=== PATIENT | female | born 1945 | race Caucasian/White ===

== ENCOUNTER → 2023-11-07 16:38 | Outpatient (REF) | payer MEDICARE, OTHER, SELFPAY ==
[2023-11-07 17:40] LABS: Hemoglobin 11.8 g/dL (12.0-16.0); Mean Corp Hgb Conc. 32.8 g/dL (33.0-37.0); Mean Corpuscular Hgb 30.9 pg (27.0-31.0); Mean Corpuscular Volume 94.2 fL (81.0-99.0); Mean Platelet Volume 9.7 fL (7.4-10.4); Platelet Count 227 10^3/uL (130-400); Red Blood Cell Count 3.82 10^6/uL (4.20-5.40); Red Cell Dist. Width 14.2 % (11.5-14.5); White Blood Cell Count 6.5 10^3/uL (4.8-10.8)
[2023-11-07 17:47] LABS: Osmolality Urine 725 mOsm/kg (300-900)
[2023-11-07 18:04] LABS: ALT (SGPT) 33 U/L (0-35); AST (SGOT) 45 U/L (14-36); Albumin 4.4 g/dl (3.5-5.0); Alkaline Phosphatase 59 U/L (38-126); Blood Urea Nitrogen 37 mg/dl (7-17); Calcium 10.1 mg/dl (8.4-10.2); Carbon Dioxide 27 mmol/L (22-30); Chloride 98 mmol/L (98-107); Direct Bilirubin 0.2 mg/dl (0.0-0.4); Glucose 99 mg/dl (70-99); Iron 87 ug/dl (37-170); Potassium 4.3 mmol/L (3.5-5.1); Sodium 132 mmol/L (135-145); Total Bilirubin 0.7 mg/dl (0.2-1.3); Total Protein 6.7 g/dl (6.3-8.2); eGFR > 60.00
[2023-11-07 18:14] LABS: Percent Saturation 24 % (20-50); Total Iron Binding Capacity 359 ug/dl (265-497)
[2023-11-07 18:40] LABS: Ferritin 53.2 ng/ml (11.1-264.0)
== END ==
LOC: REG 16:38
PROVIDERS: ATTENDING PHYSICIAN Specialist; FAMILY PHYSICIAN Internal Medicine; OTHER PHYSICIAN Internal Medicine Rheumatology; OTHER PHYSICIAN Nurse Practitioner Family
DX: E87.1 Hypo-osmolality and hyponatremia (principal); R79.89 Other specified abnormal findings of blood chemistry; E83.52 Hypercalcemia; Z87.19 Personal history of other diseases of the digestive system
CPT/HCPCS: 36415; 80053; 82248; 82728; 83540; 83550; 83935; 85027

== ENCOUNTER → 2024-01-31 10:39 | Outpatient (REF) | payer MEDICARE, OTHER, SELFPAY | LOC: REG 10:39 | PROVIDERS: ATTENDING PHYSICIAN Family Medicine; OTHER PHYSICIAN Orthopaedic Surgery; REFERRING PHYSICIAN Internal Medicine Rheumatology | DX: M25.551 Pain in right hip (principal) | CPT/HCPCS: 73502 ==

== ENCOUNTER → 2024-04-06 12:42 | Outpatient (REF) | payer MEDICARE, OTHER, SELFPAY | LOC: HWWDC 12:42 | PROVIDERS: ATTENDING PHYSICIAN Internal Medicine | DX: Z12.31 Encounter for screening mammogram for malignant neoplasm of breast (principal) | CPT/HCPCS: 77063; 77067 ==

== ENCOUNTER → 2024-04-08 09:23 | Outpatient (REF) | payer MEDICARE, OTHER, SELFPAY ==
[2024-04-08 11:51] LABS: % Basophils 0.6 % (0-2); % Eosinophils 0.8 % (0-6); % Immature Granulocytes 0.2 % (0-0.5); % Lymphocytes 18.1 % (20.5-51.1); % Monocytes 10.6 % (1.7-9.3); % Neutrophils 69.7 % (42.2-75.2); Absolute Lymphocytes 0.9 10^3/uL (1.2-3.4); Absolute Monocytes 0.6 10^3/uL (0.1-0.6); Absolute Neutrophils 3.6 10^3/uL (1.4-6.5); Hematocrit 37.5 % (37.0-47.0); Hemoglobin 12.7 g/dL (12.0-16.0); Mean Corp Hgb Conc. 33.9 g/dL (33.0-37.0); Mean Corpuscular Hgb 31.6 pg (27.0-31.0); Mean Corpuscular Volume 93.3 fL (81.0-99.0); Mean Platelet Volume 9.4 fL (7.4-10.4); Nucleated Red Blood Cells % 0 %; Platelet Count 239 10^3/uL (130-400); Red Blood Cell Count 4.02 10^6/uL (4.20-5.40); Red Cell Dist. Width 14.1 % (11.5-14.5); White Blood Cell Count 5.2 10^3/uL (4.8-10.8)
[2024-04-08 12:14] LABS: Blood Urea Nitrogen 30 mg/dl (7-17); Calcium 9.5 mg/dl (8.4-10.2); Carbon Dioxide 31 mmol/L (22-30); Chloride 95 mmol/L (98-107); Glucose 88 mg/dl (70-99); Potassium 4.3 mmol/L (3.5-5.1); Sodium 134 mmol/L (135-145); Uric Acid 3.2 mg/dl (2.5-6.2); eGFR > 60.00
[2024-04-08 12:44] LABS: Cortisol, Random 20.7 ug/dl; TSH 2.55 uIU/ml (0.47-4.68)
[2024-04-08 12:45] LABS: NT-proBNP 1130 pg/ml
== END ==
LOC: HWRAD 09:23
PROVIDERS: ATTENDING PHYSICIAN Internal Medicine Gastroenterology; FAMILY PHYSICIAN Internal Medicine; REFERRING PHYSICIAN Specialist
DX: R74.01 Elevation of levels of liver transaminase levels (principal); R60.9 Edema, unspecified; E87.1 Hypo-osmolality and hyponatremia; D64.9 Anemia, unspecified
CPT/HCPCS: 36415; 76700; 80048; 82533; 83880; 84443; 84550; 85025

== ENCOUNTER → 2024-06-11 12:05 | Outpatient (REF) | payer MEDICARE, OTHER, SELFPAY ==
[2024-06-11 13:04] LABS: % Eosinophils 2.1 % (0-6); % Immature Granulocytes 0.5 % (0-0.5); % Lymphocytes 15.9 % (20.5-51.1); % Monocytes 13.6 % (1.7-9.3); % Neutrophils 66.9 % (42.2-75.2); Absolute Basophils 0.1 10^3/uL (0-0.2); Absolute Eosinophils 0.1 10^3/uL (0-0.7); Absolute Monocytes 0.8 10^3/uL (0.1-0.6); Absolute Neutrophils 4.1 10^3/uL (1.4-6.5); Hematocrit 40.5 % (37.0-47.0); Hemoglobin 13.2 g/dL (12.0-16.0); Mean Corp Hgb Conc. 32.6 g/dL (33.0-37.0); Mean Platelet Volume 9.3 fL (7.4-10.4); Nucleated Red Blood Cells % 0 %; Platelet Count 262 10^3/uL (130-400); Red Cell Dist. Width 14.5 % (11.5-14.5); White Blood Cell Count 6.1 10^3/uL (4.8-10.8)
[2024-06-11 13:16] LABS: ALT (SGPT) 36 U/L (0-35); AST (SGOT) 45 U/L (14-36); Albumin 4.7 g/dl (3.5-5.0); Alkaline Phosphatase 69 U/L (38-126); Blood Urea Nitrogen 32 mg/dl (7-17); Carbon Dioxide 31 mmol/L (22-30); Chloride 94 mmol/L (98-107); Glucose 87 mg/dl (70-99); Potassium 4.7 mmol/L (3.5-5.1); Sodium 132 mmol/L (135-145); Total Bilirubin 0.6 mg/dl (0.2-1.3); Total Protein 7.1 g/dl (6.3-8.2); eGFR > 60.00
== END ==
LOC: REG 12:05
PROVIDERS: ATTENDING PHYSICIAN Internal Medicine Rheumatology; FAMILY PHYSICIAN Internal Medicine
DX: M17.0 Bilateral primary osteoarthritis of knee (principal); M15.0 Primary generalized (osteo)arthritis; M54.2 Cervicalgia; M81.0 Age-related osteoporosis without current pathological fracture; R26.81 Unsteadiness on feet; R53.81 Other malaise; Z51.81 Encounter for therapeutic drug level monitoring
CPT/HCPCS: 36415; 73560; 73565; 80053; 85025

== ENCOUNTER 2024-07-12 20:05 | Inpatient (IN) | payer MEDICARE, OTHER, SELFPAY ==
[2024-07-12] VITALS (11 sets, daily range): BP systolic 104–159; BP diastolic 61–110; BMI 25.8
[2024-07-12 14:31] LABS: % Basophils 0.5 % (0-2); % Eosinophils 0.3 % (0-6); % Immature Granulocytes 0.5 % (0-0.5); % Lymphocytes 11.4 % (20.5-51.1); % Monocytes 10.1 % (1.7-9.3); % Neutrophils 77.2 % (42.2-75.2); Absolute Basophils 0.1 10^3/uL (0-0.2); Absolute Immature Granulocytes 0.1 10^3/uL (0-0.05); Absolute Monocytes 0.9 10^3/uL (0.1-0.6); Hematocrit 39.7 % (37.0-47.0); Mean Corp Hgb Conc. 32.7 g/dL (33.0-37.0); Mean Corpuscular Hgb 30.4 pg (27.0-31.0); Mean Platelet Volume 9.1 fL (7.4-10.4); Nucleated Red Blood Cells % 0 %; Platelet Count 280 10^3/uL (130-400); Red Blood Cell Count 4.27 10^6/uL (4.20-5.40); Red Cell Dist. Width 15.5 % (11.5-14.5); White Blood Cell Count 9.1 10^3/uL (4.8-10.8)
[2024-07-12 14:45] LABS: ALT (SGPT) 73 U/L (0-35); AST (SGOT) 61 U/L (14-36); Albumin 4.4 g/dl (3.5-5.0); Alkaline Phosphatase 104 U/L (38-126); Blood Urea Nitrogen 35 mg/dl (7-17); Calcium 9.6 mg/dl (8.4-10.2); Carbon Dioxide 26 mmol/L (22-30); Chloride 95 mmol/L (98-107); Glucose 96 mg/dl (70-99); Potassium 4.7 mmol/L (3.5-5.1); Sodium 129 mmol/L (135-145); Total Protein 6.6 g/dl (6.3-8.2); eGFR > 60.00
[2024-07-12 14:53] LABS: NT-proBNP 6060 pg/ml
--- NOTE | 2024-07-12 16:25 | ED.GENMED ---
History of Present Illness
General
Chief Complaint: Heart Rate Problem
Source: patient
Exam Limitations: none
Time Seen by Provider: 07/12/24 15:49
History of Present Illness
History of Present Illness:
71-year-old female presents after PCP found her to be in A-fib. She had presented because her legs were swollen. She has had progressive leg swelling. Patient reports she does occasionally get palpitations but has had a heart murmur for some time
and that comes and goes over a long period time. She was found to be in A-fib by her PCP sent for further evaluation. Patient has no history of A-fib. She states in the past she has had an echocardiogram but otherwise her heart has been healthy.
She currently at rest in bed denies shortness of breath. No fever.
Past History
Past History
ED Past Medical History: Other (dry eyes)
ED Past Surgical History: Appendectomy, Cholecystectomy and Gynecological
Social History
Tobacco: Non-smoker
Living: with family
Employment: Employed
Phy Exam
Physical Exam
Physical Exam:
CONSTITUTIONAL Patient alert and oriented to person, place and time. Well-appearing. Vital signs reviewed.
HEAD atraumatic, normocephalic.
EYES eyelids normal to inspection, Extraocular muscles intact, Conjunctiva normal, Sclera normal.
NECK normal range of motion, Trachea midline, no jugular venous distention.
RESPIRATORY CHEST No respiratory distress noted, Chest expansion equal, Bilateral breath sounds clear.
CARDIOVASCULAR irregularly irregular and tachycardic, Heart sounds normal.
ABDOMEN abdomen nontender, Bowel sounds normal. No distention.
BACK normal inspection, no obvious deformities
UPPER EXTREMITY range of motion normal, Motor strength normal, no cyanosis, no edema.
LOWER EXTREMITY range of motion normal, Motor strength normal, no cyanosis, bilateral edema (L > R)
NEURO Speech normal, No focal motor deficits, [place] coma scale 15, Memory normal, Cranial Nerves intact to screening exam.
SKIN skin warm, dry, and normal in color.
Course
Orders/Labs/Results
Orders:
Orders
07/12/24 14:04
EKG [Electrocardiogram (*1)] Urgent
Reason for Study: Atrial Fibrillation
07/12/24 14:05
EKG- Treatment ONCE
07/12/24 14:23
Complete Blood Count/With Diff Urgent
Comprehensive Metabolic Panel Urgent
NT-proBNP Urgent
07/12/24 16:25
Diltiazem 125 mg/125 ml Nss [Cardizem] 125 mg in 125 ml IV NOW
Initial dose in mg/hr, then titrate:: 5
Titrate to keep:: Heart rate 80-100 bpm
Titrate by mg/hr:: 5 mg/hr
Frequency of titrations (minutes):: 15
Maximum dose in mg/hr:: 15
Diltiazem HCl [Cardizem] 10 mg IV NOW STA
CR Chest - 2 Views Urgent
Comment:
Reason For Exam: LE edema, new AF
07/12/24 16:47
Vital Signs- Treatment ONCE
Frequency: Once
07/12/24 17:04
Furosemide [Lasix] 40 mg IV NOW STA
Abnormal Lab Results
07/12/24
14:23
MCHC 32.7 L g/dL
(33.0-37.0)
RDW 15.5 H %
(11.5-14.5)
Abs Immat Gran (auto) 0.1 H 10^3/uL
(0-0.05)
Absolute Neuts (auto) 7.0 H 10^3/uL
(1.4-6.5)
Absolute Lymphs (auto) 1.0 L 10^3/uL
(1.2-3.4)
Absolute Monos (auto) 0.9 H 10^3/uL
(0.1-0.6)
Neutrophils % 77.2 H %
(42.2-75.2)
Lymphocytes % 11.4 L %
(20.5-51.1)
Monocytes % 10.1 H %
(1.7-9.3)
Sodium 129 L mmol/L
(135-145)
Chloride 95 L mmol/L
(98-107)
BUN 35 H mg/dl
(7-17)
AST 61 H U/L
(14-36)
ALT 73 H U/L
(0-35)
07/12/24 14:23
07/12/24 14:23
Vital Signs
Initial and Last Documented VS:
Initial Vital Signs
Temp Pulse Resp BP Pulse Ox
97.7 F 128 18 144/84 95
07/12/24 14:11 07/12/24 14:11 07/12/24 14:11 07/12/24 14:11 07/12/24 14:11
Last Documented Vital Signs
Temp Pulse Resp BP Pulse Ox
97.7 F 96 19 122/81 95
07/12/24 14:11 07/12/24 17:08 07/12/24 17:08 07/12/24 17:38 07/12/24 14:11
MDM/Problems Addressed
MDM/Problems Addressed:
Atrial fibrillation with RVR
*Pulse Oximetry
Patient hypoxic: no
*EKG
Interpreted by ED Provider?: Yes
Interpretation: abnormal
Rate: tachycardiac
Rhythm: a-fib
[place]: normal axis
Ischemia: non-specific ST changes
*Undergraduate Advisor Interpretation
Rate: tachycardiac
Interpretation: abnormal
Rhythm: a-fib
*Critical Care Note
Total Time (30-74mins, 75-104mins- exclusive of procedures): 40 minutes
Data Reviewed
Review of Other/Old Records Reveals: Testing (Echocardiogram from August 2022 reveals normal EF with mild mitral regurgitation)
Source: patient
Patient Management
Discussion with other providers: Hospitalist
Escalation/DeEscalation of care consider admission/obs:
79-year-old female presents with rapid atrial fibrillation. Found to have presyncope lower extremity edema and question whether mild volume overload related to new onset A-fib. Unknown when this started. Hemodynamically she is otherwise stable.
ED Attending Note
-
Portions of this chart may have been created with voice recognition software.� Occasional wrong word or��sound alike� substitutions may have occurred due to the inherent limitations of voice recognition software.
Discharge Plan
Departure
Patient Disposition: Admit
Date of Disposition: 07/12/24
Time of Disposition: 17:52
Admit to: Telemetry
Presentation/result/management discussed w/ accepting MD/DO: Hospitalist
Discharge Problem:
Atrial fibrillation with rapid ventricular response, Volume overload
Prescriptions:
No Action
cyclosporine [Restasis] 1 EACH dropperette
1 ea OP BID
Patient Comments:
EACH EYE
multivitamin [Daily Multiple] 1 EACH tablet
1 ea PO DAILY
ascorbic acid (vitamin C) [Vitamin C] 500 MG tablet
500 mg PO DAILY
Referrals:
Hanny Cerda NP [Family Provider] -
Interventions
Interventions:
*Risk Screen - Suicide Last Done: 07/12/24 14:11
*General Assessment Last Done: 07/12/24 14:11
*Neglect/Abuse Screening Last Done: 07/12/24 14:11
ED- Cardiac Assessment Last Done: 07/12/24 15:59
ED- Pulmonary Assessment Last Done: 07/12/24 15:59
Discharge Date and Time
Print Language: IRAQI
[2024-07-12] MEDS: CARDIZEM 10 MG IV (16:38)
[2024-07-12] MEDS: CARDIZEM 125 IV (16:39)
--- NOTE | 2024-07-12 18:06 | HPS.HSE ---
Family Physician
-
Family Physician: Hanny Cerda
Chief Complaint
-
referred by primary care
History of Present Illness
Patient is a 79-year-old female with past medical history significant for Sjogren's syndrome who presented to [facility] ED for evaluation as recommended by primary care provider. Patient reports she was in office for visit for follow up of
bilateral lower extremity edema. Primary care did an EKG and referred patient to ED for evaluation from concerns on EKG. At ED arrival patient in A-fib RVR. Patient denies any dizziness, palpitations and chest pain. Patient denies any recent sick
contact, fevers, chills, cough, shortness of breath, nausea, vomiting, constipation, diarrhea or urinary symptoms.
Medical History
Past Medical History
Past Medical History: Reports Other
Additional Past Medical History:
Sjogren's syndrome
osteoarthritis
Breast lump
Raynaud's syndrome
Scoliosis-back surgery
Mitral regurgitation
DJD
Sicca syndrome
Mitral valve prolapse
Atrial tachycardia
Hyponatremia, idiopathic
Recurrent partial small bowel obstruction
Gait and balance disturbance
Elevated AST (chronic)
Left-sided pulmonary nodule/granuloma
Left lower extremity edema (chronic)
Bursitis tendinitis
Lactose intolerance
Gluten enteropathy
Past Surgical History: Reports Other
Additional Past Surgical History:
Hysterectomy, total abdominal, BSO 1995
Bowel resection due to adhesions 2010
Cholecystectomy 1977
Spinal surgery revision 1997
Breast biopsy 1995
Lumbar spinal fusion with helen placement 1988
Right wrist fracture--plants/screws 2016
Cataract surgery OU 2018
Left hip bursa drainage
LEFT hip replacement 08/27/2022
Social History
Tobacco: Non-smoker
Alcohol: None
Drug: None
Personal:
Living: With Family
Employment: Retired
Family History
Family History: Other (Mom: CVA)
Allergies / Home Medications
Allergies reflects when Allergies were last updated in [employer].
Home Medications with original date entered in [employer]
Allergy/Medication List:
Allergies
Allergy/AdvReac Type Severity Reaction Status Date / Time
jose hips Allergy Hives Uncoded 03/19/18 08:34
Home Medications
ascorbic acid (vitamin C) 500 mg tablet (Vitamin C) 500 mg PO DAILY 03/19/18
cholecalciferol (vitamin D3) 25 mcg (1,000 unit) tablet (Vitamin D3) 25 mcg PO DAILY 07/12/24
cyclosporine 0.05 % eye drops in a dropperette (Restasis) 1 drp BOTH EYES Q12H 07/12/24
polyethylene glycol 3350 17 gram oral powder packet (Miralax) 17 g PO DAILY 07/12/24
therapeutic multivitamin 1 tab PO DAILY 07/12/24
Review of Systems
-
History Source: Patient
Constitutional: Reports No Symptoms
EENT: Reports No Symptoms
Respiratory: Reports No Symptoms
Cardiac: Reports No Symptoms
Abdomen/GI: Reports No Symptoms
: Reports No Symptoms
Musculoskeletal: Reports No Symptoms
Skin: Reports No Symptoms
Neurological: Reports No Symptoms
Endocrine: Reports No Symptoms
Hematologic/Lymphatic: Reports No Symptoms
Psych: Reports No Symptoms
Physical Exam
Vital Signs
Vital Signs
Temp Pulse Resp BP Pulse Ox
97.7 F 96 19 122/81 95
07/12/24 14:11 07/12/24 17:08 07/12/24 17:08 07/12/24 17:38 07/12/24 14:11
Physical Exam
General: Well Developed, Well Nourished, No Apparent Distress, Comfortable and Conversant
HEENT: NormoCephalic, Moist mucous membranes, Atraumatic, PERRLA, [place] Conjunctivae, Nose Appears Normal and Ears Appear Normal
Respiratory: Clear and Non Labored Respirations
Cardiac: S1/S2, Irregular Rhythm and Tachycardia; No Murmur, Rub or Gallop
GI: Soft, Non Tender, Non Distended and Normal Bowel Sounds; No Organomegaly
Rectal: Deferred by Provider
Genito-urinary: Deferred by me
Musculoskeletal: No Clubbing, No Cyanosis, Edema, Left Lower Extremity (+3 nonpitting edema ), Edema, Right Lower Extremity (+2 nonpitting edema ) and No Edema
Skin: Warm and IV/Catheter Site; No Rash
Neuro: Awake, Alert, AO x 3 and Nonfocal/grossly intact
Psych: Calm and Intact Judgment/Insight
Laboratory Results
-
07/12/24 14:23
07/12/24 14:23
Laboratory Results
Total Bilirubin 1.0 mg/dl (0.2-1.3) 07/12/24 14:23
AST 61 U/L (14-36) H 07/12/24 14:23
ALT 73 U/L (0-35) H 07/12/24 14:23
Alkaline Phosphatase 104 U/L (38-126) 07/12/24 14:23
Data Reviewed
-
Diagnostic Radiology: Report Reviewed by me (CXR: There are moderate bilateral pleural effusions with underlying parenchymal airspace disease at both lung bases which may be pneumonia or atelectasis.)
Medical Tests (Nuc Med, Echo, EKG etc): Report Reviewed by me (EKG: ATRIAL FIBRILLATION WITH RAPID VENTRICULAR RESPONSE RIGHTWARD AXIS NONSPECIFIC ST AND T WAVE ABNORMALITY)
Lab Data: Labs Reviewed by me (Na 129, BNP 6060)
Impression/Plan
-
IMPRESSION/PLAN:
#Atrial fibrillation RVR
EKG: ATRIAL FIBRILLATION WITH RAPID VENTRICULAR RESPONSE
RIGHTWARD AXIS
NONSPECIFIC ST AND T WAVE ABNORMALITY
CXR: There are moderate bilateral pleural effusions with underlying parenchymal airspace disease at both lung bases which may be pneumonia or atelectasis.
- Admit to IVU
- consult Cardiology
- Diltazem gtt
- ECHO in morning
#fluid overload vs. CHF
BNP 6060
ECHO (08/24/2022): Normal left ventricular size, wall thickness and systolic function. No regional wall motion abnormalities are seen. Estimated ejection fraction is 55- 60%.
Bi-leaflet mitral valve prolapse. Mild mitral regurgitation.
Mild tricuspid regurgitation
Trivial pericardial effusion
No prior echo for comparison.
- ECHO in morning
- Lasix 40mg daily
#hyponatremia
Na+ 129
- monitor BMP
#Sjogren's syndrome
- continue Restasis
Code status: Full code
DVT Prophylaxis: Lovenox sq
--- NOTE | 2024-07-12 18:37 | W.PN.UPDATE ---
Update Note
Progress Note Update
This note serves as an addendum to the H&P by heating repair technician LORETTA Chen Montalvo
HPI
79M HX SBO , no significant PMHX seen at ER;
- she pw progressive b/l Bairon edematous swelling to PCP office
- PCP found her to be in AF with RVR. No prior HX A Fib
- reports occasionally palpitations that comes and goes over a long period time.
- HX heart mumur
ROS
denies shortness of breath. No fever.
Reviewed VS: HR 140s --> 95
Vital Signs
Temp Pulse Resp BP Pulse Ox
97.7 F 96 19 122/81 95
07/12/24 14:11 07/12/24 17:08 07/12/24 17:08 07/12/24 17:38 07/12/24 14:11
PE
Gen: NAD, conversant , not orthopnic
HEENT:anicteric
Neck: wearing soft collar
Lungs: clear b/l
Cor: irregularly irregular and tachycardic
Abdomen: sogt benign
TRAILERS AND MOTOR HOMES SALESPERSON: AAO3
MS:b.l BAIRON edema under the compression stocking
Psych: nl mood and affect
Data
Laboratory Tests
07/12/24
14:23
WBC 9.1
Hgb 13.0
Plt Count 280
Sodium 129 L
Chloride 95 L
BUN 35 H
Creatinine 0.6
eGFR > 60.00
AST 61 H
ALT 73 H
Dqf-Q-Arjcwfxtyly Pept 6060
EKG
ATRIAL FIBRILLATION WITH RAPID VENTRICULAR RESPONSE
RIGHTWARD AXIS
NONSPECIFIC ST AND T WAVE ABNORMALITY
ABNORMAL ECG
WHEN COMPARED WITH ECG OF 02-OCT-2016 14:23,
ATRIAL FIBRILLATION HAS REPLACED SINUS RHYTHM
VENT. RATE HAS INCREASED BY 59 BPM
NONSPECIFIC T WAVE ABNORMALITY NOW EVIDENT IN ANTEROLATERAL LEADS
Confirmed by GRANT DE LA FUENTE, ALEX Truong ([id number]) on 07/12/2024 3:36:17 PM
08/24/22 ECHO
Normal left ventricular size, wall thickness and systolic function.
No regional wall motion abnormalities are seen.
Estimated ejection fraction is 55- 60%.
Bi-leaflet mitral valve prolapse.
Mild mitral regurgitation.
Mild tricuspid regurgitation
Trivial pericardial effusion
No prior echo for comparison.
Last hospitalist admission: 2016 for SBO
ASSESSMENT & PLAN
Volume overload
New onset acute CHF - suspect HFpEF
Underlying MVP and mitr regurgitation ( Known to Dr Cotton in the past)
- IV Lasix 40 daily
- Daily Wt, IOs
- Daily BMP
- ECHO in AM
- [facility] card consult
New onset Prx AF with RVR
HX Bi-leaflet mitral valve prolapse.
- CHADS2 score 2 ( Age, acute CHF) 4 percent
- control VR in response to Diltiazem gtt
- Rate control with Diltiazem gtt risk of thromboembolic event
- Await [facility] card evaluation for AC
Abn LFTS - suspect hepatic congestion to CHF
- trend LFTS
DVT Px: LMWH
Code: Full
IVU
[2024-07-12] MEDS: LASIX 40 MG IV (18:55)
[2024-07-12] MEDS: FLUSH (NSS) 1 FLUSH IV (22:02)
[2024-07-12] MEDS: RESTASIS 0.05% OPHTHALMIC EMULSION 1 DROPS BOTH EYES (22:02)
[2024-07-13] VITALS (18 sets, daily range): BP systolic 94–133; BP diastolic 50–85; PULSE 87; BMI 21.7
[2024-07-13 06:32] LABS: Hematocrit 37.9 % (37.0-47.0); Hemoglobin 12.8 g/dL (12.0-16.0); Mean Corp Hgb Conc. 33.8 g/dL (33.0-37.0); Mean Corpuscular Hgb 30.7 pg (27.0-31.0); Mean Corpuscular Volume 90.9 fL (81.0-99.0); Mean Platelet Volume 10.4 fL (7.4-10.4); Platelet Count 256 10^3/uL (130-400); Red Blood Cell Count 4.17 10^6/uL (4.20-5.40); Red Cell Dist. Width 15.1 % (11.5-14.5); White Blood Cell Count 5.7 10^3/uL (4.8-10.8)
[2024-07-13 07:06] LABS: ALT (SGPT) 69 U/L (0-35); AST (SGOT) 53 U/L (14-36); Albumin 3.8 g/dl (3.5-5.0); Alkaline Phosphatase 88 U/L (38-126); Blood Urea Nitrogen 27 mg/dl (7-17); Calcium 8.8 mg/dl (8.4-10.2); Carbon Dioxide 28 mmol/L (22-30); Chloride 95 mmol/L (98-107); Estimated Creatinine Clearance 63 ml/min; Glucose 72 mg/dl (70-99); HDL Cholesterol 77 mg/dl; LDL Cholesterol, Calculated 91 mg/dl; Potassium 4.1 mmol/L (3.5-5.1); Sodium 132 mmol/L (135-145); Total Bilirubin 1.3 mg/dl (0.2-1.3); Total Cholesterol 180 mg/dl (50-199); Total Protein 5.9 g/dl (6.3-8.2); Triglyceride 63 mg/dl (10-149); Very Low Density Lipoprotein 12 mg/dl (0-30); eGFR > 60.00
--- NOTE | 2024-07-13 08:51 | CON.CAR ---
Addendum entered and electronically signed by Luis Manuel Mcgregor MD 07/13/24 15:55:
I saw and examined the patient.
The Varnish Finisher's note was reviewed and I agree with the note.
Comment:
GEN: No distress, awake, Ox3
HEENT: supple, anicteric, mmm
LUNGS: dec Bs at bases
CV: Irreg, S1/S2, / syst LSB, S3+
ABD: soft, BS+, NT/ND
EXT: +1 edema
NEURO: Gross non-focal
SKIN: No rash
Plan: 79-year-old female with past medical history of mitral valve disease, SVT presents with acute heart failure with preserved ejection fraction. She has noticed increased leg edema, fatigue, and shortness of breath with weight gain. proBNP is
elevated at 6000 and chest x-ray with bilateral lateral moderate effusions. She was also found to have new onset atrial fibrillation.
Continue IV Cardizem for now. Start Toprol 25 mg p.o. twice daily. Echo today with severe mitral regurgitation. Will hold Eliquis and placed on IV heparin for now. She will need a STEPHANE to better evaluate her mitral valve. I suspect she also may
need a cardiac cath to be consideration for mitral valve repair.
Will continue a rate control strategy for her A-fib for now. Will attempt to diurese and follow her clinically. Would consider cardioversion but this would delay further management of her mitral valve disease for 1 month with uninterrupted
anticoagulation.
Increase Lasix to 40 mg IV twice daily.
Original Note:
Consultation
Consultation Request
Date/Time Consultation Performed: 07/13/24
Requesting Provider: Dr. Dobbs
Performing Provider: Jen Lawton PA-C for Dr. Grossman
Reason for Consultation: afib, CHF
Medical History
-
Chief Complaint: SOB
History of Present Illness:
Patient is a 79 yo F with PMH of MVP and MR, SVT who presented to with complaints of LE edema and abnormal EKG noted during PCP office visit yesterday. She reports since her L hip replacement 08/2022 she has noted L sided edema, however starting
in May she began to notice swelling in both legs. She is scheduled to see lymphedema clinic 08/02/24 for evaluation. As edema continued to worsen with associated weight gain, she was seen by PCP yesterday and referred to ER. ProBNP 6060 and CXR
with evidence of mod B/L pleural effusions. By EKG on arrival noted to be in afib with RVR, new diagnosis. Denies dizziness or chest discomfort. She states she has chronic palpitations and murmur related to her MVP so she has learned to ignore them.
Cardiology consulted for evaluation.
PMH:
MVP
Mild MR by echo 2022
History of SVT/Atach
Sjogren's syndrome
Chronic hyponatremia
History of SBO with bowel resection 2010
Lumbar spinal fusion with helen placement 1988 with revision 1997
OA
Past Medical History
Past Medical History: Other (in HPI)
Social History
Tobacco: Non-Smoker
Alcohol: None
Personal:
Living: With Family
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
Family History
Family History: Other (CVA in mother)
Allergies / Home Medications
Allergy/AdvReac Type Severity Reaction Status Date / Time
jose hips Allergy Hives Uncoded 03/19/18 08:34
�Medication �Instructions �Recorded �Confirmed �Type
ascorbic acid (vitamin C) 500 mg 500 mg PO DAILY 03/19/18 07/12/24 History
tablet (Vitamin C)
cholecalciferol (vitamin D3) 25 25 mcg PO DAILY 07/12/24 07/12/24 History
mcg (1,000 unit) tablet (Vitamin
D3)
cyclosporine 0.05 % eye drops in a 1 drp BOTH EYES Q12H 07/12/24 07/12/24 History
dropperette (Restasis)
polyethylene glycol 3350 17 gram 17 g PO DAILY 07/12/24 07/12/24 History
oral powder packet (Miralax)
therapeutic multivitamin 1 tab PO DAILY 07/12/24 07/12/24 History
Review of Systems
-
History Source: Patient
All other systems: Negative unless noted
Physical Exam
Vital Signs
Temp Pulse Resp BP Pulse Ox
97.8 F 81 15 96/61 95
07/13/24 05:21 07/13/24 07:00 07/13/24 07:00 07/13/24 07:00 07/13/24 04:00
Lab Results
07/13/24 05:12
07/13/24 05:12
Nzl-D-Iitpkmtrgrg Pept 6060 pg/ml 07/12/24 14:23
Physical Exam
General: No Apparent Distress and Comfortable
HEENT: Normocephalic, Anicteric and Moist Mucous Membranes
Respiratory: Clear (anterolaterally) and Non Labored Respirations
Cardiac: S1/S2, Irregular Rhythm and Murmur
GI: Soft, Non Tender, Non Distended and Normal Bowel Sounds
Musculoskeletal: No Clubbing, No Cyanosis and Edema (1+ of B/L LE with compression stockings in place)
Skin: Warm, Dry and Other (abrasion to R knee)
Neuro: AO x 3
Impression / Plan
-
Primary Leather Leveler: none prior to admission
Assessment:
Presentation with LE edema, weight gain, tachycardia
Acute CHF, unknown type
Mod B/L pleural effusions by CXR
Atrial fibrillation with RVR, new diagnosis of unclear duration
Elevated LFTs, suspected passive congestion secondary to above
MVP
Mild MR by echo 2022
History of SVT/Atach
Sjogren's syndrome
Chronic hyponatremia
History of SBO with bowel resection 2010
Lumbar spinal fusion with helen placement 1988 with revision 1997
OA
ECHO 08/2022: EF 55-60%, bileaflet MVP, mild MR, mild TR, trivial pericardial effusion
Plan:
-Patient presented to ER from PCP office due to LE edema and tachycardia/abnormal EKG.
-noted to be in afib with RVR by EKG, new diagnosis
-currently remains in afib on IV cardizem gtt @5.
-[id number] score of 5 for age, female, HTN, CHF. will initiate OAC with eliquis 5mg BID. she denies history of falls/bleeding issues
-also in acute CHF with proBNP 6060 and CXR with mod B/L pleural effusions. continue IV lasix 40mg daily. was not on lasix prior to admission
-CHF education
-she reports issues with chronic cramps. will place on potassium 10mEq daily. check magnesium
-consider chest US to eval for thoracenteses
-last echo from 08/2022 as above, repeat pending 07/13
-may consider for STEPHANE/CV prior to DC if does not spontaneously convert to SR.
-of note, she reports she has issues with ambulation at baseline. for OP appts will need someone to bring her in wheelchair from pavilion lobby up to cardiology [address] ( is unable to do this).
-d/w echo
Data Reviewed
-
EKG: Tracing Personally Visualized and interpreted
Radiology: Report Reviewed by me
Medical Tests (Nuc Med, Echo etc): Report Reviewed by me
Labs: Labs Reviewed by me
Old Records: Reviewed
[2024-07-13 09:22] LABS: Glycohemoglobin (HgbA1c) 5.4 % (4.0-5.6)
[2024-07-13] MEDS: LASIX 40 MG IV (10:15)
[2024-07-13] MEDS: MIRALAX 17 GRAMS PO (10:19)
[2024-07-13] MEDS: RESTASIS 0.05% OPHTHALMIC EMULSION 1 DROPS BOTH EYES ×2 (10:20→21:35)
[2024-07-13] MEDS: THERAGRAN 1 TABLET PO (10:20)
[2024-07-13] MEDS: VITAMIN C 500 MG PO (10:21)
[2024-07-13] MEDS: VITAMIN D3 (cholecalciferol) 25 MCG PO (10:21)
[2024-07-13] MEDS: KCL 10 MEQ PO (10:31)
[2024-07-13 11:09] LABS: Magnesium 2.2 mg/dl (1.6-2.3)
[2024-07-13] MEDS: ELIQUIS 5 MG PO (11:36)
--- NOTE | 2024-07-13 13:05 | W.PN.HOSP.TC ---
Today's Communication/Plan
-
Continue diuretics
Ankle x-rays
PT/OT
Assessment / Plan
Assessment / Plan
Gen-AAOx3, NAD
HEENT-NC, AT, anicteric, clear oral mm
Neck-supple
CV-reg, no M, +S1/S2
Lungs-clear B/L
Abd-soft, NT, ND
Ext-no edema
Musculoskeletal-no cyanosis, clubbing
Skin-warm and dry
Neuro-grossly non-focal
Psych-calm, cooperative
Acute heart failure, unknown type -await echocardiogram. Continue IV Lasix. Not on diuretics prior to admission.
Moderate bilateral pleural effusions -suspect due to congestive heart failure. Consider thoracentesis if no improvement with diuresis. She is not particularly bothered by the pleural effusions denies significant shortness of breath, does have mild
dyspnea on exertion.
Atrial fibrillation with rapid ventricular response -new diagnosis, unclear duration. Eliquis started by cardiology. Heart rate improved with IV Cardizem.
Elevated transaminases -possibly due to passive congestion from heart failure. Can check GGT.
History of SVT/atrial tachycardia
Sjogren syndrome -she is complaining of bilateral ankle pain, worse on the right. Will get x-rays. Denies recent fall or injury.
Chronic hyponatremia -sodium at baseline.
History of SBO -bowel resection 2010.
Mitral valve prolapse
Scoliosis - hx of spinal fusion with helen placement 1988, revision 1997.
Full code
Anticipated Discharge: > 48 hours
Subjective/Interval History
-
Date of Service: July 13, 2024
Patient seen and examined. Mild dyspnea on exertion.
Objective Data
-
Labs:
Laboratory Results
07/13/24
05:12
WBC 5.7
Hgb 12.8
Hct 37.9
Plt Count 256
Sodium 132 L
Potassium 4.1
Chloride 95 L
Carbon Dioxide 28
BUN 27 H
Creatinine 0.5 L
Glucose 72
Calcium 8.8
Total Bilirubin 1.3
AST 53 H
ALT 69 H
Alkaline Phosphatase 88
Vital Signs:
Vital Signs
Temp Pulse Resp BP Pulse Ox
97.8 F 91 23 123/77 96
07/13/24 05:21 07/13/24 12:00 07/13/24 12:00 07/13/24 10:16 07/13/24 07:30
Review of Systems
-
History Source: Patient
All other systems: Reviewed and negative
[2024-07-13 14:14] LABS: GGTP 37 U/L (12-43)
[2024-07-13] MEDS: CARDIZEM 125 IV (16:39)
[2024-07-13] MEDS: TOPROL XL 25 MG PO (16:49)
[2024-07-13] MEDS: HEPARIN 25000 UNITS/250 ML IV (20:20)
[2024-07-14] VITALS (9 sets, daily range): BP systolic 90–122; BP diastolic 55–80; PULSE 88; O2SAT 98; BMI 21.2
[2024-07-14 02:59] LABS: APTT 54.2 Sec (23.4-35.0)
--- NOTE | 2024-07-14 05:11 | DOWNTIME ---
There was a [employer] Client Batch Trucker Downtime on 07/14/2024 from 0100 to 07/14/2023 at 0235 . Downtime documentation of patient's care, including medication administrations, has been reconciled in the electronic record per guidelines. Refer to the
patient's paper chart under the miscellaneous tab to see printed paper medication records and downtime forms.
[2024-07-14] MEDS: VITAMIN D3 (cholecalciferol) 25 MCG PO (08:02)
[2024-07-14] MEDS: VITAMIN C 500 MG PO (08:02)
[2024-07-14] MEDS: KCL 10 MEQ PO (08:02)
[2024-07-14] MEDS: RESTASIS 0.05% OPHTHALMIC EMULSION 1 DROPS BOTH EYES ×2 (08:02→19:38)
[2024-07-14] MEDS: MIRALAX 17 GRAMS PO (08:02)
[2024-07-14] MEDS: THERAGRAN 1 TABLET PO (08:02)
[2024-07-14] MEDS: LASIX 40 MG IV (08:03)
[2024-07-14] MEDS: TOPROL XL PO (08:14)
--- NOTE | 2024-07-14 09:58 | W.PN.CARDCBS ---
Addendum entered and electronically signed by Sandra Butt MD 07/14/24 10:18:
I saw and examined the patient.
The Manual Arts Teacher's note was reviewed and I agree with the note.
Comment: Exam continues with volume overload. Crackles at the base bilateral. Irregularly irregular with 3/6 apical holosystolic murmur and trace edema bilateral.
-Echocardiogram 07/13/2024 reviewed during this admission with normal left ventricular ejection fraction. Mildly enlarged right ventricle. Bileaflet mitral valve prolapse with severe eccentric mitral regurgitation moderate to severe tricuspid
regurgitation. PA pressure 35 mmHg.
She has atrial fibrillation with rapid ventricular response of unknown duration, bilateral pleural effusions, heart failure with preserved ejection fraction with severe mitral regurgitation and moderate to severe tricuspid regurgitation.
Plan at this time which I discussed with patient:
-Continue diuresis and heart failure treatment
-Consider SGLT2 inhibitor if affordable
-Heart failure teaching. Follow weights and input/output
-Transesophageal echocardiogram to further define mitral valve anatomy given severe mitral regurgitation.
-Plan for cardiac catheterization also this week if mitral regurgitation is severe
Discussed plan at length and all questions answered. Risks and benefits of procedures discussed and she is agreeable to proceed as needed.
Original Note:
Today's Communication / Plan
-
continue IV lasix
wean off IV cardizem drip. continue toprol
NPO for STEPHANE in AM
IV heparin
Impression / Plan
-
Primary Health Claims Examiner: none prior to admission
Assessment:
Presentation with LE edema, weight gain, tachycardia
Acute CHF, unknown type
Mod B/L pleural effusions by CXR
Atrial fibrillation with RVR, new diagnosis of unclear duration
Elevated LFTs, suspected passive congestion secondary to above
MVP
Mild MR by echo 2022
History of SVT/Atach
Sjogren's syndrome
Chronic hyponatremia
History of SBO with bowel resection 2010
Lumbar spinal fusion with helen placement 1988 with revision 1997
OA
ECHO 08/2022: EF 55-60%, bileaflet MVP, mild MR, mild TR, trivial pericardial effusion
Plan:
-Patient presented to ER from PCP office due to LE edema and tachycardia/abnormal EKG.
-remains in afib with adequate rate control. increase toprol to 25mg BID and wean off IV cardizem gtt
-continue IV heparin for now. eventual transition to eliquis
-echo showed severe MR. will plan for STEPHANE in AM. pending results of STEPHANE, would consider for cath Friday and CT surgical evaluation.
-continue diuresis with IV lasix. patient reports swelling improving and weight downtrending. BMP pending today. was not on diuretic prior to admission
-CHF education
-she reports issues with chronic cramps. placed on potassium 10mEq daily. mag stable
-of note, she reports she has issues with ambulation at baseline. for OP appts will need someone to bring her in wheelchair from [facility] up to cardiology [address] ( is unable to do this).
Progress Note - Health Claims Examiner
Subjective
Date of Service: July 14, 2024
reports improvement in LE edema and good urine output overnight
Objective
Labs:
07/13/24 05:12
07/13/24 05:12
Labs
Hgb 12.8 g/dL (12.0-16.0) 07/13/24 05:12
Hct 37.9 % (37.0-47.0) 07/13/24 05:12
Plt Count 256 10^3/uL (130-400) 07/13/24 05:12
APTT 54.2 Sec (23.4-35.0) H 07/14/24 02:00
Sodium 132 mmol/L (135-145) L 07/13/24 05:12
Potassium 4.1 mmol/L (3.5-5.1) 07/13/24 05:12
BUN 27 mg/dl (7-17) H 07/13/24 05:12
Creatinine 0.5 mg/dL (0.6-1.0) L 07/13/24 05:12
Glucose 72 mg/dl (70-99) 07/13/24 05:12
Vital Signs and I&O:
Vital Signs
Temp Pulse Resp BP Pulse Ox
97.8 F 91 18 99/60 100
07/14/24 07:21 07/14/24 08:14 07/14/24 07:21 07/14/24 08:14 07/14/24 07:21
Vital Signs
Temp Pulse Resp BP Pulse Ox
97.8 F 91 18 99/60 100
07/14/24 07:21 07/14/24 08:14 07/14/24 07:21 07/14/24 08:14 07/14/24 07:21
Intake & Output
07/12/24 07/13/24 07/14/24 07/15/24
07:59 07:59 07:59 07:59
Intake Total 240 / 240
Balance 240 / 240
Physical Exam
Physical Exam
GEN: No distress, awake, alert, oriented x3
HEENT: supple, anicteric, mmm, eomi
LUNGS: Crackles B/L bases, no wheezes
CV: irreg, S1/S2, 2/6 murmur
ABD:soft, BS+, NT/ND
EXT: No cyanosis, clubbing, edema
NEURO: Gross non-focal
SKIN: Warm, pink, dry. No rash
--- NOTE | 2024-07-14 10:09 | W.PN.HOSP.TC ---
Today's Communication/Plan
-
N.p.o. after midnight
Assessment / Plan
Assessment / Plan
Gen-AAOx3, NAD
HEENT-NC, AT, anicteric, clear oral mm
Neck-supple
CV-reg, no M, +S1/S2
Lungs-clear B/L
Abd-soft, NT, ND
Ext-no edema
Musculoskeletal-no cyanosis, clubbing
Skin-warm and dry
Neuro-grossly non-focal
Psych-calm, cooperative
Acute heart failure preserved EF -echocardiogram noted. Continue IV Lasix. Not on diuretics prior to admission. Weight coming down.
Severe mitral regurgitation - for STEPHANE tomorrow. N.p.o. after midnight.
Moderate bilateral pleural effusions -suspect due to congestive heart failure. Consider thoracentesis if no improvement with diuresis. She is not particularly bothered by the pleural effusions denies significant shortness of breath, does have mild
dyspnea on exertion.
Atrial fibrillation with rapid ventricular response -new diagnosis, unclear duration. Eliquis started by cardiology. Heart rate improved with IV Cardizem.
Elevated transaminases -possibly due to passive congestion from heart failure. Can check GGT.
History of SVT/atrial tachycardia
Sjogren syndrome -she is complaining of bilateral ankle pain, worse on the right. Ankle x-rays show osteopenia, no fracture.
Chronic hyponatremia -sodium at baseline.
History of SBO -bowel resection 2010.
Mitral valve prolapse
Scoliosis - hx of spinal fusion with helen placement 1988, revision 1997.
Full code
Anticipated Discharge: > 48 hours
Subjective/Interval History
-
Date of Service: July 14, 2024
Patient seen and examined. No new complaints.
Objective Data
-
Labs:
Laboratory Results
07/14/24 07/14/24 07/14/24
02:00 09:53 10:01
APTT 54.2 H Pending
Sodium Pending
Potassium Pending
Chloride Pending
Carbon Dioxide Pending
BUN Pending
Creatinine Pending
Glucose Pending
Calcium Pending
Vital Signs:
Vital Signs
Temp Pulse Resp BP Pulse Ox
97.8 F 91 18 99/60 100
07/14/24 07:21 07/14/24 08:14 07/14/24 07:21 07/14/24 08:14 07/14/24 07:21
I&O
07/13/24 07/14/24 07/15/24
06:59 06:59 06:59
Intake Total 240 / 240
Balance 240 / 240
Review of Systems
-
History Source: Patient
All other systems: Reviewed and negative
[2024-07-14 10:13] LABS: APTT 49.3 Sec (23.4-35.0)
[2024-07-14] MEDS: TOPROL XL 25 MG PO ×2 (10:27→18:16)
[2024-07-14 12:47] LABS: Blood Urea Nitrogen 29 mg/dl (7-17); Carbon Dioxide 31 mmol/L (22-30); Chloride 94 mmol/L (98-107); Estimated Creatinine Clearance 56 ml/min; Glucose 90 mg/dl (70-99); Potassium 3.9 mmol/L (3.5-5.1); Sodium 133 mmol/L (135-145); eGFR > 60.00
--- NOTE | 2024-07-14 16:08 | CM ---
Alert awake oriented patient who lives with her Jeremy who lives in 3 story home with 3 steps to enter and 7 steps to bed/bathroom .
She is independent in all activities of daily living.Offered VN she declined. requested cook of Farixga 10 mg =$60.00/ fri MD notified.She wears a neck brace,walker,cane .
Bernardo VN/ No SNF hx
Pharmacy [facility]
PCP Dr Hanny Cerda 3D TECHNOLOGIST
PLAN Home no needs
[2024-07-14 16:50] LABS: APTT 67.1 Sec (23.4-35.0)
--- NOTE | 2024-07-14 19:06 | PTCARENOTE ---
Patient maintains HR 120-140 at rest. Asymptomatic. Cardiology made aware. Orders to restart Cardizem gtt received.
[2024-07-14] MEDS: CARDIZEM 125 IV (19:09)
[2024-07-14] MEDS: HEPARIN 25000 UNITS/250 ML IV (22:24)
--- NOTE | 2024-07-14 22:28 | PTCARENOTE ---
decreased cardizem gtt to 2.5 mg/hr per CARDIOVASCULAR OR NURSE order. Pts HR now 70s-90s , BP 104/56. pt resting comfortably at this time
[2024-07-14 23:27] LABS: APTT 86.6 Sec (23.4-35.0)
[2024-07-15 03:24] VITALS: BP 103/62
[2024-07-15 06:00] VITALS: BMI 21.4
[2024-07-15 06:44] LABS: Hematocrit 36.8 % (37.0-47.0); Hemoglobin 12.1 g/dL (12.0-16.0); Mean Corp Hgb Conc. 32.9 g/dL (33.0-37.0); Mean Corpuscular Hgb 30.7 pg (27.0-31.0); Mean Corpuscular Volume 93.4 fL (81.0-99.0); Mean Platelet Volume 9.4 fL (7.4-10.4); Platelet Count 223 10^3/uL (130-400); Red Blood Cell Count 3.94 10^6/uL (4.20-5.40); Red Cell Dist. Width 15.3 % (11.5-14.5); White Blood Cell Count 6.4 10^3/uL (4.8-10.8)
[2024-07-15] MEDS: CARDIZEM 125 IV (07:15)
[2024-07-15 07:36] VITALS: BP 111/72
[2024-07-15] MEDS: VITAMIN C 500 MG PO (08:02)
[2024-07-15] MEDS: KCL 10 MEQ PO (08:03)
[2024-07-15] MEDS: TOPROL XL 25 MG PO ×2 (08:03→22:40)
[2024-07-15] MEDS: THERAGRAN 1 TABLET PO (08:03)
[2024-07-15] MEDS: LASIX 40 MG IV ×2 (08:03→20:05)
[2024-07-15] MEDS: VITAMIN D3 (cholecalciferol) 25 MCG PO (08:03)
[2024-07-15 08:05] LABS: Blood Urea Nitrogen 25 mg/dl (7-17); Calcium 8.4 mg/dl (8.4-10.2); Carbon Dioxide 31 mmol/L (22-30); Chloride 96 mmol/L (98-107); Estimated Creatinine Clearance 56 ml/min; Glucose 87 mg/dl (70-99); Potassium 4.1 mmol/L (3.5-5.1); Sodium 129 mmol/L (135-145); eGFR > 60.00
[2024-07-15] MEDS: MIRALAX PO (08:05)
[2024-07-15] MEDS: RESTASIS 0.05% OPHTHALMIC EMULSION 1 DROPS BOTH EYES ×2 (08:05→19:51)
--- NOTE | 2024-07-15 10:43 | W.PN.CARDCBS ---
Today's Communication / Plan
-
STEPHANE with severe mitral regurgitation. Note plan cardiac cath in AM.
Increase Toprol to 50 mg p.o. twice daily.
Okay to continue IV Cardizem and rate control strategy for A-fib for now. Continue heparin with cath in AM
Impression / Plan
-
Primary Exhibition Designer: none prior to admission
Assessment:
Presentation with LE edema, weight gain, tachycardia
Acute CHF, unknown type
Mod B/L pleural effusions by CXR
Atrial fibrillation with RVR, new diagnosis of unclear duration
Elevated LFTs, suspected passive congestion secondary to above
MVP
Mild MR by echo 2022
History of SVT/Atach
Sjogren's syndrome
Chronic hyponatremia
History of SBO with bowel resection 2010
Lumbar spinal fusion with helen placement 1988 with revision 1997
OA
ECHO 08/2022: EF 55-60%, bileaflet MVP, mild MR, mild TR, trivial pericardial effusion
STEPHANE 07/15/24: EF 65%, Bileaflet mitral valve prolapse with severe mitral regurgitation, moderate TR
Plan:
STEPHANE today with severe mitral regurgitation. Will consult CT surgery for further evaluation. Plan cardiac cath in AM.
Increase Lasix to 40 mg IV twice daily.
Continue IV heparin for now.
Increase Toprol to 50 mg p.o. twice daily. Creatinine remains normal.
Will check cost of Farxiga.
Progress Note - Exhibition Designer
Subjective
Date of Service: July 15, 2024
still with sob. improving
Objective
Labs:
07/15/24 06:26
07/15/24 06:26
Labs
Hgb 12.1 g/dL (12.0-16.0) 07/15/24 06:26
Hct 36.8 % (37.0-47.0) L 07/15/24 06:26
Plt Count 223 10^3/uL (130-400) 07/15/24 06:26
APTT 137.0 Sec (23.4-35.0) H 07/15/24 06:26
Sodium 129 mmol/L (135-145) L 07/15/24 06:26
Potassium 4.1 mmol/L (3.5-5.1) 07/15/24 06:26
BUN 25 mg/dl (7-17) H 07/15/24 06:26
Creatinine 0.5 mg/dL (0.6-1.0) L 07/15/24 06:26
Glucose 87 mg/dl (70-99) 07/15/24 06:26
Vital Signs and I&O:
Vital Signs
Temp Pulse Resp BP Pulse Ox
97.8 F 95 20 111/73 97
07/15/24 07:36 07/15/24 08:03 07/15/24 07:36 07/15/24 08:03 07/15/24 07:36
Vital Signs
Temp Pulse Resp BP Pulse Ox
97.8 F 95 20 111/73 97
07/15/24 07:36 07/15/24 08:03 07/15/24 07:36 07/15/24 08:03 07/15/24 07:36
Intake & Output
07/13/24 07/14/24 07/15/24 07/16/24
06:59 06:59 06:59 06:59
Intake Total 240 / 240 780 / 780
Balance 240 / 240 780 / 780
Physical Exam
Physical Exam
GEN: No distress, awake, Ox3
HEENT: supple, anicteric, mmm
LUNGS: dec bs at bases
CV: irreg, S1/S2, 2/6 syst LSB, S3+
ABD: soft, BS+, NT/ND
EXT: No edema
NEURO: Gross non-focal
SKIN: No rash
[2024-07-15 11:49] VITALS: BP 102/68
--- NOTE | 2024-07-15 13:41 | W.PN.HOSP.TC ---
Today's Communication/Plan
-
Cardiac catheterization
Assessment / Plan
Assessment / Plan
Gen-AAOx3, NAD
HEENT-NC, AT, anicteric, clear oral mm
Neck-supple
CV-reg, no M, +S1/S2
Lungs-clear B/L
Abd-soft, NT, ND
Ext-no edema
Musculoskeletal-no cyanosis, clubbing
Skin-warm and dry
Neuro-grossly non-focal
Psych-calm, cooperative
Acute heart failure preserved EF -echocardiogram noted. Continue IV Lasix. Not on diuretics prior to admission. Weight coming down.
Severe mitral regurgitation -STEPHANE shows severe mitral regurgitation. Plan for cardiac catheterization per cardiology. CT surgery input.
Moderate bilateral pleural effusions -suspect due to congestive heart failure. Consider thoracentesis if no improvement with diuresis. She is not particularly bothered by the pleural effusions denies significant shortness of breath, does have mild
dyspnea on exertion.
Recheck chest x-ray in the morning.
Atrial fibrillation with rapid ventricular response -new diagnosis, unclear duration. Eliquis started by cardiology. Heart rate improved with IV Cardizem.
Elevated transaminases -possibly due to passive congestion from heart failure. GGT normal.
History of SVT/atrial tachycardia
Sjogren syndrome -she is complaining of bilateral ankle pain, worse on the right. Ankle x-rays show osteopenia, no fracture.
Chronic hyponatremia -sodium down to 129 today. Fluid restriction. She is known to nephrology, Dr. Sweeney.
History of SBO -bowel resection 2010.
Mitral valve prolapse
Scoliosis - hx of spinal fusion with helen placement 1988, revision 1997.
Full code
Anticipated Discharge: > 48 hours
Subjective/Interval History
-
Date of Service: July 15, 2024
Patient seen and examined. No complaints.
Objective Data
-
Labs:
Laboratory Results
07/15/24 07/15/24
06:26 14:45
WBC 6.4
Hgb 12.1
Hct 36.8 L
Plt Count 223
APTT 137.0 H Pending
Sodium 129 L
Potassium 4.1
Chloride 96 L
Carbon Dioxide 31 H
BUN 25 H
Creatinine 0.5 L
Glucose 87
Calcium 8.4
Vital Signs:
Vital Signs
Temp Pulse Resp BP Pulse Ox
97.6 F 72 20 102/68 94
07/15/24 11:49 07/15/24 11:49 07/15/24 11:49 07/15/24 11:49 07/15/24 11:49
I&O
07/14/24 07/15/24 07/16/24
06:59 06:59 06:59
Intake Total 240 / 240 780 / 780
Balance 240 / 240 780 / 780
Review of Systems
-
History Source: Patient
All other systems: Reviewed and negative
[2024-07-15 15:08] LABS: APTT 96.3 Sec (23.4-35.0)
[2024-07-15 15:46] VITALS: BP 108/70
[2024-07-15 18:06] LABS: Osmolality Urine 449 mOsm/kg (300-900)
[2024-07-15 18:21] LABS: Urine Sodium 72 mmol/L (30-90)
[2024-07-15 19:29] VITALS: BP 99/58
[2024-07-15 22:02] LABS: APTT 91.7 Sec (23.4-35.0)
[2024-07-15] MEDS: TOPROL XL PO (22:23)
--- NOTE | 2024-07-15 22:50 | W.PN.UPDATE ---
Update Note
Progress Note Update
bp 90s/50s ordered 50mg toprol tonight. Will give 25mg tonight instead due to lower bps
[2024-07-15 23:20] VITALS: BP 101/58
[2024-07-15] MEDS: HEPARIN 25000 UNITS/250 ML IV (23:53)
[2024-07-16] VITALS (13 sets, daily range): BP systolic 100–113; BP diastolic 61–71; BMI 21.2
[2024-07-16 05:47] LABS: APTT 101.2 Sec (23.4-35.0)
[2024-07-16 07:06] LABS: Blood Urea Nitrogen 26 mg/dl (7-17); Calcium 8.2 mg/dl (8.4-10.2); Carbon Dioxide 29 mmol/L (22-30); Chloride 94 mmol/L (98-107); Estimated Creatinine Clearance 56 ml/min; Glucose 82 mg/dl (70-99); Potassium 3.8 mmol/L (3.5-5.1); Sodium 130 mmol/L (135-145); eGFR > 60.00
[2024-07-16] MEDS: KCL 10 MEQ PO (09:06)
[2024-07-16] MEDS: LASIX 40 MG IV (09:06)
[2024-07-16] MEDS: RESTASIS 0.05% OPHTHALMIC EMULSION 1 DROPS BOTH EYES ×2 (09:07→21:11)
[2024-07-16] MEDS: FLUSH (NSS) 2 FLUSH IV (09:07)
[2024-07-16] MEDS: TOPROL XL 50 MG PO ×2 (09:08→21:11)
--- NOTE | 2024-07-16 11:04 | W.PN.HOSP.TC ---
Today's Communication/Plan
-
Lidocaine patch
Await catheterization
Assessment / Plan
Assessment / Plan
Gen-AAOx3, NAD
HEENT-NC, AT, anicteric, clear oral mm
Neck-supple
CV-reg, no M, +S1/S2
Lungs-clear B/L
Abd-soft, NT, ND
Ext-no edema
Musculoskeletal-no cyanosis, clubbing
Skin-warm and dry
Neuro-grossly non-focal
Psych-calm, cooperative
Acute heart failure preserved EF -echocardiogram noted. Continue IV Lasix. Not on diuretics prior to admission. Weight coming down.
Severe mitral regurgitation -STEPHANE shows severe mitral regurgitation. Plan for cardiac catheterization per cardiology. CT surgery input.
Moderate bilateral pleural effusions -suspect due to congestive heart failure. Effusions improving on chest x-ray done today.
Atrial fibrillation with rapid ventricular response -new diagnosis, unclear duration. IV heparin. Heart rate improved with IV Cardizem. Occasional hypotension noted.
Elevated transaminases -possibly due to passive congestion from heart failure. GGT normal.
History of SVT/atrial tachycardia
Sjogren syndrome -she is complaining of bilateral ankle pain, worse on the right. Ankle x-rays show osteopenia, no fracture.
Chronic hyponatremia -sodium 130 today. Fluid restriction. She is known to nephrology, Dr. Sweeney.
History of SBO -bowel resection 2010.
Mitral valve prolapse
Scoliosis - hx of spinal fusion with helen placement 1988, revision 1997.
Full code
Anticipated Discharge: > 48 hours
Subjective/Interval History
-
Date of Service: July 16, 2024
Patient seen and examined. Complaining of neck pain due to muscle spasm.
Objective Data
-
Labs:
Laboratory Results
07/16/24
05:21
APTT 101.2 H
Sodium 130 L
Potassium 3.8
Chloride 94 L
Carbon Dioxide 29
BUN 26 H
Creatinine 0.6
Glucose 82
Calcium 8.2 L
Vital Signs:
Vital Signs
Temp Pulse Resp BP Pulse Ox
97.5 F 78 16 102/68 98
07/16/24 07:05 07/16/24 07:05 07/16/24 07:05 07/16/24 07:05 07/16/24 07:05
I&O
07/15/24 07/16/24 07/17/24
06:59 06:59 06:59
Intake Total 780 / 780 720 / 720
Output Total 2124 / 2124
Balance 780 / 780 -1405 / -1405
Review of Systems
-
History Source: Patient
All other systems: Reviewed and negative
--- NOTE | 2024-07-16 16:43 | CM ---
Pt for a cardiac cardiac cath.
PT recommended VN .
Offered VN she declined need.
Husabnd will shawna [facility] home.
PLAN Home no needs
--- NOTE | 2024-07-16 16:45 | PTCARENOTE ---
received post cardiac cath- in bed, right brachial dressing dry and intact- right radial artery with R band intact- no bleeding noted, right hand cold to touch and purple in color, pox on right in 60's, but not consistently able to get POX. biology laboratory assistant
staff at bedside attempted to remove 2ml of air from R band with immediate bleeding noted at site, air reinstilled. biology laboratory assistant staff repositioned R band with improvement of POX- 88-95, fingers cool to touch , purple color remains in fingers but
earth science professor in color, patient has good sensation to fingers. post cath restrictions reviewed with patient, voiced understanding. call yanes in reach. plan of care on going.
[2024-07-16] MEDS: VITAMIN C PO (18:43)
[2024-07-16] MEDS: MIRALAX PO (18:43)
[2024-07-16] MEDS: VITAMIN D3 (cholecalciferol) PO (18:43)
[2024-07-16] MEDS: THERAGRAN PO (18:43)
[2024-07-16] MEDS: LIDOCAINE 4% PATCH TOPICAL (18:44)
--- NOTE | 2024-07-16 19:46 | ITS.CL.CATH ---
[facility] - Catheterization
Cardiac Catheterization
Procedure Report:
LEFT AND RIGHT HEART CATHETERIZATION
Date of Procedure: July 16, 2024
Referring: Ricardo Mcgregor
PROCEDURES:
1. Left heart catheterization, coronary angiogram.
2. Right heart catheterization.
3. Ultrasound-guided access
INDICATION: Severe mitral regurgitation, undergoing evaluation for possible mitral valve intervention
ACCESS:
1. Right radial artery, 5 Filipino sheath, under ultrasound guidance.
2. Right brachial vein, 6 Filipino sheath, and ultrasound-guided
Ultrasound was utilized for vascular access. The radial artery was visualized under ultrasound, and the vessels was patent and artery was pulsatile. An image was stored permanently in the patient's medical record. Under direct ultrasound
guidance, a 6 Filipino sheath was inserted into the vein and 5Fr sheath into the artery using a micropuncture kit through a modified Seldinger technique.
HEMODYNAMICS : (mmHg)
RA (m) : 11
RV (s/d,m) : 34/2, 10
PA (s/d, m) : 30/18, 22
PCWP (m) : 14 with V waves up to 21
PA saturation: 56.2% on room air
AO saturation: 94.6% on room air
Heart rate: 82 bpm
Cardiac Output : 2.52 L/min
Cardiac Index : 1.57 L/min/m-2
Systemic vascular resistance: 2161 dsc^(-5)
Pulmonary vascular resistance: 3.2 rodgers unit
AO (s/d) : 97/66
LV (s/d) : 101/6
LVEDP : 14
CORONARY FINDINGS: Patient's heart is extremely vertical and rightward rotated. A 5 Filipino Mark was utilized to engage selectively with the left coronary artery. A 5 Filipino JR4 was utilized to engage selectively with RCA.
DOMINANCE: Right
LEFT MAIN: The left main artery is a large-caliber vessel which gives rise to the left anterior descending artery and the left circumflex artery. There is mild ostial eccentric plaque.
LEFT ANTERIOR DESCENDING: The left anterior descending artery is a large-caliber vessel, moderately tortuous which gives rise to 2 major diagonal branches as it courses anterior interventricular groove and wraps around the apex. There is mild
diffuse atherosclerotic plaque.
CIRCUMFLEX: The left circumflex artery is a medium caliber vessel with minimal luminal irregularities.
RIGHT CORONARY ARTERY: The right coronary artery appears to have a high anterior takeoff but it is the focal to rule out that this is not due to underlying rotation of her heart. It is a large-caliber, dominant vessel which gives rise to the right
posterior descending artery and the right posterolateral system. There is minimal luminal irregularities.
SEDATION: 37 minutes of procedural sedation was utilized. An independent medical laboratory scientist was present to assist with and help manage the patient's level of consciousness and physiologic status.
RADIATION SUMMARY: Fluoro Time (min): 8.6, Dose (mGy): 111.05, DAP (Gy.cm2) : 10.07
Closure Device: 1. Vascular band over right radial artery, 8 cc of air.
2. Manual pressure was held over the right brachial venous access site with successful hemostasis.
CONCLUSIONS
1. No obstructive coronary artery disease.
2. Mildly elevated right and left-sided filling pressures with reduced cardiac output in the setting of a significantly elevated systemic vascular resistance.
RECOMMENDATIONS
1. Wean radial band per protocol.
2. Optimization of cardiovascular risk factors.
3. Medication adjustments to optimize filling pressures and SVR.
4. Await discussions with CT surgery in regards to possible mitral valve intervention.
Dottie Mack MD, [facility], [facility]
Copy to: Ricardo Mcgregor
--- NOTE | 2024-07-16 20:45 | PTCARENOTE ---
Dr Doran made aware that when R band is deflated 2ml bleeding continues to occur. As per protocol, R band remains inflated. Will remove 0.5-ml of air intermittently to prevent further bleeding. Will also hold the heparin gtt until R band is
removed and bleeding has stopped as per Dr Doran. Will continue to monitor.
[2024-07-16] MEDS: CARDIZEM 125 IV (23:08)
[2024-07-16] MEDS: LASIX IV (23:58)
--- NOTE | 2024-07-17 02:00 | PTCARENOTE ---
R band removed and no active bleeding at site. 4*4 with tegaderm placed with stat PTT collected to restart Heparin GTT. R fingers warm to touch with normal radial pulse and cap refill. . Pt denies any sensation changes to R hand . No hematoma noted
at site. Will continue to monitor.
[2024-07-17 02:03] LABS: APTT 39.3 Sec (23.4-35.0)
[2024-07-17] MEDS: HEPARIN 25000 UNITS/250 ML IV (02:22)
--- NOTE | 2024-07-17 02:45 | PTCARENOTE ---
Ptt 39.3. Will restart Heparin gtt at 1000 units hr as per order. Order clarified with Pharmacy to restart Heparin GTT at 1000units hour with a repeat PTT 6 hours post as per protocol.
[2024-07-17 03:33] VITALS: BP 103/61
[2024-07-17 06:00] VITALS: BMI 20.1
[2024-07-17 07:29] VITALS: BP 101/66
--- NOTE | 2024-07-17 08:45 | W.PN.HOSP.TC ---
Today's Communication/Plan
-
Await labs
Await CT surgery decision
Assessment / Plan
Assessment / Plan
Gen-AAOx3, NAD
HEENT-NC, AT, anicteric, clear oral mm
Neck-supple
CV-reg, no M, +S1/S2
Lungs-occasional crackles anteriorly
Abd-soft, NT, ND
Ext-no edema
Musculoskeletal-no cyanosis, clubbing
Skin-warm and dry
Neuro-grossly non-focal
Psych-calm, cooperative
Acute heart failure preserved EF -echocardiogram noted. Now on oral Lasix. Not on diuretics prior to admission. Weight coming down.
Severe mitral regurgitation -STEPHANE shows severe mitral regurgitation. No obstructive CAD on catheterization. CT surgery input.
Moderate bilateral pleural effusions -suspect due to congestive heart failure. Effusions improving on chest x-ray done 07/16.
Atrial fibrillation with rapid ventricular response -new diagnosis, unclear duration. IV heparin. Heart rate improved. Off IV Cardizem, continue metoprolol.
Elevated transaminases -possibly due to passive congestion from heart failure. GGT normal.
History of SVT/atrial tachycardia
Sjogren syndrome -she is complaining of bilateral ankle pain, worse on the right. Ankle x-rays show osteopenia, no fracture.
Chronic hyponatremia -sodium pending for today. Fluid restriction. She is known to nephrology, Dr. Sweeney.
History of SBO -bowel resection 2010.
Mitral valve prolapse
Scoliosis - hx of spinal fusion with helen placement 1988, revision 1997.
Full code
Anticipated Discharge: > 48 hours
Subjective/Interval History
-
Date of Service: July 17, 2024
Patient seen and examined. No complaints.
Objective Data
-
Labs:
Laboratory Results
07/17/24 07/17/24 07/17/24
01:43 06:00 08:38
WBC Pending
Hgb Pending
Hct Pending
Plt Count Pending
APTT 39.3 H Cancelled Pending
Sodium Pending
Potassium Pending
Chloride Pending
Carbon Dioxide Pending
BUN Pending
Creatinine Pending
Glucose Pending
Calcium Pending
Vital Signs:
Vital Signs
Temp Pulse Resp BP Pulse Ox
97.8 F 76 18 101/66 99
07/17/24 07:29 07/17/24 07:29 07/17/24 07:29 07/17/24 07:29 07/17/24 07:29
I&O
07/16/24 07/17/24 07/18/24
06:59 06:59 06:59
Intake Total 720 / 720
Output Total 2125 / 2125 2300 / 2300
Balance -1405 / -1405 -2300 / -2300
Review of Systems
-
History Source: Patient
All other systems: Reviewed and negative
[2024-07-17 08:51] LABS: Hematocrit 38.2 % (37.0-47.0); Hemoglobin 12.7 g/dL (12.0-16.0); Mean Corp Hgb Conc. 33.2 g/dL (33.0-37.0); Mean Corpuscular Hgb 30.7 pg (27.0-31.0); Mean Corpuscular Volume 92.3 fL (81.0-99.0); Mean Platelet Volume 9.2 fL (7.4-10.4); Platelet Count 216 10^3/uL (130-400); Red Blood Cell Count 4.14 10^6/uL (4.20-5.40); Red Cell Dist. Width 15.7 % (11.5-14.5); White Blood Cell Count 6.7 10^3/uL (4.8-10.8)
[2024-07-17 09:01] LABS: APTT 77.1 Sec (23.4-35.0)
[2024-07-17 09:21] LABS: Blood Urea Nitrogen 19 mg/dl (7-17); Carbon Dioxide 28 mmol/L (22-30); Chloride 96 mmol/L (98-107); Estimated Creatinine Clearance 56 ml/min; Glucose 130 mg/dl (70-99); Potassium 3.4 mmol/L (3.5-5.1); Sodium 131 mmol/L (135-145); eGFR > 60.00
[2024-07-17] MEDS: TOPROL XL 50 MG PO ×2 (09:47→20:15)
[2024-07-17] MEDS: VITAMIN C 500 MG PO (09:47)
[2024-07-17] MEDS: RESTASIS 0.05% OPHTHALMIC EMULSION 1 DROPS BOTH EYES ×2 (09:47→20:15)
[2024-07-17] MEDS: VITAMIN D3 (cholecalciferol) 25 MCG PO (09:47)
[2024-07-17] MEDS: KCL 10 MEQ PO (09:47)
[2024-07-17] MEDS: THERAGRAN 1 TABLET PO (09:47)
[2024-07-17] MEDS: LIDOCAINE 4% PATCH 1 PATCH TOPICAL (09:48)
[2024-07-17] MEDS: MIRALAX 17 GRAMS PO (09:48)
[2024-07-17] MEDS: LASIX 40 MG PO ×2 (09:51→16:22)
[2024-07-17 11:37] VITALS: BP 99/53
[2024-07-17] MEDS: KCL 40 MEQ PO (14:37)
[2024-07-17 14:51] LABS: Magnesium 2.3 mg/dl (1.6-2.3)
[2024-07-17 15:05] VITALS: BP 99/62
[2024-07-17 15:11] LABS: APTT 66.6 Sec (23.4-35.0)
--- NOTE | 2024-07-17 15:38 | W.PN.CARDCBS ---
Today's Communication / Plan
-
Diuresis
Continue beta-wisam, heparin
Monitor renal function, sodium
Waiting CT surgery input regarding intervention on mitral valve
Impression / Plan
-
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
Assessment:
Presentation with LE edema, weight gain, tachycardia
Acute CHF, unknown type
Mod B/L pleural effusions by CXR
Atrial fibrillation with RVR, new diagnosis of unclear duration
Elevated LFTs, suspected passive congestion secondary to above
MVP
Mild MR by echo 2022
History of SVT/Atach
Sjogren's syndrome
Chronic hyponatremia
History of SBO with bowel resection 2010
Lumbar spinal fusion with helen placement 1988 with revision 1997
OA
ECHO 08/2022: EF 55-60%, bileaflet MVP, mild MR, mild TR, trivial pericardial effusion
STEPHANE 07/15/24: EF 65%, Bileaflet mitral valve prolapse with severe mitral regurgitation, moderate TR
LHC 07/16/2024: No obstructive CAD; mildly elevated right and left-sided filling pressures with reduced cardiac output in the setting of slightly elevated SVR
Plan:
Awaiting input by CT surgery regarding mitral valve intervention
P.o. diuretic therapy for now, monitor renal function, intake and output, weights
Continue IV heparin for now.
Increase Toprol to 50 mg p.o. twice daily.
Unable to add additional medical therapy at this time due to low blood pressure, will continue to monitor
Progress Note - Business Systems Administrator
Subjective
Date of Service: July 17, 2024
Patient seen and examined. No acute events overnight. Patient resting comfortably in chair. She notes mild improvement in shortness of breath and lower extremity swelling. Denies chest pain, lightheadedness, dizziness, or weakness telemetry
demonstrates AF. -2.3 L over last 24 hours
Objective
Labs:
07/17/24 08:38
07/17/24 08:38
Labs
Hgb 12.7 g/dL (12.0-16.0) 07/17/24 08:38
Hct 38.2 % (37.0-47.0) 07/17/24 08:38
Plt Count 216 10^3/uL (130-400) 07/17/24 08:38
APTT 66.6 Sec (23.4-35.0) H 07/17/24 14:41
Sodium 131 mmol/L (135-145) L 07/17/24 08:38
Potassium 3.4 mmol/L (3.5-5.1) L 07/17/24 08:38
BUN 19 mg/dl (7-17) H 07/17/24 08:38
Creatinine 0.6 mg/dL (0.6-1.0) 07/17/24 08:38
Glucose 130 mg/dl (70-99) H 07/17/24 08:38
Vital Signs and I&O:
Vital Signs
Temp Pulse Resp BP Pulse Ox
99 F 79 18 99/53 98
07/17/24 11:37 07/17/24 11:37 07/17/24 11:37 07/17/24 11:37 07/17/24 11:37
Vital Signs
Temp Pulse Resp BP Pulse Ox
99 F 79 18 99/53 98
07/17/24 11:37 07/17/24 11:37 07/17/24 11:37 07/17/24 11:37 07/17/24 11:37
Intake & Output
07/15/24 07/16/24 07/17/24 07/18/24
06:59 06:59 06:59 06:59
Intake Total 780 / 780 720 / 720
Output Total 2124 / 2124 2300 / 2300
Balance 780 / 780 -1405 / -1405 -2300 / -2300
Physical Exam
Physical Exam
GEN: No distress, awake, Ox3
HEENT: supple, anicteric, mmm
LUNGS: dec bs at bases
CV: irreg, S1/S2, 2/6 syst LSB, S3+
ABD: soft, BS+, NT/ND
EXT: No edema
NEURO: Gross non-focal
SKIN: No rash
--- NOTE | 2024-07-17 15:49 | CM ---
CM consult completed for pricing of Eliquis 5mg BID, Xeralto 20mg
Called [facility] pharmacy & spoke with Mani for cost
Eliquis 5mg BID for month -- $594.01
Xeralto 20mg daily for month -- $592.44
tt ALEC Lira
[2024-07-17 19:26] VITALS: BP 88/57
[2024-07-17 23:00] LABS: APTT 100.9 Sec (23.4-35.0)
[2024-07-17 23:36] VITALS: BP 109/70
[2024-07-18] MEDS: HEPARIN 25000 UNITS/250 ML IV (01:53)
[2024-07-18 03:37] VITALS: BP 100/64
[2024-07-18 05:26] LABS: APTT 103.6 Sec (23.4-35.0)
[2024-07-18 06:00] VITALS: BMI 19.4
[2024-07-18 07:55] VITALS: BP 116/64
[2024-07-18] MEDS: RESTASIS 0.05% OPHTHALMIC EMULSION 1 DROPS BOTH EYES ×2 (08:13→20:26)
[2024-07-18] MEDS: VITAMIN D3 (cholecalciferol) 25 MCG PO (08:13)
[2024-07-18] MEDS: KCL 10 MEQ PO (08:13)
[2024-07-18] MEDS: TOPROL XL 50 MG PO ×2 (08:13→20:27)
[2024-07-18] MEDS: LASIX 40 MG PO ×2 (08:13→14:52)
[2024-07-18] MEDS: LIDOCAINE 4% PATCH 1 PATCH TOPICAL (08:14)
[2024-07-18] MEDS: VITAMIN C 500 MG PO (08:14)
[2024-07-18] MEDS: THERAGRAN 1 TABLET PO (08:14)
[2024-07-18] MEDS: MIRALAX 17 GRAMS PO (08:15)
--- NOTE | 2024-07-18 08:35 | W.PN.HOSP.TC ---
Today's Communication/Plan
-
Continue current care
Assessment / Plan
Assessment / Plan
Gen-AAOx3, NAD
HEENT-NC, AT, anicteric, clear oral mm
Neck-supple
CV-reg, no M, +S1/S2
Lungs-occasional crackles anteriorly
Abd-soft, NT, ND
Ext-no edema
Musculoskeletal-no cyanosis, clubbing
Skin-warm and dry, eschar on left cheek without bleeding
Neuro-grossly non-focal
Psych-calm, cooperative
Acute heart failure preserved EF -echocardiogram noted. Now on oral Lasix. Not on diuretics prior to admission. Weight coming down.
Severe mitral regurgitation -STEPHANE shows severe mitral regurgitation. No obstructive CAD on catheterization. CT surgery input.
Hypokalemia -given extra potassium yesterday, await repeat labs today.
Moderate bilateral pleural effusions -suspect due to congestive heart failure. Effusions improving on chest x-ray done 07/16.
Atrial fibrillation with rapid ventricular response -new diagnosis, unclear duration. IV heparin. Heart rate improved. Off IV Cardizem, continue metoprolol.
Elevated transaminases -possibly due to passive congestion from heart failure. GGT normal.
History of SVT/atrial tachycardia
Sjogren syndrome -she is complaining of bilateral ankle pain, worse on the right. Ankle x-rays show osteopenia, no fracture.
Chronic hyponatremia -sodium pending for today. Fluid restriction. She is known to nephrology, Dr. Sweeney.
History of SBO -bowel resection 2010.
Mitral valve prolapse
Scoliosis - hx of spinal fusion with helen placement 1988, revision 1997.
Full code
Anticipated Discharge: > 48 hours
Subjective/Interval History
-
Date of Service: July 18, 2024
Patient seen and examined. No complaints.
Objective Data
-
Labs:
Laboratory Results
07/17/24 07/17/2425
22:13 22:41 04:54
APTT Cancelled 100.9 H 103.6 H
Sodium
Potassium
Chloride
Carbon Dioxide
BUN
Creatinine
Glucose
Calcium
07/18/24
05:45
APTT
Sodium Pending
Potassium Pending
Chloride Pending
Carbon Dioxide Pending
BUN Pending
Creatinine Pending
Glucose Pending
Calcium Pending
Vital Signs:
Vital Signs
Temp Pulse Resp BP Pulse Ox
97.7 F 98 18 116/64 100
07/18/24 07:55 07/18/24 07:55 07/18/24 07:55 07/18/24 07:55 07/18/24 07:55
I&O
07/17/24 07/18/24 07/19/24
06:59 06:59 06:59
Intake Total 640 / 640
Output Total 2300 / 2300 1170 / 1170
Balance -2300 / -2300 -530 / -530
Review of Systems
-
History Source: Patient
All other systems: Reviewed and negative
[2024-07-18 08:42] LABS: Blood Urea Nitrogen 31 mg/dl (7-17); Calcium 8.4 mg/dl (8.4-10.2); Carbon Dioxide 29 mmol/L (22-30); Chloride 95 mmol/L (98-107); Estimated Creatinine Clearance 47 ml/min; Glucose 85 mg/dl (70-99); Potassium 4.4 mmol/L (3.5-5.1); Sodium 131 mmol/L (135-145); eGFR > 60.00
--- NOTE | 2024-07-18 11:03 | W.PN.CARDCBS ---
Today's Communication / Plan
-
Diuresis
Rate control with beta-wisam
Awaiting input by CT surgery regarding possible intervention for mitral valve
Impression / Plan
-
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
Assessment:
Presentation with LE edema, weight gain, tachycardia
Acute CHF, unknown type
Mod B/L pleural effusions by CXR
Atrial fibrillation with RVR, new diagnosis of unclear duration
Elevated LFTs, suspected passive congestion secondary to above
MVP
Mild MR by echo 2022
History of SVT/Atach
Sjogren's syndrome
Chronic hyponatremia
History of SBO with bowel resection 2010
Lumbar spinal fusion with helen placement 1988 with revision 1997
OA
ECHO 08/2022: EF 55-60%, bileaflet MVP, mild MR, mild TR, trivial pericardial effusion
STEPHANE 07/15/24: EF 65%, Bileaflet mitral valve prolapse with severe mitral regurgitation, moderate TR
LHC 07/16/2024: No obstructive CAD; mildly elevated right and left-sided filling pressures with reduced cardiac output in the setting of slightly elevated SVR
Plan:
Awaiting input by CT surgery regarding mitral valve intervention
P.o. diuretic therapy for now, monitor renal function, intake and output, weights
Continue IV heparin for now.
Increase Toprol to 50 mg p.o. twice daily tolerating well.
Unable to add additional medical therapy at this time due to low blood pressure, will continue to monitor
Progress Note - Mold Cleaning And Storage Supervisor
Subjective
Date of Service: July 18, 2024
Patient seen and examined's morning. No acute events overnight. Patient resting comfortably in bed. Patient notes improvement in shortness of breath and edema. She denies any chest pain, palpitations, weakness. Roughly 600 cc urine output
overnight/24 hours. Telemetry AF rate controlled.
Objective
Labs:
07/17/24 08:38
07/18/24 05:45
Labs
Hgb 12.7 g/dL (12.0-16.0) 07/17/24 08:38
Hct 38.2 % (37.0-47.0) 07/17/24 08:38
Plt Count 216 10^3/uL (130-400) 07/17/24 08:38
APTT 103.6 Sec (23.4-35.0) H 07/18/24 04:54
Sodium 131 mmol/L (135-145) L 07/18/24 05:45
Potassium 4.4 mmol/L (3.5-5.1) D 07/18/24 05:45
BUN 31 mg/dl (7-17) H 07/18/24 05:45
Creatinine 0.7 mg/dL (0.6-1.0) 07/18/24 05:45
Glucose 85 mg/dl (70-99) 07/18/24 05:45
Vital Signs and I&O:
Vital Signs
Temp Pulse Resp BP Pulse Ox
97.7 F 98 18 116/64 100
07/18/24 07:55 07/18/24 07:55 07/18/24 07:55 07/18/24 07:55 07/18/24 07:55
Vital Signs
Temp Pulse Resp BP Pulse Ox
97.7 F 98 18 116/64 100
07/18/24 07:55 07/18/24 07:55 07/18/24 07:55 07/18/24 07:55 07/18/24 07:55
Intake & Output
07/16/24 07/17/24 07/18/24 07/19/24
06:59 06:59 06:59 06:59
Intake Total 720 / 720 640 / 640
Output Total 2125 / 2125 2300 / 2300 1170 / 1170
Balance -1405 / -1405 -2300 / -2300 -530 / -530
Physical Exam
Physical Exam
GEN: No distress, awake, Ox3
HEENT: supple, anicteric, mmm
LUNGS: dec bs at bases
CV: irreg, S1/S2, 2/6 syst LSB, S3+
ABD: soft, BS+, NT/ND
EXT: No edema
NEURO: Gross non-focal
SKIN: No rash
[2024-07-18 12:04] VITALS: BP 105/61
[2024-07-18 16:11] VITALS: BP 107/75
[2024-07-18 19:17] VITALS: BP 112/84
[2024-07-18 23:10] VITALS: BP 116/80
[2024-07-19] VITALS (7 sets, daily range): BP systolic 94–123; BP diastolic 61–76; PULSE 91
[2024-07-19] MEDS: HEPARIN 25000 UNITS/250 ML IV (00:05)
[2024-07-19 06:32] LABS: Hematocrit 38.1 % (37.0-47.0); Hemoglobin 12.4 g/dL (12.0-16.0); Mean Corp Hgb Conc. 32.5 g/dL (33.0-37.0); Mean Corpuscular Hgb 30.5 pg (27.0-31.0); Mean Corpuscular Volume 93.6 fL (81.0-99.0); Mean Platelet Volume 10.6 fL (7.4-10.4); Platelet Count 211 10^3/uL (130-400); Red Blood Cell Count 4.07 10^6/uL (4.20-5.40); Red Cell Dist. Width 15.4 % (11.5-14.5); White Blood Cell Count 6.9 10^3/uL (4.8-10.8)
[2024-07-19 06:53] LABS: Blood Urea Nitrogen 31 mg/dl (7-17); Calcium 8.9 mg/dl (8.4-10.2); Carbon Dioxide 30 mmol/L (22-30); Chloride 94 mmol/L (98-107); Estimated Creatinine Clearance 48 ml/min; Glucose 84 mg/dl (70-99); Potassium 4.2 mmol/L (3.5-5.1); Sodium 128 mmol/L (135-145); eGFR > 60.00
[2024-07-19 07:30] LABS: Glucose - Point of Care 85 mg/dl (70-99)
[2024-07-19 07:54] LABS: APTT 91.1 Sec (23.4-35.0)
[2024-07-19] MEDS: TOPROL XL 50 MG PO ×2 (08:10→19:54)
[2024-07-19] MEDS: LIDOCAINE 4% PATCH 1 PATCH TOPICAL (08:11)
[2024-07-19] MEDS: VITAMIN C PO ×2 (08:11→08:17)
[2024-07-19] MEDS: LASIX 40 MG PO (08:11)
[2024-07-19] MEDS: KCL 10 MEQ PO (08:11)
[2024-07-19] MEDS: THERAGRAN 1 TABLET PO (08:11)
[2024-07-19] MEDS: VITAMIN D3 (cholecalciferol) 25 MCG PO (08:11)
[2024-07-19] MEDS: RESTASIS 0.05% OPHTHALMIC EMULSION 1 DROPS BOTH EYES ×2 (08:11→19:54)
[2024-07-19] MEDS: MIRALAX PO (08:12)
--- NOTE | 2024-07-19 09:12 | W.PN.CARDCBS ---
Addendum entered and electronically signed by Corine Griggs DO 07/19/24 17:26:
I saw and examined the patient.
The Boat Wrapper's note was reviewed and I agree with the note.
Comment: Patient seen and examined. Overall she states shortness of breath and edema are better. Chart/telemetry and echo reviewed. Appreciate CT surgery consult and recommendation
GEN: No distress, awake, Ox3. + scoliosis
HEENT: mmm
LUNGS: CTA, no wheezes/rales
CV: Reg, S1/S2, 2/6 systolic murmur LLSB, apex
ABD: soft, BS+, NT/ND
EXT: No edema
NEURO: Gross non-focal
Plan:
Heart failure with preserved ejection fraction secondary to severe mitral regurgitation associated with bileaflet mitral valve prolapse
-Left heart catheterization without obstructive coronary artery disease
-Appreciate CT surgery consult: Tentative surgery August 10, 2024 for mitral valve repair, tricuspid valve repair, maze and left atrial appendage clip.
-Preoperative CT surgery testing being arranged
-Patient will need dental clearance
-Volume status is improved with IV Lasix;wt down 30 lbs since admission, wt today 102 lbs.
-Continue oral Lasix but reduce to 40 mg once daily
-Hypokalemia - resolved.
-CHF monitoring and education ongoing
Atrial fibrillation with RVR, new diagnosis of unclear duration
-Remains in atrial fibrillation with better heart rate control
-Continue metoprolol succinate 50 mg twice daily
-STEPHANE 07/15/2024 without left atrial appendage thrombus.
-Spoke to CT surgery�will start preoperative amiodarone 200 mg daily. Plan is for maze and left atrial appendage clip at time of surgery
-Transition IV heparin to Eliquis
Chronic hyponatremia�follows with nephrology as an outpatient
Sjogren syndrome-noted
Scoliosis - hx of spinal fusion with helen placement 1988, revision 1997.
History of SBO with bowel resection 2010
Anticipate discharge home tomorrow
Original Note:
Today's Communication / Plan
-
CT surgery consult re: sev MR
Impression / Plan
-
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
Assessment:
Presentation with LE edema, weight gain, tachycardia
Acute CHF, unknown type
Mod B/L pleural effusions by CXR
Atrial fibrillation with RVR, new diagnosis of unclear duration
Elevated LFTs, suspected passive congestion secondary to above
MVP
Mild MR by echo 2022
History of SVT/Atach
Sjogren's syndrome
Chronic hyponatremia
History of SBO with bowel resection 2010
Lumbar spinal fusion with helen placement 1988 with revision 1997
OA
ECHO 08/2022: EF 55-60%, bileaflet MVP, mild MR, mild TR, trivial pericardial effusion
STEPHANE 07/15/24: EF 65%, Bileaflet mitral valve prolapse with severe mitral regurgitation, moderate TR
LHC 07/16/2024: No obstructive CAD; mildly elevated right and left-sided filling pressures with reduced cardiac output in the setting of slightly elevated SVR
Plan:
Awaiting input by CT surgery regarding mitral valve intervention-consult entered
diuresing well, wt down 30 lbs since admission, wt today 102 lbs. Pt reports baseline home wt ~105 lbs. LE edema resolved. Continue P.o. diuretic therapy for now, on Lasix 40 mg bid, consider reduce to once a day given hyponatremia. BUN/creat
stable, Na 128 (ranging 128-131). cont daily intake and output, weights
Continue IV heparin for now.
Increased Toprol to 50 mg p.o. twice daily tolerating well. telemetry personally reviewed: afib HRs 70s-110s
No longer on Cardizem.
Unable to add additional medical therapy at this time due to low blood pressure,BPs 103-128/60-70s
continue I/S
OOB
Progress Note - Senior Sql Database Developer
Subjective
Date of Service: July 19, 2024
continues to diuresis, wt now down 30 lbs since admission
remains in afib, HRs mostly contolled on Toprol 50 mg bid
Objective
Labs:
07/19/24 05:14
07/19/24 05:14
Labs
Hgb 12.4 g/dL (12.0-16.0) 07/19/24 05:14
Hct 38.1 % (37.0-47.0) 07/19/24 05:14
Plt Count 211 10^3/uL (130-400) 07/19/24 05:14
APTT 91.1 Sec (23.4-35.0) H 07/19/24 07:25
Sodium 128 mmol/L (135-145) L 07/19/24 05:14
Potassium 4.2 mmol/L (3.5-5.1) 07/19/24 05:14
BUN 31 mg/dl (7-17) H 07/19/24 05:14
Creatinine 0.7 mg/dL (0.6-1.0) 07/19/24 05:14
Glucose 84 mg/dl (70-99) 07/19/24 05:14
Vital Signs and I&O:
Vital Signs
Temp Pulse Resp BP Pulse Ox
98.8 F 102 18 123/76 94
07/19/24 07:30 07/19/24 08:10 07/19/24 07:30 07/19/24 08:10 07/19/24 03:51
Vital Signs
Temp Pulse Resp BP Pulse Ox
98.8 F 102 18 123/76 94
07/19/24 07:30 07/19/24 08:10 07/19/24 07:30 07/19/24 08:10 07/19/24 03:51
Intake & Output
07/17/24 07/18/24 07/19/24 07/20/24
06:59 06:59 06:59 06:59
Intake Total 640 / 640 840 / 840
Output Total 2300 / 2300 1170 / 1170 100 / 100
Balance -2300 / -2300 -530 / -530 740 / 740
Physical Exam
Physical Exam
GEN: No distress, awake, Ox3
HEENT: supple, anicteric, mmm
LUNGS: CTA, no wheezes/rales
CV: Reg, S1/S2, 2/6 systolic murmur LLSB, apex
ABD: soft, BS+, NT/ND
EXT: No edema
NEURO: Gross non-focal
SKIN: No rash
--- NOTE | 2024-07-19 09:23 | CONSULT.CT ---
Addendum entered and electronically signed by Leonard Hammond MD 07/19/24 12:57:
I saw and examined the patient.
The PLASTERER ROUGH's note was reviewed and I agree with the note.
Comment:
I met with Mrs. Michelle Meek at the bedside. She tells me both her MR and Afib are new to her, although she appears frail, she is very active and cares for her at home. She came in for heart failure symptoms in the form of significant weight
gain and edema of her legs. Couldn't get her shoes on is what she says. She has a distinct systolic murmur. I reviewed her STEPHANE and discussed her pathology. She has P3 prolapse and flail with severe eccentric MR directed anteriorly toward the lateral
trigone. She has moderate TR secondary to annular dilation, large LA and normal EF. I do believe her valve is repairable. Her new Afib should be addressed at time of surgery as well. Plan for MV repair/TV repair/LA MAZE + RHONA Clip, she already has a
dental visit on 07/27, so I asked her to keep that. Would get PT/OT to work with her while she is here, and then plan to bring her back for surgery on 08/10. Consent was obtained and all questions were answered to the best of my ability. She is
functional and understands and would like to move forward. My team will coordinate PATs etc. She understands to call us (my office) with any changes in the meantime. I did ask that she increase her caloric/protein intake even if only for a few
weeks.
Thank you for involving me in the care of this patient. Please feel free to contact me with any questions or concerns.
Leonard Hammond MD, MS
Cardiothoracic Surgeon
[facility]
This dictation was created using the [id number] dictation system. Please excuse any grammatical, typographical, or 'sound alike' errors.
Original Note:
Consultation
-
Date/Time Consultation Requested: 07/19
Date/Time Consultation Performed: 919
Requesting Provider: Kodi DE LA FUENTE
Performing Provider: Rosy Hammond MD
Reason for Consultation: Severe MR
Patient History
Physicians
Family Physician: Hanny Cerda
Outpatient Field Cashier: Estefany DE LA FUENTE
Inpatient Field Cashier: Meche De La Fuente
History of Present Illness
79-year-old female with past medical history significant for mitral valve prolapse and mitral regurgitation, SVT, and estrogens syndrome presented to [place]' emergency room on 07/12 after being seen by her PCP. She was found to be in A-fib and
she had complaints of lower extremity edema. While in the emergency room she was noted to have an elevated proBNP of 6060 and moderate bilateral pleural effusions. A TTE was performed which showed a normal LVEF, mildly enlarged RV, bileaflet mitral
valve prolapse with eccentric severe mitral regurgitation and moderate to severe tricuspid regurgitation. Subsequently a transesophageal echocardiogram was performed the following day which showed a eccentric jet of severe MR at the P2/P3 junction
and a possible torn cord at P2/P3. On 07/16, she was taken to the cardiac Log Manager which did not show obstructive coronary disease. Since then she has been continued on beta-wisam, heparin, and diuresis. CT surgery was consulted regarding
intervention on mitral valve.
ECHO 08/2022: EF 55-60%, bileaflet MVP, mild MR, mild TR, trivial pericardial effusion
Echocardiogram 07/13/2024 reviewed during this admission with normal left ventricular ejection fraction. Mildly enlarged right ventricle. Bileaflet mitral valve prolapse with severe eccentric mitral regurgitation moderate to severe tricuspid
regurgitation. PA pressure 35 mmHg.
STEPHANE 07/15/24: EF 65%, Bileaflet mitral valve prolapse with severe mitral regurgitation, moderate TR
LHC 07/16: Non-obstructive CAD
Past Medical History
Past Medical History: Other
Sjogren's syndrome
osteoarthritis
Breast lump
Raynaud's syndrome
Scoliosis-back surgery
Mitral regurgitation
DJD
Sicca syndrome
Mitral valve prolapse
Atrial tachycardia
Hyponatremia, idiopathic
Recurrent partial small bowel obstruction
Gait and balance disturbance
Elevated AST (chronic)
Left-sided pulmonary nodule/granuloma
Left lower extremity edema (chronic)
Bursitis tendinitis
Lactose intolerance
Gluten enteropathy
Past Surgical History
Past Surgical History: Other
Hysterectomy, total abdominal, BSO 1995
Bowel resection due to adhesions 2010
Cholecystectomy 1977
Spinal surgery revision 1997
Breast biopsy 1995
Lumbar spinal fusion with helen placement 1988
Right wrist fracture--plants/screws 2016
Cataract surgery OU 2018
Left hip bursa drainage
LEFT hip replacement 08/27/2022
Dental History
Last visit February 2024
Family History
Mother: N/A
Father: N/A
Family Medical History: Other (CVA)
Social History
Alcohol: None
Drug: None
Tobacco: Non-Smoker
Personal:
Living: With Family
Employment: Retired (Former [employer] )
Allergies
Allergy/AdvReac Type Severity Reaction Status Date / Time
jose hips Allergy Hives Uncoded 03/19/18 08:34
Home Medications
�Medication �Instructions �Recorded �Confirmed �Type
ascorbic acid (vitamin C) 500 mg 500 mg PO DAILY Supplement 03/19/18 07/12/24 History
tablet (Vitamin C)
cholecalciferol (vitamin D3) 25 25 mcg PO DAILY Supplement 07/12/24 07/12/24 History
mcg (1,000 unit) tablet (Vitamin
D3)
cyclosporine 0.05 % eye drops in a 1 drp BOTH EYES Q12 Eye Condition 07/12/24 07/13/24 History
dropperette (Restasis)
polyethylene glycol 3350 17 gram 17 g PO DAILY Constipation 07/12/24 07/12/24 History
oral powder packet (Miralax)
therapeutic multivitamin 1 tab PO DAILY Supplement 07/12/24 07/12/24 History
Review of Systems
-
History Source: Patient
General: Reports Weight Gain and Fatigue
HEENT: Reports No Symptoms
Respiratory: Reports SOB
Cardiac: Reports Palpitations
Abdomen/GI: Reports No Symptoms
: Reports No Symptoms
Musculoskeletal: Reports Arthralgias and Other (scoliosis)
Skin: Reports No Symptoms
Neurological: Reports No Symptoms
Vascular: Reports No Symptoms
Physical Exam
Vital Signs
Temp 98.8 F 07/19/24 07:30
Temp route: Oral 07/19/24 07:30
Pulse 102 07/19/24 08:10
Rhythm: Atrial fibrillation 07/19/24 08:00
With- PVC's Monomorphic 07/14/24 08:09
Resp Rate 18 07/19/24 07:30
Blood pressure 123/76 07/19/24 08:10
Blood pressure extremity used: Left upper arm 07/19/24 07:30
Position: Sitting 07/19/24 07:30
MAP (cuff-Beni Monitor) 77 07/13/24 16:42
SaO2 94 07/19/24 03:51
Oxygen Mode of Delivery Room air 07/19/24 08:00
Pulse Ox at Rest 98 07/14/24 10:29
Can the patient verbally communicate their pain? Yes 07/16/24 20:00
Actual Weight 46.465 kg 07/19/24 05:17
Body Mass Index (BMI) 20.0 07/19/24 05:17
Supine- Blood Pressure 121/76 07/14/24 10:29
Supine- Pulse 88 07/14/24 10:29
Heart rate after activity 97 07/14/24 10:29
Oxygen Saturation with Activity 96 07/19/24 07:30
Labs
07/19/24 05:14
07/19/24 05:14
APTT 91.1 Sec (23.4-35.0) H 07/19/24 07:25
Hemoglobin A1c Cancelled 07/12/24 20:37
Rvj-R-Wrgcsaletdb Pept 6060 pg/ml 07/12/24 14:23
Exam
General: Comfortable and Poor Appetite
HEENT: Normocephalic and Moist Mucous Membranes
Respiratory: Crackles (fine crackles at the base)
Cardiac: S1/S2
GI: Soft and Other (concave)
Rectal: Deferred by Provider
Skin: Warm, Dry and Other (scattered ecchymosis)
Neuro: AO x 3 and No Motor Deficits
Extremities: Pulses (+2)
Lymph: No Lymphadenopathy
Psych: Calm
Assessment / Plan
-
79-year-old female with past medical history listed above presented to the emergency room on 07/12 with complaints of lower extremity edema and atrial fibrillation. She was found to have severe MR and CT surgery was consulted for surgical evaluation
#Severe MR/ Mod TR
-Patient's case will be discussed with attending physician. Further details regarding surgical timing intervention will be determined after attending physicians full evaluation
-Routine preoperative cardiothoracic surgery orders will be initiated.
-STS risk stratification score will be calculated after preoperative testing is complete
-Continue heparin gtt and diureses as tolerated
#Chronic Hyponatermia
- Continue diureses as able
- strict I&Os
- continue daily weights
- Daily BMP
- follows Dr. Sweeney for her chronic hyponatermia (per pt trends lower 130s)
--- NOTE | 2024-07-19 11:44 | W.PN.HOSP.TC ---
Today's Communication/Plan
-
follow CT surgery and Cardiology recs
Assessment / Plan
Assessment / Plan
Assessment:
Acute heart failure preserved EF - echocardiogram noted. Now on oral Lasix. Not on diuretics prior to admission. Weight coming down.
Severe mitral regurgitation - STEPHANE shows severe mitral regurgitation. No obstructive CAD on catheterization. CT surgery input pending.
Hypokalemia - resolved.
Moderate bilateral pleural effusions - suspect due to congestive heart failure. Effusions improving on chest x-ray done 07/16.
Atrial fibrillation with rapid ventricular response - new diagnosis, unclear duration. IV heparin - requires intensive monitoring of PTTs. Heart rate improved. Off IV Cardizem, continue metoprolol.
Elevated transaminases - possibly due to passive congestion from heart failure. GGT normal.
History of SVT/atrial tachycardia
Sjogren syndrome - she is complaining of bilateral ankle pain, worse on the right. Ankle x-rays show osteopenia, no fracture.
Chronic hyponatremia - Na 128-130. continue fluid restriction. She is known to nephrology, Dr. Sweeney.
History of SBO - bowel resection 2010.
Mitral valve prolapse
Scoliosis - hx of spinal fusion with helen placement 1988, revision 1997.
DVT ppx: IV Heparin
Code: Full
Anticipated Discharge: 24 - 48 hours
Subjective/Interval History
-
Date of Service: July 19, 2024
denies sob or cp
down 30 lbs this admission
Objective Data
-
Labs:
Laboratory Results
07/19/24 07/19/24
05:14 07:25
WBC 6.9
Hgb 12.4
Hct 38.1
Plt Count 211
APTT 91.1 H
Sodium 128 L
Potassium 4.2
Chloride 94 L
Carbon Dioxide 30
BUN 31 H
Creatinine 0.7
Glucose 84
Calcium 8.9
Vital Signs:
Vital Signs
Temp Pulse Resp BP Pulse Ox
97.8 F 105 18 122/69 96
07/19/24 11:08 07/19/24 11:08 07/19/24 11:08 07/19/24 11:08 07/19/24 11:08
I&O
07/18/24 07/19/24 07/20/24
06:59 06:59 06:59
Intake Total 640 / 640 840 / 840
Output Total 1170 / 1170 100 / 100
Balance -530 / -530 740 / 740
Physical Exam
-
General: No Apparent Distress
HEENT: Normocephalic and Atraumatic
Respiratory: Clear to Auscultation
Cardiac: Regular Rhythm, S1/S2 and Murmur
GI: Soft
Neuro: AO x 3
Hematologic / Lymphatic: No Lymphadenopathy
Psych: Calm
Data Reviewed
-
Total Time Spent with Patient (in minutes): 44
Labs: Labs Reviewed by me
[2024-07-19 13:11] LABS: Prealbumin (Transthyretin) 13.9 mg/dl (17.6-36.0)
--- NOTE | 2024-07-19 14:24 | W.PN.UPDATE ---
Update Note
Progress Note Update
Patient was seen by Dr. Hammond this afternoon.
Tentative surgery date will be August 10, 2024, she will return for a mitral valve repair, tricuspid valve repair, maze and left atrial appendage clip. Consent was obtained.
Preadmission testing will be scheduled on August 02 0830. Patient stated that she has a follow-up with her dentist on July 27 and we will send dental clearance form to that office.
Patient requested information about mitral valve regurgitation, tricuspid valve regurgitation and left atrial appendage clip/maze. Information was attached to discharge instructions.
Patient will be discharged on Eliquis and scheduled to stop on August 07 after nighttime dose.
Patient was highly encouraged to eat a high-protein diet along with supplemental ensures as tolerated.
Physical therapy/Occupational Therapy was notified to see the patient.
Non-con CT chest was ordered.
Patient's tentative discharge date will be July 20, 2024.
[2024-07-19] MEDS: ELIQUIS 5 MG PO (19:53)
[2024-07-20] VITALS (10 sets, daily range): BP systolic 82–136; BP diastolic 55–81; O2SAT 98; BMI 20.2
[2024-07-20 06:01] LABS: Blood Urea Nitrogen 31 mg/dl (7-17); Calcium 9.4 mg/dl (8.4-10.2); Carbon Dioxide 31 mmol/L (22-30); Chloride 93 mmol/L (98-107); Estimated Creatinine Clearance 48 ml/min; Glucose 90 mg/dl (70-99); Potassium 4.4 mmol/L (3.5-5.1); Sodium 127 mmol/L (135-145); eGFR > 60.00
[2024-07-20 06:04] LABS: APTT 31.4 Sec (23.4-35.0)
[2024-07-20 06:13] LABS: Hematocrit 37.2 % (37.0-47.0); Hemoglobin 12.1 g/dL (12.0-16.0); Mean Corp Hgb Conc. 32.5 g/dL (33.0-37.0); Mean Corpuscular Hgb 30.5 pg (27.0-31.0); Mean Corpuscular Volume 93.7 fL (81.0-99.0); Mean Platelet Volume 10.2 fL (7.4-10.4); Platelet Count 204 10^3/uL (130-400); Red Blood Cell Count 3.97 10^6/uL (4.20-5.40); Red Cell Dist. Width 15.4 % (11.5-14.5); White Blood Cell Count 6.7 10^3/uL (4.8-10.8)
[2024-07-20] MEDS: ELIQUIS 5 MG PO ×2 (08:40→21:30)
[2024-07-20] MEDS: LIDOCAINE 4% PATCH 1 PATCH TOPICAL (08:40)
[2024-07-20] MEDS: TOPROL XL 50 MG PO ×2 (08:41→21:30)
[2024-07-20] MEDS: KCL 10 MEQ PO (08:41)
[2024-07-20] MEDS: THERAGRAN 1 TABLET PO (08:41)
[2024-07-20] MEDS: VITAMIN C PO ×2 (08:41→08:54)
[2024-07-20] MEDS: PACERONE 200 MG PO (08:41)
[2024-07-20] MEDS: VITAMIN D3 (cholecalciferol) 25 MCG PO (08:41)
[2024-07-20] MEDS: RESTASIS 0.05% OPHTHALMIC EMULSION 1 DROPS BOTH EYES ×2 (08:41→21:30)
[2024-07-20] MEDS: FLUSH (NSS) 1 FLUSH IV (08:42)
[2024-07-20] MEDS: MIRALAX PO (08:42)
[2024-07-20] MEDS: LASIX 40 MG PO (08:42)
--- NOTE | 2024-07-20 09:28 | W.PN.HOSP.TC ---
Today's Communication/Plan
-
pending timing of thoracentesis, possible dc by evening vs tomorrow
will arrange dc in advance
Assessment / Plan
Assessment / Plan
Assessment:
Acute heart failure preserved EF - echocardiogram noted. Now on oral Lasix. Not on diuretics prior to admission. Weight coming down.
Severe mitral regurgitation - STEPHANE shows severe mitral regurgitation. No obstructive CAD on catheterization. CT surgery planning mitral valve regurgitation, tricuspid valve regurgitation and left atrial appendage clip/maze 08/10
Right pleural effusion related to acute CHF
- for thoracentesis (labs ordered) today. d/w IR/CT surgery/Cardiology, patient/family
Hypokalemia - resolved.
Atrial fibrillation with rapid ventricular response - continue metoprolol/eliquis
Elevated transaminases - possibly due to passive congestion from heart failure. GGT normal.
History of SVT/atrial tachycardia
Sjogren syndrome - she is complaining of bilateral ankle pain, worse on the right. Ankle x-rays show osteopenia, no fracture.
Chronic hyponatremia - Na 128-130. continue fluid restriction. She is known to nephrology, Dr. Sweeney.
History of SBO - bowel resection 2010.
Mitral valve prolapse
Scoliosis - hx of spinal fusion with helen placement 1988, revision 1997.
DVT ppx: Eliquis
Code: Full
More than 30 minutes spent in discharge including
Final examination of the patient
Summarizing hospital stay
Instructions for continuing care to all relevant caregivers
Preparation of discharge records, prescriptions, and referral forms
Total time spent (in minutes): 41
Anticipated Discharge: Today
Subjective/Interval History
-
Date of Service: July 20, 2024
resting comfortably
no complaints
Objective Data
-
Labs:
Laboratory Results
07/20/24
05:30
WBC 6.7
Hgb 12.1
Hct 37.2
Plt Count 204
APTT 31.4
Sodium 127 L
Potassium 4.4
Chloride 93 L
Carbon Dioxide 31 H
BUN 31 H
Creatinine 0.7
Glucose 90
Calcium 9.4
Vital Signs:
Vital Signs
Temp Pulse Resp BP Pulse Ox
98.0 F 63 16 136/79 100
07/20/24 07:55 07/20/24 07:55 07/20/24 07:55 07/20/24 07:55 07/20/24 07:55
I&O
07/19/24 07/20/24 07/21/24
06:59 06:59 06:59
Intake Total 840 / 840 1332 / 1332
Output Total 100 / 100 0 / 0
Balance 740 / 740 1332 / 1332
Physical Exam
-
General: No Apparent Distress
HEENT: Normocephalic and Atraumatic
Respiratory: Negative Wheezes
Cardiac: Regular Rhythm and S1/S2
GI: Soft and Nontender
Musculoskeletal: No Edema
Neuro: AO x 3
Psych: Calm
Data Reviewed
-
Total Time Spent with Patient (in minutes): 41
Labs: Labs Reviewed by me
--- NOTE | 2024-07-20 09:59 | W.PN.CARDCBS ---
Addendum entered and electronically signed by Mack Bradofrd DO 07/20/24 21:03:
I saw and examined the patient.
The Corporate Communications Intern's note was reviewed and I agree with the note.
Comment:
Plan:
Transitioned to oral lasix
Thoracentesis today
Cont fluid restriction
CT surgery evaluating timing of outpt surgery
Pt appears to be at increased risk of readmission
Original Note:
Today's Communication / Plan
-
IR consult for R thora
may need increase in po lasix
fluid restriction
CT surgery to discuss timing of surgery with patient. seems to be high risk for readmission
continue toprol, amio, eliquis
Impression / Plan
-
Primary Insurance Writer: none prior to admission
Assessment:
Presentation with LE edema, weight gain, tachycardia
Acute CHF, unknown type
Mod B/L pleural effusions by CXR
Atrial fibrillation with RVR, new diagnosis of unclear duration
Elevated LFTs, suspected passive congestion secondary to above
MVP
Mild MR by echo 2022
History of SVT/Atach
Sjogren's syndrome
Chronic hyponatremia
History of SBO with bowel resection 2010
Lumbar spinal fusion with helen placement 1988 with revision 1997
OA
ECHO 08/2022: EF 55-60%, bileaflet MVP, mild MR, mild TR, trivial pericardial effusion
STEPHANE 07/15/24: EF 65%, Bileaflet mitral valve prolapse with severe mitral regurgitation, moderate TR
LHC 07/16/2024: No obstructive CAD; mildly elevated right and left-sided filling pressures with reduced cardiac output in the setting of slightly elevated SVR
Plan:
-presented with LE edema, weight gain, tachycardia and found to be in acute CHF and with atrial fibrillation with RVR, both new diagnoses. By echo she had evidence of severe MR, new compared to prior with preserved EF. she underwent STEPHANE confirming
severe MR as well as cath without obstructive CAD. She was evaluated by CT surgery and is planned for MV repair, TV repair, MAZE, RHONA clip 08/10/24.
-she has been diuresed this admission and was transitioned to po lasix 40mg daily on 07/19/24. CT scan completed 07/19 as part of surgical evaluation showed mod R pleural effusion. upon discussion with CT surgery CONCRETE CARPENTER and hospitalist, plan for R thora
today if IR able. more aggressive diuresis limited by hyponatremia, however may attempt to send on higher dose po lasix if able.
-she remains in afib with controlled rates and occasional PVCs on toprol 50 mg BID and amiodarone 200mg daily. she was transitioned to eliquis 07/19
-would attempt to expedite surgery as surgery able as she is high risk for recurrent CHF and readmission.
-she is scheduled for dental clearance as OP 07/27.
-confirmed patient should be on high protein diet with fluid restriction
-d/w nursing, CT surgery CONCRETE CARPENTER, hospitalist.
Progress Note - Insurance Writer
Subjective
Date of Service: July 20, 2024
denies CP, SOB, palpitations.
Objective
Labs:
07/20/24 05:30
07/20/24 05:30
Labs
Hgb 12.1 g/dL (12.0-16.0) 07/20/24 05:30
Hct 37.2 % (37.0-47.0) 07/20/24 05:30
Plt Count 204 10^3/uL (130-400) 07/20/24 05:30
APTT 31.4 Sec (23.4-35.0) 07/20/24 05:30
Sodium 127 mmol/L (135-145) L 07/20/24 05:30
Potassium 4.4 mmol/L (3.5-5.1) 07/20/24 05:30
BUN 31 mg/dl (7-17) H 07/20/24 05:30
Creatinine 0.7 mg/dL (0.6-1.0) 07/20/24 05:30
Glucose 90 mg/dl (70-99) 07/20/24 05:30
Vital Signs and I&O:
Vital Signs
Temp Pulse Resp BP Pulse Ox
98.0 F 63 16 136/79 100
07/20/24 07:55 07/20/24 07:55 07/20/24 07:55 07/20/24 07:55 07/20/24 07:55
Vital Signs
Temp Pulse Resp BP Pulse Ox
98.0 F 63 16 136/79 100
07/20/24 07:55 07/20/24 07:55 07/20/24 07:55 07/20/24 07:55 07/20/24 07:55
Intake & Output
07/18/24 07/19/24 07/20/24 07/21/24
07:59 07:59 07:59 07:59
Intake Total 640 / 640 840 / 840 1332 / 1332
Output Total 1170 / 1170 100 / 100 0 / 0
Balance -530 / -530 740 / 740 1332 / 1332
Physical Exam
Physical Exam
GEN: No distress, awake, alert, oriented x3
HEENT: supple, anicteric, mmm, eomi
LUNGS: Decreased RLB, no wheezes
CV: Irreg, S1/S2, 2/6 murmur
ABD: soft, BS+, NT/ND
EXT: No cyanosis, clubbing, edema
NEURO: Gross non-focal
SKIN: Warm, pink, dry. No rash
[2024-07-20 10:54] LABS: LDH 232 U/L (120-246); Total Protein 5.2 g/dl (6.3-8.2)
--- NOTE | 2024-07-20 12:50 | W.DS.TRANS ---
DC Summary - Miller Supervisor
-
Discharge Instructions:
Discharge Diagnosis/Procedures severe mitral regurgitation, pleural effusion s/
p thoracentesis, acute CHF
Diet 2 Gram Sodium,Restrict fluids to 48 oz
Activity As tolerated
Driving Restrictions No driving for 24 hours
Specialty Instructions Weigh Daily
Instructions: Tricuspid regurgitation
Mitral regurgitation
Maze Procedure, Open Surgery
Left Atrial Appendage Closure
*PCP/Other Tax Consultant Heart Failure Instructions
Stand-Alone Forms: DC Instructions- Cath/EP Lab
Changes to Home Medications: No
Discharge Medications:
DC Medications w/original date entered in [employer]
ascorbic acid (vitamin C) 500 mg tablet (Vitamin C) 500 mg PO DAILY Supplement 03/19/18
cholecalciferol (vitamin D3) 25 mcg (1,000 unit) tablet (Vitamin D3) 25 mcg PO DAILY Supplement 07/12/24
cyclosporine 0.05 % eye drops in a dropperette (Restasis) 1 drp BOTH EYES Q12 Eye Condition 07/12/24
polyethylene glycol 3350 17 gram oral powder packet (Miralax) 17 g PO DAILY Constipation 07/12/24
therapeutic multivitamin 1 tab PO DAILY Supplement 07/12/24
amiodarone 200 mg tablet 200 mg PO DAILY #30 tabs 07/20/24
apixaban 5 mg tablet (Eliquis) 5 mg PO BID #60 tabs 07/20/24
furosemide 40 mg tablet 40 mg PO DAILY #30 tabs 07/20/24
metoprolol succinate 50 mg tablet,extended release 24 hr 50 mg PO BID #60 tabs 07/20/24
potassium chloride 10 mEq tablet,extended release(part/cryst) 10 meq PO DAILY #30 tabs 07/20/24
Home Medication Changes
Pending Results: No
Total time spent discharging patient (in min): 41
--- NOTE | 2024-07-20 12:59 | CM ---
Addendum entered by Leticia Vallecillo RN 07/20/24 16:30:
Pt requested VN . [facility] notified of referral .
PLAN Home with [facility]
Original Note:
indicated pt for discharge today .
Called [facility] Eliquis 5mg BID for month -- $594.01. s notified.
Pt given Eliquis soupon for first mon .
Pt declined VN at [facility].
Family to drive her home.
Pt for follow up surgery in July MV repair.
PLAN Home no needs
[2024-07-20 15:25] LABS: Body Fluid pH 7.58
[2024-07-20 15:35] LABS: Body Fluid Amylase 40 U/L; Body Fluid Glucose 104 mg/dl; Body Fluid LDH 105 U/L; Body Fluid Protein 2.2 g/dl; Body Fluid Triglycerides < 30 mg/dl
[2024-07-20 15:39] LABS: Body Fluid WBC 702 /CUMM
[2024-07-20 15:50] LABS: Body Fluid Second Tech EYM
[2024-07-21 03:07] VITALS: BP 106/59
[2024-07-21 06:00] VITALS: BMI 19.8
[2024-07-21 06:59] LABS: Hematocrit 41.3 % (37.0-47.0); Hemoglobin 13.7 g/dL (12.0-16.0); Mean Corp Hgb Conc. 33.2 g/dL (33.0-37.0); Mean Corpuscular Hgb 30.4 pg (27.0-31.0); Mean Corpuscular Volume 91.8 fL (81.0-99.0); Platelet Count 238 10^3/uL (130-400); Red Cell Dist. Width 15.3 % (11.5-14.5); White Blood Cell Count 6.7 10^3/uL (4.8-10.8)
[2024-07-21 07:05] VITALS: BP 120/60
[2024-07-21 07:18] LABS: Blood Urea Nitrogen 31 mg/dl (7-17); Calcium 9.5 mg/dl (8.4-10.2); Carbon Dioxide 28 mmol/L (22-30); Chloride 91 mmol/L (98-107); Estimated Creatinine Clearance 48 ml/min; Glucose 86 mg/dl (70-99); Potassium 4.5 mmol/L (3.5-5.1); Sodium 128 mmol/L (135-145); eGFR > 60.00
[2024-07-21] MEDS: TOPROL XL 50 MG PO (08:11)
[2024-07-21] MEDS: VITAMIN D3 (cholecalciferol) 25 MCG PO (08:11)
[2024-07-21] MEDS: RESTASIS 0.05% OPHTHALMIC EMULSION 1 DROPS BOTH EYES (08:11)
[2024-07-21] MEDS: KCL 10 MEQ PO (08:11)
[2024-07-21] MEDS: ELIQUIS 5 MG PO (08:11)
[2024-07-21] MEDS: PACERONE 200 MG PO (08:11)
[2024-07-21] MEDS: THERAGRAN 1 TABLET PO (08:12)
[2024-07-21] MEDS: LIDOCAINE 4% PATCH 1 PATCH TOPICAL (08:12)
[2024-07-21] MEDS: VITAMIN C PO (08:12)
[2024-07-21] MEDS: LASIX PO (08:15)
[2024-07-21] MEDS: LASIX 40 MG PO (08:26)
--- NOTE | 2024-07-21 09:45 | VNURNOTE ---
Home Health Liaison met with patient at bedside to discuss [facility] nurse/therapy, visits, schedule and homebound status. Patient is agreeable and understands that visits at home will be 2-3 x per week to assess and teach medical management. Patient
is aware that [facility] will contact them for start of care in 1-2 days after discharge from . [facility] referral updated in [facility] Port: added CERTIFIED ART THERAPIST and DIET KITCHEN COOK consults. List of caregiver agencies provided, pt stated her spouse is limited in ability to care for
her.
[2024-07-21 10:21] VITALS: BP 97/56; PULSE 76; O2SAT 96
--- NOTE | 2024-07-21 10:34 | CM ---
Patient with Dx HF. Room air. PT/OT recommend HH.
Spoke with patient who was preparing for discharge. The patient says she feels ready to go home today. IMM completed yesterday by prior CM- reviewed again with patient today on her request. Patient is aware she is setup with [facility] for PT/OT and
agrees she walked well today with PT.
Patient had questions about her diet - connected her to speak with Pamela Fabrication Engineer.
Patient says her nephew will provide transport home.
Plan home today with VN.
[2024-07-21 11:00] VITALS: BP 104/64
--- NOTE | 2024-07-21 13:14 | W.PN.HOSP.TC ---
Today's Communication/Plan
-
dc home/VN
Assessment / Plan
Assessment / Plan
Assessment:
Acute heart failure preserved EF - echocardiogram noted. Now on oral Lasix. Not on diuretics prior to admission. Weight coming down.
Severe mitral regurgitation - STEPHANE shows severe mitral regurgitation. No obstructive CAD on catheterization. CT surgery planning mitral valve regurgitation, tricuspid valve regurgitation and left atrial appendage clip/maze 08/10
Right pleural effusion related to acute CHF
- s/p thoracentesis 07/20: 400 cc removed.
Hypokalemia - resolved.
Atrial fibrillation with rapid ventricular response - continue metoprolol/eliquis
Elevated transaminases - possibly due to passive congestion from heart failure. GGT normal.
History of SVT/atrial tachycardia
Sjogren syndrome - she is complaining of bilateral ankle pain, worse on the right. Ankle x-rays show osteopenia, no fracture.
Chronic hyponatremia - Na 128-130. continue fluid restriction. She is known to nephrology, Dr. Sweeney.
History of SBO - bowel resection 2010.
Mitral valve prolapse
Scoliosis - hx of spinal fusion with helen placement 1988, revision 1997.
DVT ppx: Eliquis
Code: Full
More than 30 minutes spent in discharge including
Final examination of the patient
Summarizing hospital stay
Instructions for continuing care to all relevant caregivers
Preparation of discharge records, prescriptions, and referral forms
Total time spent (in minutes): 41
Anticipated Discharge: Today
Subjective/Interval History
-
Date of Service: July 21, 2024
did well with PT
no complaints
for DC today
Objective Data
-
Labs:
Laboratory Results
07/21/24 07/21/24
06:07 06:08
WBC 6.7
Hgb 13.7
Hct 41.3
Plt Count 238
Sodium 128 L
Potassium 4.5
Chloride 91 L
Carbon Dioxide 28
BUN 31 H
Creatinine 0.7
Glucose 86
Calcium 9.5
Vital Signs:
Vital Signs
Temp Pulse Resp BP Pulse Ox
98.2 F 78 16 104/64 98
07/21/24 11:00 07/21/24 11:00 07/21/24 11:00 07/21/24 11:00 07/21/24 11:24
I&O
07/20/24 07/21/24 07/22/24
06:59 06:59 06:59
Intake Total 1332 / 1332 900 / 900
Output Total 0 / 0
Balance 1332 / 1332 900 / 900
Physical Exam
-
General: No Apparent Distress
HEENT: Normocephalic and Atraumatic
Respiratory: Negative Wheezes
Cardiac: Regular Rhythm and S1/S2
GI: Soft
Neuro: AO x 3
Psych: Calm
Data Reviewed
-
Total Time Spent with Patient (in minutes): 41
Labs: Labs Reviewed by me
[2024-07-21 15:00] VITALS: BP 118/83
--- NOTE | 2024-07-21 16:17 | W.PN.CARDCBS ---
Addendum entered and electronically signed by Mack Bradford DO 07/21/24 17:24:
I saw and examined the patient.
The Route Jumper's note was reviewed and I agree with the note.
Comment:
Plan:
Patient being discharged today.
Outpatient follow-up arranged.
Continue Lasix at 40 mg twice daily.
Check BMP in 1 week.
Continue amiodarone Eliquis and Toprol for atrial fibrillation.
Patient is for mitral valve repair August 10.
Original Note:
Today's Communication / Plan
-
for DC today
OP cardiac follow up arranged
PATs arranged. plan for return for MV repair 08/10
po lasix 40mg BID
BMP in 1 week
toprol 50mg BID
amio 200mg daily
eliquis 5mg BID
Impression / Plan
-
Primary Eyewear Manufacturing Tech: none prior to admission
Assessment:
Presentation with LE edema, weight gain, tachycardia
Acute CHF, unknown type
Mod B/L pleural effusions by CXR
Atrial fibrillation with RVR, new diagnosis of unclear duration
Elevated LFTs, suspected passive congestion secondary to above
MVP
Mild MR by echo 2022
History of SVT/Atach
Sjogren's syndrome
Chronic hyponatremia
History of SBO with bowel resection 2010
Lumbar spinal fusion with helen placement 1988 with revision 1997
OA
ECHO 08/2022: EF 55-60%, bileaflet MVP, mild MR, mild TR, trivial pericardial effusion
STEPHANE 07/15/24: EF 65%, Bileaflet mitral valve prolapse with severe mitral regurgitation, moderate TR
LHC 07/16/2024: No obstructive CAD; mildly elevated right and left-sided filling pressures with reduced cardiac output in the setting of slightly elevated SVR
Plan:
-late entry note
-presented with LE edema, weight gain, tachycardia and found to be in acute CHF and with atrial fibrillation with RVR, both new diagnoses. By echo she had evidence of severe MR, new compared to prior with preserved EF. she underwent STEPHANE confirming
severe MR as well as cath without obstructive CAD. She was evaluated by CT surgery and is planned for MV repair, TV repair, MAZE, RHONA clip 08/10/24.
-underwent R thora 07/20 for 400cc. plan for po lasix 40mg BID upon DC
-BMP in 1 week. follow hyponatremia with continued diuresis
-continue toprol 50mg BID, amiodarone 200mg daily, eliquis 5mg BID. rates felt to be adequately controlled in afib.
-she is high risk for recurrent CHF and readmission
-she is scheduled for dental clearance as OP 07/27
-planned for high protein diet with fluid restriction upon DC
-OP cardiac follow up arranged
-d/w nursing, CT surgery ONION TIER, hospitalist.
Progress Note - Eyewear Manufacturing Tech
Subjective
Date of Service: July 21, 2024
no issues overnight noted
Objective
Labs:
07/21/24 06:07
07/21/24 06:08
Labs
Hgb 13.7 g/dL (12.0-16.0) 07/21/24 06:07
Hct 41.3 % (37.0-47.0) 07/21/24 06:07
Plt Count 238 10^3/uL (130-400) 07/21/24 06:07
APTT 31.4 Sec (23.4-35.0) 07/20/24 05:30
Sodium 128 mmol/L (135-145) L 07/21/24 06:08
Potassium 4.5 mmol/L (3.5-5.1) 07/21/24 06:08
BUN 31 mg/dl (7-17) H 07/21/24 06:08
Creatinine 0.7 mg/dL (0.6-1.0) 07/21/24 06:08
Glucose 86 mg/dl (70-99) 07/21/24 06:08
Vital Signs and I&O:
Vital Signs
Temp Pulse Resp BP Pulse Ox
98.3 F 81 16 118/83 98
07/21/24 15:00 07/21/24 15:00 07/21/24 15:00 07/21/24 15:00 07/21/24 15:00
Vital Signs
Temp Pulse Resp BP Pulse Ox
98.3 F 81 16 118/83 98
07/21/24 15:00 07/21/24 15:00 07/21/24 15:00 07/21/24 15:00 07/21/24 15:00
Intake & Output
07/19/24 07/20/24 07/21/24 07/22/24
07:59 07:59 07:59 07:59
Intake Total 840 / 840 1332 / 1332 900 / 900
Output Total 100 / 100 0 / 0
Balance 740 / 740 1332 / 1332 900 / 900
== END 2024-07-21 16:09 | disposition home health service (06) | DRG 286 ==
LOC: 4 EAST ACU 20:05
PROVIDERS: Hospitalist; Internal Medicine Interventional Cardiology; Nurse Practitioner Family; Physician Assistant; Radiology Diagnostic Radiology; ADMITTING PHYSICIAN Internal Medicine; ATTENDING PHYSICIAN Internal Medicine; CONSULT PHYSICIAN Thoracic Surgery (Cardiothoracic Vascular Surgery); EMERGENCY PHYSICIAN Emergency Medicine; FAMILY PHYSICIAN Internal Medicine; OTHER PHYSICIAN Internal Medicine Cardiovascular Disease
PROC: B24BZZ4 Ultrasonography of Heart with Aorta, Transesophageal (ICD-10-PCS; 2024-07-15)
PROC: 4A023N8 Measurement of Cardiac Sampling and Pressure, Bilateral, Percutaneous Approach (ICD-10-PCS; 2024-07-16)
PROC: B2111ZZ Fluoroscopy of Multiple Coronary Arteries using Low Osmolar Contrast (ICD-10-PCS; 2024-07-16)
PROC: 0W993ZZ Drainage of Right Pleural Cavity, Percutaneous Approach (ICD-10-PCS; 2024-07-20)
DX: I08.1 Rheumatic disorders of both mitral and tricuspid valves (principal); I50.31 Acute diastolic (congestive) heart failure; I47.19 Other supraventricular tachycardia; I47.10 Supraventricular tachycardia, unspecified; E87.1 Hypo-osmolality and hyponatremia; I31.39 Other pericardial effusion (noninflammatory); I11.0 Hypertensive heart disease with heart failure; E87.6 Hypokalemia; I48.91 Unspecified atrial fibrillation; M35.00 Sjogren syndrome, unspecified; Z90.49 Acquired absence of other specified parts of digestive tract; M41.9 Scoliosis, unspecified; M19.90 Unspecified osteoarthritis, unspecified site; I73.00 Raynaud's syndrome without gangrene; M77.9 Enthesopathy, unspecified; E73.9 Lactose intolerance, unspecified; Z90.710 Acquired absence of both cervix and uterus; Z98.1 Arthrodesis status; Z96.642 Presence of left artificial hip joint; Z82.3 Family history of stroke; I25.10 Atherosclerotic heart disease of native coronary artery without angina pectoris; M85.872 Other specified disorders of bone density and structure, left ankle and foot; M85.871 Other specified disorders of bone density and structure, right ankle and foot
CPT/HCPCS: 88305; 32555; 71045; 71046; 71250; 73600; 76937; 80048; 80053; 80061; 82150; 82945; 82962; 82977; 83036; 83615; 83735; 83880; 83935; 83986; 84134; 84155; 84157; 84300; 84478; 85025; 85027; 85730; 87015; 87070; 87205; 88112; 89051; 93005; 93306; 93312; 93320; 93325; 93460; 96374; 97166; 97530; 97535; 99152; 99153; 99291; C1769; C1894; Q9967

== ENCOUNTER → 2024-08-02 08:51 | Outpatient (REF) | payer MEDICARE, OTHER, SELFPAY ==
[2024-08-02 10:23] LABS: NT-proBNP 3700 pg/ml
[2024-08-02 10:37] LABS: Magnesium 3.1 mg/dl (1.6-2.3)
== END ==
LOC: REG 08:51
PROVIDERS: ATTENDING PHYSICIAN Nurse Practitioner; FAMILY PHYSICIAN Internal Medicine
DX: I48.0 Paroxysmal atrial fibrillation (principal)
CPT/HCPCS: 83735; 83880

== ENCOUNTER 2024-08-10 05:37 | Inpatient (IN) | payer MEDICARE, OTHER, SELFPAY ==
[2024-08-02 08:51] VITALS: BMI 18.8
[2024-08-02 10:07] LABS: INR 1.54; PT 18.7 Sec (11.4-14.6)
[2024-08-02 10:08] LABS: APTT 43.1 Sec (23.4-35.0)
[2024-08-02 10:12] LABS: % Basophils 1.4 % (0-2); % Eosinophils 1.4 % (0-6); % Immature Granulocytes 0.7 % (0-0.5); % Lymphocytes 10.8 % (20.5-51.1); % Monocytes 8.7 % (1.7-9.3); Absolute Basophils 0.1 10^3/uL (0-0.2); Absolute Eosinophils 0.1 10^3/uL (0-0.7); Absolute Immature Granulocytes 0.1 10^3/uL (0-0.05); Absolute Lymphocytes 0.8 10^3/uL (1.2-3.4); Absolute Monocytes 0.7 10^3/uL (0.1-0.6); Absolute Neutrophils 5.9 10^3/uL (1.4-6.5); Hematocrit 44.2 % (37.0-47.0); Hemoglobin 14.8 g/dL (12.0-16.0); Mean Corp Hgb Conc. 33.5 g/dL (33.0-37.0); Mean Corpuscular Hgb 31.3 pg (27.0-31.0); Mean Corpuscular Volume 93.4 fL (81.0-99.0); Mean Platelet Volume 9.2 fL (7.4-10.4); Nucleated Red Blood Cells % 0 %; Platelet Count 328 10^3/uL (130-400); Red Blood Cell Count 4.73 10^6/uL (4.20-5.40); Red Cell Dist. Width 16.1 % (11.5-14.5); White Blood Cell Count 7.7 10^3/uL (4.8-10.8)
[2024-08-02 10:30] LABS: Urine Albumin 2+ (Neg - Trace); Urine Bilirubin Negative (Negative); Urine Character Clear (Clear); Urine Color Yellow; Urine Glucose Negative (Negative); Urine Ketone Negative (Negative); Urine Leukocyte 3+ (Negative); Urine Nitrite Negative (Negative); Urine Occult Blood 2+ (Negative); Urine Specific Gravity 1.015 (<1.030); Urine Urobilinogen Negative (Neg - 1+)
[2024-08-02 10:43] LABS: ALT (SGPT) 69 U/L (0-35); AST (SGOT) 50 U/L (14-36); Albumin 4.8 g/dl (3.5-5.0); Alkaline Phosphatase 76 U/L (38-126); Calcium 10.2 mg/dl (8.4-10.2); Carbon Dioxide 29 mmol/L (22-30); Chloride 103 mmol/L (98-107); Direct Bilirubin 0.1 mg/dl (0.0-0.4); Estimated Creatinine Clearance 26 ml/min; Glucose 113 mg/dl (70-99); Potassium 3.9 mmol/L (3.5-5.1); Sodium 146 mmol/L (135-145); Total Bilirubin 0.9 mg/dl (0.2-1.3); Total Protein 7.6 g/dl (6.3-8.2); eGFR 46.33
[2024-08-02 11:00] LABS: Blood Urea Nitrogen 129 mg/dl (7-17)
--- NOTE | 2024-08-02 11:13 | CM ---
Chart reviewed. Met with the patient in PAT. Patient is independent of ADLS, lives with her in a 3 [address], 4 [address]ON[address], ambulates with a SPC, RW and also a rollator. Patient's unable to help patient when discharged. Reviewed preoperative
and postoperative instructions and restrictions, along with showering guidelines. Gave patient 2 soaps. Patient is agreeable to a home visit by CT Transitional RN. Patient may need PT evaluation to determine functional assessment. Plan is for
the patient to return home with CT Transitional RN vs SNF/Acute Rehab. CM to follow
[2024-08-02 12:10] LABS: Urine Squamous Cell 0-2 /LPF (Few)
[2024-08-02 12:11] LABS: Urine Amorphous Seen; Urine Urothelial Cell 0-2 /LPF (FEW)
[2024-08-02 12:14] LABS: Urine Bacteria Few (Negative)
--- NOTE | 2024-08-09 22:19 | W.PN.CT ---
Documented by User: Compa Miner PA-C 08/10/24 08:04
Today's Communication / Plan
-
Plan:
-Will admit to IVU for hydration, monitoring, and plan for surgery later this week or early next week once medically optimized, pr Dr. Hammond
-Will consult Renal and GI
Assessment / Plan
-
79 y/o pleasant woman was scheduled for MV repair, TV repair, MAZE, ELAA by Dr. Hammond today 08/10/24, but preop labs showed acute CARLIE (cr 1.6), and pt appeared severely dehydrated, developed a generalized macular rash which she attributes to
chlorhexidine soap she used prior to arrival to CVICU, hence case is postponed until maybe Friday08/13/24 vs next week. Off note pts states she was on Lasix 40 mg PO BID until yesterday, and also had diarrhea yesterday 08/09.
Assessment:
-Acute CARLIE, markedly elevated BUN
-Azotemia
-Cachexia
-Severe MR
-Moderate MR
-Acute diastolic CHF
-LVEF 55-60%, per STEPHANE 07/15/24
-B/L pleural effusion S/P right thoracentesis with evacuation of 400 mL straw colored pleural fluid, 07/20/24
-B/L LE edema
-Atrial fibrillation with RVR, new diagnosis (on Eliquis @ home)
-Hx SVT/Atach
-HTN
-Sjogren's syndrome
-Sicca syndrome
-Raynaud's syndrome
-Transaminitis
-Chronic hyponatremia with recent hypernatremia, likely d/t over diuresis
-Recent Azotemia likely d/t over diuresis
-Left-sided pulmonary nodule/granuloma
-Lactose intolerance
-Gluten enteropathy
-DJD/Osteoarthritis
-Bursitis tendinitis
-Gait and balance disturbance
-Scoliosis s/p Lumbar spinal fusion with helen placement 1988, with revision in 1997
-S/p Left hip bursa drainage
-S/p LEFT hip replacement, 08/27/2022
-Breast lump S/p Breast biopsy, 1995
-S/P Hysterectomy, total abdominal, BSO, 1995
-S/P Cholecystectomy, 1977
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
-S/P Right wrist fracture--plants/screws 2016
-S/p Cataract surgery OU 2018
Discussed patient care with: Cardiology, Nursing, Pharmacy and Care Team
Subjective
-
Date of Service: August 09, 2024
Pt offers no complaints
Objective Data
-
Lab Results
08/02/24 09:27
08/02/24 09:27
PT 18.7 Sec (11.4-14.6) H 08/02/24 09:27
INR 1.54 08/02/24 09:27
APTT 43.1 Sec (23.4-35.0) H 08/02/24 09:27
Physical Exam
-
General: Awake, Oriented and AOx3
Cardiovascular: Regular rate & rhythm and Murmur (3/6 systolic)
Extremities: No Edema
Data Reviewed
-
Lab Results: Results Reviewed
Medications: Active Meds Reviewed
Chest X-Ray: Report Reviewed and Image Reviewed
ECG: Report Reviewed and Image Reviewed

Documented by User: ALEC Tristan 08/10/24 07:35
Assessment / Plan
-
Assessment:
-elevated BUN
- acute CARLIE
-Severe MR
-Moderate MR
-Acute diastolic CHF
-LVEF 55-60%, per STEPHANE 07/15/24
-B/L pleural effusion S/P right thoracentesis with evacuation of 400 mL straw colored pleural fluid, 07/20/24
-B/L LE edema
-Atrial fibrillation with RVR, new diagnosis (on Eliquis @ home)
-Hx SVT/Atach
-HTN
-Sjogren's syndrome
-Sicca syndrome
-Raynaud's syndrome
-Transaminitis
-Chronic hyponatremia with recent hypernatremia, likely d/t over diuresis
-Recent Azotemia likely d/t over diuresis
-Left-sided pulmonary nodule/granuloma
-Lactose intolerance
-Gluten enteropathy
-DJD/Osteoarthritis
-Bursitis tendinitis
-Gait and balance disturbance
-Scoliosis s/p Lumbar spinal fusion with helen placement 1988, with revision in 1997
-S/p Left hip bursa drainage
-S/p LEFT hip replacement, 08/27/2022
-Breast lump S/p Breast biopsy, 1995
-S/P Hysterectomy, total abdominal, BSO, 1995
-S/P Cholecystectomy, 1977
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
-S/P Right wrist fracture--plants/screws 2016
-S/p Cataract surgery OU 2018
[2024-08-10] VITALS (7 sets, daily range): BP systolic 88–98; BP diastolic 56–67; BMI 17.8
[2024-08-10] MEDS: PROTONIX 40 MG PO (06:25)
[2024-08-10] MEDS: LOPRESSOR 25 MG PO (06:25)
[2024-08-10] MEDS: BACTROBAN 2% OINTMENT 1 APPLIC NASAL (06:25)
[2024-08-10 06:26] LABS: ALT (SGPT) 60 U/L (0-35); AST (SGOT) 37 U/L (14-36); Albumin 4.5 g/dl (3.5-5.0); Alkaline Phosphatase 85 U/L (38-126); Calcium 9.3 mg/dl (8.4-10.2); Carbon Dioxide 22 mmol/L (22-30); Chloride 99 mmol/L (98-107); Direct Bilirubin 0.2 mg/dl (0.0-0.4); Estimated Creatinine Clearance 19 ml/min; Glucose 130 mg/dl (70-99); Magnesium 2.8 mg/dl (1.6-2.3); Potassium 3.8 mmol/L (3.5-5.1); Sodium 134 mmol/L (135-145); Total Bilirubin 1.3 mg/dl (0.2-1.3); Total Protein 6.8 g/dl (6.3-8.2); eGFR 32.81
--- NOTE | 2024-08-10 06:27 | W.CVOR.SURPR ---
CVOR Surgeon Immed Pre Op
-
I have examined this patient prior to performance of the scheduled procedure.
The patient's condition is unchanged from the time of the dictated/written History and
Physical and the patient is able to undergo the scheduled procedure.
MVr / TVr/ LA MAZE/ RHONA Clip
[2024-08-10 06:33] LABS: Blood Urea Nitrogen 135 mg/dl (7-17)
--- NOTE | 2024-08-10 06:34 | W.PN.UPDATE ---
Update Note
Progress Note Update
Found to have an acute kidney injury from normal baseline creatinine. She describes episodes of diarrhea on Friday which resolved after stopping her miralax, however, she is very likely dehydrated with combination of Lasix and GI losses. Will admit
to IVU for hydration, monitoring, and plan for surgery later this week or early next week once medically optimized.
--- NOTE | 2024-08-10 07:57 | PTCARENOTE ---
Pt admitted to room 2262. Pt needed wheelchair assistance. Unsteady on feet. Uses cane. Pt changed into gown. Generalized rash noted on patients body - all over back, chest, stomach, and parts of their arms. Pt states the rash appeared after her
first CHG shower at home. Pt had a visiting nurse come help her with the shower. Pt states she was told not to do the second CHG bath at home. Pt confirmed NPO status since 0 on 08/09. VS and weight obtained. Labs sent. Admission questions
completed and home medications confirmed. Pt stated she had multiple episodes of diarrhea on Tuesday 08/08 - Dr. Hammond aware. Upon results of labs, diarrhea, and rash - Dr. Hammond decided to move surgery to later in the week or next week. Pt and family
made aware. Pre-op Protonix and metoprolol administered before finding out surgery was cancelled. Pre-op mag not administered. Family at bedside. Call yanes within reach.
[2024-08-10] MEDS: LR 1000 IV ×2 (09:43→19:36)
--- NOTE | 2024-08-10 09:51 | PTCARENOTE ---
Patient transferred to [facility], taken by ; Report given to Ariane RN; Patient belongings taken with patient; Spouse notified and aware
--- NOTE | 2024-08-10 11:12 | CON.GI ---
Addendum entered and electronically signed by Carlin Douglas MD 08/10/24 13:14:
Patient seen and examined, agree with nurse practitioner note. The patient is a 79-year-old female with extensive past medical history as noted here for preparation for MVR, TVR maze procedure and left atrial appendage clip. She is noted to have
mildly elevated LFTs. She has a longstanding history of elevated LFTs, mostly AST, with extensive workup in the past including imaging and serologies in 2022 which were negative. She was recently increased on diuretics and has had significant
weight loss now presents with azotemia, BUN greater than 100 and creatinine of 1.6. She currently denies any abdominal pain, nausea, vomiting. She did have an episode of loose stools after relative constipation which is chronic for her. She takes
MiraLAX routinely. She has not had any further symptoms. On exam she has no abdominal tenderness.
1. Elevated LFTs likely multifactorial, with chronic history of mild elevation with extensive negative workup in the past, now slightly higher likely from relatively low flow with excessive diuresis. Drug-induced injury from amiodarone seems less
likely given only minimal elevation. At this point would continue observation to hold on any further workup. No GI contraindication to planned upcoming surgery.
2. Diarrhea: 1 episode of loose stool after relative constipation, also likely secondary to diuresis, with chronic constipation on MiraLAX at home. At this point would continue MiraLAX as needed, getting IV fluids and gentle rehydration now.
Will hold on any further GI evaluation for now, though please call back with any further questions.
Original Note:
Consultation
-
Date/Time Consultation Requested: 08/10/24 [id number]
Date/Time Consultation Performed: 08/10/24 1115
Requesting Provider: ALEC Tristan
Performing Provider: ALEC Keene, Carlton Douglas MD
Reason for Consultation: increased LFT's and diarrhea
Medical History
Chief Complaint / HPI
Chief Complaint: dry mouth, diarrhea
History of Present Illness:
Pt is a 79yo with hx SVT/atach, severe MR, mod TR, colon polyps, chronic AST elevation Sjogren, osteoarthritis, breast lump, raynaud's, scoliosis with gait and balance issues, ,sicca, hyponatremia, recurrent PSBO and prior bowel resection, prior
jose elias, , pulm nodules, LLE edema, bursitis, lactose intolerance, gluten enteropathy( elevated TTG and IGA in past with neg celiac biopsy) with admission for MVR, TVR, LA MAZE, RHONA clip but noted with CARLIE creat up to 1.6, diarrhea improved after
stopping Miralax and elevated LFT's with bili 1.3, AST 37, alt 60 , and alk phos 85 and surgery was held for optimization. Asked to see for recent diarrhea and LFT elevation. Pt also with complaints of dry mouth.
In review with patient she had minimal medical problems. She was admitted in June with noted new severe MR with pleural effusion requiring thoracentesis and concern for acute heart failure with severe MR and rapid afib. During that
admission she was noted with some LFT elevation related to passive congestion. She was seen by CT surgery and recommended surgical intervention and was newly started on multiple medications including Amiodarone, Furosemide, metoprolol, and
potassium As far as GI history she has follow with Dr. Bassett for several years. In 2020 she had some elevated celiac serologies but bx was negative. She followed gluten free diet at some point with less bloating but not recently. She also
had some chronic AST elevation of unclear etiology. In 2022 she completed SMA, A1AT, celiac, ceruloplasmin with neg results.
At this time she admits to use of miralax daily since bowel surgery in past. She typically will have 1 stool daily. On Friday she had 1 formed stool then 2 loose stools. She denies recent travel, abx or sick contacts. She admits to
occasional bloating and belching, and crampy abdominal pain but denies GERD, nausea, vomiting, constipation or rectal bleeding. Last EGD/colon 2020 with polyps, hemorrhagic gastropahy and neg celiac testing.
Past Medical History
Past Medical History: Arrhythmias (SVT/ Atach), Valvular Disease (severe MR, mod TR) and Other (colon polyps, sjogrens, osteoarthritis, breast lump, raynaud's, scoliososis with gait and balance issues ,sicca, hyponatremia, recurrent PSBO and prior
bowel resection, prior jose elias, , pulm nodules, LLE edema, bursitis, lactose intolerance, glutent enteropathy )
Past Surgical History: Bowel Resection (due to adhesions 2010), Cholecystectomy, Gynecological (MONROE/BSO, breast biopsy ) and Orthopedic (spinal fusion with helen placement 1988 and revision 1997, hip replacement 08/2022, left bursa drainage, wrist fx )
Social History
Tobacco: Non-Smoker
Alcohol: None
Drug: None
Personal:
Living: With Family
Employment: Retired
Family History
Family History: Other (no family hx Gi issues or liver problems)
Allergies / Home Medications
Allergy/AdvReac Type Severity Reaction Status Date / Time
chlorhexidine Allergy Intermediate rash Verified 08/10/24 07:48
jose hips Allergy Hives Uncoded 08/10/24 07:48
�Medication �Instructions �Recorded
ascorbic acid (vitamin C) 500 mg 500 mg PO DAILY Supplement 03/19/18
tablet (Vitamin C)
cholecalciferol (vitamin D3) 25 50 mcg PO DAILY Supplement 07/12/24
mcg (1,000 unit) tablet (Vitamin
D3)
cyclosporine 0.05 % eye drops in a 1 drp BOTH EYES Q12 Eye Condition 07/12/24
dropperette (Restasis)
polyethylene glycol 3350 17 gram 17 g PO DAILY Constipation 07/12/24
oral powder packet (Miralax)
therapeutic multivitamin 1 tab PO DAILY Supplement 07/12/24
amiodarone 200 mg tablet 200 mg PO DAILY #30 tabs 07/20/24
apixaban 5 mg tablet (Eliquis) 5 mg PO BID #60 tabs 07/20/24
potassium chloride 10 mEq 10 meq PO DAILY #30 tabs 07/20/24
tablet,extended release(part/cryst)
furosemide 40 mg tablet (Lasix) 40 mg PO BID #60 tabs 07/21/24
denosumab 60 mg/mL subcutaneous 60 mg SC [id number] 07/29/24
syringe (Prolia)
metoprolol succinate 50 mg 25 mg PO BID 07/29/24
tablet,extended release 24 hr
Review of Systems
-
History Source: Patient
Constitutional: Reports Weight Loss ( 20 kg loss since jun admit wt )
EENT: Reports No Symptoms
Respiratory: Reports Trouble Breathing (on prior admission)
Cardiac: Reports No Symptoms
Abdomen/GI: Reports Abdominal Pain (occasional crampy pain) and Diarrhea
: Reports No Symptoms
Musculoskeletal: Reports No Symptoms
Skin: Reports No Symptoms
Neurological: Reports No Symptoms
Endocrine: Reports No Symptoms
Hematologic/Lymphatic: Reports No Symptoms
Vital Signs
Temp Pulse Resp BP Pulse Ox
97.6 F 80 16 89/67 100
08/10/24 09:40 08/10/24 11:00 08/10/24 09:40 08/10/24 09:39 08/10/24 09:40
Physical Exam
Exam
General: Well Developed and Well Nourished
Respiratory: Clear
Cardiac: Regular Rhythm and Murmur
GI: Soft, Non Tender and Non Distended
Musculoskeletal: No Clubbing and No Cyanosis
Skin: Warm and Dry
Neuro: Awake, Alert and AO x 3
Psych: Calm
Results
WBC 7.7 10^3/uL (4.8-10.8) 08/02/24 09:27
Hgb 14.8 g/dL (12.0-16.0) 08/02/24 09:27
Hct 44.2 % (37.0-47.0) 08/02/24 09:27
MCV 93.4 fL (81.0-99.0) 08/02/24 09:27
Plt Count 328 10^3/uL (130-400) 08/02/24 09:27
Absolute Neuts (auto) 5.9 10^3/uL (1.4-6.5) 08/02/24 09:27
PT 18.7 Sec (11.4-14.6) H 08/02/24 09:27
INR 1.54 08/02/24 09:27
APTT 43.1 Sec (23.4-35.0) H 08/02/24 09:27
Sodium 134 mmol/L (135-145) L 08/10/24 05:59
Potassium 3.8 mmol/L (3.5-5.1) 08/10/24 05:59
Chloride 99 mmol/L (98-107) 08/10/24 05:59
Carbon Dioxide 22 mmol/L (22-30) 08/10/24 05:59
BUN 135 mg/dl (7-17) H* 08/10/24 05:59
Creatinine 1.6 mg/dL (0.6-1.0) H 08/10/24 05:59
Calcium 9.3 mg/dl (8.4-10.2) 08/10/24 05:59
Total Bilirubin 1.3 mg/dl (0.2-1.3) 08/10/24 05:59
AST 37 U/L (14-36) H 08/10/24 05:59
ALT 60 U/L (0-35) H 08/10/24 05:59
Alkaline Phosphatase 85 U/L (38-126) 08/10/24 05:59
Diagnostic Image Results:
04/08/24 US Abdomen Complete/Upper
No acute hepatobiliary abnormalities.
Surgically absent gallbladder.
Additional incidental findings detailed above.
Prior GI Procedures:
EGD: 10/2020 [facility] - Normal examined duodenum. Biopsied.
- Hemorrhagic gastropathy. Biopsied.
- A few gastric polyps. Biopsied.
- Small hiatal hernia.
- Z-line regular, 37 cm from the incisors.
- No gross lesions in esophagus. Biopsied.
bx early fundic gland polyp, neg celiac, neg H pylori
Colonoscopy: 10/2020 [facility] - One 5 mm polyp in the ascending colon, removed with
a cold snare. Resected and retrieved.
- Diverticulosis in the sigmoid colon and in the
descending colon.
- Redundant colon
bx TA
Assessment / Plan
-
Pt is a 79yo with hx SVT/atach, severe MR, mod TR, colon polyps, chronic AST elevation Sjogren, osteoarthritis, breast lump, raynaud's, scoliosis with gait and balance issues, ,sicca, hyponatremia, recurrent PSBO and prior bowel resection, prior
jose elias, , pulm nodules, LLE edema, bursitis, lactose intolerance, gluten enteropathy( elevated TTG and IGA in past with neg celiac biopsy) with admission in June with noted new severe MR with pleural effusion requiring thoracentesis and concern
for acute heart failure with severe MR and rapid afib. During that admission she was noted with some LFT elevation related to passive congestion. She was seen by CT surgery and recommended surgical intervention and was newly started on multiple
medications including Amiodarone, Furosemide, metoprolol, and potassium. She now returned for MVR, TVR, LA MAZE, RHONA clip but noted with CARLIE creat up to 1.6, diarrhea improved after stopping Miralax and elevated LFT's with bili 1.3, AST 37, alt
60 , and alk phos 85 and surgery was held for optimization.
-mild transaminase elevation with hx chronic AST elevation
-diarrhea x 2 on 08/08 without recurrence
-new MR with pleural effusion requiring thoracentesis and concern for acute heart failure with severe MR and rapid afib with admission 06/2024
-newly added Amiodarone, Furosemide, metoprolol, and potassium
-plan for MVR, TVR, LA MAZE, RHONA clip
other med problems:
-colon polyps
-PSBO with prior bowel resection
-hx lactulose tolerance
-prior + celiac serology with neg SB bx
-Sjogren's
-breast lump
-raynaud's
-scoliosis
-sicca
-hyponatremia
PLAN:etiology of diarrhea unclear-- possible constipation with overflow with intial formed stool then loose stool- diarrhea now resolved
restart Miralax PRN -- if no stools by tomorrow resume standing dose
if further diarrhea consider checking stool studies
inreview of LFT elevation very mild -has hx chronic AST elevation, ALT recent elevation may be valve issues with congestion
hepatitis C pending will add hep B cont to trend
she is noted with CARLIE, 20 kg wt loss, and dry mouth on admission may be dry with newly added diuresis and also hx Sjogrens agree with hydration and diuretics held for now
remain on heparin gtt
ok to continue Amiodarone
ok for cholesterol lowering diet with low lactulose-- celiac neg in past and pt not following gluten free diet
-
-
Thank you for consultation and allowing me to participate in the patient's care. Please call the telecommunications project manager GI physician during the after hours with any questions or concerns.
--- NOTE | 2024-08-10 11:12 | PTCARENOTE ---
Obtained care of pt from [facility]. Pt OOB in recliner chair. Oriented pt to room. Lactated ringers gtt infusing at 80ml/hr. Assessment completed as documented. Plan of care reviewed w/ pt and verbalizes understanding. Pt has no complaints at this time.
Bloodwork obtained and sent. Currently in bed; call joaquín w/in reach.
[2024-08-10 11:13] LABS: Hematocrit 39.1 % (37.0-47.0); Hemoglobin 13.1 g/dL (12.0-16.0); Mean Corp Hgb Conc. 33.5 g/dL (33.0-37.0); Mean Corpuscular Hgb 30.7 pg (27.0-31.0); Mean Corpuscular Volume 91.6 fL (81.0-99.0); Mean Platelet Volume 9.4 fL (7.4-10.4); Platelet Count 254 10^3/uL (130-400); Red Blood Cell Count 4.27 10^6/uL (4.20-5.40)
--- NOTE | 2024-08-10 11:13 | CM ---
pt awaiting clearance for CT surgery. cm will follow.
[2024-08-10 11:20] LABS: APTT 38.7 Sec (23.4-35.0)
--- NOTE | 2024-08-10 13:00 | W.CON.NEPH ---
Consultation
-
Date/Time Consultation Requested: August 10, 2024 at 8 AM
Date/Time Consultation Performed: August 10, 2024 at 1 PM
Requesting Provider: Dr. Hammond
Performing Provider: Dr. Carpenter
Reason for Consultation: Acute kidney injury
Medical History
-
Chief Complaint: Acute kidney injury
History of Present Illness:
79yo with hx SVT/atach, severe MR, mod TR, colon polyps, chronic AST elevation Sjogren, osteoarthritis, breast lump, raynaud's, scoliosis with gait and balance issues, ,sicca, hyponatremia, recurrent PSBO and prior bowel resection, prior jose elias, ,
pulm nodules, LLE edema, bursitis, lactose intolerance, gluten enteropathy( elevated TTG and IGA in past with neg celiac biopsy) with admission for MVR, TVR, LA MAZE, RHONA clip but noted with CARLIE creat up to 1.6.
Renal consult for acute kidney injury with a BUN of 135 creatinine of 1.6.
She was admitted in June with atrial fibrillation found to have significant valvular disease. She was placed on diuretics. At that time her creatinine was 0.7.
She complains of diarrhea which she takes MiraLAX regularly. Dry mouth and no appetite for food bad taste in her mouth
Otherwise she is comfortable no chest pain or shortness of breath no nausea or vomiting. She did have significant weight loss since addition of diuretic
Past Medical History
SVT/atach, severe MR, mod TR, colon polyps, chronic AST elevation Sjogren, osteoarthritis, breast lump, raynaud's, scoliosis with gait and balance issues, ,sicca, hyponatremia, recurrent PSBO and prior bowel resection, prior jose elias, , pulm nodules,
LLE edema, bursitis, lactose intolerance, gluten enteropathy( elevated TTG and IGA in past with neg celiac biopsy)
Social History
Tobacco: Non-Smoker
Alcohol: None
Family History
Family History: Not Pertinent
Allergies / Home Medications
Allergy/AdvReac Type Severity Reaction Status Date / Time
chlorhexidine Allergy Intermediate rash Verified 08/10/24 07:48
jose hips Allergy Hives Uncoded 08/10/24 07:48
�Medication �Instructions �Recorded �Confirmed �Type
ascorbic acid (vitamin C) 500 mg 500 mg PO DAILY Supplement 03/19/18 08/10/24 History
tablet (Vitamin C)
cholecalciferol (vitamin D3) 25 50 mcg PO DAILY Supplement 07/12/24 08/10/24 History
mcg (1,000 unit) tablet (Vitamin
D3)
cyclosporine 0.05 % eye drops in a 1 drp BOTH EYES Q12 Eye Condition 07/12/24 08/10/24 History
dropperette (Restasis)
polyethylene glycol 3350 17 gram 17 g PO DAILY Constipation 07/12/24 08/10/24 History
oral powder packet (Miralax)
therapeutic multivitamin 1 tab PO DAILY Supplement 07/12/24 08/10/24 History
amiodarone 200 mg tablet 200 mg PO DAILY #30 tabs 07/20/24 08/10/24 Rx
apixaban 5 mg tablet (Eliquis) 5 mg PO BID #60 tabs 07/20/24 08/10/24 Rx
potassium chloride 10 mEq 10 meq PO DAILY #30 tabs 07/20/24 08/10/24 Rx
tablet,extended release(part/cryst)
furosemide 40 mg tablet (Lasix) 40 mg PO BID #60 tabs 07/21/24 08/10/24 Rx
denosumab 60 mg/mL subcutaneous 60 mg SC [id number] 07/29/24 08/10/24 History
syringe (Prolia)
metoprolol succinate 50 mg 25 mg PO BID 07/29/24 08/10/24 History
tablet,extended release 24 hr
Review of Systems
-
Dry mouth
All other systems: Negative unless noted
Physical Exam
Vital Signs
Vital Signs
Temp Pulse Resp BP Pulse Ox
97.7 F 80 16 89/67 100
08/10/24 12:07 08/10/24 11:00 08/10/24 12:07 08/10/24 09:39 08/10/24 12:07
Lab Results
WBC 10.0 10^3/uL (4.8-10.8) 08/10/24 10:56
RBC 4.27 10^6/uL (4.20-5.40) 08/10/24 10:56
Hgb 13.1 g/dL (12.0-16.0) 08/10/24 10:56
Hct 39.1 % (37.0-47.0) 08/10/24 10:56
Plt Count 254 10^3/uL (130-400) 08/10/24 10:56
Sodium 134 mmol/L (135-145) L 08/10/24 05:59
Potassium 3.8 mmol/L (3.5-5.1) 08/10/24 05:59
Chloride 99 mmol/L (98-107) 08/10/24 05:59
Carbon Dioxide 22 mmol/L (22-30) 08/10/24 05:59
BUN 135 mg/dl (7-17) H* 08/10/24 05:59
Creatinine 1.6 mg/dL (0.6-1.0) H 08/10/24 05:59
eGFR 32.81 08/10/24 05:59
Glucose 130 mg/dl (70-99) H 08/10/24 05:59
Calcium 9.3 mg/dl (8.4-10.2) 08/10/24 05:59
Albumin 4.5 g/dl (3.5-5.0) 08/10/24 05:59
Physical Exam
General no acute distress
HEENT no cephalic atraumatic extraocular muscle intact no scleral icterus no JVD neck supple
lungs clear to auscultation bilateral
heart regular S1-S2 positive
abdomen soft nontender positive bowel sounds
extremities no edema pulses present bilateral
Neurologically nonfocal alert and oriented x 3
Skin no lesions no abrasions no petechiae
Psych normal affect no bizarre behavior
Data Reviewed
-
Labs: Labs Reviewed by me and Discussed with Patient
Assessment/Plan
-
79yo with hx SVT/atach, severe MR, mod TR, colon polyps, chronic AST elevation Sjogren, osteoarthritis, breast lump, raynaud's, scoliosis with gait and balance issues, ,sicca, hyponatremia, recurrent PSBO and prior bowel resection, prior jose elias, ,
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
Baseline creatinine less than 1
Started on diuretics last admission June
Impression.
Acute kidney injury with a creatinine of 1.6 and a BUN of 135 likely prerenal with a significant BUN to creatinine ratio elevation.
Severe MR pending valve.
Atrial fibrillation stable rate controlled
Plan.
Agree with IV fluids holding diuretics.
No indication for imaging at this time as patient is urinating without difficulty but if no improvement will proceed with imaging.
Check urine indices.
She is not on a RAAS inhibitor outpatient> avoid at this time..
[2024-08-10] MEDS: HEPARIN 25000 UNITS/250 ML IV (13:03)
--- NOTE | 2024-08-10 14:20 | W.PN.CARDCBS ---
Today's Communication / Plan
-
IV fluid
Stop Eliquis, start heparin
Continue amiodarone, continue metoprolol
Follow renal function
Tentatively for mitral valve repair, tricuspid annuloplasty, surgical maze left atrial appendage clip August 13
Impression / Plan
-
Impression:
Volume contraction with marked azotemia and CARLIE
Mild elevation of transaminases
Mitral valve prolapse with severe mitral regurgitation with moderate tricuspid agitation
Persistent atrial fibrillation
History of acute HFpEF, now compensated
Sjogren's syndrome
Chronic hyponatremia
History of SBO with bowel resection 2010
Lumbar spinal fusion with helen placement 1988 with revision 1997
OA
No obstructive CAD
ECHO 08/2022: EF 55-60%, bileaflet MVP, mild MR, mild TR, trivial pericardial effusion
STEPHANE 07/15/24: EF 65%, Bileaflet mitral valve prolapse with severe mitral regurgitation, moderate TR
LHC 07/16/2024: No obstructive CAD; mildly elevated right and left-sided filling pressures with reduced cardiac output in the setting of slightly elevated SVR
Plan:
Considering her marked azotemia with CARLIE, she looks surprisingly well.
Still with evidence of severe MR on exam, but no evidence of acute heart failure
Agree with IV fluid. Furosemide is on hold
Continue amiodarone as per GI, transaminases are only modestly elevated
Agree with stopping apixaban and transition to heparin
Tentatively for mitral valve repair and tricuspid annuloplasty with maze and left atrial clip August 13
Progress Note - Manufacturing Engineer Assembly
Subjective
Date of Service: August 10, 2024:
79-year-old woman who presented today for mitral valve repair with tricuspid annuloplasty, surgical Maze procedure and left atrial appendage clip.Upon arrival, was found to have a BUN of 135 with a creatinine of 1.6, hemoglobin of 13.1 and so
procedure was canceled. Creatinine was 1.2 on August 02 and 0.7 on July 21. Patient with mild diarrhea, mild elevation in transaminases, seen by GI.
Outpatient meds: Amiodarone 200 mg a day, apixaban 5 twice daily, Prolia, cyclosporine, furosemide 40 p.o. twice daily, metoprolol ER 25 twice daily, potassium 10 mill equivalents daily
Current meds: Lactated Ringer's, 80 mL an hour, amiodarone 200 mg a day, metoprolol ER 25 twice daily, IV heparin
PMH: Acute HFpEF June 2024, newly diagnosed atrial fibrillation bileaflet mitral valve prolapse with severe MR and moderate TR, history of atrial tach/SVT, Sjogren's, remote SBO with laparotomy, spinal fusion 1988 and 1997, osteoarthritis,
89/67, pulse 80, respiratory rate 16, afebrile, sats 100%, pleasant, no distress, head neck exam unremarkable, lungs are clear, irregular rate controlled, severe MR murmur, abdomen benign, extremities without edema, JVD is flat nonfocal
musculoskeletal intact
ECG atrial fibrillation, rightward axis, poor R wave, nonspecific ST and T changes,
white count 10, hemoglobin 13.1, platelets 254, BUN and creatinine 135 and 1.6, magnesium 2.8, AST 37, ALT 60
Cardiac catheterization June 2024, nonobstructive CAD
Objective
Labs:
08/10/24 10:56
08/10/24 05:59
Labs
Hgb 13.1 g/dL (12.0-16.0) 08/10/24 10:56
Hct 39.1 % (37.0-47.0) 08/10/24 10:56
Plt Count 254 10^3/uL (130-400) 08/10/24 10:56
PT 18.7 Sec (11.4-14.6) H 08/02/24 09:27
INR 1.54 08/02/24 09:27
APTT 38.7 Sec (23.4-35.0) H 08/10/24 10:56
Sodium 134 mmol/L (135-145) L 08/10/24 05:59
Potassium 3.8 mmol/L (3.5-5.1) 08/10/24 05:59
BUN 135 mg/dl (7-17) H* 08/10/24 05:59
Creatinine 1.6 mg/dL (0.6-1.0) H 08/10/24 05:59
Glucose 130 mg/dl (70-99) H 08/10/24 05:59
Vital Signs and I&O:
Vital Signs
Temp Pulse Resp BP Pulse Ox
36.5 C 80 16 89/67 100
08/10/24 12:07 08/10/24 11:00 08/10/24 12:07 08/10/24 09:39 08/10/24 12:07
Vital Signs
Temp Pulse Resp BP Pulse Ox
36.5 C 80 16 89/67 100
08/10/24 12:07 08/10/24 11:00 08/10/24 12:07 08/10/24 09:39 08/10/24 12:07
Physical Exam
Physical Exam
See above
[2024-08-10 16:57] LABS: Blood Urea Nitrogen 115 mg/dl (7-17); Calcium 9.1 mg/dl (8.4-10.2); Carbon Dioxide 26 mmol/L (22-30); Chloride 98 mmol/L (98-107); Estimated Creatinine Clearance 22 ml/min; Glucose 171 mg/dl (70-99); Potassium 3.7 mmol/L (3.5-5.1); Sodium 135 mmol/L (135-145); eGFR 38.51
[2024-08-10] MEDS: RESTASIS 0.05% OPHTHALMIC EMULSION 1 DROPS BOTH EYES (19:34)
[2024-08-10] MEDS: TOPROL XL 25 MG PO (19:35)
[2024-08-10 23:39] LABS: Urine Albumin 1+ (Neg - Trace); Urine Bilirubin Negative (Negative); Urine Character Clear (Clear); Urine Color Yellow; Urine Glucose Negative (Negative); Urine Ketone Negative (Negative); Urine Leukocyte 3+ (Negative); Urine Nitrite Negative (Negative); Urine Occult Blood 1+ (Negative); Urine Urobilinogen Negative (Neg - 1+)
[2024-08-10 23:53] LABS: Urine Sodium 6 mmol/L (30-90)
[2024-08-11] VITALS (10 sets, daily range): BP systolic 80–108; BP diastolic 44–72; BMI 18.2
[2024-08-11 00:11] LABS: Urine Red Blood Cell 0-2 /HPF (0-2); Urine White Cell 70-80 /HPF (0-5)
[2024-08-11 00:12] LABS: Urine Bacteria Moderate (Negative)
[2024-08-11 03:04] LABS: APTT 51.6 Sec (23.4-35.0)
--- NOTE | 2024-08-11 04:42 | DOWNTIME ---
There was a [employer] Microbiology Director Downtime on 08/11/2024 from 0100 to 08/12/2023 at 0420 . Downtime documentation of patient's care, including medication administrations, has been reconciled in the electronic record per guidelines. Refer to the
patient's paper chart under the miscellaneous tab to see printed paper medication records and downtime forms.
[2024-08-11 04:44] LABS: ALT (SGPT) 39 U/L (0-35); AST (SGOT) 27 U/L (14-36); Albumin 3.5 g/dl (3.5-5.0); Alkaline Phosphatase 66 U/L (38-126); Blood Urea Nitrogen 102 mg/dl (7-17); Calcium 9.1 mg/dl (8.4-10.2); Carbon Dioxide 29 mmol/L (22-30); Chloride 102 mmol/L (98-107); Estimated Creatinine Clearance 25 ml/min; Glucose 95 mg/dl (70-99); Potassium 3.8 mmol/L (3.5-5.1); Sodium 138 mmol/L (135-145); Total Bilirubin 1.2 mg/dl (0.2-1.3); Total Protein 5.6 g/dl (6.3-8.2); eGFR 46.33
[2024-08-11 04:50] LABS: Hematocrit 36.2 % (37.0-47.0); Hemoglobin 12.4 g/dL (12.0-16.0); Mean Corp Hgb Conc. 34.3 g/dL (33.0-37.0); Mean Corpuscular Hgb 31.6 pg (27.0-31.0); Mean Corpuscular Volume 92.3 fL (81.0-99.0); Mean Platelet Volume 9.7 fL (7.4-10.4); Platelet Count 215 10^3/uL (130-400); Red Blood Cell Count 3.92 10^6/uL (4.20-5.40); Red Cell Dist. Width 16.2 % (11.5-14.5); White Blood Cell Count 7.6 10^3/uL (4.8-10.8)
--- NOTE | 2024-08-11 05:25 | W.PN.CT ---
Documented by User: Compa Miner PA-C 08/11/24 06:45
Today's Communication / Plan
-
Plan:
-Cont. hydration with LR @ 80 mL/hr
-Cont. heparin gtt
-Appreciate inputs from Cardiology, GI and Renal
-Will cont. to medical optimization
-CARLIE improving, 1.6->1.4->1.2
-BUN improving, 135->115->102
-LFTs are improving
-Eventual MV repair, TV repair, MAZE, ELAA by Dr. Hammond next week, 08/17/24
Assessment / Plan
-
79 y/o pleasant woman was scheduled for MV repair, TV repair, MAZE, ELAA by Dr. Hammond today 08/10/24, but preop labs showed acute CARLIE (cr 1.6), BUN 135, and pt appeared severely dehydrated, developed a generalized macular rash which she attributes to
chlorhexidine soap she used prior to arrival to [facility], hence case is postponed until maybe Friday08/13/24 vs next week. Of note, pts states she was on Lasix 40 mg PO BID until yesterday, and also had diarrhea on 08/09
Assessment:
-Acute CARLIE, markedly elevated BUN
-Azotemia
-Cachexia
-Severe MR
-Moderate MR
-Acute diastolic CHF
-LVEF 55-60%, per STEPHANE 07/15/24
-B/L pleural effusion S/P right thoracentesis with evacuation of 400 mL straw colored pleural fluid, 07/20/24
-B/L LE edema
-Atrial fibrillation with RVR, new diagnosis (on Eliquis @ home)
-Hx SVT/Atach
-HTN
-Sjogren's syndrome
-Sicca syndrome
-Raynaud's syndrome
-Transaminitis
-Chronic hyponatremia with recent hypernatremia, likely d/t over diuresis
-Recent Azotemia likely d/t over diuresis
-Left-sided pulmonary nodule/granuloma
-Lactose intolerance
-Gluten enteropathy
-DJD/Osteoarthritis
-Bursitis tendinitis
-Gait and balance disturbance
-Scoliosis s/p Lumbar spinal fusion with helen placement 1988, with revision in 1997
-S/p Left hip bursa drainage
-S/p LEFT hip replacement, 08/27/2022
-Breast lump S/p Breast biopsy, 1995
-S/P Hysterectomy, total abdominal, BSO, 1995
-S/P Cholecystectomy, 1977
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
-S/P Right wrist fracture--plants/screws 2016
-S/p Cataract surgery OU 2018
Discussed patient care with: Cardiology, Nursing, Respiratory Therapy, Pharmacy and Care Team
Subjective
-
Date of Service: August 11, 2024
No issues overnight. Denies CP/SOB
Objective Data
-
Lab Results
08/11/24 02:15
08/11/24 02:15
PT 18.7 Sec (11.4-14.6) H 08/02/24 09:27
INR 1.54 08/02/24 09:27
APTT 51.6 Sec (23.4-35.0) H 08/11/24 02:15
Vital Signs
Vital Signs
Temp Pulse Resp BP Pulse Ox
97.6 F 83 16 98/58 97
08/11/24 04:35 08/11/24 04:00 08/11/24 04:35 08/11/24 03:54 08/11/24 04:35
CT Intake/Output/Weight
08/10/24 08/10/24 08/11/24
06:59 18:59 06:59
Intake Total 1495 / 1495
Output Total 250 / 250
Balance 1495 / 1245 -250 / 1245
SaO2: 97 (RA)
Physical Exam
-
General: Awake, Oriented and AOx3
Cardiovascular: Irregular rate & rhythm and Murmur (/6 systolic)
Respiratory: Clear
Extremities: No Edema
Data Reviewed
-
Lab Results: Results Reviewed
Medications: Active Meds Reviewed
Chest X-Ray: Report Reviewed and Image Reviewed
ECG: Report Reviewed and Image Reviewed

Documented by User: ALEC Tristan 08/11/24 11:33
Assessment / Plan
-
79 y/o pleasant woman was scheduled for MV repair, TV repair, MAZE, ELAA by Dr. Hammond today 08/10/24, but preop labs showed acute CARLIE (cr 1.6), BUN 135, and pt appeared severely dehydrated, developed a generalized macular rash which she attributes to
chlorhexidine soap she used prior to arrival to [facility], hence case is postponed until maybe Friday08/13/24 vs next week. Of note, pts states she was on Lasix 40 mg PO BID until yesterday, and also had diarrhea on 08/09
Assessment:
-Acute CARLIE, markedly elevated BUN
-Azotemia
-Cachexia
-Severe MR
-Moderate MR
-Acute diastolic CHF
-chronic HFpEF (LVEF 55-60% per STEPHANE 07/15/24)
-B/L pleural effusion S/P right thoracentesis with evacuation of 400 mL straw colored pleural fluid, 07/20/24
-B/L LE edema
-Atrial fibrillation with RVR, new diagnosis (on Eliquis @ home)
-Hx SVT/Atach
-HTN
-Sjogren's syndrome
-Sicca syndrome
-Raynaud's syndrome
-Transaminitis
-Chronic hyponatremia with recent hypernatremia, likely d/t over diuresis
-Recent Azotemia likely d/t over diuresis
-Left-sided pulmonary nodule/granuloma
-Lactose intolerance
-Gluten enteropathy
-DJD/Osteoarthritis
-Bursitis tendinitis
-Gait and balance disturbance
-Scoliosis s/p Lumbar spinal fusion with helen placement 1988, with revision in 1997
-S/p Left hip bursa drainage
-S/p LEFT hip replacement, 08/27/2022
-Breast lump S/p Breast biopsy, 1995
-S/P Hysterectomy, total abdominal, BSO, 1995
-S/P Cholecystectomy, 1977
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
-S/P Right wrist fracture--plants/screws 2016
-S/p Cataract surgery OU 2018
--- NOTE | 2024-08-11 08:26 | VNURNOTE ---
Chart reviewed. Patient is current with [facility] nursing, PT, OT, CARDIOLOGY COORDINATOR. Will continue to follow hospital course and DC plans.
[2024-08-11 08:43] LABS: Magnesium 2.7 mg/dl (1.6-2.3)
[2024-08-11] MEDS: PACERONE 200 MG PO (08:45)
[2024-08-11] MEDS: TOPROL XL 25 MG PO ×2 (08:45→23:05)
[2024-08-11] MEDS: RESTASIS 0.05% OPHTHALMIC EMULSION 1 DROPS BOTH EYES ×2 (08:45→20:53)
[2024-08-11] MEDS: KCL 20 MEQ PO (08:48)
--- NOTE | 2024-08-11 09:20 | W.PN.NEPH.PH ---
Today's Communication / Plan
-
Reduce IV fluids
Assessment/Plan
-
79yo with hx SVT/atach, severe MR, mod TR, colon polyps, chronic AST elevation Sjogren, osteoarthritis, breast lump, raynaud's, scoliosis with gait and balance issues, ,sicca, hyponatremia, recurrent PSBO and prior bowel resection, prior jose elias, ,
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
Baseline creatinine less than 1
Started on diuretics last admission June
Impression.
Acute kidney injury
Severe MR pending valve surgery
Atrial fibrillation stable rate controlled
Plan.
Decrease IV fluid rate to 40 cc/h
Patient has adequate oral intake
May be able to discontinue IV fluids tomorrow
Follow BMP
Anticipated surgery 08/17
-
-
Date of Service: August 11, 2024
CC / HPI / ROS
-
Chief Complaint:
CARLIE
History of Present Illness:
CARLIE/creatinine down to 1.2
BUN down to 102
Blood pressure low but stable
Hemoglobin stable at 12.4
Review of Systems:
P.o. intake fair
No chest pain or shortness of breath
Labs
-
Labs:
WBC 7.6 10^3/uL (4.8-10.8) 08/11/24 02:15
RBC 3.92 10^6/uL (4.20-5.40) L 08/11/24 02:15
Hgb 12.4 g/dL (12.0-16.0) 08/11/24 02:15
Hct 36.2 % (37.0-47.0) L 08/11/24 02:15
Plt Count 215 10^3/uL (130-400) 08/11/24 02:15
Sodium 138 mmol/L (135-145) 08/11/24 02:15
Potassium 3.8 mmol/L (3.5-5.1) 08/11/24 02:15
Chloride 102 mmol/L (98-107) 08/11/24 02:15
Carbon Dioxide 29 mmol/L (22-30) 08/11/24 02:15
BUN 102 mg/dl (7-17) H* 08/11/24 02:15
Creatinine 1.2 mg/dL (0.6-1.0) H 08/11/24 02:15
eGFR 46.33 08/11/24 02:15
Glucose 95 mg/dl (70-99) 08/11/24 02:15
Calcium 9.1 mg/dl (8.4-10.2) 08/11/24 02:15
Albumin 3.5 g/dl (3.5-5.0) 08/11/24 02:15
Physical Exam
-
Vital Signs:
Vital Signs
Temp Pulse Resp BP Pulse Ox
97.7 F 101 20 97/54 95
08/11/24 07:45 08/11/24 08:45 08/11/24 07:45 08/11/24 08:45 08/11/24 07:45
Cardiovascular:: Regular rate and rhythm
Respiratory:: Bilateral: CTA
Lung Excursion:: Normal
Abdomen:: Nontender and Soft
Bowel Sounds:: Normal
Extremity Edema:: None: Bilateral:
[2024-08-11] MEDS: LR 1000 IV (09:32)
[2024-08-11] MEDS: HYDROCORTISONE 1% CREAM 1 APPLIC TOPICAL ×2 (10:05→20:54)
[2024-08-11 10:55] LABS: APTT 62.3 Sec (23.4-35.0)
--- NOTE | 2024-08-11 11:21 | PN.CDI ---
CDI
- -
CDI:
Physician Documentation Request
Admit Date: 08/10/24 05:[address] Surgery,
Clinical Indicators:
Patient admitted with severe MR and moderate TR.
CARLIE on preop labs, IVF ordered; Lasix on hold.
08/10 Cardiology consult, 'History of acute HFpEF, now compensated'
08/11 PN ,'Acute diastolic CHF'
Due to potentially conflicting documentation, please clarify the acuity of CHF you are evaluating, treating or monitoring.
Chronic HFpEF
Other, please specify
Use of terms such as suspected, likely, concern for, or probable (associated with a specific diagnosis that is being evaluated, monitored, or treated as if it exists) are acceptable and can be coded in the inpatient setting, when documented at the
time of discharge.
Thank you,
Mary Garcia RN BSN
CDI Specialist
available via tiger text
Please use your independent medical judgment in providing your response.
--- NOTE | 2024-08-11 13:11 | W.PN.CARDCBS ---
Addendum entered and electronically signed by Oumar Grossman MD 08/11/24 17:40:
I saw and examined the patient.
The Door Attendant's note was reviewed and I agree with the note.
Comment: Briefly, 79-year-old woman past medical history of heart failure preserved ejection fraction, severe mitral regurgitation and persistent atrial fibrillation who presented for surgical repair of her mitral valve as well as left atrial
appendage clip and maze but was found to have acute kidney injury with severely elevated BUN. Diuretics have been held and she is receiving IV fluid resuscitation with improvement of her BUN/creatinine.
Remains in rate controlled atrial fibrillation based on telemetry
Agree with current medical management with beta-wisam, amio and heparin drip
Volume status appears reasonable on exam but will refer management of IV fluids/diuretics to nephrology
Original Note:
Today's Communication / Plan
-
nephro managing uremia
continue IV heparin, toprol, amio
plan for mitral valve repair and tricuspid annuloplasty with maze and left atrial clip 08/17/24
Impression / Plan
-
Impression:
Volume contraction with marked azotemia and CARLIE
Mild elevation of transaminases
Mitral valve prolapse with severe mitral regurgitation with moderate tricuspid agitation
Persistent atrial fibrillation
History of acute HFpEF, now compensated
Sjogren's syndrome
Chronic hyponatremia
History of SBO with bowel resection 2010
Lumbar spinal fusion with helen placement 1988 with revision 1997
OA
No obstructive CAD
ECHO 08/2022: EF 55-60%, bileaflet MVP, mild MR, mild TR, trivial pericardial effusion
STEPHANE 07/15/24: EF 65%, Bileaflet mitral valve prolapse with severe mitral regurgitation, moderate TR
LHC 07/16/2024: No obstructive CAD; mildly elevated right and left-sided filling pressures with reduced cardiac output in the setting of slightly elevated SVR
Plan:
-BUN/Cr downtrending, although BUN still >100. continue treatment per nephrology. lasix on hold
-plan for mitral valve repair and tricuspid annuloplasty with maze and left atrial clip 08/17/24, d/w CT surgery 08/11
-remains in SR on tele. continue toprol, amiodarone
-transitioned to IV heparin in prep for surgery
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
Subjective
Date of Service: August 11, 2024
no complaints
Objective
Labs:
08/11/24 02:15
08/11/24 02:15
Labs
Hgb 12.4 g/dL (12.0-16.0) 08/11/24 02:15
Hct 36.2 % (37.0-47.0) L 08/11/24 02:15
Plt Count 215 10^3/uL (130-400) 08/11/24 02:15
PT 18.7 Sec (11.4-14.6) H 08/02/24 09:27
INR 1.54 08/02/24 09:27
APTT 62.3 Sec (23.4-35.0) H 08/11/24 10:25
Sodium 138 mmol/L (135-145) 08/11/24 02:15
Potassium 3.8 mmol/L (3.5-5.1) 08/11/24 02:15
BUN 102 mg/dl (7-17) H* 08/11/24 02:15
Creatinine 1.2 mg/dL (0.6-1.0) H 08/11/24 02:15
Glucose 95 mg/dl (70-99) 08/11/24 02:15
Vital Signs and I&O:
Vital Signs
Temp Pulse Resp BP Pulse Ox
97.6 F 86 20 95/68 98
08/11/24 11:23 08/11/24 12:12 08/11/24 11:23 08/11/24 12:12 08/11/24 11:23
Vital Signs
Temp Pulse Resp BP Pulse Ox
97.6 F 86 20 95/68 98
08/11/24 11:23 08/11/24 12:12 08/11/24 11:23 08/11/24 12:12 08/11/24 11:23
Intake & Output
08/09/24 08/10/24 08/11/24 08/12/24
07:59 07:59 07:59 07:59
Intake Total 1495 / 1495
Output Total 700 / 700 160 / 160
Balance 795 / 795 -160 / -160
Physical Exam
Physical Exam
GEN: No distress, awake, alert, oriented x3
HEENT: supple, anicteric, mmm, eomi
LUNGS: no audible wheezes or conversational dyspnea
CV: Reg on tele
NEURO: Gross non-focal
SKIN: Warm, pink, dry.
--- NOTE | 2024-08-11 14:40 | CM ---
Reviewed chart. Met with and Mrs. Meek to review discharge plans. She states prior to admission she resides with her spouse in a three story home, (spilt level) with four steps to enter. She states she has seven steps to get to bedroom/full
bathroom. She states she has a bathroom on the lower level. She states prior to admission she uses a walker or rollator to ambulate in the home and a single point cane in the community. She states she has a walker, rollator, and single point cane
at home. She states she has a prescription plan and uses [facility]. She states her spouse will be home to assist in her care if needed. She is scheduled for surgery on 08/17/24. Will need to see her current level of functioning to see if
she will have any skilled care needs. Medical work-up in progress. The discharge plan is to return home with her spouse and a home visit by the [facility] Nurse when medically stable.
[2024-08-11] MEDS: MIRALAX 8.5 GRAMS PO (16:36)
[2024-08-11 17:57] LABS: APTT 64.8 Sec (23.4-35.0)
[2024-08-11] MEDS: HEPARIN 25000 UNITS/250 ML IV (18:13)
--- NOTE | 2024-08-11 18:45 | PTCARENOTE ---
[id number]: Patient AOx4, Afib on tele 90s-100s at rest, but 130s-140s with movement. SBPs 90s. Patient denies pain at this time. Rash on back and torso is bright red, waiting for cortisone cream to come from pharmacy. Patient up in chair for
breakfast. Oral hygiene completed independently. LR and heparin infusing per order. All needs met at this time, call yanes within reach.
8950-1218 IVF rate adjusted per order and hydrocortisone cream applied. PTT drawn and sent to lab, awaiting results.
8938-7250: PTT resulted and heparing gtt increased per protocol. New PTT ordered.
8022-7190: Patient remains in stable condition at this time. OOB with minimal assist to bathroom with walker. All needs met at this time, call yanes within reach.
1700: PTT drawn and sent to lab, awaiting results. Patient remains Afib 80s-90s with occassional PVCs. Gave patient PRN miralax for constipation, however patient requested only have a packet to be given 'per hay stacker.'
4924-3418: PTT resulted, heparin gtt titrated per protocol. New PTT ordered. All needs met at this time, call yanes within reach.
--- NOTE | 2024-08-11 23:58 | PTCARENOTE ---
hep gtt running as documented. Afib on the monitor. POC discussed pt verbalized understanding.
[2024-08-12] VITALS (10 sets, daily range): BP systolic 77–111; BP diastolic 47–77; BMI 18.8
[2024-08-12 06:31] LABS: Hematocrit 39.1 % (37.0-47.0); Hemoglobin 13.1 g/dL (12.0-16.0); Mean Corp Hgb Conc. 33.5 g/dL (33.0-37.0); Mean Corpuscular Hgb 31.3 pg (27.0-31.0); Mean Corpuscular Volume 93.5 fL (81.0-99.0); Mean Platelet Volume 9.5 fL (7.4-10.4); Platelet Count 194 10^3/uL (130-400); Red Blood Cell Count 4.18 10^6/uL (4.20-5.40); Red Cell Dist. Width 16.2 % (11.5-14.5); White Blood Cell Count 7.4 10^3/uL (4.8-10.8)
[2024-08-12 06:39] LABS: APTT 119.9 Sec (23.4-35.0)
[2024-08-12 08:03] LABS: AST (SGOT) 27 U/L (14-36); Albumin 3.2 g/dl (3.5-5.0); Alkaline Phosphatase 65 U/L (38-126); Blood Urea Nitrogen 70 mg/dl (7-17); Calcium 9.1 mg/dl (8.4-10.2); Carbon Dioxide 27 mmol/L (22-30); Chloride 107 mmol/L (98-107); Estimated Creatinine Clearance 32 ml/min; Glucose 141 mg/dl (70-99); Sodium 139 mmol/L (135-145); Total Bilirubin 0.7 mg/dl (0.2-1.3); Total Protein 5.3 g/dl (6.3-8.2); eGFR 57.66
[2024-08-12 08:30] LABS: ALT (SGPT) 30 U/L (0-35)
[2024-08-12] MEDS: HYDROCORTISONE 1% CREAM 1 APPLIC TOPICAL ×2 (08:35→20:01)
[2024-08-12] MEDS: TOPROL XL 25 MG PO ×2 (08:36→20:00)
[2024-08-12] MEDS: RESTASIS 0.05% OPHTHALMIC EMULSION 1 DROPS BOTH EYES ×2 (08:36→20:00)
[2024-08-12] MEDS: PACERONE 200 MG PO (08:36)
[2024-08-12] MEDS: MIRALAX 17 GRAMS PO (08:44)
--- NOTE | 2024-08-12 09:19 | PTCARENOTE ---
Patient AO x 3. Assisted to the bathroom using rolling walker, gait steady, leans left. A-Fib 90-100's with activity, murmur. Pruritic rash to trunk and back, hydrocortisone cream applied. Patient in chair eating breakfast, call yanes in reach
--- NOTE | 2024-08-12 10:00 | W.PN.NEPH.PH ---
Today's Communication / Plan
-
cap IVF
Assessment/Plan
-
79yo with hx SVT/atach, severe MR, mod TR, colon polyps, chronic AST elevation Sjogren, osteoarthritis, breast lump, raynaud's, scoliosis with gait and balance issues, ,sicca, hyponatremia, recurrent PSBO and prior bowel resection, prior jose elias, ,
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
Baseline creatinine less than 1
Started on diuretics last admission June
Impression.
Acute kidney injury
Severe MR pending valve surgery
Atrial fibrillation stable rate controlled
Plan.
cap IVF
Patient has adequate oral intake
Follow BMP
possible diuretics over weekend
Anticipated surgery 08/17
-
-
Date of Service: August 12, 2024
CC / HPI / ROS
-
Chief Complaint:
CARLIE
History of Present Illness:
CARLIE/creatinine down to 1.0
BUN down to 70
Blood pressure low but stable
Hemoglobin stable
Review of Systems:
P.o. intake fair
No chest pain or shortness of breath
Labs
-
Labs:
WBC 7.4 10^3/uL (4.8-10.8) 08/12/24 06:11
RBC 4.18 10^6/uL (4.20-5.40) L 08/12/24 06:11
Hgb 13.1 g/dL (12.0-16.0) 08/12/24 06:11
Hct 39.1 % (37.0-47.0) 08/12/24 06:11
Plt Count 194 10^3/uL (130-400) 08/12/24 06:11
Sodium 139 mmol/L (135-145) 08/12/24 06:11
Potassium 4.0 mmol/L (3.5-5.1) 08/12/24 06:11
Chloride 107 mmol/L (98-107) 08/12/24 06:11
Carbon Dioxide 27 mmol/L (22-30) 08/12/24 06:11
BUN 70 mg/dl (7-17) H 08/12/24 06:11
Creatinine 1.0 mg/dL (0.6-1.0) 08/12/24 06:11
eGFR 57.66 08/12/24 06:11
Glucose 141 mg/dl (70-99) H 08/12/24 06:11
Calcium 9.1 mg/dl (8.4-10.2) 08/12/24 06:11
Albumin 3.2 g/dl (3.5-5.0) L 08/12/24 06:11
Physical Exam
-
Vital Signs:
Vital Signs
Temp Pulse Resp BP Pulse Ox
98.9 F 118 20 99/65 96
08/12/24 07:52 08/12/24 08:00 08/12/24 07:52 08/12/24 07:54 08/12/24 07:52
Cardiovascular:: Regular rate and rhythm
Respiratory:: Bilateral: CTA
Lung Excursion:: Normal
Abdomen:: Nontender and Soft
Bowel Sounds:: Normal
Extremity Edema:: None: Bilateral:
--- NOTE | 2024-08-12 10:01 | CM ---
Reviewed chart. Met with Mrs. Meek to review discharge plans. She states she is feeling well. She states she has been ambulating to the bathroom with a walker. Prior to admission she resides with her spouse in a spilt-level home with four steps
to enter. she has seven steps to get to bedroom/full bathroom. She has a bathroom on the lower level. Prior to admission she ambulates with a rollator and walker in the house and uses a single point cane in the community. She has a prescription
plan and uses [facility]. Her spouse will be home to assist in her care if indicated. Will need to see her functional level after surgery to see if she will have any skilled care needs. Medical work-up in progress. The discharge plan is to
return home with her spouse and a home visit by the Transitional Care Nurse when medically stable.
[2024-08-12] MEDS: LR IV (10:09)
[2024-08-12 14:10] LABS: APTT 87.2 Sec (23.4-35.0)
[2024-08-12 18:39] LABS: Hepatitis B Surface Antigen Negative (Negative)
[2024-08-12 18:56] LABS: Hepatitis B Core Ab, Total Negative (Negative); Hepatitis B Surface Antibody Negative; Hepatitis C Antibody Negative (Negative)
[2024-08-12] MEDS: HEPARIN 25000 UNITS/250 ML IV (19:16)
[2024-08-12 21:21] LABS: APTT 97.6 Sec (23.4-35.0)
--- NOTE | 2024-08-13 00:42 | PTCARENOTE ---
Pt rec'd at change of shift in bed. afib on telemetry, + murmur. Heparin gtt maintained at 1100 units/hr. Ptt obtained a little late after two attempts to get sample. ptt therapeutic. Will recheck in am.
[2024-08-13 03:15] VITALS: BP 114/76
[2024-08-13 06:00] VITALS: BMI 18.9
[2024-08-13 06:24] LABS: APTT 101.3 Sec (23.4-35.0)
[2024-08-13 07:07] LABS: ALT (SGPT) 29 U/L (0-35); AST (SGOT) 24 U/L (14-36); Albumin 3.2 g/dl (3.5-5.0); Alkaline Phosphatase 63 U/L (38-126); Blood Urea Nitrogen 53 mg/dl (7-17); Carbon Dioxide 29 mmol/L (22-30); Chloride 106 mmol/L (98-107); Estimated Creatinine Clearance 36 ml/min; Glucose 89 mg/dl (70-99); Potassium 4.2 mmol/L (3.5-5.1); Sodium 142 mmol/L (135-145); Total Bilirubin 0.7 mg/dl (0.2-1.3); Total Protein 5.3 g/dl (6.3-8.2); eGFR > 60.00
[2024-08-13 08:50] VITALS: BP 97/65
[2024-08-13] MEDS: PACERONE 200 MG PO (08:58)
[2024-08-13] MEDS: RESTASIS 0.05% OPHTHALMIC EMULSION 1 DROPS BOTH EYES ×2 (08:58→20:30)
[2024-08-13] MEDS: HYDROCORTISONE 1% CREAM 1 APPLIC TOPICAL ×2 (08:58→20:29)
[2024-08-13] MEDS: TOPROL XL 25 MG PO ×2 (08:58→20:30)
--- NOTE | 2024-08-13 11:43 | CM ---
Reviewed chart. Met with Mrs. Meek to review discharge plans. She states she is feeling better today and waiting for her surgery. Prior to admission she resides with her spouse in a spilt level home with four steps to enter. She has seven
steps to get to bedroom/full bathroom. Her other bathroom is on the lower level. Prior to admission she ambulates with a walker or rollator in the home and uses a single point cane in the community. She has a walker, rollator and single point cane
at home. She has a prescription plan and uses [facility]. Her spouse will be home to assist in her care if needed. Will need to see her current functional level to see if she will have any skilled care needs after surgery. Her surgery is
scheduled for Friday08/17/24. Medical work-up in progress. The discharge plan is to return home with her spouse and a home visit by the Transitional Care Nurse when medically stable.
[2024-08-13 11:47] VITALS: BP 96/59
--- NOTE | 2024-08-13 12:06 | PTCARENOTE ---
On assessment, pt with new rash on b/l lower legs; red and petechiae. Pt reports no itchiness/soreness. Rosy PENG made aware and no new orders placed.
--- NOTE | 2024-08-13 12:50 | W.PN.NEPH.PH ---
Today's Communication / Plan
-
Continue supportive care no indication for diuretics at this time
Assessment/Plan
-
79yo with hx SVT/atach, severe MR, mod TR, colon polyps, chronic AST elevation Sjogren, osteoarthritis, breast lump, raynaud's, scoliosis with gait and balance issues, ,sicca, hyponatremia, recurrent PSBO and prior bowel resection, prior jose elias, ,
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
Baseline creatinine less than 1
Started on diuretics last admission June
Impression.
Acute kidney injury
Severe MR pending valve surgery
Atrial fibrillation stable rate controlled
Plan.
cap IVF
Patient has adequate oral intake
Follow BMP
Will consider restarting diuretics in the next 24 to 48 hours
Anticipated surgery 08/17
-
-
Date of Service: August 13, 2024
CC / HPI / ROS
-
Chief Complaint:
CARLIE
History of Present Illness:
CARLIE/creatinine down to 1.0
BUN down to 70
Blood pressure low but stable
Hemoglobin stable
Review of Systems:
P.o. intake fair
No chest pain or shortness of breath
Labs
-
Labs:
WBC 7.4 10^3/uL (4.8-10.8) 08/12/24 06:11
RBC 4.18 10^6/uL (4.20-5.40) L 08/12/24 06:11
Hgb 13.1 g/dL (12.0-16.0) 08/12/24 06:11
Hct 39.1 % (37.0-47.0) 08/12/24 06:11
Plt Count 194 10^3/uL (130-400) 08/12/24 06:11
Sodium 142 mmol/L (135-145) 08/13/24 06:00
Potassium 4.2 mmol/L (3.5-5.1) 08/13/24 06:00
Chloride 106 mmol/L (98-107) 08/13/24 06:00
Carbon Dioxide 29 mmol/L (22-30) 08/13/24 06:00
BUN 53 mg/dl (7-17) H 08/13/24 06:00
Creatinine 0.9 mg/dL (0.6-1.0) 08/13/24 06:00
eGFR > 60.00 08/13/24 06:00
Glucose 89 mg/dl (70-99) 08/13/24 06:00
Calcium 9.0 mg/dl (8.4-10.2) 08/13/24 06:00
Albumin 3.2 g/dl (3.5-5.0) L 08/13/24 06:00
Physical Exam
-
Vital Signs:
Vital Signs
Temp Pulse Resp BP Pulse Ox
98.0 F 102 16 97/65 95
08/13/24 11:48 08/13/24 10:00 08/13/24 11:48 08/13/24 08:50 08/13/24 11:48
Cardiovascular:: Regular rate and rhythm
Respiratory:: Bilateral: CTA
Lung Excursion:: Normal
Abdomen:: Nontender and Soft
Bowel Sounds:: Normal
Extremity Edema:: None: Bilateral:
--- NOTE | 2024-08-13 14:38 | W.PN.CARDCBS ---
Addendum entered and electronically signed by Luis Manuel Mcgregor MD 08/13/24 17:48:
I saw and examined the patient.
The Acid Concentrator's note was reviewed and I agree with the note.
Comment:
GEN: No distress, awake, Ox3
HEENT: supple, anicteric, mmm
LUNGS: scatt rhonchi
CV: Irreg, S1/S2, 1/6 syst LSB, no gallop
ABD: soft, BS+, NT/ND
EXT: No edema
NEURO: Gross non-focal
SKIN: No rash
Plan:
BUN and creatinine significantly improved with gentle hydration.
Creatinine now 0.9. Continue IV heparin, Toprol, and amiodarone.
Tentative plan is for mitral valve surgery early next week.
LFTs are improved.
Original Note:
Today's Communication / Plan
-
-BUN/creat improving
-cont IV hep/toprol, amio for afib
-Surgery tentatively on 08/17/2024, mitral valve repair, tricuspid annuloplasty, maze, and left atrial clip
Impression / Plan
-
Impression:
Volume contraction with marked azotemia and CARLIE
Mild elevation of transaminases
Mitral valve prolapse with severe mitral regurgitation with moderate tricuspid regurgitation
Persistent atrial fibrillation
History of acute HFpEF, now compensated
Sjogren's syndrome
Chronic hyponatremia
History of SBO with bowel resection 2010
Lumbar spinal fusion with helen placement 1988 with revision 1997
OA
No obstructive CAD
ECHO 08/2022: EF 55-60%, bileaflet MVP, mild MR, mild TR, trivial pericardial effusion
STEPHANE 07/15/24: EF 65%, Bileaflet mitral valve prolapse with severe mitral regurgitation, moderate TR
LHC 07/16/2024: No obstructive CAD; mildly elevated right and left-sided filling pressures with reduced cardiac output in the setting of slightly elevated SVR
Plan:
-BUN/Cr downtrending, BUN BUN 53/creat a continue treatment per nephrology. lasix on hold
-wt 97 lbs, up from 91 lbs on admission. D/C wt 07/21/2024=101 lbs
-plan for mitral valve repair and tricuspid annuloplasty with maze and left atrial clip 08/17/24
-telemetry: afib HRs 80s-low 100s, occ PVCs. continue toprol. Amiodarone started on admission per CT surgery
-was transitioned from Eliquis to IV heparin in prep for surgery
Progress Note - Service Advisor
Subjective
Date of Service: August 13, 2024
-rash on legs improving (from cholorhexidine soap)
-no other complaints
Objective
Labs:
08/12/24 06:11
08/13/24 06:00
Labs
Hgb 13.1 g/dL (12.0-16.0) 08/12/24 06:11
Hct 39.1 % (37.0-47.0) 08/12/24 06:11
Plt Count 194 10^3/uL (130-400) 08/12/24 06:11
PT 18.7 Sec (11.4-14.6) H 08/02/24 09:27
INR 1.54 08/02/24 09:27
APTT 101.3 Sec (23.4-35.0) H 08/13/24 06:00
Sodium 142 mmol/L (135-145) 08/13/24 06:00
Potassium 4.2 mmol/L (3.5-5.1) 08/13/24 06:00
BUN 53 mg/dl (7-17) H 08/13/24 06:00
Creatinine 0.9 mg/dL (0.6-1.0) 08/13/24 06:00
Glucose 89 mg/dl (70-99) 08/13/24 06:00
Vital Signs and I&O:
Vital Signs
Temp Pulse Resp BP Pulse Ox
98.0 F 102 16 97/65 95
08/13/24 11:48 08/13/24 10:00 08/13/24 11:48 08/13/24 08:50 08/13/24 11:48
Vital Signs
Temp Pulse Resp BP Pulse Ox
98.0 F 102 16 97/65 95
08/13/24 11:48 08/13/24 10:00 08/13/24 11:48 08/13/24 08:50 08/13/24 11:48
Intake & Output
08/11/24 08/12/24 08/13/24 08/14/24
06:59 06:59 06:59 06:59
Intake Total 1495 / 1495 1415 / 1415 362 / 362 400 / 400
Output Total 700 / 700 1285 / 1285 1550 / 1550 400 / 400
Balance 795 / 795 130 / 130 -1188 / -1188 0 / 0
Physical Exam
Physical Exam
GEN: No distress, awake, Ox3
HEENT: supple, anicteric, mmm
LUNGS: CTA, no wheezes/rales
CV: irreg, irreg, S1/S2, 2/6 syst LSB, apex
ABD: soft, BS+, NT/ND
EXT: No edema
NEURO: Gross non-focal
SKIN: R ankle/lower maddox with fading macular rash
[2024-08-13 15:43] VITALS: BP 90/55
[2024-08-13] MEDS: HEPARIN 25000 UNITS/250 ML IV (17:37)
[2024-08-13 18:26] VITALS: BP 113/77
[2024-08-13 22:43] VITALS: BP 95/56
--- NOTE | 2024-08-13 23:43 | PTCARENOTE ---
Pt oob with assist to bathroom to void. heparin gtt infusing at 1100 units/hr. site patent. call yanes within reach.
[2024-08-14 03:22] VITALS: BMI 18.9
[2024-08-14 03:25] VITALS: BP 99/70
[2024-08-14 04:04] LABS: Hemoglobin 11.7 g/dL (12.0-16.0); Mean Corp Hgb Conc. 32.5 g/dL (33.0-37.0); Mean Corpuscular Hgb 30.9 pg (27.0-31.0); Mean Platelet Volume 9.7 fL (7.4-10.4); Platelet Count 181 10^3/uL (130-400); Red Blood Cell Count 3.79 10^6/uL (4.20-5.40); Red Cell Dist. Width 16.3 % (11.5-14.5); White Blood Cell Count 7.9 10^3/uL (4.8-10.8)
[2024-08-14 05:03] LABS: ALT (SGPT) 26 U/L (0-35); AST (SGOT) 22 U/L (14-36); Albumin 2.9 g/dl (3.5-5.0); Alkaline Phosphatase 58 U/L (38-126); Blood Urea Nitrogen 42 mg/dl (7-17); Calcium 8.2 mg/dl (8.4-10.2); Carbon Dioxide 23 mmol/L (22-30); Chloride 112 mmol/L (98-107); Estimated Creatinine Clearance 36 ml/min; Glucose 92 mg/dl (70-99); Potassium 3.7 mmol/L (3.5-5.1); Sodium 141 mmol/L (135-145); Total Bilirubin 0.5 mg/dl (0.2-1.3); Total Protein 4.7 g/dl (6.3-8.2); eGFR > 60.00
[2024-08-14 07:28] VITALS: BP 98/69
--- NOTE | 2024-08-14 08:04 | W.PN.CARDCBS ---
Addendum entered and electronically signed by Mack Bradford DO 08/14/24 10:13:
I saw and examined the patient.
The Car Sealer's note was reviewed and I agree with the note.
Comment:
Plan:
Cr continues to improve
Cont to monitor electrolytes and replete as needed
-wt 96 lbs, up from 91 lbs on admission. D/C wt 07/21/2024=101 lbs
IV Heparin while off Eliquis in anticipation for surgery
Cont Toprol and amio for AFib. Amio started by surgery on admit
Remains compensated from cardiac standpoint for surgery tentatively scheduled August 17 2024, mitral valve repair, tricuspid annuloplasty, maze, and left atrial clip
Original Note:
Today's Communication / Plan
-
-BUN/creat cont to improve
-replete K
-cont IV hep/toprol, amio for afib
-Surgery tentatively on 08/17/2024, mitral valve repair, tricuspid annuloplasty, maze, and left atrial clip
Impression / Plan
-
Impression:
Volume contraction with marked azotemia and CARLIE
Mild elevation of transaminases
Mitral valve prolapse with severe mitral regurgitation with moderate tricuspid regurgitation
Persistent atrial fibrillation
History of acute HFpEF, now compensated
Sjogren's syndrome
Chronic hyponatremia
History of SBO with bowel resection 2010
Lumbar spinal fusion with helen placement 1988 with revision 1997
OA
No obstructive CAD
ECHO 08/2022: EF 55-60%, bileaflet MVP, mild MR, mild TR, trivial pericardial effusion
STEPHANE 07/15/24: EF 65%, Bileaflet mitral valve prolapse with severe mitral regurgitation, moderate TR
LHC 07/16/2024: No obstructive CAD; mildly elevated right and left-sided filling pressures with reduced cardiac output in the setting of slightly elevated SVR
Plan:
-BUN/Cr downtrending, BUN 42/creat 0.9 - continue treatment per nephrology. lasix on hold
-wt 96 lbs, up from 91 lbs on admission. D/C wt 07/21/2024=101 lbs
-plan for mitral valve repair and tricuspid annuloplasty with maze and left atrial clip 08/17/24
-telemetry: afib HRs 80s-low 100s, occ PVCs. continue toprol. Amiodarone started on admission per CT surgery
-was transitioned from Eliquis to IV heparin in prep for surgery
-K 3.7- will replete with KCl 20 meq- I ordered
Progress Note - Construction Trench Digger
Subjective
Date of Service: August 14, 2024
-didn't sleep well, a lot on her mind
-no SOB, CP, palps
-trying to increase protein in diet
Objective
Labs:
08/14/24 03:34
08/14/24 03:34
Labs
Hgb 11.7 g/dL (12.0-16.0) L 08/14/24 03:34
Hct 36.0 % (37.0-47.0) L 08/14/24 03:34
Plt Count 181 10^3/uL (130-400) 08/14/24 03:34
PT 18.7 Sec (11.4-14.6) H 08/02/24 09:27
INR 1.54 08/02/24 09:27
APTT 84.0 Sec (23.4-35.0) H 08/14/24 03:34
Sodium 141 mmol/L (135-145) 08/14/24 03:34
Potassium 3.7 mmol/L (3.5-5.1) 08/14/24 03:34
BUN 42 mg/dl (7-17) H 08/14/24 03:34
Creatinine 0.9 mg/dL (0.6-1.0) 08/14/24 03:34
Glucose 92 mg/dl (70-99) 08/14/24 03:34
Vital Signs and I&O:
Vital Signs
Temp Pulse Resp BP Pulse Ox
97.4 F 88 16 99/70 100
08/14/24 07:29 08/14/24 03:25 08/14/24 07:29 08/14/24 03:25 08/14/24 07:29
Vital Signs
Temp Pulse Resp BP Pulse Ox
97.4 F 88 16 99/70 100
08/14/24 07:29 08/14/24 03:25 08/14/24 07:29 08/14/24 03:25 08/14/24 07:29
Intake & Output
08/12/24 08/13/24 08/14/24 08/15/24
06:59 06:59 06:59 06:59
Intake Total 1415 / 1415 362 / 362 640 / 640
Output Total 1285 / 1285 1550 / 1550 600 / 600
Balance 130 / 130 -1188 / -1188 40 / 40
Physical Exam
Physical Exam
GEN: No distress, awake, Ox3
HEENT: supple, anicteric, mmm
LUNGS: CTA, no wheezes/rales
CV: tachy, irreg, irreg, S1/S2, 2/6 syst LSB,apex
ABD: soft, BS+, NT/ND
EXT: No edema
NEURO: Gross non-focal
SKIN: R ankle/maddox with macular rash-no change from 08/13/2024
[2024-08-14] MEDS: RESTASIS 0.05% OPHTHALMIC EMULSION 1 DROPS BOTH EYES ×2 (08:27→20:22)
[2024-08-14] MEDS: HYDROCORTISONE 1% CREAM 1 APPLIC TOPICAL ×2 (08:28→20:21)
[2024-08-14] MEDS: TOPROL XL 25 MG PO ×2 (08:28→20:22)
[2024-08-14] MEDS: PACERONE 200 MG PO (08:28)
[2024-08-14] MEDS: KCL 20 MEQ PO (10:02)
--- NOTE | 2024-08-14 12:30 | W.PN.NEPH.PH ---
Today's Communication / Plan
-
Daily weights
Assessment/Plan
-
79yo with hx SVT/atach, severe MR, mod TR, colon polyps, chronic AST elevation Sjogren, osteoarthritis, breast lump, raynaud's, scoliosis with gait and balance issues, ,sicca, hyponatremia, recurrent PSBO and prior bowel resection, prior jose elias, ,
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
Baseline creatinine less than 1
Started on diuretics last admission June
Impression.
Acute kidney injury
Severe MR pending valve surgery
Atrial fibrillation stable rate controlled
Plan.
Remains off IV fluids
Patient has adequate oral intake
Follow BMP
No indication for restarting diuretics at this time.
Follow weights closely
Anticipated surgery 08/17
-
-
Date of Service: August 14, 2024
CC / HPI / ROS
-
Chief Complaint:
CARLIE
History of Present Illness:
CARLIE/creatinine down to 1.0
BUN down to 70
Blood pressure low but stable
Hemoglobin stable
Review of Systems:
P.o. intake fair
No chest pain or shortness of breath
Labs
-
Labs:
WBC 7.9 10^3/uL (4.8-10.8) 08/14/24 03:34
RBC 3.79 10^6/uL (4.20-5.40) L 08/14/24 03:34
Hgb 11.7 g/dL (12.0-16.0) L 08/14/24 03:34
Hct 36.0 % (37.0-47.0) L 08/14/24 03:34
Plt Count 181 10^3/uL (130-400) 08/14/24 03:34
Sodium 141 mmol/L (135-145) 08/14/24 03:34
Potassium 3.7 mmol/L (3.5-5.1) 08/14/24 03:34
Chloride 112 mmol/L (98-107) H 08/14/24 03:34
Carbon Dioxide 23 mmol/L (22-30) 08/14/24 03:34
BUN 42 mg/dl (7-17) H 08/14/24 03:34
Creatinine 0.9 mg/dL (0.6-1.0) 08/14/24 03:34
eGFR > 60.00 08/14/24 03:34
Glucose 92 mg/dl (70-99) 08/14/24 03:34
Calcium 8.2 mg/dl (8.4-10.2) L 08/14/24 03:34
Albumin 2.9 g/dl (3.5-5.0) L 08/14/24 03:34
Physical Exam
-
Vital Signs:
Vital Signs
Temp Pulse Resp BP Pulse Ox
97.4 F 88 16 99/70 100
08/14/24 07:29 08/14/24 03:25 08/14/24 07:29 08/14/24 03:25 08/14/24 07:29
Cardiovascular:: Regular rate and rhythm
Respiratory:: Bilateral: CTA
Lung Excursion:: Normal
Abdomen:: Nontender and Soft
Bowel Sounds:: Normal
Extremity Edema:: None: Bilateral:
[2024-08-14 12:31] VITALS: BP 111/75
[2024-08-14 16:24] VITALS: BP 116/71
[2024-08-14 19:37] VITALS: BP 112/71
[2024-08-14] MEDS: HEPARIN 25000 UNITS/250 ML IV (20:24)
[2024-08-14] MEDS: TYLENOL 1000 MG PO (21:42)
--- NOTE | 2024-08-14 22:01 | PTCARENOTE ---
Pt rec'd in bed at change of shift. assisted to bathroom using walker for pm care. Heparin renewed by cardiac PA and Tylenol order obtained for pt with c/o neck pain. Pt wearing own neck brace from home. Afib on telemetry with resting rates in 90's
up to 140 with activity. Pt reports mild palpitations in chest with elevated ht rate. IS at 1000.
[2024-08-14 22:43] VITALS: BP 116/74
[2024-08-15] VITALS (7 sets, daily range): BP systolic 84–104; BP diastolic 53–73; BMI 19.0
--- NOTE | 2024-08-15 02:42 | PTCARENOTE ---
Pt assisted to bathroom to void. Urine dark tea color. No c/o burning or obvious blood noted. am labs drawn and sent-results pending.
[2024-08-15 02:57] LABS: APTT 73.6 Sec (23.4-35.0)
[2024-08-15 03:25] LABS: ALT (SGPT) 29 U/L (0-35); AST (SGOT) 26 U/L (14-36); Albumin 2.8 g/dl (3.5-5.0); Alkaline Phosphatase 58 U/L (38-126); Blood Urea Nitrogen 53 mg/dl (7-17); Calcium 8.7 mg/dl (8.4-10.2); Carbon Dioxide 29 mmol/L (22-30); Chloride 104 mmol/L (98-107); Estimated Creatinine Clearance 36 ml/min; Glucose 108 mg/dl (70-99); Potassium 4.2 mmol/L (3.5-5.1); Sodium 137 mmol/L (135-145); Total Bilirubin 0.5 mg/dl (0.2-1.3); Total Protein 4.8 g/dl (6.3-8.2); eGFR > 60.00
[2024-08-15] MEDS: TYLENOL 1000 MG PO ×3 (05:11→22:19)
--- NOTE | 2024-08-15 05:14 | W.PN.CT ---
Today's Communication / Plan
-
Plan:
-Encourage PO intake
-Cont. heparin gtt/off Eliquis
-Appreciate inputs from Cardiology, GI and Renal
-CARLIE/BUN improving, no diuretics at recommendation from nephro
-BUN improving
-LFTs are improving
-Eventual MV repair, TV repair, CHRISTINE VILLAVICENCIOAA by Dr. Hammond next week, 08/17/24
Assessment / Plan
-
79 y/o pleasant woman was scheduled for MV repair, TV repair, MAYE, CHRISTINEAA by Dr. Hammond today 08/10/24, but preop labs showed acute CARLIE (cr 1.6), BUN 135, and pt appeared severely dehydrated, developed a generalized macular rash which she attributes to
chlorhexidine soap she used prior to arrival to [facility], hence case is postponed until maybe Friday08/13/24 vs next week. Of note, pts states she was on Lasix 40 mg PO BID until yesterday, and also had diarrhea on 08/09
Assessment:
-Acute CARLIE, markedly elevated BUN
-Azotemia
-Cachexia
-Severe MR
-Moderate MR
-Acute diastolic CHF
-chronic HFpEF (LVEF 55-60% per STEPHANE 07/15/24)
-B/L pleural effusion S/P right thoracentesis with evacuation of 400 mL straw colored pleural fluid, 07/20/24
-B/L LE edema
-Atrial fibrillation with RVR, new diagnosis (on Eliquis @ home)
-Hx SVT/Atach
-HTN
-Sjogren's syndrome
-Sicca syndrome
-Raynaud's syndrome
-Transaminitis
-Chronic hyponatremia with recent hypernatremia, likely d/t over diuresis
-Recent Azotemia likely d/t over diuresis
-Left-sided pulmonary nodule/granuloma
-Lactose intolerance
-Gluten enteropathy
-DJD/Osteoarthritis
-Bursitis tendinitis
-Gait and balance disturbance
-Scoliosis s/p Lumbar spinal fusion with helen placement 1988, with revision in 1997
-S/p Left hip bursa drainage
-S/p LEFT hip replacement, 08/27/2022
-Breast lump S/p Breast biopsy, 1995
-S/P Hysterectomy, total abdominal, BSO, 1995
-S/P Cholecystectomy, 1977
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
-S/P Right wrist fracture--plants/screws 2016
-S/p Cataract surgery OU 2018
Subjective
-
Date of Service: August 15, 2024
Objective Data
-
Lab Results
08/14/24 03:34
08/15/24 02:35
PT 18.7 Sec (11.4-14.6) H 08/02/24 09:27
INR 1.54 08/02/24 09:27
APTT 73.6 Sec (23.4-35.0) H 08/15/24 02:35
Vital Signs
Vital Signs
Temp Pulse Resp BP Pulse Ox
97.5 F 81 20 98/53 99
08/15/24 02:27 08/15/24 02:26 08/15/24 02:27 08/15/24 02:26 08/15/24 02:27
CT Intake/Output/Weight
08/14/24 08/14/24 08/15/24
06:59 18:59 06:59
Intake Total 240 / 640 132 / 132
Output Total 500 / 500
Balance 240 / 40 -368 / -368
SaO2: 99
Data Reviewed
-
Lab Results: Results Reviewed
Medications: Active Meds Reviewed
CT Scan: Report Reviewed
ECG: Report Reviewed
--- NOTE | 2024-08-15 06:19 | PTCARENOTE ---
CT PA aware of pts dark tea color urine
[2024-08-15] MEDS: RESTASIS 0.05% OPHTHALMIC EMULSION 1 DROPS BOTH EYES ×2 (08:17→19:43)
[2024-08-15] MEDS: HYDROCORTISONE 1% CREAM 1 APPLIC TOPICAL ×2 (08:18→19:42)
[2024-08-15] MEDS: PACERONE 200 MG PO (08:26)
[2024-08-15] MEDS: TOPROL XL PO (14:08)
[2024-08-15] MEDS: HEPARIN 25000 UNITS/250 ML IV (14:59)
--- NOTE | 2024-08-15 15:30 | PTCARENOTE ---
Assumed care of pt at 1500. Pt in AFib HR in the 70-80's. Pt denies any pain or discomfort. VSS and pt AAO*3. Heparin infusing at 1100 units per hour as ordered. No changes from AM assessment. See flowchart and MAR for full pt care and
assessment. Pt resting with call yanes in reach and plan of care ongoing.
--- NOTE | 2024-08-15 15:37 | W.PN.NEPH.PH ---
Today's Communication / Plan
-
Urinalysis
Assessment/Plan
-
79yo with hx SVT/atach, severe MR, mod TR, colon polyps, chronic AST elevation Sjogren, osteoarthritis, breast lump, raynaud's, scoliosis with gait and balance issues, ,sicca, hyponatremia, recurrent PSBO and prior bowel resection, prior jose elias, ,
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
Baseline creatinine less than 1
Started on diuretics last admission June
Impression.
Acute kidney injury
Severe MR pending valve surgery
Atrial fibrillation stable rate controlled
Plan.
Remains off IV fluids
Patient has adequate oral intake
Follow BMP
No indication for restarting diuretics at this time.
Follow weights closely
Anticipated surgery 08/17
Urine is dark in color appears to be hematuria she is on heparin so we will check a urinalysis
Total Time Spent with Patient (in minutes): 31
-
-
Date of Service: August 15, 2024
CC / HPI / ROS
-
Chief Complaint:
CARLIE
History of Present Illness:
CARLIE/creatinine down to 1.0
BUN down
Blood pressure low but stable
Hemoglobin stable
Review of Systems:
P.o. intake fair
No chest pain or shortness of breath
Labs
-
Labs:
WBC 7.9 10^3/uL (4.8-10.8) 08/14/24 03:34
RBC 3.79 10^6/uL (4.20-5.40) L 08/14/24 03:34
Hgb 11.7 g/dL (12.0-16.0) L 08/14/24 03:34
Hct 36.0 % (37.0-47.0) L 08/14/24 03:34
Plt Count 181 10^3/uL (130-400) 08/14/24 03:34
Sodium 137 mmol/L (135-145) 08/15/24 02:35
Potassium 4.2 mmol/L (3.5-5.1) 08/15/24 02:35
Chloride 104 mmol/L (98-107) 08/15/24 02:35
Carbon Dioxide 29 mmol/L (22-30) 08/15/24 02:35
BUN 53 mg/dl (7-17) H 08/15/24 02:35
Creatinine 0.9 mg/dL (0.6-1.0) 08/15/24 02:35
eGFR > 60.00 08/15/24 02:35
Glucose 108 mg/dl (70-99) H 08/15/24 02:35
Calcium 8.7 mg/dl (8.4-10.2) 08/15/24 02:35
Albumin 2.8 g/dl (3.5-5.0) L 08/15/24 02:35
Physical Exam
-
Vital Signs:
Vital Signs
Temp Pulse Resp BP Pulse Ox
97.7 F 100 16 84/53 95
08/15/24 12:19 08/15/24 12:00 08/15/24 12:19 08/15/24 11:58 08/15/24 12:19
Cardiovascular:: Regular rate and rhythm
Respiratory:: Bilateral: CTA
Lung Excursion:: Normal
Abdomen:: Nontender and Soft
Bowel Sounds:: Normal
Extremity Edema:: None: Bilateral:
[2024-08-15] MEDS: BACTRIM DS 800 MG/160 MG 1 TABLET PO (16:28)
[2024-08-15 16:30] LABS: Urine Albumin 3+ (Neg - Trace); Urine Bilirubin Negative (Negative); Urine Character Cloudy (Clear); Urine Color Brown; Urine Glucose Negative (Negative); Urine Ketone Negative (Negative); Urine Leukocyte 3+ (Negative); Urine Nitrite Negative (Negative); Urine Occult Blood 4+ (Negative); Urine Urobilinogen Negative (Neg - 1+); Urine pH 6.5 (5.0-9.0)
[2024-08-15 16:38] LABS: Urine Red Blood Cell >100 /HPF (0-2); Urine Squamous Cell 0-2 /LPF (Few)
[2024-08-15] MEDS: TOPROL XL 25 MG PO (19:45)
--- NOTE | 2024-08-15 21:09 | PTCARENOTE ---
Received patient at change of shift. AAOx3, VSS. Heparin gtt running @ 1100 units/hr through right forearm. Denies pain @ this time. Discussed plan of care for evening. Pt verbalized understanding. Call yanes within reach.
[2024-08-16] VITALS (23 sets, daily range): BP systolic 0–123; BP diastolic 39–83; BMI 19.5
--- NOTE | 2024-08-16 00:50 | PTCARENOTE ---
Pt c/o right arm pain. Forearm and proximal under arm bruised-- deep purple. Arm warm and swollen. Notified CV PA, Ge Pace. Came to assess patient. Ordered heparin on hold, venous doppler and humerus xray. IV team RN placed new IV, removed old
IV site and recommended ice packs for under the arm in case heparin issue. Discussed with patient-- agreed to call RN with any new pain, numbness, cold fingers, etc. Call yanes within reach.
--- NOTE | 2024-08-16 00:53 | VATNOTE ---
Paged by PCN about possible Heparin infiltrate. Upon arrival to patients room patient had been seen by NUISANCE WILDLIFE CONTROL OPERATOR who evaluated the patient and would like patients IV removed from right arm and placed in left. New IV established in left arm and right IV
removed by this RN. Patient with swelling and bruising to right arm (PCN outlined) which does not appear to be from an IV infiltrate, no bruising at or right around insertion site - per PCN, NUISANCE WILDLIFE CONTROL OPERATOR ordered US for am. Some bruising noted to left upper
arm as well when placing IV, PCN aware. Right arm elevated and cold compress applied. Will continue to monitor.
[2024-08-16] MEDS: ROXICODONE 5 MG PO (02:14)
[2024-08-16 03:19] LABS: % Basophils 0.5 % (0-2); % Immature Granulocytes 2.3 % (0-0.5); % Lymphocytes 9.1 % (20.5-51.1); % Monocytes 7.9 % (1.7-9.3); % Neutrophils 79.2 % (42.2-75.2); Absolute Eosinophils 0.1 10^3/uL (0-0.7); Absolute Immature Granulocytes 0.2 10^3/uL (0-0.05); Absolute Lymphocytes 0.8 10^3/uL (1.2-3.4); Absolute Monocytes 0.7 10^3/uL (0.1-0.6); Absolute Neutrophils 6.6 10^3/uL (1.4-6.5); Hematocrit 25.3 % (37.0-47.0); Hemoglobin 8.3 g/dL (12.0-16.0); Mean Corp Hgb Conc. 32.8 g/dL (33.0-37.0); Mean Corpuscular Hgb 30.9 pg (27.0-31.0); Mean Corpuscular Volume 94.1 fL (81.0-99.0); Mean Platelet Volume 9.9 fL (7.4-10.4); Nucleated Red Blood Cells % 0 %; Platelet Count 176 10^3/uL (130-400); Red Blood Cell Count 2.69 10^6/uL (4.20-5.40); Red Cell Dist. Width 16.2 % (11.5-14.5); White Blood Cell Count 8.3 10^3/uL (4.8-10.8)
[2024-08-16 03:25] LABS: INR 0.95
[2024-08-16 03:26] LABS: APTT 34.4 Sec (23.4-35.0); Fibrinogen 454 MG/DL (199-459)
[2024-08-16 03:44] LABS: Blood Urea Nitrogen 56 mg/dl (7-17); Calcium 8.6 mg/dl (8.4-10.2); Carbon Dioxide 25 mmol/L (22-30); Chloride 100 mmol/L (98-107); Estimated Creatinine Clearance 27 ml/min; Glucose 146 mg/dl (70-99); Potassium 4.6 mmol/L (3.5-5.1); Sodium 133 mmol/L (135-145); eGFR 46.33
--- NOTE | 2024-08-16 05:07 | W.PN.CT ---
Today's Communication / Plan
-
-Alerted overnight of ecchymotic area to R arm/elbow, denies pain but feels 'tense', no paresthesia, +2 radial pulse. Denies trauma aside from NIBP cuff
-holding heparin gtt, obtain XR/doppler of R arm today, Hgb 13.1->11.7->8.3 today
-Hematuria noted on UA with GNB in culture, started on Bactrim per Dr. Hammond
-coags not suggestive of DIC, no elevation in serum or urine bili to suggest hemolysis, may check hapto/LDH if worsens later today
-Following platelet count, ~200s BALANCE WHEEL MOTION INSPECTOR now 176 today, 4T score low risk for HIT
-Continued on amio, Toprol 25 mg
-Encourage PO intake
-Appreciate inputs from Cardiology, GI and Renal
-CARLIE/BUN improving from admission, no diuretics at recommendation from nephro
-Eventual MV repair, TV repair, MAYE, ELAA by Dr. Hammond next week, 08/17/24
Assessment / Plan
-
79 y/o pleasant woman was scheduled for MV repair, TV repair, MAZE, ELAA by Dr. Hammond today 08/10/24, but preop labs showed acute CARLIE (cr 1.6), BUN 135, and pt appeared severely dehydrated, developed a generalized macular rash which she attributes to
chlorhexidine soap she used prior to arrival to [facility], hence case is postponed until maybe Friday08/13/24 vs next week. Of note, pts states she was on Lasix 40 mg PO BID until yesterday, and also had diarrhea on 08/09
Assessment:
-Acute CARLIE, markedly elevated BUN
-Azotemia
-Cachexia
-Severe MR
-Moderate MR
-Acute diastolic CHF
-chronic HFpEF (LVEF 55-60% per STEPHANE 07/15/24)
-B/L pleural effusion S/P right thoracentesis with evacuation of 400 mL straw colored pleural fluid, 07/20/24
-B/L LE edema
-Atrial fibrillation with RVR, new diagnosis (on Eliquis @ home)
-Hx SVT/Atach
-HTN
-Sjogren's syndrome
-Sicca syndrome
-Raynaud's syndrome
-Transaminitis
-Chronic hyponatremia with recent hypernatremia, likely d/t over diuresis
-Recent Azotemia likely d/t over diuresis
-Left-sided pulmonary nodule/granuloma
-Lactose intolerance
-Gluten enteropathy
-DJD/Osteoarthritis
-Bursitis tendinitis
-Gait and balance disturbance
-Scoliosis s/p Lumbar spinal fusion with helen placement 1988, with revision in 1997
-S/p Left hip bursa drainage
-S/p LEFT hip replacement, 08/27/2022
-Breast lump S/p Breast biopsy, 1995
-S/P Hysterectomy, total abdominal, BSO, 1995
-S/P Cholecystectomy, 1977
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
-S/P Right wrist fracture--plants/screws 2016
-S/p Cataract surgery OU 2018
Subjective
-
Date of Service: August 16, 2024
Objective Data
-
Lab Results
08/16/24 06:00
08/16/24 03:02
PT 13.0 Sec (11.4-14.6) 08/16/24 03:02
INR 0.95 08/16/24 03:02
APTT 34.4 Sec (23.4-35.0) 08/16/24 03:02
Vital Signs
Vital Signs
Temp Pulse Resp BP Pulse Ox
97.5 F 106 18 82/54 95
08/16/24 02:31 08/16/24 02:31 08/16/24 02:31 08/16/24 02:31 08/16/24 02:31
CT Intake/Output/Weight
08/15/24 08/15/24 08/16/24
06:59 18:59 06:59
Intake Total 132 / 132
Output Total 500 / 500 400 / 800 400 / 800
Balance -368 / -368 -400 / -800 -400 / -800
SaO2: 95
Physical Exam
-
General: Awake, Oriented and AOx3
Cardiovascular: Irregular rate & rhythm and Murmur
Respiratory: Clear
Extremities: Edema +1
Data Reviewed
-
Lab Results: Results Reviewed
Medications: Active Meds Reviewed
CT Scan: Report Reviewed
ECG: Report Reviewed
[2024-08-16 08:09] LABS: LDH 219 U/L (120-246)
[2024-08-16] MEDS: PACERONE 200 MG PO (08:25)
[2024-08-16] MEDS: RESTASIS 0.05% OPHTHALMIC EMULSION 1 DROPS BOTH EYES ×2 (08:25→20:49)
[2024-08-16] MEDS: BACTRIM DS 800 MG/160 MG 1 TABLET PO (08:25)
[2024-08-16] MEDS: TOPROL XL 25 MG PO ×2 (08:25→19:55)
[2024-08-16] MEDS: HYDROCORTISONE 1% CREAM 1 APPLIC TOPICAL ×2 (08:26→19:56)
[2024-08-16] MEDS: LR 1000 IV (08:40)
--- NOTE | 2024-08-16 08:50 | CON.VAS ---
Addendum entered and electronically signed by Thuan Lawton III, MD 08/16/24 12:17:
This patient was seen and examined in collaboration with ALEC Chavez and ALEC Lopez. I agree with the history and physical exam as well as the assessment and plan. I have the following additions:
79-year-old female preop for cardiac surgery procedure
On systemic anticoagulation
She reports progressive swelling and ecchymosis over her right arm for several days. Developed paresthesias in her right hand this morning.
Consulted for evaluation
Noncontrast CT scan was performed of the right upper extremity due to reported CARLIE
Large hematoma in the right tricep muscle
On physical exam she is well-appearing and in no acute distress
Right arm is diffusely ecchymotic posteriorly from the axilla through the elbow and into the forearm
The posterior arm is tight extending from the proximal upper arm down to the distal aspect near the elbow
Palpable radial pulse
Palpable brachial pulse
She has intact global professional strength but this is noticeably weaker compared to the left
The forearm is soft throughout the volar and dorsal aspects. Anterior over the bicep muscle is soft
There is no axillary hematoma
I am recommending evacuation of right arm hematoma in the operating room
Technical aspects of this procedure were discussed with her in detail. The benefits and rationale for this approach were discussed with her in detail. Operative risks were discussed with her in detail including but not limited to bleeding,
infection, heart attack, stroke, wound healing complications, nerve injury, continued paresthesias and the need for additional surgery.
She expressed a clear understanding of our conversation and agrees to proceed with surgery as detailed above.
Signed:
Thuan Lawton III, MD
[facility] Vascular Surgery
[phone] (bdcd)
Original Note:
Consultation
Consultation Request
Performing Provider: Leighann
Reason for Consultation: Possible right upper extremity compartment syndrome
Medical History
-
Chief Complaint: Right upper extremity swelling
History of Present Illness:
79-year-old female with past medical history SVT/A. tach, severe MR, Sjogren's, osteoarthritis, Raynaud's, scoliosis, recurrent small bowel obstructions/resection.
Here for planned MVR, TVR, LA maze, RHONA clip but was noted to have CARLIE so procedure was put on hold and patient admitted for management.
This morning on rounds she was noted to have increased ecchymosis and swelling to the right upper arm. Patient notes a slight decrease in sensation in the hand, was having trouble holding a cup.
Vascular consult for possible right upper extremity compartment syndrome. Patient seen at bedside this a.m. Patient denies pain in the right upper extremity/hand. She states the swelling began Friday night. It is worsened since then. She has
circled areas of ecchymosis from right axilla to her upper forearm. The upper arm is tense. Forearm remains soft. Hand is mildly edematous. +2 radial pulse. Hand warm. No pallor. She admits to a slight decrease in sensation to the hand which
is making it hard for her to hold a cup or type on her phone. She denies any trauma to this arm. No IVs to the AC that she remembers. They were doing blood pressures on that extremity but have stopped. Heparin is on hold.
Past Medical History
Past Medical History: Other (SVT/ Atach, Valvular Disease (severe MR, mod TR) and Other (colon polyps, sjogrens, osteoarthritis, breast lump, raynaud's, scoliososis with gait and balance issues ,sicca, hyponatremia, recurrent PSBO and prior bowel
resection, prior jose elias, , pulm nodules, LLE edema, bursitis, lactose )
Past Surgical History: Bowel Resection, Cholecystectomy, Gynecological and Orthopedic (Spinal fusion with helen placement, revision, hip replacement, wrist fracture)
Social History
Tobacco: Non-Smoker
Alcohol: None
Drug: None
Personal:
Living: With Family
Employment: Retired
Family History
Family History: Reviewed & Not Pertinent
Allergies / Home Medications
Allergy/AdvReac Type Severity Reaction Status Date / Time
chlorhexidine Allergy Intermediate rash Verified 08/10/24 07:48
jose hips Allergy Hives Uncoded 08/10/24 07:48
�Medication �Instructions �Recorded �Confirmed �Type
ascorbic acid (vitamin C) 500 mg 500 mg PO DAILY Supplement 03/19/18 08/10/24 History
tablet (Vitamin C)
cholecalciferol (vitamin D3) 25 50 mcg PO DAILY Supplement 07/12/24 08/10/24 History
mcg (1,000 unit) tablet (Vitamin
D3)
cyclosporine 0.05 % eye drops in a 1 drp BOTH EYES Q12 Eye Condition 07/12/24 08/10/24 History
dropperette (Restasis)
polyethylene glycol 3350 17 gram 17 g PO DAILY Constipation 07/12/24 08/10/24 History
oral powder packet (Miralax)
therapeutic multivitamin 1 tab PO DAILY Supplement 07/12/24 08/10/24 History
amiodarone 200 mg tablet 200 mg PO DAILY #30 tabs 07/20/24 08/10/24 Rx
denosumab 60 mg/mL subcutaneous 60 mg SC [id number] Cancer 07/29/24 08/10/24 History
syringe (Prolia)
metoprolol succinate 50 mg 25 mg PO BID Heart 07/29/24 08/10/24 History
tablet,extended release 24 hr Disease/Condition
apixaban 5 mg tablet (Eliquis) 5 mg PO BID Blood Clot 08/11/24 08/10/24 History
Prevention/Tx
furosemide 40 mg tablet (Lasix) 40 mg PO BID Fluid 08/11/24 08/10/24 History
Retention/Swelling
potassium chloride 10 mEq 10 meq PO DAILY Supplement 08/11/24 08/10/24 History
tablet,extended release(part/cryst)
Review of Systems
-
History Source: Patient
All other systems: Negative unless noted
Constitutional: Reports No Symptoms
EENT: Reports No Symptoms
Respiratory: Reports No Symptoms
Cardiac: Reports No Symptoms
Vascular: Reports Tingling (Right hand)
Musculoskeletal: Reports Muscle Stiffness (Right upper extremity) and Edema (Right upper extremity)
Skin: Reports Other (Ecchymosis to right upper arm)
Physical Exam
Vital Signs
Temp Pulse Resp BP Pulse Ox
97.8 F 97 20 82/54 94
08/16/24 08:23 08/16/24 04:00 08/16/24 08:23 08/16/24 02:31 08/16/24 08:23
Lab Results
08/16/24 03:02
Physical Exam
General: No Apparent Distress
HEENT: Normocephalic and Atraumatic
Respiratory: Non Labored Respirations
Cardiac: Other (+2 bounding radial pulses); Negative JVD
Musculoskeletal: No Clubbing, No Cyanosis and Edema (Tense right upper arm)
Skin: Warm
Neuro: Awake, Alert and Oriented
Psych: Calm
Assessment / Plan
-
79-year-old female with spontaneous ecchymosis, edema, decreased sensation to the right upper extremity
Plan:
-Stat CT right upper extremity
-Ortho/Hand consult, tense right upper extremity*
Data Reviewed
-
Labs: Labs Reviewed by me
--- NOTE | 2024-08-16 08:58 | W.PN.CARDCBS ---
Addendum entered and electronically signed by Corine Griggs DO 08/16/24 11:19:
I saw and examined the patient.
The Ginseng Farmer's note was reviewed and I agree with the note.
Comment: Patient was seen and examined. Discussed overnight events and plan with CT surgery. Developed hemorrhage/large hematoma of bilateral hematoma while on IV heparin which has now been stopped with symptoms suggestive of compartment syndrome.
Surgery canceled; vascular surgery as well as orthopedics and heme-onc have been consulted
GEN: Awake alert and oriented x3. No tachypnea; oxygen saturations 98% on room air.
HEENT: mmm
LUNGS: Bronchovesicular breath sounds, decreased but clear
CV:irreg, irreg, S1/S2, 2/6 syst LSB,apex
ABD: soft, BS+, NT/ND
EXT: No lower extremity edema. Significant hematoma/ecchymosis of right upper extremity with edema/tense skin but good radial and ulnar pulses; left upper extremity with small amount of ecchymosis without tense skin or edema
NEURO: Gross non-focal
SKIN: R ankle/maddox with macular rash
Plan:
-New hemorrhage with large hematoma of right upper extremity and ecchymosis of left upper extremity which developed on heparin drip with concern for compartment syndrome of the right upper extremity and blood loss anemia
-Orthopedics, vascular surgery and heme/onc have been consulted.
-Imaging of upper extremities have been ordered and pending
-IV heparin drip stopped.
-CT surgery has postponed valve surgery
-Follow CBC: Hemoglobin drop from 11.7 (08/14) to 8.3 (08/16 in am); PLTs 176,000
-Consider use of IV Lasix posttransfusion if needed
Remains in relatively rate controlled atrial fibrillation
-Monitor blood pressure trends; hold parameters placed for Toprol XL 25 mg daily
-Continue amiodarone [address] surgery.
-Holding anticoagulation given above
MVr/ TVr/MAZE/RHONA Clip postponed
Original Note:
Today's Communication / Plan
-
Heparin on hold
CT and ultrasound of upper extremities ordered
Vascular, Ortho and heme-onc have been consulted
Monitor/trend Hgb
CTS postponed
Impression / Plan
-
PCP: Hanny Cerda
Dinkey Operator Slate: Dr. Mcgregor
Impression:
Presented for elective MVr/ TVr/MAZE/RHONA Clip 08/10/2024, surgery postponed due to abnormal labs
Volume contraction with marked azotemia and CARLIE
Mild elevation of transaminases
Spontaneous hemorrhage with large hematoma of the RUE 08/16/24
Acute anemia suspect secondary to spontaneous hematoma/hemorrhage of upper extremity
UTI GNB, started on Bactrim 08/15/2024
Mitral valve prolapse with severe mitral regurgitation with moderate tricuspid regurgitation
Persistent atrial fibrillation
History of acute HFpEF, now compensated
Sjogren's syndrome
Chronic hyponatremia
History of SBO with bowel resection 2010
Lumbar spinal fusion with helen placement 1988 with revision 1997
OA
No obstructive CAD
ECHO 08/2022: EF 55-60%, bileaflet MVP, mild MR, mild TR, trivial pericardial effusion
STEPHANE 07/15/24: EF 65%, Bileaflet mitral valve prolapse with severe mitral regurgitation, moderate TR
LHC 07/16/2024: No obstructive CAD; mildly elevated right and left-sided filling pressures with reduced cardiac output in the setting of slightly elevated SVR
Plan:
-Patient developed spontaneous hemorrhage with large hematoma of right upper extremity and ecchymosis of left upper extremity now complaining of paresthesias and decreased sensation of right upper extremity associated with decline of hemoglobin
-Orthopedics, vascular surgery and heme/onc have been consulted. Imaging of upper extremities have been ordered and pending
-CT surgery has postponed valve surgery
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
-hemoglobin drop from 11.7 (08/14) to 8.3 (08/16 in am); repeat pending later this afternoon; PLTs 176,000
-Found to have E. coli and Pseudomonas aeruginosa UTI. Started on Bactrim 08/15/2024
-BUN/Cr now upward trending, BUN 56/creat 1.2 - continue treatment per nephrology. lasix on hold
-Lytes are stable
-wt 100 lbs, up from 91 lbs on admission. D/C wt 07/21/2024=101 lbs. Continue to monitor closely and if transfusion needed would consider giving a dose of IV Lasix post transfusion
-telemetry: afib HRs 80s-low 100s, occ PVCs. continue toprol. Amiodarone started on admission per CT surgery
Progress Note - Dinkey Operator Slate
Subjective
Date of Service: August 16, 2024
Patient seen and examined. Patient resting comfortably in bed. Reports she had a very bad night due to severe pain in her right arm. Pain seems to have improved.
Objective
Labs:
08/16/24 03:02
Labs
Hgb Cancelled 08/16/24 06:00
Hct Cancelled 08/16/24 06:00
Plt Count Cancelled 08/16/24 06:00
PT 13.0 Sec (11.4-14.6) 08/16/24 03:02
INR 0.95 08/16/24 03:02
APTT 34.4 Sec (23.4-35.0) 08/16/24 03:02
Sodium 133 mmol/L (135-145) L 08/16/24 03:02
Potassium 4.6 mmol/L (3.5-5.1) 08/16/24 03:02
BUN 56 mg/dl (7-17) H 08/16/24 03:02
Creatinine 1.2 mg/dL (0.6-1.0) H 08/16/24 03:02
Glucose 146 mg/dl (70-99) H 08/16/24 03:02
Vital Signs and I&O:
Vital Signs
Temp Pulse Resp BP Pulse Ox
97.8 F 97 20 82/54 94
08/16/24 08:23 08/16/24 04:00 08/16/24 08:23 08/16/24 02:31 08/16/24 08:23
Vital Signs
Temp Pulse Resp BP Pulse Ox
97.8 F 97 20 82/54 94
08/16/24 08:23 08/16/24 04:00 08/16/24 08:23 08/16/24 02:31 08/16/24 08:23
Intake & Output
08/14/24 08/15/24 08/16/24 08/17/24
06:59 06:59 06:59 06:59
Intake Total 640 / 640 132 / 132
Output Total 600 / 600 500 / 500 800 / 800 200 / 200
Balance 40 / 40 -368 / -368 -800 / -800 -200 / -200
Physical Exam
Physical Exam
GEN: No distress, awake, Ox3, lying in bed
HEENT: supple, anicteric, mmm
LUNGS: CTA, no wheezes/rales
CV:irreg, irreg, S1/S2, 2/6 syst LSB,apex
ABD: soft, BS+, NT/ND
EXT: No edema, clubbing or cyanosis of lower extremities; significant hematoma/ecchymosis of right upper extremity with edema/tense skin but good radial and ulnar pulses; left upper extremity with small amount of ecchymosis without tense skin or
edema
NEURO: Gross non-focal
SKIN: R ankle/maddox with macular rash-improving from 08/13/2024
--- NOTE | 2024-08-16 09:23 | PTCARENOTE ---
On assessment, pt w/ swelling and ecchymosis of b/l upper ext. R arm +3; L arm +2 edema. +2 b/l radial pulses. Rosy PENG and Stephany DE LA FUENTE aware and at bedside. Pt sent for stat CT. Pt transported to CVICU rm [id number]. Report given to Ana Paula POND.
--- NOTE | 2024-08-16 09:29 | CON.ONC ---
Impression
Impression
Acute hematoma formation RUE>LUE
Anemia of acute blood loss
Sjogren syndrome
Severe MR, eventual repair planned
ARF
Plan
Plan
Coags normal.
Send retic, von Willebrand panel.
No history of bleeding to suggest inherited bleeding disorder. Platelets and coags are normal.
Suggest transfusion as improvement in hemoglobin should improve hemostasis. Pt consented for blood by me personally.
Last Eliquis was 08/07, not likely to have contributed to development of hematomas.
Question whether her collagen vascular disease may have been a predisposing factor to developing b/l intramuscular hematomas. Question also whether tourniquet for blood draws contributed, if used.
Transfuse 1 unit PRBC's now please.
Patient History
History of Present Illness
79 yo with multiple medical issues including valvular heart disease, Sgogren syndrome, Afib on Eliquis. Admitted for elective cardiac surgery but was in ARF upon admission so surgery has yet to proceed. Pt on outpt Eliquis for afib. She was on
heparin gtt here. Overnight developed large RUE hematoma and hemoglobin drop. She has symptoms concerning for compartment syndrome. She was tachycardic and hypotensive overnight but had had intermittent hypotension and tachycardia earlier during
hospitalization as well. Has been on Bactrim since 08/15 pm. Last Eliquis appears to have been pre-hospitalization, 08/07 pm. Pt underwent UE CT this morning showing bilateral upper extremity intramuscular hematomas. Historically, she reports some
difficulties with hemostasis following cardiac cath but otherwise no personal or family history of bleeding or easy bruising.
Past-Medical/Surgical History
Past Medical History
Past Medical History: Other (SVT, Valvular Disease (severe MR, mod TR) and Other (colon polyps, sjogrens, osteoarthritis, raynaud's, scoliososis with gait and balance issues ,sicca, hyponatremia, recurrent PSBO and prior bowel resection, prior
jose elias, pulm nodules, LLE edema )
Past Surgical History: Bowel Resection, Cholecystectomy, Gynecological and Orthopedic (Spinal fusion with helen placement, revision, hip replacement, wrist fracture), remote benign breast biopsy
Social History
Tobacco: Non-Smoker
Alcohol: None
Drug: None
Personal:
Living: With Family
Employment: Retired
Family History
Family History: Reviewed & Not Pertinent
Patient Medication
�Medication �Instructions �Recorded �Confirmed �Last Taken �Type
ascorbic acid (vitamin C) 500 mg 500 mg PO DAILY Supplement 03/19/18 08/10/24 08/03/24 History
tablet (Vitamin C)
cholecalciferol (vitamin D3) 25 50 mcg PO DAILY Supplement 07/12/24 08/10/24 08/03/24 History
mcg (1,000 unit) tablet (Vitamin
D3)
cyclosporine 0.05 % eye drops in a 1 drp BOTH EYES Q12 Eye Condition 07/12/24 08/10/24 07/31/24 History
dropperette (Restasis)
polyethylene glycol 3350 17 gram 17 g PO DAILY Constipation 07/12/24 08/10/24 08/06/24 History
oral powder packet (Miralax)
therapeutic multivitamin 1 tab PO DAILY Supplement 07/12/24 08/10/24 08/03/24 History
amiodarone 200 mg tablet 200 mg PO DAILY #30 tabs 07/20/24 08/10/24 08/09/24 09:00 Rx
denosumab 60 mg/mL subcutaneous 60 mg SC [id number] Cancer 07/29/24 08/10/24 08/09/24 History
syringe (Prolia)
metoprolol succinate 50 mg 25 mg PO BID Heart 07/29/24 08/10/24 08/09/24 History
tablet,extended release 24 hr Disease/Condition
apixaban 5 mg tablet (Eliquis) 5 mg PO BID Blood Clot 08/11/24 08/10/24 08/07/24 20:00 History
Prevention/Tx
furosemide 40 mg tablet (Lasix) 40 mg PO BID Fluid 08/11/24 08/10/24 08/09/24 History
Retention/Swelling
potassium chloride 10 mEq 10 meq PO DAILY Supplement 08/11/24 08/10/24 08/09/24 History
tablet,extended release(part/cryst)
Active Medications
Generic Name Dose Route Start Last Admin
Trade Name Freq PRN Reason Stop Dose Admin
Acetaminophen 1,000 mg 08/14/24 21:36 08/15/24 22:19
Acetaminophen 500 Mg Tablet PO 09/11/24 21:35 1,000 mg
Q6HPRN PRN Administration
mild pain, headache
Amiodarone HCl 200 mg 08/11/24 08:00 08/16/24 08:25
Amiodarone 200 Mg Tablet PO 09/08/24 07:59 200 mg
DAILY QUANG Administration
Ascorbic Acid 500 mg 08/11/24 08:00 08/11/24 08:51
Ascorbic Acid 500 Mg Tablet PO 09/08/24 07:59 Not Given
DAILY QUANG
Cholecalciferol 50 mcg 08/11/24 08:00 08/11/24 08:51
Cholecalciferol (Vitamin D3) 25 Mcg Tablet (1,000 Units) PO 09/08/24 07:59 Not Given
DAILY QUANG
Cyclosporine 1 drops 08/10/24 20:00 08/16/24 08:25
Cyclosporine 0.05% (Ophthalmic Emulsion) 10 Drop Droperette BOTH EYES 09/07/24 19:59 1 drops
Q12 QUANG Administration
Diphenhydramine HCl 25 mg 08/10/24 07:49
Diphenhydramine 25 Mg Capsule PO 09/07/24 07:48
Q4HPRN PRN
rash/pruritis
Hydrocortisone 0 applic 08/11/24 08:00 08/16/24 08:26
Hydrocortisone 1% (Cream) Tube TOPICAL 09/08/24 07:59 1 applic
BID QUANG Administration
Heparin Sodium 25,000 units in 250 mls @ 0 mls/hr 08/14/24 20:00 08/15/24 14:59
Heparin 75315 Units/250 Ml IV 250 mls
PER PROTOCOL QUANG Administration
Protocol
Per Protocol
Lactated Ringer's 1,000 mls @ 50 mls/hr 08/16/24 09:00 08/16/24 08:40
Lr IV 08/17/24 08:00 1,000 mls
.Q20H QUANG Administration
Metoprolol Succinate 25 mg 08/10/24 20:00 08/16/24 08:25
Metoprolol 25 Mg Extended Release Tablet PO 09/07/24 19:59 25 mg
BID QUANG Administration
Multivitamins Therapeutic 1 tablet 08/11/24 08:00 08/11/24 08:50
Multivitamin Tablet PO 09/08/24 07:59 Not Given
DAILY QUANG
Oxycodone HCl 5 mg 08/16/24 01:13 08/16/24 02:14
Oxycodone 5 Mg Regular Release Tablet PO 08/30/24 01:12 5 mg
Q4HPRN PRN Administration
severe pain
Oxycodone HCl 2.5 mg 08/16/24 01:13
Oxycodone 10 Mg Regular Release Tablet PO 08/30/24 01:12
Q4HPRN PRN
moderate pain
Polyethylene Glycol 17 grams 08/10/24 12:09 08/12/24 08:44
Polyethylene Glycol Powder 17 Grams Packet PO 09/07/24 12:08 17 grams
DAILYPRN PRN Administration
constipation
Sodium Chloride 0 flush 08/10/24 08:00
Sodium Chloride 0.9% (Flush) Syringe IV 09/07/24 07:59
PER PROTOCOL QUANG
Trimethoprim/Sulfamethoxazole 1 tablet 08/15/24 16:00 08/16/24 08:25
Sulfamethoxazole (800 Mg)/Trimethoprim (160 Mg) Tablet PO 08/18/24 15:59 1 tablet
BID QUANG Administration
Review of Systems
-
History Source: Patient
Constitutional: Reports No Symptoms
EENT: Reports No Symptoms
Respiratory: Reports No Symptoms
Cardiac: Reports No Symptoms
GI: Reports No Symptoms
Breast: Reports No Symptoms
: Reports No Symptoms
Musculoskeletal: Reports Myalgias and Muscle Weakness
Skin: Reports Other (ecchymoses)
Neuro: Reports No Symptoms
Endocrine: Reports No Symptoms
Hematologic/Lymphatic: Reports Bruising
Allergy / Immunology: Reports No Symptoms
Psych: Reports No Symptoms
Physical Exam
-
General: Well Developed and Well Nourished
HEENT: Moist Mucous Membranes and Other (Pale conjunctiva); Negative Jaundice
Cardiology: Normal Sinus Rhythm, S1 and S2
Pulmonary: Clear
GI: Soft and No Organomegaly
Musculoskeletal: No Clubbing, No Cyanosis, Scoliosis (severe, upper spine, with healed surgical wounds) and Other (Ecchymoses and hematoma RUE>LUE)
Extremities: Negative Phlebitic Signs
Neurology: Non Focal
Skin: Warm and Dry
Hematologic / Lymphatic: No Lymphadenopathy
Psych: Calm and Intact Judgement/Insight
Labs
Lab Results
WBC Cancelled 08/16/24 06:00
RBC Cancelled 08/16/24 06:00
Hgb Cancelled 08/16/24 06:00
Hct Cancelled 08/16/24 06:00
MCV Cancelled 08/16/24 06:00
MCH Cancelled 08/16/24 06:00
MCHC Cancelled 08/16/24 06:00
RDW Cancelled 08/16/24 06:00
Plt Count Cancelled 08/16/24 06:00
MPV Cancelled 08/16/24 06:00
Abs Immat Gran (auto) 0.2 10^3/uL (0-0.05) H 08/16/24 03:02
Absolute Neuts (auto) 6.6 10^3/uL (1.4-6.5) H 08/16/24 03:02
Absolute Lymphs (auto) 0.8 10^3/uL (1.2-3.4) L 08/16/24 03:02
Absolute Monos (auto) 0.7 10^3/uL (0.1-0.6) H 08/16/24 03:02
Absolute Eos (auto) 0.1 10^3/uL (0-0.7) 08/16/24 03:02
Absolute Basos (auto) 0.0 10^3/uL (0-0.2) 08/16/24 03:02
Immature Gran % 2.3 % (0-0.5) H 08/16/24 03:02
Neutrophils % 79.2 % (42.2-75.2) H 08/16/24 03:02
Lymphocytes % 9.1 % (20.5-51.1) L 08/16/24 03:02
Monocytes % 7.9 % (1.7-9.3) 08/16/24 03:02
Eosinophils % 1.0 % (0-6) 08/16/24 03:02
Basophils % 0.5 % (0-2) 08/16/24 03:02
Creatinine 1.2 mg/dL (0.6-1.0) H 08/16/24 03:02
08/12/2024: Hgb 13.1. CR 1.0
08/16/2024: Hgb 8.3, WBC 8.3, PLT 176. PT 13.0, INR 0.95, PTT 34.4, fibrinogen 454. CR 1.2. LDH 219. Indirect Chiquis negative.
Vital Signs
Vital Signs
Temp Pulse Resp BP Pulse Ox
97.8 F 97 20 82/54 94
08/16/24 08:23 08/16/24 04:00 08/16/24 08:23 08/16/24 02:31 08/16/24 08:23
[2024-08-16 10:18] LABS: Direct Bilirubin 0.2 mg/dl (0.0-0.4); Total Bilirubin 0.5 mg/dl (0.2-1.3)
--- NOTE | 2024-08-16 10:42 | PTCARENOTE ---
Transfer cancelled. Pt back in room from testing in room 3976. BP 113/39. Tele- afib. HR 100-120s. B/l arms elevated on pillows. Pt is currently in bed; call joaquín w/in reach.
--- NOTE | 2024-08-16 11:23 | W.PN.UPDATE ---
Addendum entered and electronically signed by Fransisco Hernandez MD 08/16/24 12:55:
Full consult dictated [id number]
Original Note:
Update Note
Progress Note Update
Patient seen and examined
Full consult to follow
Asked to evaluate the patient due to concern for compartment syndrome
Patient seen around 11am in her room
She is comfortable, holding the elbows bent and elevated
No swelling in the forearms, wrists, hands
There is diffuse swelling, bruising along the posterior side of the arms.
Elbow AROM and PROM are 0-90 without pain. Discomfort with flexion past 90 degrees
Full A/ PROM of the hand and wrist with no pain
No sensory deficits
CT scan shows hematoma in the triceps bilaterally.
A/P
Spontaneous intra-muscular hematoma, likely due to heparin drip.
No evidence of compartment syndrome
Treatment of hematoma as per primary team/ vascular
Thank you for the consultation.
Will sign off. Please contact us with further questions
--- NOTE | 2024-08-16 12:18 | PTCARENOTE ---
Pt due for labwork. Pt in ultrasound and CT in AM and unable to draw labs. Pt returned to room and vascular at bedside to take pt to OR. Vascular team felt more urgent to take pt to OR and unable to draw labs. Report given to Lashell POND and pt taken
to OR.
--- NOTE | 2024-08-16 12:25 | W.SUR.PREOP ---
Pre-Operative Surgical Note
-
I have examined this patient prior to the performance of the scheduled procedure.
The patient's condition is unchanged from the time of the current History and
Physical and the patient is able to undergo the scheduled procedure.
--- NOTE | 2024-08-16 12:26 | CM ---
Reviewed chart. Mrs. Meek is in the operating room. Prior to admission she resides with he spouse in a spilt level home with four steps to enter. She has seven steps to get to bedroom/full bathroom. She has a bathroom on the lower level.
Prior to admission she rolling walker or rollator to ambulat in the house and uses a single point cane at home. She has a walker, rollator and single point cane at home. She has a prescription plan and uses [facility]. Will need to see her
current functional level to see if she will have any skilled care needs. Her spouse will be home to assist in her care if needed. Medical work-up in progress. The discharge plan is to return home with her spouse and [facility] verses some level
of inpatient rehab. when medically stable.
--- NOTE | 2024-08-16 12:58 | W.SUR.POST ---
Surgical Immediate Post Op
Note
Pre Op Diagnosis: R arm hematoma
Post Op Diagnosis: R arm hematoma
Procedure Performed: R tricep I&D, hematoma evacuation
Primary Surgeon: Thuan Lawton
Secondary Surgeons: Pelon Real
Anesthesia: see anesthesia flowsheet
Estimated Blood Loss: 50cc
Fluids: see anesthesia flowsheet
Drains/Shunts: naeem in surgical bed
Specimens/Cultures: none
Doppler/Duplex/Angio (Y/N): n
Complications: none
Operative Findings: I&D of R arm hematoma, old blood evacutaed from triceps, naeem left in surgical bed
--- NOTE | 2024-08-16 13:20 | OR.RPT ---
Operative Report
Operative Report
Date of Operation: 08/16/2024
Pre Op Diagnosis: Tense right upper extremity intramuscular hematoma involving the triceps muscle
Post Op Diagnosis: Tense right upper extremity intramuscular hematoma involving the triceps muscle
Procedure: Evacuation and washout of right upper extremity intramuscular hematoma
Surgeon: Thuan Lawton III, MD
Elevator Repairer Apprentice: Pelon Real MD, PGY4
Anesthesia: General
Complications: None
Estimated Blood Loss: 50 cc
History and Indications for Procedure: 79-year-old female who developed a spontaneous intramuscular hematoma of her right upper extremity involving the triceps muscle
Procedure in Detail: Michelle Meek was correctly identified and placed supine on the operating table. Her right arm was abducted 90 degrees on the side table. After adequate induction of anesthesia her right upper extremity and right axilla were
prepped and draped in the usual sterile fashion. A timeout procedure was performed with the nursing and anesthesia staff confirming the patient's identity as well as the nature and laterality of the procedure. She received preoperative antibiotics.
I made an incision over the posterior aspect of the medial right upper arm. Electrocautery was used on the subcutaneous tissue down to the fascia. We then opened the fascia sharply and immediately into the hematoma cavity which was clearly under
pressure. A combination of old blood and hematoma was evacuated from the wound. We then irrigated the hematoma cavity with copious amounts of warm saline solution. Self-retaining retractors were then placed. The wound was carefully inspected.
No active arterial or venous bleeding was identified. Raw surface oozing was identified as well as some areas of muscle bleeding. These were controlled with topical hemostatic agents, dry gauze packing and electrocautery. The wound was packed
with gauze and after several minutes this was removed. The wound was explored again and was hemostatic. The muscle throughout the cavity was all healthy appearing. The wound was irrigated once again with warm saline solution. Topical hemostatic
agents were then placed deep in the wound bed. A large Chevy drain was brought out through a separate stab incision at the skin and secured in place with a nylon suture. The drain was left deep in the hematoma cavity. The wound was then closed in
layers and sterile dressings were applied. Patient tolerated the procedure well and was taken to the recovery area in stable condition.
Attestation: I was present and responsible for the entire procedure
Signed:
Thuan Lawton III, MD
[facility]
[phone] (cell)
--- NOTE | 2024-08-16 15:09 | HPS.HSE ---
Family Physician
-
Family Physician: Hanny Cerda
Chief Complaint
-
Anemia, CARLIE
History of Present Illness
Patient is a 79 y/o female past medical history of CHF, Valvular Heart Disease, and Atrial Fibrillation who was initially scheduled to undergo a mitral valve repair, tricuspid repair, MAZE and left atrial appendage clip on August 10. Unfortunately
patient was found to have an acute kidney injury and surgery was delayred. Patient then developed a spontaneous intra-muscular hematoma requiring evacuation in the operating room today. At this point cardiac surgery has been cancelled and CT
surgery request transfer to hospitalist service.
Medical History
Past Medical History
Past Medical History: Reports Other
Additional Past Medical History:
Severe Mitral Regurgitation / Mitral Valve Prolapse
Chronic HFpEF
Atrial Fibrillation
SVT/Atrial Tachycardia
Chronic Hyponatremia
Sjogren Syndrome
Scoliosis
Gluten Enteropathy
Past Surgical History: Reports Other
Additional Past Surgical History:
Spinal Fusion
Left Hip Replacement
Hysterectomy
Cholecystectomy
Bowel Resection
Social History
Tobacco: Non-smoker
Alcohol: None
Drug: None
Personal:
Living: With Family
Employment: Retired
Family History
Family History: Other (Mom: CVA)
Allergies / Home Medications
Allergies reflects when Allergies were last updated in [employer].
Home Medications with original date entered in [employer]
Allergy/Medication List:
Allergies
Allergy/AdvReac Type Severity Reaction Status Date / Time
chlorhexidine Allergy rash Verified 08/16/24 15:57
jose hips Allergy Hives Uncoded 08/10/24 07:48
Home Medications
ascorbic acid (vitamin C) 500 mg tablet (Vitamin C) 500 mg PO DAILY Supplement 03/19/18
cholecalciferol (vitamin D3) 25 mcg (1,000 unit) tablet (Vitamin D3) 50 mcg PO DAILY Supplement 07/12/24
cyclosporine 0.05 % eye drops in a dropperette (Restasis) 1 drp BOTH EYES Q12 Eye Condition 07/12/24
polyethylene glycol 3350 17 gram oral powder packet (Miralax) 17 g PO DAILY Constipation 07/12/24
therapeutic multivitamin 1 tab PO DAILY Supplement 07/12/24
amiodarone 200 mg tablet 200 mg PO DAILY #30 tabs 07/20/24
denosumab 60 mg/mL subcutaneous syringe (Prolia) 60 mg SC [id number] Cancer 07/29/24
metoprolol succinate 50 mg tablet,extended release 24 hr 25 mg PO BID Heart Disease/Condition 07/29/24
apixaban 5 mg tablet (Eliquis) 5 mg PO BID Blood Clot Prevention/Tx 08/11/24
furosemide 40 mg tablet (Lasix) 40 mg PO BID Fluid Retention/Swelling 08/11/24
potassium chloride 10 mEq tablet,extended release(part/cryst) 10 meq PO DAILY Supplement 08/11/24
Review of Systems
-
A 12 point ROS was completed and negative except as noted: Yes
Constitutional: Denies Fever
Respiratory: Denies Cough
Cardiac: Denies Chest Pain
Physical Exam
Vital Signs
Vital Signs
Temp Pulse Resp BP Pulse Ox
98.2 F 104 16 115/76 96
08/16/24 14:59 08/16/24 14:02 08/16/24 14:59 08/16/24 14:02 08/16/24 14:59
Physical Exam
General: Comfortable and Conversant
HEENT: Anicteric, Moist mucous membranes and Oxygen (Nasal Cannula)
Respiratory: Clear (Anteriorly) and Non Labored Respirations
Cardiac: S1/S2, Irregular Rhythm and Murmur; No Tachycardia
GI: Soft and Non Tender
Rectal: Deferred by Provider
Musculoskeletal: No Clubbing, No Cyanosis and Other (Right Upper Extremity Wrapped in [place])
Skin: Warm, Dry and Other (Ecchymosis left upper extremity)
Neuro: Awake, Alert, Oriented and Nonfocal/grossly intact
Psych: Calm
Laboratory Results
-
08/16/24 03:02
Laboratory Results
PT 13.0 Sec (11.4-14.6) 08/16/24 03:02
INR 0.95 08/16/24 03:02
APTT 34.4 Sec (23.4-35.0) 08/16/24 03:02
Total Bilirubin 0.5 mg/dl (0.2-1.3) 08/16/24 03:02
AST 26 U/L (14-36) 08/15/24 02:35
ALT 29 U/L (0-35) 08/15/24 02:35
Alkaline Phosphatase 58 U/L (38-126) 08/15/24 02:35
Data Reviewed
-
Lab Data: Labs Reviewed by me
Old Records: Reviewed
Impression/Plan
-
Right Triceps Muscle Hematoma s/p Hematoma Evacuation in OR on August 16
-Care as per Vascular Surgery
Acute Blood Loss Anemia
-Transfuse 1 unit PRBCs now
-Monitor Hgb q8H
Acute Kidney Injury
-Discontinue Bactrim
-Patient receiving IVFs and blood transfuse
-Recheck Creatinine in AM
Urinary Tract Infection
-Urine culture with E. coli and Pseudomonas
-Discontinue Bactrim
-Start Cefepime
-Repeat urine culture pending
Severe Mitral Regurgitation / Mitral Valve Prolapse
-Previously scheduled surgery has been cancelled
-Timing of surgery to be determine by CT surgery
Chronic HFpEF
-Lasix initially held due to CARLIE at time of admission
-Patient has gained 9lbs since admission
-Check proBNP
-Monitor Is&Os and Daily Weights
Persistent Atrial Fibrillation
Hx SVT/Atrial Tachycardia
-Anticoagulation on hold due to anemia and hematoma
-Continue Metoprolol and Amiodarone
Chronic Hyponatremia
-Sodium level stable
-Continue fluid restriction
Hx Scoliosis s/p Spinal Fusion
Hx Sjogren Syndrome
Hx Gluten Enteropathy - Patient does not follow gluten free diet at home
DVT proph: SCDs
Code Status: Full Code
[2024-08-16 15:36] LABS: Hematocrit 21.7 % (37.0-47.0); Reticulocyte Count 2.4 % (0.4-2.8)
[2024-08-16 15:48] LABS: Lactic Acid 1.3 mmol/L (0.7-2.0)
--- NOTE | 2024-08-16 16:23 | W.PN.UPDATE ---
Update Note
Progress Note Update
I have independently examined the patient and pinky with H&P written on the same date. In addition:
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
hydration and holding diuretics, also found UTI, laxative induced diarrhea found with worsening RUE bruise with swelling, that was due to spontaneous hemorrhage inrtamuscularly. Also some degree of hemorrhage on L but without much swelling. Bleeding
occured while patient being on heparin. S/P R arm hematoma evacuation by vascular on 08/16/24.
No hematoma or tenderness on b/l LE and in abd.
A/P:
#Acute blood loss anemia 2/2 spontaneous intramuscular bleed exacerbated by heparin drip
s/p 1 unit PRBC on 08/16/24
Most likely traumatic after tourniquet use, BP cuff (exacerbated by CTD)
Hold anticoagulation, Antiplatelets, NSAIDs
Serial H&H and transfuse as needed, target to keep Hgb>8
VascSx to continue to follow
Hematology followed
CHeck Iron, TIBC, Ferritin, FOlate, B12, retics, FOBT
LDH WNL
HIT Ab and VW panel sent
#CARLIE
Cr baseline 1.0
Reoccured on 08/16/24 22/ acute anemia
Transfuse and follow Cr
#Mitral valve prolapse with severe mitral regurgitation with moderate tricuspid regurgitation
#Persistent atrial fibrillation
#Non-obstructive CAD
#Acute hypoxic insufficiency with Hx of HFpEF
With PMHX of Thoracentesis 2/2 SOB due to CHF
Cardio follows
Lasix was on hold
Check proBNP and Chest XR
Weight +3kg since admission
Replete RBC first before diuresis
Cont rate control as per cardio
COnt CTS follow ups
#UTI
Cefepime as per UCx
US renal
#Recent laxative induced diarrhea
hold laxative
send casimiro study if reoccurs
#Chronic transaminitis
Hepatitis panel neg
#Sjogren
#Hx of SBO
#Gluten intollerance
#Hx of lumbar spinal fusion
#OA
cont home meds
DVT ppx SCDs
Full code
We have spent at least 79min reviewing chart, test results, communication with consultants and providing direct patient care
[2024-08-16] MEDS: MAXIPIME 1000 MG IV (16:32)
[2024-08-16] MEDS: STERILE WATER FOR INJECTION 10 ML IV (16:32)
--- NOTE | 2024-08-16 16:59 | PTCARENOTE ---
Rec'd pt from PACU. R arm w/ [place] wrap c/d/i. NIKITA drain w/ sanguineous drg. +2 R radial pulse. Neurovascular wnl. No complaints of pain/discomfort at this time. Labs collected and sent. 1 units PRBCs currently infusing. Currently in bed; call yanes is
w/in reach.
[2024-08-16 17:28] LABS: Iron 54 ug/dl (37-170)
[2024-08-16 17:37] LABS: NT-proBNP 5230 pg/ml; Percent Saturation 16 % (20-50); Total Iron Binding Capacity 321 ug/dl (265-497)
--- NOTE | 2024-08-16 17:46 | W.PN.NEPH.PH ---
Today's Communication / Plan
-
follow labs, prn lasix
Assessment/Plan
-
79yo with hx SVT/atach, severe MR, mod TR, colon polyps, chronic AST elevation Sjogren, osteoarthritis, breast lump, raynaud's, scoliosis with gait and balance issues, ,sicca, hyponatremia, recurrent PSBO and prior bowel resection, prior jose elias, ,
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
Baseline creatinine less than 1
Started on diuretics last admission June
Impression.
Acute kidney injury
Severe MR pending valve surgery
Atrial fibrillation stable rate controlled
Non-obstructive CAD
Acute hypoxic insufficiency with Hx of HFpEF
UTI
Recent laxative induced diarrhea
Chronic transaminitis
Sjogren
Hx of SBO
Gluten intollerance
Hx of lumbar spinal fusion
OA
Plan.
cr slightly up today with acute blood loss anemia
monitor mild hematuria
cotn transfuse prn
s/p wash out of intramuscular hematoma of right UE
Bp improving post IVF
ok for prn lasix
Follow BMP
Follow weights closely
cardiac surg now postponed
-
-
Date of Service: August 16, 2024
CC / HPI / ROS
-
Chief Complaint:
CARLIE
History of Present Illness:
CARLIE/creatinine up at 1.2
BUN 56, hb low 7
hematoma of right UE s/p evacuation, heparin on hold
Blood pressure low this am now better
Review of Systems:
P.o. intake fair
No chest pain or shortness of breath at rest
Labs
-
Labs:
WBC Cancelled 08/16/24 06:00
RBC Cancelled 08/16/24 06:00
Plt Count Cancelled 08/16/24 06:00
Sodium 133 mmol/L (135-145) L 08/16/24 03:02
Potassium 4.6 mmol/L (3.5-5.1) 08/16/24 03:02
Chloride 100 mmol/L (98-107) 08/16/24 03:02
Carbon Dioxide 25 mmol/L (22-30) 08/16/24 03:02
BUN 56 mg/dl (7-17) H 08/16/24 03:02
Creatinine 1.2 mg/dL (0.6-1.0) H 08/16/24 03:02
eGFR 46.33 08/16/24 03:02
Glucose 146 mg/dl (70-99) H 08/16/24 03:02
Calcium 8.6 mg/dl (8.4-10.2) 08/16/24 03:02
Wcc-O-Nahdgnpwsxe Pept 5230 pg/ml 08/16/24 15:19
Albumin 2.8 g/dl (3.5-5.0) L 08/15/24 02:35
Physical Exam
-
Vital Signs:
Vital Signs
Temp Pulse Resp BP Pulse Ox
97.6 F 99 16 102/68 97
08/16/24 15:45 08/16/24 16:00 08/16/24 15:45 08/16/24 16:00 08/16/24 15:45
Cardiovascular:: Regular rate and rhythm
Respiratory:: Bilateral: CTA
Lung Excursion:: Normal
Abdomen:: Nontender and Soft
Bowel Sounds:: Normal
Extremity Edema:: None: Bilateral:
Lawton Catheter: No
[2024-08-16 18:35] LABS: Folate > 20.0 ng/ml (2.76-20); Vitamin B12 842 pg/ml (239-931)
[2024-08-16 21:19] LABS: Osmolality Urine 416 mOsm/kg (300-900)
[2024-08-16 21:28] LABS: Urine Sodium 8 mmol/L (30-90)
[2024-08-16] MEDS: TYLENOL 1000 MG PO (21:46)
[2024-08-16 21:57] LABS: Hematocrit 25.7 % (37.0-47.0); Hemoglobin 8.8 g/dL (12.0-16.0)
[2024-08-16 22:07] LABS: Lactic Acid 2.6 mmol/L (0.7-2.0)
[2024-08-16 22:09] LABS: Blood Urea Nitrogen 44 mg/dl (7-17); Calcium 8.2 mg/dl (8.4-10.2); Carbon Dioxide 27 mmol/L (22-30); Chloride 102 mmol/L (98-107); Estimated Creatinine Clearance 30 ml/min; Glucose 191 mg/dl (70-99); Potassium 5.2 mmol/L (3.5-5.1); Sodium 135 mmol/L (135-145); eGFR 51.43
--- NOTE | 2024-08-16 22:31 | PTCARENOTE ---
Received pt at shift change; AAOx3, able to make needs known. Afib on the monitor. RUE wrapped shoulder to wrist with [place], C/D/I, NIKITA drain present draining sanguinous fluid, +radial pulse, +2 edema visible at the wrist, see neurovascular check
flowsheet. Pt c/o /10 pain, politely declines Tylenol at this time, states she'll ring for some before bed. Outstanding labs drawn and sent. Assisted pt to bedside commode, urine specimen sent to the lab. Assisted with PM hygiene. Remainder of
assessment as documented. Pt resting comfortably in bed, call yanes within reach.
[2024-08-17] VITALS (8 sets, daily range): BP systolic 94–124; BP diastolic 58–83; PULSE 101–122; BMI 20.2
[2024-08-17] MEDS: MAXIPIME 1000 MG IV ×4 (00:22→23:11)
[2024-08-17] MEDS: STERILE WATER FOR INJECTION 10 ML IV ×4 (00:23→23:11)
[2024-08-17 04:46] LABS: Hematocrit 26.5 % (37.0-47.0); Hemoglobin 8.9 g/dL (12.0-16.0); Mean Corp Hgb Conc. 33.6 g/dL (33.0-37.0); Mean Corpuscular Hgb 30.4 pg (27.0-31.0); Mean Corpuscular Volume 90.4 fL (81.0-99.0); Mean Platelet Volume 10.1 fL (7.4-10.4); Platelet Count 176 10^3/uL (130-400); Red Blood Cell Count 2.93 10^6/uL (4.20-5.40); White Blood Cell Count 8.7 10^3/uL (4.8-10.8)
[2024-08-17 05:09] LABS: Blood Urea Nitrogen 41 mg/dl (7-17); Calcium 8.4 mg/dl (8.4-10.2); Carbon Dioxide 25 mmol/L (22-30); Chloride 103 mmol/L (98-107); Estimated Creatinine Clearance 30 ml/min; Glucose 122 mg/dl (70-99); Magnesium 2.2 mg/dl (1.6-2.3); Phosphorus 3.2 mg/dl (2.5-4.5); Potassium 5.2 mmol/L (3.5-5.1); Sodium 137 mmol/L (135-145); eGFR 51.43
--- NOTE | 2024-08-17 08:21 | W.PN.VS ---
Addendum entered and electronically signed by Thuan Lawton III, MD 08/17/24 18:42:
This patient was seen and examined in collaboration with ALEC Lopez. I agree with the history and physical exam as well as the assessment and plan.
Signed:
Thuan Lawton III, MD
[facility]
[phone] (obtk)
Original Note:
Today's Communication / Plan
-
Patient seen and examined at bedside with Dr. Thuan Lawton III, below plan reviewed with attending.
Assessment/Plan
-
Assessment: 71-year-old female POD #1 Evacuation and washout of right upper extremity intramuscular hematoma
Plan:
Continue to hold anticoagulation, will reevaluate tomorrow
Continue to monitor NIKITA drain and document I&O
Recommend elevation to decrease edema
Will consult OT to aid with grasp weakness of right hand
Subjective Data
-
Date of Service: August 17, 2024
Patient seen and examined at bedside, reports improvement in right upper extremity hand grasp and incoordination but is not at baseline. Tolerating p.o. diet. Reports adequate postoperative pain management.
Objective Data
-
Vital Signs
Temp Pulse Resp BP Pulse Ox
97.6 F 98 16 94/61 96
08/17/24 07:32 08/17/24 05:32 08/17/24 07:32 08/17/24 05:32 08/17/24 07:32
Intake and Output
08/16/24 08/17/24 08/18/24
06:59 06:59 06:59
Intake Total 1710 / 1710
Output Total 800 / 800 235 / 235
Balance -800 / -800 1475 / 1475
Intake:
Oral fluids 660 / 660
IV fluids (Total) 800 / 800
LR 500 / 500
Normosol 50 / 50
PRBC 250 / 250
Blood Product Amount Infused ( 250 / 250
mL)
Packed Rbc Leukoreduced Unit 250 / 250
[id number]
Output:
Drain Output (Total)
Right
Urine, Voided 800 / 800 200 / 200
Other:
Number of approximated MODERATE 1
amounts of urine
How many times incontinent 2
MODERATE amount urine
Lab Results
08/17/24 04:12
08/17/24 04:12
Calcium 8.4 mg/dl (8.4-10.2) 08/17/24 04:12
Phosphorus 3.2 mg/dl (2.5-4.5) 08/17/24 04:12
Magnesium 2.2 mg/dl (1.6-2.3) 08/17/24 04:12
Total Bilirubin 0.5 mg/dl (0.2-1.3) 08/16/24 03:02
Direct Bilirubin 0.2 mg/dl (0.0-0.4) 08/16/24 03:02
AST 26 U/L (14-36) 08/15/24 02:35
ALT 29 U/L (0-35) 08/15/24 02:35
Alkaline Phosphatase 58 U/L (38-126) 08/15/24 02:35
Total Protein 4.8 g/dl (6.3-8.2) L 08/15/24 02:35
Albumin 2.8 g/dl (3.5-5.0) L 08/15/24 02:35
Physical Exam
-
No apparent distress, resting bed comfortably
No tachycardia
No dyspnea on room air
Right upper extremity with +2 edema and ecchymosis, surgical dressing CDI, NIKITA drain with serosanguineous output
Right +2 radial pulse, right hand warm
[2024-08-17] MEDS: PACERONE 200 MG PO (08:53)
[2024-08-17] MEDS: TOPROL XL 25 MG PO ×2 (08:53→20:22)
[2024-08-17] MEDS: RESTASIS 0.05% OPHTHALMIC EMULSION 1 DROPS BOTH EYES ×2 (08:53→20:19)
[2024-08-17] MEDS: HYDROCORTISONE 1% CREAM 1 APPLIC TOPICAL ×2 (08:57→20:22)
--- NOTE | 2024-08-17 09:12 | W.PN.ONC2 ---
Today's Communication / Plan
-
.
Impression
Impression
Acute hematoma formation RUE>LUE. Evacuation and washout of right upper extremity intramuscular hematoma
Anemia of acute blood loss
Sjogren syndrome
Severe MR, eventual repair planned
CARLIE
Plan
Plan
f/u von Willebrand panel.
No history of bleeding to suggest inherited bleeding disorder. Platelets and coags are normal.
Last Eliquis was 08/07, resumption per vascular surgery/cardiology based on risk/benefit
Question whether her collagen vascular disease may have been a predisposing factor to developing b/l intramuscular hematomas.
Subjective/Objective
Subjective
no new events
Hgb stable 8.9g/dL
right arm feeling better
Vital Signs:
Vital Signs
Temp Pulse Resp BP Pulse Ox
97.6 F 98 16 94/61 96
08/17/24 07:32 08/17/24 05:32 08/17/24 07:32 08/17/24 05:32 08/17/24 07:32
Lab Results:
Laboratory Data
WBC 8.7 10^3/uL (4.8-10.8) 08/17/24 04:12
Hgb 8.9 g/dL (12.0-16.0) L 08/17/24 04:12
Hgb Cancelled 08/17/24 04:12
Plt Count 176 10^3/uL (130-400) 08/17/24 04:12
PT 13.0 Sec (11.4-14.6) 08/16/24 03:02
INR 0.95 08/16/24 03:02
APTT 34.4 Sec (23.4-35.0) 08/16/24 03:02
eGFR 51.43 08/17/24 04:12
Physical Exam
Right upper extremity with +2 edema and ecchymosis, surgical dressing CDI, NIKITA drain with serosanguineous output
--- NOTE | 2024-08-17 09:58 | W.PN.HOSP.TC ---
Addendum entered and electronically signed by Rigoberto Cardona MD 08/17/24 10:35:
FeNA 0.1% - prerenal
CARLIE most likely 2/2 volume depletion and anemia with acute bleeding
Original Note:
Today's Communication/Plan
-
cont to monitor kidney and H&H
US renal
Not hypoxic, no overt CHF clinically -hold off Lasix today
Assessment / Plan
Assessment / Plan
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
hydration and holding diuretics, also found UTI, laxative induced diarrhea found with worsening RUE bruise with swelling, that was due to spontaneous hemorrhage inrtamuscularly. Also some degree of hemorrhage on L but without much swelling. Bleeding
occured while patient being on heparin. S/P R arm hematoma evacuation by vascular on 08/16/24.
No hematoma or tenderness on b/l LE and in abd.
A/P:
#Acute blood loss anemia 2/2 spontaneous intramuscular bleed exacerbated by heparin drip
s/p 1 unit PRBC on 08/16/24
Most likely traumatic after tourniquet use, BP cuff (exacerbated by CTD)
Hold anticoagulation, Antiplatelets, NSAIDs
Serial H&H and transfuse as needed, target to keep Hgb>8
VascSx to continue to follow
Hematology followed
Iron, TIBC, Ferritin, FOlate, B12,LDH, retics WNL
FOBT pending
HIT Ab and VW panel sent
#CARLIE
Cr baseline 1.0
Reoccured on 08/16/24 22/ acute anemia
Transfuse and follow Cr
#Mitral valve prolapse with severe mitral regurgitation with moderate tricuspid regurgitation
#Persistent atrial fibrillation
#Non-obstructive CAD
#Acute hypoxic insufficiency with Hx of HFpEF
With PMHX of Thoracentesis 2/2 SOB due to CHF
Cardio follows
Lasix was on hold
proBNP elevated but no overt congestion on Chest XR, hold lasix while recovering Cr
Cont rate control as per cardio
COnt CTS follow ups
#UTI
Cefepime as per UCx
US renal
#Recent laxative induced diarrhea
hold laxative
send casimiro study if reoccurs
#Chronic transaminitis
Hepatitis panel neg
#Sjogren
#Hx of SBO
#Gluten intolerance
#Hx of lumbar spinal fusion
#OA
cont home meds
DVT ppx SCDs
Full code
I have spent at least 59min reviewing chart, test results, communication with consultants and providing direct patient care
Anticipated Discharge: > 48 hours
Subjective/Interval History
-
Date of Service: August 17, 2024
Objective Data
-
Labs:
Laboratory Results
08/16/24 08/17/24 08/17/24
21:44 04:12 04:12
WBC 8.7
Hgb 8.9 L Cancelled
Hct 26.5 L
Plt Count
Sodium 135
Potassium 5.2 H
Chloride 102
Carbon Dioxide 27
BUN 44 H
Creatinine 1.1 H
Glucose 191 H
Calcium 8.2 L
08/17/24
04:12
WBC
Hgb
Hct Cancelled
Plt Count 176
Sodium 137
Potassium 5.2 H
Chloride 103
Carbon Dioxide 25
BUN 41 H
Creatinine 1.1 H
Glucose 122 H
Calcium 8.4
Vital Signs:
Vital Signs
Temp Pulse Resp BP Pulse Ox
97.6 F 98 16 94/61 96
08/17/24 07:32 08/17/24 05:32 08/17/24 07:32 08/17/24 05:32 08/17/24 07:32
I&O
08/16/24 08/17/24 08/18/24
06:59 06:59 06:59
Intake Total 1710 / 1710
Output Total 800 / 800 235 / 235 150 / 150
Balance -800 / -800 1475 / 1475 -150 / -150
Review of Systems
-
History Source: Patient
All other systems: Reviewed and negative
Physical Exam
-
General: No Apparent Distress
HEENT: Normocephalic
Respiratory: Clear to Auscultation
Cardiac: Regular Rhythm
Musculoskeletal: Edema, Right Upper Extrem
Neuro: Awake, Alert, Oriented and AO x 3
Psych: Calm
--- NOTE | 2024-08-17 10:12 | CM ---
Reviewed chart. Met with Mrs. Meek to review discharge plans. She states her heart surgery has been postponed and she will go home and come back at a later date. We reviewed [facility] with her. She is agreeable to [facility]. She has
selected [facility]. Telephone call to [facility] to update them on status of referral. Sent updated referral. Prior to admission Mrs. Meek resides with her spouse in a spilt level home with four steps to enter. She has seven
steps to get to bedroom/full bathroom. She has a bathroom om the lower level. She uses a rollator or rolling walker to ambulate in the home and uses a single point cane in the community. She has a rollator, single point cane and rolling walker at
home. She was current with [facility]. She has a prescription plan and uses [facility]. Will need to see her current functional level to see if she will have any skilled care needs. Medical work-up in progress. The discharge
plan is to return home with her spouse with resumption of [facility] when medically stable.
--- NOTE | 2024-08-17 10:57 | PTCARENOTE ---
Rec'd pt at handoff. Tele- afib. R arm w/ [place] bandage and NIKITA drain w/ sanguineous drg. +radial pulse, +2 edema visible at the wrist, see neurovascular check flowsheet. Pt states she has no complaints at this time. Plan of care reviewed w/ pt and
verbalizes understanding. Currently in bed; call yanes is w/in reach.
--- NOTE | 2024-08-17 12:25 | W.PN.CARDCBS ---
Addendum entered and electronically signed by Mack Bradford DO 08/17/24 21:21:
I saw and examined the patient.
The Social Media Developer's note was reviewed and I agree with the note.
Comment:
Plan:
Cont post op vascular care
Anticoagulation remains on hold, resume once ok with vascular
Appreciate heme input
Lasix diuresis as per renal
CT surgery follow up scheduled for August. Surgery is currently postponed and will be reevaluated for candidacy for MVr/TVr vs Mitraclip vs medical therapy
Will arrange outpt cardiac follow up for reeval.
Discussed with family at bedside
Please recall if needed
Original Note:
Today's Communication / Plan
-
continue vascular post op care
holding OAC
plan for CT surgery to reevaluate in office once recovered and can discuss if remains candidate for surgical MVr/TVr vs mitraclip vs medical therapy
nephrology to determine diuretic dosing prior to DC
Impression / Plan
-
PCP: Hanny Cerda
Hoop Punch Operator Helper: Dr. Mcgregor
Impression:
Presented for elective MVr/ TVr/MAZE/RHONA Clip 08/10/2024, surgery postponed due to abnormal labs
Volume contraction with marked azotemia and CARLIE
Mild elevation of transaminases
Spontaneous hemorrhage with large hematoma of the RUE 08/16/24
Acute anemia suspect secondary to spontaneous hematoma/hemorrhage of upper extremity
UTI GNB, started on Bactrim 08/15/2024
Mitral valve prolapse with severe mitral regurgitation with moderate tricuspid regurgitation
Persistent atrial fibrillation
History of acute HFpEF, now compensated
Sjogren's syndrome
Chronic hyponatremia
History of SBO with bowel resection 2010
Lumbar spinal fusion with helen placement 1988 with revision 1997
OA
Non obstructive CAD
ECHO 08/2022: EF 55-60%, bileaflet MVP, mild MR, mild TR, trivial pericardial effusion
STEPHANE 07/15/24: EF 65%, Bileaflet mitral valve prolapse with severe mitral regurgitation, moderate TR
LHC 07/16/2024: No obstructive CAD; mildly elevated right and left-sided filling pressures with reduced cardiac output in the setting of slightly elevated SVR
Plan:
-Patient presented for elective MVr/TVr/MAZE/RHONA clip and was noted to have marked uremia with BUN over 100. She was hydrated with improvement. Then developed spontaneous hemorrhage of RUE>LUE requiring evacuation and washout 08/16. remains with
drain in place. vascular following
-hgb 8.9. was on eliquis prior to admission for afib.
-plan for CT surgery to reevaluate in office once recovered and can discuss if remains candidate for surgical MVr/TVr vs mitraclip vs medical therapy
-BUN/Cr 44/1.1 on 08/17. trend. OP lasix on hold, defer dosing upon DC to nephrology. being treated for UTI. back up to last DC weight. for renal US today
-if transfusion needed would consider giving a dose of IV Lasix post transfusion
-continue toprol, amiodarone. remains in rate controlled afib on review of tele.
-d/w nursing, CT surgery CNC MACHINIST 2ND SHIFT
Progress Note - Hoop Punch Operator Helper
Subjective
Date of Service: August 17, 2024
no CP, SOB, palpitations. reports adequate pain control of RUE
Objective
Labs:
08/17/24 04:12
08/17/24 04:12
Labs
Hgb 8.9 g/dL (12.0-16.0) L 08/17/24 04:12
Hgb Cancelled 08/17/24 04:12
Hct 26.5 % (37.0-47.0) L 08/17/24 04:12
Hct Cancelled 08/17/24 04:12
Plt Count 176 10^3/uL (130-400) 08/17/24 04:12
PT 13.0 Sec (11.4-14.6) 08/16/24 03:02
INR 0.95 08/16/24 03:02
APTT 34.4 Sec (23.4-35.0) 08/16/24 03:02
Sodium 137 mmol/L (135-145) 08/17/24 04:12
Potassium 5.2 mmol/L (3.5-5.1) H 08/17/24 04:12
BUN 41 mg/dl (7-17) H 08/17/24 04:12
Creatinine 1.1 mg/dL (0.6-1.0) H 08/17/24 04:12
Glucose 122 mg/dl (70-99) H 08/17/24 04:12
Vital Signs and I&O:
Vital Signs
Temp Pulse Resp BP Pulse Ox
97.8 F 99 16 109/73 94
08/17/24 10:41 08/17/24 10:00 08/17/24 10:41 08/17/24 08:52 08/17/24 10:41
Vital Signs
Temp Pulse Resp BP Pulse Ox
97.8 F 99 16 109/73 94
08/17/24 10:41 08/17/24 10:00 08/17/24 10:41 08/17/24 08:52 08/17/24 10:41
Intake & Output
08/15/24 08/16/24 08/17/24 08/18/24
07:59 07:59 07:59 07:59
Intake Total 132 / 132 1710 / 1710
Output Total 500 / 500 800 / 800 235 / 235 250 / 250
Balance -368 / -368 -800 / -800 1475 / 1475 -250 / -250
Physical Exam
Physical Exam
GEN: No distress, awake, alert, oriented x3. frail
HEENT: supple, anicteric, mmm, eomi
LUNGS: CTA B/L, no wheezes
CV: Irreg, S1/S2, 2/6 murmur
ABD: soft, BS+, NT/ND
EXT: No cyanosis, clubbing, edema
NEURO: Gross non-focal
SKIN: Warm, pink, dry. No rash. RUE with luba wrap and drain in place.
--- NOTE | 2024-08-17 13:53 | W.PN.NEPH.PH ---
Today's Communication / Plan
-
lasix 20mg iv
follow labs
Assessment/Plan
-
79yo with hx SVT/atach, severe MR, mod TR, colon polyps, chronic AST elevation Sjogren, osteoarthritis, breast lump, raynaud's, scoliosis with gait and balance issues, ,sicca, hyponatremia, recurrent PSBO and prior bowel resection, prior jose elias, ,
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
Baseline creatinine less than 1
Started on diuretics last admission June
Impression.
Acute kidney injury
Severe MR pending valve surgery
Atrial fibrillation stable rate controlled
Non-obstructive CAD
Acute hypoxic insufficiency with Hx of HFpEF
UTI
Recent laxative induced diarrhea
Chronic transaminitis
Sjogren
Hx of SBO
Gluten intollerance
Hx of lumbar spinal fusion
OA
Plan.
CARLIE-prerenal, low fena, cr slightlky better
monitor mild hematuria
renal US no hydro, relatively small kidneys bilat
Bp soft off IVF
ok for lasix today as wts are up and should also help mild hyperkalemia
Follow BMP
Follow weights closely
cardiac surg now postponed, reeval out pt
d/w pt and nursing
-
-
Date of Service: August 17, 2024
CC / HPI / ROS
-
Chief Complaint:
CARLIE
History of Present Illness:
CARLIE/creatinine down to 1.1, wt is up
hb up at 8.9 post PRBC
hematoma of right UE s/p evacuation 08/16, heparin on hold
Blood pressure soft
k high at 5.2
Review of Systems:
P.o. intake fair
No chest pain or shortness of breath at rest
right hand ROM improving
Labs
-
Labs:
WBC 8.7 10^3/uL (4.8-10.8) 08/17/24 04:12
RBC 2.93 10^6/uL (4.20-5.40) L 08/17/24 04:12
Hgb 8.9 g/dL (12.0-16.0) L 08/17/24 04:12
Hgb Cancelled 08/17/24 04:12
Hct 26.5 % (37.0-47.0) L 08/17/24 04:12
Hct Cancelled 08/17/24 04:12
Plt Count 176 10^3/uL (130-400) 08/17/24 04:12
Sodium 137 mmol/L (135-145) 08/17/24 04:12
Potassium 5.2 mmol/L (3.5-5.1) H 08/17/24 04:12
Chloride 103 mmol/L (98-107) 08/17/24 04:12
Carbon Dioxide 25 mmol/L (22-30) 08/17/24 04:12
BUN 41 mg/dl (7-17) H 08/17/24 04:12
Creatinine 1.1 mg/dL (0.6-1.0) H 08/17/24 04:12
eGFR 51.43 08/17/24 04:12
Glucose 122 mg/dl (70-99) H 08/17/24 04:12
Calcium 8.4 mg/dl (8.4-10.2) 08/17/24 04:12
Phosphorus 3.2 mg/dl (2.5-4.5) 08/17/24 04:12
Mjm-W-Qsmckqjqbfy Pept 5230 pg/ml 08/16/24 15:19
Albumin 2.8 g/dl (3.5-5.0) L 08/15/24 02:35
Physical Exam
-
Vital Signs:
Vital Signs
Temp Pulse Resp BP Pulse Ox
97.8 F 99 16 109/73 94
08/17/24 10:41 08/17/24 10:00 08/17/24 10:41 08/17/24 08:52 08/17/24 10:41
Cardiovascular:: Regular rate and rhythm
Respiratory:: Bilateral: CTA
Lung Excursion:: Normal
Abdomen:: Nontender and Soft
Bowel Sounds:: Normal
Extremity Edema:: None: Bilateral:
Lawton Catheter: No
Other Findings::
right UE in [place] wrap, edema 2+
[2024-08-17] MEDS: LASIX 20 MG IV (14:29)
--- NOTE | 2024-08-17 15:19 | W.PN.UPDATE ---
Update Note
Progress Note Update
Patient seen this morning with Dr. Hammond. Patient is not going to get a mitral repair this admission, however, she was set up for a follow-up outpatient visit on September 02. Follow-up appointment was added to her discharge instructions. Given the
patient's risk for surgery and the recent tricep rupture, cardiology was asked to review alternative options. Patient's ensure was decreased per request and oral intake was liberalized.
[2024-08-18] VITALS (11 sets, daily range): BP systolic 81–138; BP diastolic 32–118; BMI 19.8
[2024-08-18 04:28] LABS: % Basophils 0.5 % (0-2); % Eosinophils 2.7 % (0-6); % Immature Granulocytes 2.2 % (0-0.5); % Lymphocytes 13.4 % (20.5-51.1); % Neutrophils 69.2 % (42.2-75.2); Absolute Basophils 0.1 10^3/uL (0-0.2); Absolute Eosinophils 0.3 10^3/uL (0-0.7); Absolute Immature Granulocytes 0.2 10^3/uL (0-0.05); Absolute Lymphocytes 1.2 10^3/uL (1.2-3.4); Absolute Monocytes 1.1 10^3/uL (0.1-0.6); Absolute Neutrophils 6.3 10^3/uL (1.4-6.5); Hematocrit 25.6 % (37.0-47.0); Hemoglobin 8.6 g/dL (12.0-16.0); Mean Corp Hgb Conc. 33.6 g/dL (33.0-37.0); Mean Corpuscular Hgb 30.9 pg (27.0-31.0); Mean Corpuscular Volume 92.1 fL (81.0-99.0); Nucleated Red Blood Cells % 0 %; Platelet Count 181 10^3/uL (130-400); Red Blood Cell Count 2.78 10^6/uL (4.20-5.40); Red Cell Dist. Width 17.7 % (11.5-14.5); White Blood Cell Count 9.1 10^3/uL (4.8-10.8)
[2024-08-18 04:49] LABS: ALT (SGPT) 48 U/L (0-35); AST (SGOT) 64 U/L (14-36); Albumin 3.4 g/dl (3.5-5.0); Alkaline Phosphatase 58 U/L (38-126); Blood Urea Nitrogen 44 mg/dl (7-17); Calcium 8.4 mg/dl (8.4-10.2); Carbon Dioxide 26 mmol/L (22-30); Chloride 104 mmol/L (98-107); Estimated Creatinine Clearance 30 ml/min; Glucose 79 mg/dl (70-99); Magnesium 2.2 mg/dl (1.6-2.3); Potassium 4.7 mmol/L (3.5-5.1); Sodium 137 mmol/L (135-145); Total Bilirubin 0.8 mg/dl (0.2-1.3); Total Protein 5.6 g/dl (6.3-8.2); eGFR 51.43
--- NOTE | 2024-08-18 08:18 | W.PN.VS ---
Addendum entered and electronically signed by Anshu White MD 08/18/24 10:58:
Seen and examined with RIVET HEATER. Agree with findings and plan as discussed and noted below.
Original Note:
Today's Communication / Plan
-
Patient seen and examined at bedside with Dr. Anshu White, below plan reviewed with attending.
Assessment/Plan
-
Assessment: 71-year-old female POD #2 Evacuation and washout of right upper extremity intramuscular hematoma
Plan:
From a vascular surgical perspective okay to reinitiate anticoagulation
Continue to monitor NIKITA drain and document I&O
Recommend elevation to decrease edema, and mild Eron wrap compression
Recommend in the immediate postoperative period the patient worked mostly with hand therapy and avoid lifting more than 5LB with right arm or vigorous motion
Subjective Data
-
Date of Service: August 18, 2024
Patient seen and examined at bedside, reports adequate postoperative pain management. Tolerating p.o. diet. Denies nausea, vomiting, fever, and chills. Only complaint is her concern for overworking with occupational therapy and movement with
right upper extremity.
Objective Data
-
Vital Signs
Temp Pulse Resp BP Pulse Ox
97.7 F 83 16 102/60 100
08/18/24 07:56 08/18/24 06:00 08/18/24 07:56 08/18/24 03:13 08/18/24 07:56
Intake and Output
08/17/24 08/18/24 08/19/24
06:59 06:59 06:59
Intake Total 1710 / 1710 1360 / 1360
Output Total 235 / 235 1030 / 1030
Balance 1475 / 1475 330 / 330
Intake:
Oral fluids 660 / 660 1360 / 1360
IV fluids (Total) 800 / 800
LR 500 / 500
Normosol 50 / 50
PRBC 250 / 250
Blood Product Amount Infused ( 250 / 250
mL)
Packed Rbc Leukoreduced Unit 250 / 250
[id number]
Output:
Drain Output (Total)
Right
Urine, Voided 200 / 200 1000 / 1000
Other:
Number of approximated MODERATE 1
amounts of urine
How many times incontinent 2
MODERATE amount urine
Lab Results
08/18/24 03:20
08/18/24 03:20
Calcium 8.4 mg/dl (8.4-10.2) 08/18/24 03:20
Phosphorus 3.2 mg/dl (2.5-4.5) 08/17/24 04:12
Magnesium 2.2 mg/dl (1.6-2.3) 08/18/24 03:20
Total Bilirubin 0.8 mg/dl (0.2-1.3) 08/18/24 03:20
Direct Bilirubin 0.2 mg/dl (0.0-0.4) 08/16/24 03:02
AST 64 U/L (14-36) H 08/18/24 03:20
ALT 48 U/L (0-35) H 08/18/24 03:20
Alkaline Phosphatase 58 U/L (38-126) 08/18/24 03:20
Total Protein 5.6 g/dl (6.3-8.2) L 08/18/24 03:20
Albumin 3.4 g/dl (3.5-5.0) L 08/18/24 03:20
Physical Exam
-
No apparent distress, resting bed comfortably
No tachycardia
No dyspnea on room air
Right upper extremity with +1 edema and ecchymosis, surgical dressing removed and staple line well-approximated and CDI, NIKITA drain with serosanguineous output
Right +2 radial pulse, right hand warm
--- NOTE | 2024-08-18 08:28 | W.PN.ONC2 ---
Today's Communication / Plan
-
HgB stable.
Heme will sign off.
Impression
Impression
Acute hematoma formation RUE>LUE. Evacuation and washout of right upper extremity intramuscular hematoma
Anemia of acute blood loss
Sjogren syndrome
Severe MR, eventual repair planned
CARLIE
Plan
Plan
von Willebrand panel pending.
No history of bleeding to suggest inherited bleeding disorder. Platelets and coags are normal.
Last Eliquis was 08/07, resumption per vascular surgery/cardiology based on risk/benefit
Question whether her collagen vascular disease may have been a predisposing factor to developing b/l intramuscular hematomas.
Subjective/Objective
Chief Complaint
ACS Heme Onc
Subjective
Surgery placed on hold in light of comorbidities.
Vital Signs:
Vital Signs
Temp Pulse Resp BP Pulse Ox
97.7 F 83 16 102/60 100
08/18/24 07:56 08/18/24 06:00 08/18/24 07:56 08/18/24 03:13 08/18/24 07:56
Lab Results:
Laboratory Data
WBC 9.1 10^3/uL (4.8-10.8) 08/18/24 03:20
Hgb 8.6 g/dL (12.0-16.0) L 08/18/24 03:20
Plt Count 181 10^3/uL (130-400) 08/18/24 03:20
PT 13.0 Sec (11.4-14.6) 08/16/24 03:02
INR 0.95 08/16/24 03:02
APTT 34.4 Sec (23.4-35.0) 08/16/24 03:02
eGFR 51.43 08/18/24 03:20
Physical Exam
Cardiology: S1, S2, Irregular rate/rhythm and Murmur
[2024-08-18] MEDS: STERILE WATER FOR INJECTION 10 ML IV ×2 (08:46→15:22)
[2024-08-18] MEDS: TOPROL XL 25 MG PO ×2 (08:46→21:12)
[2024-08-18] MEDS: RESTASIS 0.05% OPHTHALMIC EMULSION 1 DROPS BOTH EYES ×2 (08:46→21:11)
[2024-08-18] MEDS: MAXIPIME 1000 MG IV ×2 (08:46→15:21)
[2024-08-18] MEDS: MIRALAX 17 GRAMS PO (08:46)
[2024-08-18] MEDS: PACERONE 200 MG PO (08:46)
[2024-08-18] MEDS: HYDROCORTISONE 1% CREAM 1 APPLIC TOPICAL ×2 (08:47→21:13)
--- NOTE | 2024-08-18 09:37 | PTCARENOTE ---
Rec'd pt at handoff. Tele- Afib. Assessment completed as documented. R arm dsg changed by vascular team; c/d/i. [place] wrap on and NIKITA drain w/ sanguineous drainage. Pt has no complaints pain/discomfort at this time. Plan of care reviewed w/ pt and
verbalizes understanding. Pt ambulatory in room w/ RW and assist x1. Currently in bed; call joaquín w/in reach.
--- NOTE | 2024-08-18 11:06 | W.PN.NEPH.PH ---
Today's Communication / Plan
-
BMP in the morning
Assessment/Plan
-
79yo with hx SVT/atach, severe MR, mod TR, colon polyps, chronic AST elevation Sjogren, osteoarthritis, breast lump, raynaud's, scoliosis with gait and balance issues, ,sicca, hyponatremia, recurrent PSBO and prior bowel resection, prior jose elias, ,
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
Baseline creatinine less than 1
Started on diuretics last admission June
Impression.
Acute kidney injury
Severe MR pending valve surgery
Atrial fibrillation stable rate controlled
Non-obstructive CAD
Acute hypoxic insufficiency with Hx of HFpEF
UTI
Recent laxative induced diarrhea
Chronic transaminitis
Sjogren
Hx of SBO
Gluten intollerance
Hx of lumbar spinal fusion
OA
Plan.
CARLIE-prerenal, low fena, cr slightlky better
monitor mild hematuria
renal US no hydro, relatively small kidneys bilat
Bp soft off IVF
cardiac surg now postponed, reeval out pt
Status post Lasix yesterday.
Will hold for today.
Daily weights.
Total Time Spent with Patient (in minutes): 31
-
-
Date of Service: August 18, 2024
CC / HPI / ROS
-
Chief Complaint:
CARLIE
History of Present Illness:
CARLIE/creatinine down to 1.1, wt is up
hb up at 8.9 post PRBC
hematoma of right UE s/p evacuation 08/16, heparin on hold
Blood pressure soft
k high at 5.2
Review of Systems:
P.o. intake fair
No chest pain or shortness of breath at rest
right hand ROM improving
Labs
-
Labs:
WBC 9.1 10^3/uL (4.8-10.8) 08/18/24 03:20
RBC 2.78 10^6/uL (4.20-5.40) L 08/18/24 03:20
Hgb 8.6 g/dL (12.0-16.0) L 08/18/24 03:20
Hct 25.6 % (37.0-47.0) L 08/18/24 03:20
Plt Count 181 10^3/uL (130-400) 08/18/24 03:20
Sodium 137 mmol/L (135-145) 08/18/24 03:20
Potassium 4.7 mmol/L (3.5-5.1) 08/18/24 03:20
Chloride 104 mmol/L (98-107) 08/18/24 03:20
Carbon Dioxide 26 mmol/L (22-30) 08/18/24 03:20
BUN 44 mg/dl (7-17) H 08/18/24 03:20
Creatinine 1.1 mg/dL (0.6-1.0) H 08/18/24 03:20
eGFR 51.43 08/18/24 03:20
Glucose 79 mg/dl (70-99) 08/18/24 03:20
Calcium 8.4 mg/dl (8.4-10.2) 08/18/24 03:20
Phosphorus 3.2 mg/dl (2.5-4.5) 08/17/24 04:12
Dan-E-Ipdigijmogq Pept 5230 pg/ml 08/16/24 15:19
Albumin 3.4 g/dl (3.5-5.0) L 08/18/24 03:20
Physical Exam
-
Vital Signs:
Vital Signs
Temp Pulse Resp BP Pulse Ox
97.7 F 92 16 110/32 100
08/18/24 07:56 08/18/24 08:00 08/18/24 07:56 08/18/24 07:51 08/18/24 07:56
Cardiovascular:: Regular rate and rhythm
Respiratory:: Bilateral: CTA
Lung Excursion:: Normal
Abdomen:: Nontender and Soft
Bowel Sounds:: Normal
Extremity Edema:: None: Bilateral:
Lawton Catheter: No
Other Findings::
right UE in [place] wrap, edema 2+
--- NOTE | 2024-08-18 11:11 | W.PN.HOSP.TC ---
Today's Communication/Plan
-
PT/OT
repeat H&H and startHeparin drip if stable
Assessment / Plan
Assessment / Plan
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
diuretics, also found UTI, laxative induced diarrhea found with worsening RUE bruise with swelling, that was due to spontaneous hemorrhage inrtamuscularly. Also some degree of hemorrhage on L but without much swelling. Bleeding occured while patient
being on heparin. S/P R arm hematoma evacuation by vascular on 08/16/24.
No hematoma or tenderness on b/l LE and in abd.
A/P:
#Acute blood loss anemia 2/2 spontaneous intramuscular bleed exacerbated by heparin drip
s/p 1 unit PRBC on 08/16/24
Most likely traumatic after tourniquet use, BP cuff (exacerbated by CTD)
Hold anticoagulation, Antiplatelets, NSAIDs
Serial H&H and transfuse as needed, target to keep Hgb>8
VascSx to continue to follow
Hematology followed
Iron, TIBC, Ferritin, FOlate, B12,LDH, retics WNL
FOBT pending
HIT Ab and VW panel sent
#CARLIE
Cr baseline 1.0
Reoccured on 08/16/24 22/ acute anemia
Transfuse and follow Cr
#Mitral valve prolapse with severe mitral regurgitation with moderate tricuspid regurgitation
#Persistent atrial fibrillation
#Non-obstructive CAD
#Acute hypoxic insufficiency with Hx of HFpEF
With PMHX of Thoracentesis 2/2 SOB due to CHF
Cardio follows
Lasix was on hold
proBNP elevated but no overt congestion on Chest XR, hold lasix while recovering Cr
Cont rate control as per cardio
COnt CTS follow ups
#UTI
Cefepime as per UCx (Pseudomonas
US renal without hydronephrosis and nephrolithiasis
#Recent laxative induced diarrhea
hold laxative
send casimiro study if reoccurs
#Chronic transaminitis
Hepatitis panel neg
#Sjogren
#Hx of SBO
#Gluten intolerance - ruled out - patient did not eat gluten before by choice, now has no problems with it
#Hx of lumbar spinal fusion
#OA
cont home meds
DVT ppx SCDs
Full code
I have spent at least 39min reviewing chart, test results, communication with consultants and providing direct patient care
Anticipated Discharge: 24 - 48 hours
Subjective/Interval History
-
Date of Service: August 18, 2024
Objective Data
-
Labs:
Laboratory Results
08/18/24 08/18/24
03:20 13:00
WBC 9.1
Hgb 8.6 L Pending
Hct 25.6 L Pending
Plt Count 181
Sodium 137
Potassium 4.7
Chloride 104
Carbon Dioxide 26
BUN 44 H
Creatinine 1.1 H
Glucose 79
Calcium 8.4
Total Bilirubin 0.8
AST 64 H
ALT 48 H
Alkaline Phosphatase 58
Vital Signs:
Vital Signs
Temp Pulse Resp BP Pulse Ox
97.7 F 92 16 110/32 100
08/18/24 07:56 08/18/24 08:00 08/18/24 07:56 08/18/24 07:51 08/18/24 07:56
I&O
08/17/24 08/18/24 08/19/24
06:59 06:59 06:59
Intake Total 1710 / 1710 1360 / 1360 200 / 200
Output Total 235 / 235 1030 / 1030 200 / 200
Balance 1475 / 1475 330 / 330 0 / 0
Review of Systems
-
History Source: Patient
All other systems: Reviewed and negative
Physical Exam
-
General: No Apparent Distress
HEENT: Normocephalic
Respiratory: Clear to Auscultation
Cardiac: Regular Rhythm
GI: Soft
Neuro: Awake, Alert, Oriented and AO x 3
Psych: Calm
--- NOTE | 2024-08-18 11:18 | CM ---
Reviewed chart. Met with Mrs. Meek to review discharge plans She states she is feeling better. We reviewed the [facility]. She is agreeable to [facility]. Will need to see her functional level to see if she will have
any skilled care needs. Prior to admission she resides with her spouse in a spilt level home with four steps to enter. She has seven steps to get to bedroom/ full bathroom. Prior to admission she ambulates with a rolling walker or rollator at
home and she uses a single point cane in the community. She has a prescription plan and uses [facility]. Medical work-up in progress. The discharge plan is to return home with her spouse and resumption of [facility]NA services when medically stable.
[2024-08-18 13:53] LABS: APTT 34.1 Sec (23.4-35.0)
[2024-08-18 14:02] LABS: Hematocrit 25.9 % (37.0-47.0); Hemoglobin 8.7 g/dL (12.0-16.0)
[2024-08-18] MEDS: HEPARIN 25000 UNITS/250 ML IV (17:31)
[2024-08-18] MEDS: TYLENOL 1000 MG PO (21:12)
--- NOTE | 2024-08-18 22:34 | PTCARENOTE ---
Assumed care of pt at 1900. Pt Afib on monitor. Vitals stable. Ambulated pt to bathroom. Heparin gtt running at 5 ml an hour. Next PTT aprox 2320. Pt right arm elevated on pillow. NIKITA with minimal drainage. Pt instructed to ring for assistance.
[2024-08-19] VITALS (7 sets, daily range): BP systolic 102–151; BP diastolic 49–92; PULSE 78; O2SAT 96; BMI 20.5
[2024-08-19] MEDS: STERILE WATER FOR INJECTION 10 ML IV (00:21)
[2024-08-19] MEDS: MAXIPIME 1000 MG IV (00:22)
[2024-08-19 00:45] LABS: APTT 33.4 Sec (23.4-35.0)
--- NOTE | 2024-08-19 01:18 | PTCARENOTE ---
Received patient at 2300. Afib on the monitor, HR in the 80s. Heparin running as per protocol, see JUL. NIKITA drain with sanguinous drainage, not emptied at this time. No complaints from pt at this time, call yanes within reach.
[2024-08-19] MEDS: RESTASIS 0.05% OPHTHALMIC EMULSION 1 DROPS BOTH EYES ×2 (07:59→20:24)
[2024-08-19] MEDS: TOPROL XL 25 MG PO ×2 (07:59→20:24)
[2024-08-19] MEDS: HYDROCORTISONE 1% CREAM 1 APPLIC TOPICAL (08:00)
[2024-08-19] MEDS: PACERONE 200 MG PO (08:00)
--- NOTE | 2024-08-19 08:04 | W.PN.VS ---
Today's Communication / Plan
-
Seen and assessed with Dr. White
Assessment/Plan
-
Assessment: 71-year-old female POD #3 Evacuation and washout of right upper extremity intramuscular hematoma
Plan:
I will return to remove NIKITA drain today
Recommend elevation to decrease edema, and mild Eron wrap compression
Recommend in the immediate postoperative period the patient worked mostly with hand therapy and avoid lifting more than 5LB with right arm or vigorous motion
Follow-up added to DC chart
Subjective Data
-
Date of Service: August 19, 2024
Patient seen at bedside exam with Dr. White. Patient ambulating around the room well. No events overnight
Objective Data
-
Vital Signs
Temp Pulse Resp BP Pulse Ox
98 F 94 18 102/82 100
08/19/24 02:55 08/19/24 02:55 08/19/24 02:55 08/19/24 02:55 08/19/24 02:55
Intake and Output
08/18/24 08/19/24 08/20/24
06:59 06:59 06:59
Intake Total 1360 / 1360 600 / 600
Output Total 1030 / 1030 820 / 820
Balance 330 / 330 -220 / -220
Intake:
Oral fluids 1360 / 1360 600 / 600
Output:
Drain Output (Total) 20
Right
Urine, Voided 1000 / 1000 800 / 800
Calcium 8.4 mg/dl (8.4-10.2) 08/18/24 03:20
Phosphorus 3.2 mg/dl (2.5-4.5) 08/17/24 04:12
Magnesium 2.2 mg/dl (1.6-2.3) 08/18/24 03:20
Total Bilirubin 0.8 mg/dl (0.2-1.3) 08/18/24 03:20
Direct Bilirubin 0.2 mg/dl (0.0-0.4) 08/16/24 03:02
AST 64 U/L (14-36) H 08/18/24 03:20
ALT 48 U/L (0-35) H 08/18/24 03:20
Alkaline Phosphatase 58 U/L (38-126) 08/18/24 03:20
Total Protein 5.6 g/dl (6.3-8.2) L 08/18/24 03:20
Albumin 3.4 g/dl (3.5-5.0) L 08/18/24 03:20
Physical Exam
-
No apparent distress, resting bed comfortably
No tachycardia
No dyspnea on room air
Right upper extremity with +1 edema and ecchymosis, Eron wrap clean and dry, NIKITA drain with serosanguineous output 20cc for 24 hours
Right +2 radial pulse, right hand warm
--- NOTE | 2024-08-19 08:43 | W.PN.HOSP.TC ---
Today's Communication/Plan
-
DC in AM/ Friday
will d/w Vascular to start Eliquis today
Assessment / Plan
Assessment / Plan
Physical Exam
General: No apparent distress, resting bed comfortably
HENNT:
Heart: S1, S2, no tachycardia
Lungs: No wheezes, no dyspnea on room air
MSK: Right upper extremity with +1 edema and ecchymosis, Eron wrap clean and dry, NIKITA drain with serosanguineous output 20cc for 24 hours
Right +2 radial pulse, right hand warm
Neurology: No focal deficit, awake alert oriented and followed commands
Psych: Calm and pleasant
Skin: Significant masses mostly right upper extremity
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
diuretics, also found UTI, laxative induced diarrhea found with worsening RUE bruise with swelling, that was due to spontaneous hemorrhage inrtamuscularly. Also some degree of hemorrhage on L but without much swelling. Bleeding occured while patient
being on heparin. S/P R arm hematoma evacuation by vascular on 08/16/24.
No hematoma or tenderness on b/l LE and in abd.
A/P:
#Acute blood loss anemia 2/2 spontaneous intramuscular bleed exacerbated by heparin drip
s/p 1 unit PRBC on 08/16/24
S/p Evacuation and washout of right upper extremity intramuscular hematoma by Dr Lawton on 08/16
Most likely traumatic after tourniquet use, BP cuff (exacerbated by CTD)
Held anticoagulation, Antiplatelets, NSAIDs transfuse as needed, target to keep Hgb>8
VascSx to continue to follow
Hematology followed
Iron, TIBC, Ferritin, Folate, B12,LDH, retics WNL
#CARLIE
Cr baseline 0.6
Now improving. Avoid hypotension
# Hyperkalemia, resolved
#Mitral valve prolapse with severe mitral regurgitation with moderate tricuspid regurgitation
#Persistent atrial fibrillation
#Non-obstructive CAD
#Acute hypoxic insufficiency with Hx of HFpEF
With PMHX of Thoracentesis 2/2 SOB due to CHF
Cardio follows
Lasix was on hold
proBNP elevated but no overt congestion on Chest XR, hold lasix while recovering Cr
Cont rate control as per cardio
COnt CTS follow ups
#UTI
Cefepime as per UCx (Pseudomonas
US renal without hydronephrosis and nephrolithiasis
#Recent laxative induced diarrhea
Held laxative
#Chronic transaminitis
Hepatitis panel neg
#Sjogren
#Hx of SBO
#Gluten intolerance - ruled out - patient did not eat gluten before by choice, now has no problems with it
#Hx of lumbar spinal fusion
#OA
cont home meds
DVT ppx SCDs
Full code
Total time spent to see the patient, examine the patient, review data and lab results, discuss treatment plan with patient and nursing staff around 55 minutes
Anticipated Discharge: 24 - 48 hours
Subjective/Interval History
-
Date of Service: August 19, 2024
Objective Data
-
Labs:
Laboratory Results
08/18/24 08/19/24 08/19/24
23:47 00:24 06:00
WBC Pending
Hgb Pending
Hct Pending
Plt Count Pending
APTT Cancelled 33.4
Sodium Pending
Potassium Pending
Chloride Pending
Carbon Dioxide Pending
BUN Pending
Creatinine Pending
Glucose Pending
Calcium Pending
08/19/24
06:50
WBC
Hgb
Hct
Plt Count
APTT Pending
Sodium
Potassium
Chloride
Carbon Dioxide
BUN
Creatinine
Glucose
Calcium
Vital Signs:
Vital Signs
Temp Pulse Resp BP Pulse Ox
97.9 F 94 16 102/82 100
08/19/24 08:34 08/19/24 02:55 08/19/24 08:34 08/19/24 02:55 08/19/24 08:34
I&O
08/18/24 08/19/24 08/20/24
06:59 06:59 06:59
Intake Total 1360 / 1360 600 / 600
Output Total 1030 / 1030 820 / 820
Balance 330 / 330 -220 / -220
--- NOTE | 2024-08-19 11:09 | PTCARENOTE ---
Assumed care at 0700. IV site mildly swollen, non-tender. IV heparin stopped. Attempted times [address] another IV unsuccessful, IV team called and placed a new IV access. Heparin discontinued, changed to PO Eliquis and IV antibiotics changed to PO
as well. Call placed to phlebotomy for am labs
[2024-08-19] MEDS: CIPRO PO (11:14)
[2024-08-19] MEDS: MAXIPIME IV (11:14)
[2024-08-19] MEDS: STERILE WATER FOR INJECTION IV (11:14)
[2024-08-19] MEDS: CIPRO 500 MG PO ×2 (11:39→20:24)
[2024-08-19] MEDS: ELIQUIS 5 MG PO ×2 (11:39→20:24)
--- NOTE | 2024-08-19 11:59 | W.PN.NEPH.PH ---
Today's Communication / Plan
-
Lasix x 1
Assessment/Plan
-
79yo with hx SVT/atach, severe MR, mod TR, colon polyps, chronic AST elevation Sjogren, osteoarthritis, breast lump, raynaud's, scoliosis with gait and balance issues, ,sicca, hyponatremia, recurrent PSBO and prior bowel resection, prior jose elias, ,
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
Baseline creatinine less than 1
Started on diuretics last admission June
Impression.
Acute kidney injury
Severe MR pending valve surgery
Atrial fibrillation stable rate controlled
Non-obstructive CAD
Acute hypoxic insufficiency with Hx of HFpEF
UTI
Recent laxative induced diarrhea
Chronic transaminitis
Sjogren
Hx of SBO
Gluten intollerance
Hx of lumbar spinal fusion
OA
Plan.
CARLIE-prerenal, low fena, cr slightlky better
monitor mild hematuria
renal US no hydro, relatively small kidneys bilat
Bp soft off IVF
cardiac surg now postponed, reeval out pt
Daily weights> they have been going up since admission although on admission she was over diuresed.
I will give Lasix 20 mg IV x 1 now and assess daily
-
-
Date of Service: August 19, 2024
CC / HPI / ROS
-
Chief Complaint:
CARLIE
History of Present Illness:
CARLIE/creatinine down to 1.1, wt is up
hb up at 8.9 post PRBC
hematoma of right UE s/p evacuation 08/16, heparin on hold
Blood pressure soft
k high at 5.2
Review of Systems:
P.o. intake fair
No chest pain or shortness of breath at rest
right hand ROM improving
Labs
-
Labs:
WBC Cancelled 08/19/24 06:00
RBC Cancelled 08/19/24 06:00
Hgb Cancelled 08/19/24 06:00
Hct Cancelled 08/19/24 06:00
Plt Count Cancelled 08/19/24 06:00
eGFR Cancelled 08/19/24 11:33
Phosphorus 3.2 mg/dl (2.5-4.5) 08/17/24 04:12
Ehc-R-[place] Pept 5230 pg/ml 08/16/24 15:19
Albumin 3.4 g/dl (3.5-5.0) L 08/18/24 03:20
Physical Exam
-
Vital Signs:
Vital Signs
Temp Pulse Resp BP Pulse Ox
97.5 F 82 22 124/61 99
08/19/24 11:55 08/19/24 08:00 08/19/24 11:55 08/19/24 07:56 08/19/24 11:47
Cardiovascular:: Regular rate and rhythm
Respiratory:: Bilateral: CTA
Lung Excursion:: Normal
Abdomen:: Nontender and Soft
Bowel Sounds:: Normal
Extremity Edema:: None: Bilateral:
Lawton Catheter: No
Other Findings::
right UE in [place] wrap, edema 2+
[2024-08-19] MEDS: LASIX 20 MG IV (13:12)
--- NOTE | 2024-08-19 13:29 | PTCARENOTE ---
Labs hemolyzed. Will attempt again today. Phlebotomy paged
--- NOTE | 2024-08-19 13:40 | CM ---
Reviewed chart. Met with and Mrs. Meek to review discharge plans. She states she is feeling well. Updated her on [facility]. Also updated [facility] of tentative discharge date and NIKITA drain was removed. Reviewed
physical therapy notes and recommendation was home care. Prior to admission she resides withher spouse in a spilt level home with four steps to enter. She has seven steps to get to bedroom/full bathroom. Prior to admission she ambulates with a
rolling walker or rollator in the home and uses a single point cane in the community. She has a prescription plan and uses [facility]. Medical work-up in progress. The discharge plan is to return home with her spouse and resumption of
[facility] when medically stable.
--- NOTE | 2024-08-19 14:19 | W.PN.UPDATE ---
Update Note
Progress Note Update
NIKITA drain DC'd at bedside patient tolerated well. Eron wrap reapplied. Continue to elevate.
--- NOTE | 2024-08-19 17:39 | PTCARENOTE ---
Patient walked in tatum with rolling walker. RUE swelling improved. No drainage upper arm after the drain was removed earlier. A-Fib 90-100's.
--- NOTE | 2024-08-19 17:45 | PTCARENOTE ---
Unable to obtain blood work today
[2024-08-19] MEDS: HYDROCORTISONE 1% CREAM TOPICAL (20:25)
--- NOTE | 2024-08-19 23:25 | PTCARENOTE ---
Received patient at change of shift. Afib on the monitor, HR in the 80s. R arm dressing and luba bandages in place. Bilateral arms ecchymotic. No complaints from pt at this time, call yanes within reach.
[2024-08-20 03:53] VITALS: BP 99/72
[2024-08-20 04:47] VITALS: BMI 19.7
[2024-08-20 04:50] LABS: Hematocrit 27.7 % (37.0-47.0); Hemoglobin 9.1 g/dL (12.0-16.0); Mean Corp Hgb Conc. 32.9 g/dL (33.0-37.0); Mean Corpuscular Hgb 31.1 pg (27.0-31.0); Mean Corpuscular Volume 94.5 fL (81.0-99.0); Mean Platelet Volume 9.6 fL (7.4-10.4); Platelet Count 245 10^3/uL (130-400); Red Blood Cell Count 2.93 10^6/uL (4.20-5.40); Red Cell Dist. Width 17.9 % (11.5-14.5); White Blood Cell Count 7.6 10^3/uL (4.8-10.8)
[2024-08-20 05:05] LABS: Blood Urea Nitrogen 42 mg/dl (7-17); Carbon Dioxide 26 mmol/L (22-30); Chloride 106 mmol/L (98-107); Estimated Creatinine Clearance 37 ml/min; Glucose 89 mg/dl (70-99); Magnesium 2.1 mg/dl (1.6-2.3); Potassium 4.5 mmol/L (3.5-5.1); Sodium 138 mmol/L (135-145); eGFR > 60.00
--- NOTE | 2024-08-20 07:05 | W.PN.HOSP.TC ---
Today's Communication/Plan
-
dc
Assessment / Plan
Assessment / Plan
Physical Exam
General: No apparent distress, resting bed comfortably
HENNT: No deformities
Heart: S1, S2, no tachycardia
Lungs: No wheezes, no dyspnea
MSK: ecchymosis both upper extremities
Right +2 radial pulse, right hand warm
Neurology: No focal deficit, awake alert oriented and followed commands
Psych: Calm and pleasant
Skin: Significant masses mostly right upper extremity
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
diuretics, also found UTI, laxative induced diarrhea found with worsening RUE bruise with swelling, that was due to spontaneous hemorrhage inrtamuscularly. Also some degree of hemorrhage on L but without much swelling. Bleeding occured while patient
being on heparin. S/P R arm hematoma evacuation by vascular on 08/16/24.
No hematoma or tenderness on b/l LE and in abd.
A/P:
#Acute blood loss anemia 2/2 spontaneous intramuscular bleed exacerbated by heparin drip
s/p 1 unit PRBC on 08/16/24
S/p Evacuation and washout of right upper extremity intramuscular hematoma by Dr Lawton on 08/16
Most likely traumatic after tourniquet use, BP cuff (exacerbated by CTD)
Held anticoagulation, Antiplatelets, NSAIDs
Hematology followed
Iron, TIBC, Ferritin, Folate, B12,LDH, retics WNL
HGb stable at 9 post Eliquis.
#CARLIE
Cr baseline 0.6
Now improved
Creatinine at 0.9
# Hyperkalemia, resolved
#Mitral valve prolapse with severe mitral regurgitation with moderate tricuspid regurgitation
#Persistent atrial fibrillation
#Non-obstructive CAD
#Acute hypoxic insufficiency with Hx of HFpEF
With PMHX of Thoracentesis 2/2 SOB due to CHF
Cardio followed
Ok to resume Lasix now with normal renal function
#UTI
Cefepime as per UCx (Pseudomonas
US renal without hydronephrosis and nephrolithiasis
Treated with Cipro
#Recent laxative induced diarrhea
Held laxative
She feels constipated, wants to c/w MiraLAX, will add PRN Dulcolax
#Chronic transaminitis
Hepatitis panel neg
#Sjogren
#Hx of SBO
#Gluten intolerance - ruled out - patient did not eat gluten before by choice, now has no problems with it
#Hx of lumbar spinal fusion
#OA
cont home meds
DVT ppx SCDs
Full code
Total discharge time spent to see the patient, examine the patient, review data and lab results, discuss discharge plan with patient and nursing staff around 65 minutes
Anticipated Discharge: Today
Subjective/Interval History
-
Date of Service: August 20, 2024
Doing well
NO chest pain
No sob
No abd pain, passing gas
Objective Data
-
Labs:
Laboratory Results
08/20/24
04:12
WBC 7.6
Hgb 9.1 L
Hct 27.7 L
Plt Count 245 D
Sodium 138
Potassium 4.5
Chloride 106
Carbon Dioxide 26
BUN 42 H
Creatinine 0.9
Glucose 89
Calcium 9.0
Vital Signs:
Vital Signs
Temp Pulse Resp BP Pulse Ox
98.3 F 86 20 99/72 97
08/20/24 04:14 08/20/24 04:00 08/20/24 04:14 08/20/24 03:53 08/20/24 04:14
I&O
08/19/24 08/20/24 08/21/24
06:59 06:59 06:59
Intake Total 600 / 600 120 / 120
Output Total 820 / 820 165 / 165
Balance -220 / -220 -45 / -45
[2024-08-20 07:08] VITALS: BP 110/73
[2024-08-20] MEDS: MIRALAX 17 GRAMS PO (08:22)
[2024-08-20] MEDS: RESTASIS 0.05% OPHTHALMIC EMULSION 1 DROPS BOTH EYES (08:44)
[2024-08-20] MEDS: PACERONE 200 MG PO (08:45)
[2024-08-20] MEDS: TOPROL XL 25 MG PO (08:45)
[2024-08-20] MEDS: CIPRO 500 MG PO (08:45)
[2024-08-20] MEDS: ELIQUIS 5 MG PO (08:45)
--- NOTE | 2024-08-20 10:18 | PTCARENOTE ---
A large amount of old, serosanguenous drainag noted while changing RUE dressing. Vascular BOAT RENTAL CLERK notified. BOAT RENTAL CLERK evaluated and changed RUE dressing. Eron wrap applied to RUE. Pt denies discomfort. Will monitor.
[2024-08-20] MEDS: HYDROCORTISONE 1% CREAM TOPICAL (10:22)
[2024-08-20 10:28] VITALS: BP 149/81
--- NOTE | 2024-08-20 11:02 | W.DCSUMMARY ---
Discharge Summary
Discharge Data
Date of Admission: 08/09/24
Date of Discharge: 08/20/24
-
Pending Results: No
Hospital Course
79 years old female who was initially admitted on August 09 cardiothoracic surgery service forth anticipated mitral valve surgery. Patient was found to have clinical dehydration with acute kidney injury. She reported history of diarrhea. Surgery
was postponed and gastroenterology was consulted. Patient did not have acute GI problem and diarrhea did not happen in the hospital. Nephrology was consulted and patient was given IV fluid with holding her diuretic treatment. She was not in acute
heart failure. CT and cardiology services continue to follow-up. Later on, patient developed hematoma with ecchymosis in both upper extremity. She had intramuscular triceps hematoma that needed evacuation and washout by vascular surgery. She was
bridged with IV heparin. Patient received 1 unit of blood transfusion on August 16. Patient tolerated the procedure well. Vascular surgery continue to follow-up. Her kidney function improved and went back to baseline. She was able to tolerate
diet. Eliquis was resumed. She was placed back on her usual home medications. She remained hemodynamic stable and was discharged home with home care services in a stable condition. she was set up for a follow-up outpatient visit on September 02 with
cardiac surgery. Patient finished treatment for urine tract infection with antibiotic in the hospital.
Discharge Plan
-
Patient Disposition: Home with Home Care
Discharge Diagnosis/Procedures: Right upper extremity intramuscular hematoma
Severe MR pending valve surgery
UTI, finished treatment.
Diet: As tolerated
Referrals:
[facility] [Outside]
Maribell Trivedi PA-C [Specified Professional Personl] - 09/09/24 11:30 am (Vascular surgery office follow-up)
Hanny Cerda NP [Family Provider] -
Leonard Hammond MD [Active] - 09/02/24 1:30 pm
Prescriptions:
Continued
ascorbic acid (vitamin C) [Vitamin C] 500 MG tablet
500 mg PO DAILY
polyethylene glycol 3350 [Miralax] 17 gram Powder In Packet
17 g PO DAILY
therapeutic multivitamin Tablet
1 tab PO DAILY
cholecalciferol (vitamin D3) [Vitamin D3] 25 mcg (1,000 unit) Tablet
50 mcg PO DAILY
cyclosporine [Restasis] 0.05 % Dropperette
1 drp BOTH EYES Q12
amiodarone 200 mg Tablet
200 mg PO DAILY Qty: 30 0RF
Prolia 60 mg/mL Syringe
60 mg SC [id number]
metoprolol succinate 50 mg tablet extended release 24 hr
25 mg PO BID
furosemide [Lasix] 40 mg tablet
40 mg PO BID
potassium chloride 10 mEq tablet,ER particles/crystals
10 meq PO DAILY
Eliquis 5 mg tablet
5 mg PO BID
Discharge Orders:
Discharge Patient (As Directed); Ordered 08/20/24
Ordered By: Luzma Razo
Care Plan Goals
Care Plan Goals:
Problem: Readiness for enhanced knowledge related to diagnosis and treatment plan
Goal: Understand your diagnosis and treatment plan needs, including medications if applicable.
Instructions: Know your diagnosis, underlying causes and treatment plan options, including medications if applicable. Consult with your health care team to learn about your diagnosis and treatment plan, including medications if applicable.
Discharge Date and Time
Discharge Date/Time: 08/20/24 11:44
Print Language: SLOVAK
--- NOTE | 2024-08-20 11:40 | PTCARENOTE ---
Patient discharged to home. Teaching completed and patient verbalized understanding. Patient escorted to main lobby in a wheelchair
== END 2024-08-20 11:44 | disposition home health service (06) | DRG 988 ==
LOC: IVU 05:37
PROVIDERS: Clinical Nurse Specialist Acute Care; Internal Medicine; Internal Medicine Cardiovascular Disease; Nurse Practitioner; Physician Assistant Medical; ADMITTING PHYSICIAN Thoracic Surgery (Cardiothoracic Vascular Surgery); ATTENDING PHYSICIAN Internal Medicine; CONSULT PHYSICIAN Internal Medicine Gastroenterology; CONSULT PHYSICIAN Internal Medicine Nephrology; CONSULT PHYSICIAN Orthopaedic Surgery; FAMILY PHYSICIAN Internal Medicine; OTHER PHYSICIAN Internal Medicine Hematology & Oncology; OTHER PHYSICIAN Surgery Vascular Surgery
PROC: 30233N1 Transfusion of Nonautologous Red Blood Cells into Peripheral Vein, Percutaneous Approach (ICD-10-PCS; 2024-08-16)
PROC: 0KC Muscles, Extirpation (ICD-10-PCS; 2024-08-16)
DX: N17.9 Acute kidney failure, unspecified (principal); D62 Acute posthemorrhagic anemia; R64 Cachexia; Z68.1 Body mass index [BMI] 19.9 or less, adult; E87.0 Hyperosmolality and hypernatremia; I50.32 Chronic diastolic (congestive) heart failure; I48.19 Other persistent atrial fibrillation; N39.0 Urinary tract infection, site not specified; D68.32 Hemorrhagic disorder due to extrinsic circulating anticoagulants; Q43.8 Other specified congenital malformations of intestine; E87.1 Hypo-osmolality and hyponatremia; I08.1 Rheumatic disorders of both mitral and tricuspid valves; S40.022A Contusion of left upper arm, initial encounter; S40.021A Contusion of right upper arm, initial encounter; X58.XXXA Exposure to other specified factors, initial encounter; Y93.89 Activity, other specified; Y92.239 Unspecified place in hospital as the place of occurrence of the external cause; I95.9 Hypotension, unspecified; E87.5 Hyperkalemia; B96.5 Pseudomonas (aeruginosa) (mallei) (pseudomallei) as the cause of diseases classified elsewhere; R09.02 Hypoxemia; R06.89 Other abnormalities of breathing; B96.20 Unspecified Escherichia coli [E. coli] as the cause of diseases classified elsewhere; E86.0 Dehydration; E86.9 Volume depletion, unspecified; M35.00 Sjogren syndrome, unspecified; R19.7 Diarrhea, unspecified; R74.01 Elevation of levels of liver transaminase levels; K59.00 Constipation, unspecified; R91.1 Solitary pulmonary nodule; I11.0 Hypertensive heart disease with heart failure; I25.10 Atherosclerotic heart disease of native coronary artery without angina pectoris; M19.90 Unspecified osteoarthritis, unspecified site; I73.00 Raynaud's syndrome without gangrene; E73.9 Lactose intolerance, unspecified; Z53.09 Procedure and treatment not carried out because of other contraindication; Z96.642 Presence of left artificial hip joint; Z90.49 Acquired absence of other specified parts of digestive tract; Z98.1 Arthrodesis status; Z90.710 Acquired absence of both cervix and uterus; Z79.01 Long term (current) use of anticoagulants; Z87.19 Personal history of other diseases of the digestive system; Z86.0100 Personal history of colon polyps, unspecified; Z82.3 Family history of stroke
CPT/HCPCS: 10140; 36415; 71045; 73200; 76770; 80048; 80053; 81003; 81015; 82247; 82248; 82570; 82607; 82728; 82746; 83540; 83550; 83605; 83615; 83735; 83880; 83935; 84100; 84300; 85014; 85018; 85025; 85027; 85045; 85240; 85245; 85246; 85247; 85384; 85610; 85730; 86022; 86704; 86705; 86706; 86803; 86850; 86900; 86901; 86920; 86922; 87070; 87077; 87086; 87186; 87340; 93005; 93880; 93970; 97110; 97163; 97167; 97530; 97535; P9016

== ENCOUNTER → 2024-08-24 13:02 | Outpatient (REF) | payer MEDICARE, OTHER, SELFPAY ==
[2024-08-24 17:20] LABS: Urine Albumin 2+ (Neg - Trace); Urine Bilirubin Negative (Negative); Urine Character Clear (Clear); Urine Color Yellow; Urine Glucose Negative (Negative); Urine Ketone Negative (Negative); Urine Leukocyte Negative (Negative); Urine Nitrite Negative (Negative); Urine Occult Blood 1+ (Negative); Urine Urobilinogen Negative (Neg - 1+)
[2024-08-24 17:39] LABS: Urine Hyaline Cast 0-2 /LPF (0-2)
[2024-08-24 17:40] LABS: Urine Bacteria Few (Negative); Urine Mucus Few; Urine Red Blood Cell 0-2 /HPF (0-2); Urine White Cell 0-2 /HPF (0-5)
== END ==
LOC: CLAB 13:02
PROVIDERS: ATTENDING PHYSICIAN Internal Medicine
DX: R39.9 Unspecified symptoms and signs involving the genitourinary system (principal)
CPT/HCPCS: 81003; 81015; 87086

== ENCOUNTER 2024-10-12 06:40 | Inpatient (IN) | payer MEDICARE, OTHER, SELFPAY ==
[2024-10-04 12:10] VITALS: BMI 20.3
[2024-10-04 13:04] LABS: NT-proBNP 3580 pg/ml
[2024-10-04 14:41] LABS: % Basophils 0.8 % (0-2); % Eosinophils 0.7 % (0-6); % Immature Granulocytes 0.7 % (0-0.5); % Lymphocytes 11.8 % (20.5-51.1); % Monocytes 11.6 % (1.7-9.3); % Neutrophils 74.4 % (42.2-75.2); Absolute Basophils 0.1 10^3/uL (0-0.2); Absolute Lymphocytes 0.7 10^3/uL (1.2-3.4); Absolute Monocytes 0.7 10^3/uL (0.1-0.6); Absolute Neutrophils 4.4 10^3/uL (1.4-6.5); Mean Corp Hgb Conc. 32.4 g/dL (33.0-37.0); Mean Corpuscular Hgb 32.2 pg (27.0-31.0); Mean Corpuscular Volume 99.4 fL (81.0-99.0); Mean Platelet Volume 9.7 fL (7.4-10.4); Nucleated Red Blood Cells % 0 %; Platelet Count 272 10^3/uL (130-400); Red Blood Cell Count 3.42 10^6/uL (4.20-5.40); Red Cell Dist. Width 16.8 % (11.5-14.5)
[2024-10-04 15:00] LABS: ALT (SGPT) 30 U/L (0-35); AST (SGOT) 36 U/L (14-36); Albumin 4.2 g/dl (3.5-5.0); Alkaline Phosphatase 71 U/L (38-126); Blood Urea Nitrogen 65 mg/dl (7-17); Calcium 8.7 mg/dl (8.4-10.2); Carbon Dioxide 30 mmol/L (22-30); Chloride 101 mmol/L (98-107); Direct Bilirubin 0.3 mg/dl (0.0-0.4); Estimated Creatinine Clearance 25 ml/min; Glucose 112 mg/dl (70-99); Potassium 4.4 mmol/L (3.5-5.1); Sodium 137 mmol/L (135-145); Total Bilirubin 1.5 mg/dl (0.2-1.3); Total Protein 6.5 g/dl (6.3-8.2); eGFR 42.09
[2024-10-04 15:00] LABS: Urine Albumin Negative (Neg - Trace); Urine Bilirubin Negative (Negative); Urine Character Clear (Clear); Urine Color Yellow; Urine Glucose Negative (Negative); Urine Ketone Negative (Negative); Urine Leukocyte 2+ (Negative); Urine Nitrite Negative (Negative); Urine Occult Blood Negative (Negative); Urine Urobilinogen Negative (Neg - 1+)
[2024-10-04 15:04] LABS: INR 1.53; PT 18.6 Sec (11.4-14.6)
[2024-10-04 15:05] LABS: APTT 48.9 Sec (23.4-35.0)
[2024-10-04 15:22] LABS: Urine Red Blood Cell 0-2 /HPF (0-2)
[2024-10-04 15:23] LABS: Urine Squamous Cell 0-2 /LPF (Few)
--- NOTE | 2024-10-04 16:04 | CM ---
Met with Mrs. Meek in [facility]. She states prior to admission she resides with her spouse in a spilt level home with four steps to enter. She states she has seven steps to get to her bedroom/full bathroom. She states she does not have a bathroom on
the first floor. She does have a bathroom on the lower level. She states prior to admission she ambulates in the home with a rolling cart in the first floor and uses a walker on the second floor. She uses a single point cane in the community. She
states she would like to see if she can get a new walker while she is here. She states she would also like to use [facility]. if she needs VNA . She has has [facility] in the past. She states she has a prescription plan. He
spouse will be home. The discharge plan is to return home with her spouse and a home visit by the Transitional Care Nurse when medically stable.
We reviewed pre-op and post-op routines. We reviewed the shower instructions. She will use the Dial Soap. She has the shower instructions and the MitraClip booklet. We reviewed restrictions including driving and lifting restrictions. We also
discussed a home visit by the Transitional Care Nurse. She is agreeable to a home visit. The plan is for Mitraclip on Friday10/12/24.
[2024-10-05 09:33] LABS: Glycohemoglobin (HgbA1c) 5.1 % (4.0-5.6)
[2024-10-12] VITALS (25 sets, daily range): BP systolic 88–112; BP diastolic 38–72
[2024-10-12] MEDS: BACTROBAN 2% OINTMENT 1 APPLIC NASAL (07:36)
--- NOTE | 2024-10-12 11:57 | CON.MD ---
Consultation - Medical
-
dictated.
hypopharyngeal laceration and hematoma following STEPHANE attempt.
Keep intubated overnight.
I will remove throat pack later today, can replace if active bleeding recurs.
Will need esophagram after extubation to assess for perforation prior to initiating po's.
Hold Eliquis, ASA
--- NOTE | 2024-10-12 12:30 | CM ---
Reviewed chart. Mrs. Meek is in the operating room today. Prior to admission she resides with her spouse in a spilt level home with four steps to enter. She has seven steps to get to each level. She has seven steps to get to her bedroom/full
bathroom. She does not have a bathroom on the first floor, she does have a bathroom on the lower level. Prior to admission she uses a rolling cart to ambulate on the first floor and a walker on the second floor. She uses a single point cane in
the community. She would like to seeif she will qualify for a nre walker while she is here. She would also like [facility] if she needs [facility]NA Services. She has used [facility] in the past. Her spouse will be home. Will
need to see her current functional level to see if she will have any skilled care needs. Medical work-up in progress. The discharge plan is to return home with her spouse and a home visit by the Transitional Care Nurse when medically stable.
[2024-10-12 12:42] LABS: B.E. 4.4 mmol/L; HCO3 28.4 mmol/L (21-28); PCO2 39 mmHg (32-35); PO2 192 mmHg (83-108); pH 7.47 (7.35-7.45)
[2024-10-12 12:48] LABS: INR 1.12
[2024-10-12 12:49] LABS: APTT 39.9 Sec (23.4-35.0)
[2024-10-12] MEDS: SUBLIMAZE 50 MCG IV ×3 (12:51→17:59)
--- NOTE | 2024-10-12 12:55 | W.PN.UPDATE ---
Update Note
Progress Note Update
Throat pack removed, some blood-tinged mucous.
CXR viewed, no obvious PTX or free air in neck, await Radiologist's report.
Will see around 8AM tomorrow, if doing well can extubate then.
[2024-10-12 13:00] LABS: % Eosinophils 1.4 % (0-6); % Immature Granulocytes 1.5 % (0-0.5); % Lymphocytes 10.8 % (20.5-51.1); % Monocytes 14.7 % (1.7-9.3); % Neutrophils 70.6 % (42.2-75.2); Absolute Basophils 0.1 10^3/uL (0-0.2); Absolute Eosinophils 0.1 10^3/uL (0-0.7); Absolute Immature Granulocytes 0.1 10^3/uL (0-0.05); Absolute Lymphocytes 0.6 10^3/uL (1.2-3.4); Absolute Monocytes 0.9 10^3/uL (0.1-0.6); Absolute Neutrophils 4.2 10^3/uL (1.4-6.5); Hematocrit 27.7 % (37.0-47.0); Hemoglobin 8.9 g/dL (12.0-16.0); Mean Corp Hgb Conc. 32.1 g/dL (33.0-37.0); Mean Corpuscular Hgb 32.4 pg (27.0-31.0); Mean Corpuscular Volume 100.7 fL (81.0-99.0); Mean Platelet Volume 9.3 fL (7.4-10.4); Nucleated Red Blood Cells % 0 %; Platelet Count 265 10^3/uL (130-400); Red Blood Cell Count 2.75 10^6/uL (4.20-5.40); Red Cell Dist. Width 17.4 % (11.5-14.5); White Blood Cell Count 5.9 10^3/uL (4.8-10.8)
[2024-10-12] MEDS: SUBLIMAZE 100 IV (13:00)
[2024-10-12 13:05] LABS: ALT (SGPT) 24 U/L (0-35); AST (SGOT) 32 U/L (14-36); Albumin 3.2 g/dl (3.5-5.0); Alkaline Phosphatase 58 U/L (38-126); Blood Urea Nitrogen 58 mg/dl (7-17); Calcium 7.8 mg/dl (8.4-10.2); Carbon Dioxide 30 mmol/L (22-30); Chloride 105 mmol/L (98-107); Estimated Creatinine Clearance 30 ml/min; Glucose 107 mg/dl (70-99); Magnesium 2.7 mg/dl (1.6-2.3); Potassium 3.6 mmol/L (3.5-5.1); Sodium 139 mmol/L (135-145); Total Bilirubin 1.2 mg/dl (0.2-1.3); Total Protein 5.2 g/dl (6.3-8.2); Triglycerides 83 mg/dl (10-149); eGFR 51.43
--- NOTE | 2024-10-12 13:10 | PTCARENOTE ---
Received pt from clam bed laborer via bed; pt intubated and sedated; A-fib on monitor and VSS; Right A-line and PIV x2 patent; A-line leveled and zeroed; lungs diminished; ETT 7 20 @ lip; SIMV 450/5/12/40%; hypoactive bowel sounds; no edema noted; weak
pulses throughout; Propofol and levo infusing per sanitation laborer; Fentanyl bolus and drip started in CVICU per order; family updated by MD.
--- NOTE | 2024-10-12 13:23 | W.PN.UPDATE ---
Update Note
Progress Note Update
Prior to MitraClip procedure attempted and was unable to pass STEPHANE probe with assistance from anesthesia. [place] scope was obtained and blood was identified in the oropharynx. No further attempts to pass the STEPHANE probe were made. ENT subsequently
called to boot and shoe laborer to evaluate.
--- NOTE | 2024-10-12 13:46 | CON.INTV ---
Consultation
Consultation Request
Date/Time Consultation Requested: 10/12/2024
Date/Time Consultation Performed: 10/12/2024
Requesting Provider: Dottie Mack
Performing Provider: Alejandro Pelayo
Reason for Consultation: Respiratory failure
Medical History
-
Chief Complaint: Shortness of breath
History of Present Illness:
Patient is a 79-year-old female with known history of severe mitral regurgitation with resultant heart failure who was electively brought to the hospital for MitraClip procedure. Patient was in the OR and the STEPHANE probe could not be passed following
which some blood was noted which was subsequently evaluated by ENT service. Patient was noted to have hypopharyngeal laceration with hematoma which was managed with oral packing and airway was protected with endotracheal tube. Subsequently
MitraClip procedure was canceled and patient was admitted to cardiovascular ICU for further management. In view of having been intubated, salt maker service was consulted for further input. Patient was evaluated urgently on arrival to CVICU, she
was noted to be hypotensive and was on Levophed infusing at around 3. Otherwise patient appeared comfortable and no active bleeding was noted from ET tube or oral cavity.
Additional Past Medical History:
Severe Mitral Regurgitation / Mitral Valve Prolapse
Chronic HFpEF
Atrial Fibrillation
SVT/Atrial Tachycardia
Chronic Hyponatremia
Sjogren Syndrome
Scoliosis
Gluten Enteropathy
Past Surgical History: Reports Other
Additional Past Surgical History:
Spinal Fusion
Left Hip Replacement
Hysterectomy
Cholecystectomy
Bowel Resection
Social History
Tobacco: Non-smoker
Alcohol: None
Drug: None
Personal:
Living: With Family
Employment: Retired
Family History
Family History: Other (Mom: CVA)
Allergies / Home Medications
Allergies / Home Medications
Allergies
Allergy/AdvReac Type Severity Reaction Status Date / Time
chlorhexidine Allergy rash Verified 10/12/24 07:35
jose hips Allergy Hives Uncoded 10/12/24 07:35
Home Medications
�Medication �Instructions �Recorded �Confirmed �Last Taken �Type
cholecalciferol (vitamin D3) 25 50 mcg PO DAILY Supplement 07/12/24 10/12/24 10/09/24 09:00 History
mcg (1,000 unit) tablet (Vitamin
D3)
cyclosporine 0.05 % eye drops in a 1 drp BOTH EYES Q12 Eye Condition 07/12/24 10/12/24 10/11/24 21:00 History
dropperette (Restasis)
polyethylene glycol 3350 17 gram 17 g PO DAILY Constipation 07/12/24 10/12/24 10/11/24 09:00 History
oral powder packet (Miralax)
therapeutic multivitamin 1 tab PO DAILY Supplement 07/12/24 10/12/24 10/11/24 09:00 History
amiodarone 200 mg tablet 200 mg PO DAILY #30 tabs 07/20/24 10/12/24 10/11/24 09:00 Rx
denosumab 60 mg/mL subcutaneous 60 mg SC [id number] Cancer 07/29/24 10/12/24 08/09/24 History
syringe (Prolia)
metoprolol succinate 50 mg 25 mg PO BID Heart 07/29/24 10/12/24 10/11/24 21:00 History
tablet,extended release 24 hr Disease/Condition
apixaban 5 mg tablet (Eliquis) 5 mg PO BID Blood Clot 08/11/24 10/12/24 10/09/24 21:00 History
Prevention/Tx
furosemide 40 mg tablet (Lasix) 40 mg PO BID Fluid 08/11/24 10/12/24 10/09/24 21:00 History
Retention/Swelling
potassium chloride 10 mEq 10 meq PO DAILY Supplement 08/11/24 10/12/24 10/11/24 09:00 History
tablet,extended release(part/cryst)
aspirin 81 mg tablet 81 mg PO DAILY 10/12/24 10/12/24 10/12/24 06:00 History
Review of Systems
-
Unable to Obtain full review of systems at this time due to: Patient Intubation
Vitals / Labs / Diagnostic Testing
Vital Signs
Temp Pulse Resp BP Pulse Ox
97.5 F 75 12 103/50 100
10/12/24 06:52 10/12/24 13:30 10/12/24 13:30 10/12/24 13:09 10/12/24 13:43
Lab Data
10/12/24 12:21
10/12/24 12:21
Laboratory Results
10/12/24
12:28
PT 15.0 H
INR 1.12
APTT 39.9 H
pH 7.47 H
pCO2 39 H
pO2 192 H
HCO3 28.4 H
O2 Delivery Level Not Reportable
Diagnostic Testing:
Physical Exam
-
HEENT: Normocephalic
Cardiovascular: S1/S2 and Murmur (Soft systolic murmur heard.)
Respiratory: Clear
GI: Soft and Non Distended
Neurology: Other (Sedated, ventilated)
Skin: Warm
General: Comfortable
Assessment
-
#1. Acute respiratory failure, intubated for airway protection.
- Patient with hypopharyngeal laceration and hematoma following STEPHANE attempt.
- ENT service on case, oral packing observed, no active bleeding noted.
- Patient to stay intubated and mechanically ventilated for next 24 hours, anticipate extubation tomorrow if cleared by ENT service
- Continue volume control ventilation, propofol and fentanyl as needed for sedation
- Follow-up ABG reviewed. 7.47, 39, 192
- Chest x-ray in a.m., anticipate SAT/SBT in a.m. once evaluated by ENT service
#2. Hypopharyngeal laceration and hematoma.
- S/p oral packing. INR 1.12
- ENT service on case, reevaluate in a.m.
- Continue to keep Eliquis on hold
- Avoid any antiplatelet or anticoagulant
- Follow-up CBC in a.m.
#3. History of heart failure with preserved ejection fraction.
- Patient does not appear volume overloaded on exam
- Hold diuretics for now, in view of hypotension requiring Levophed, order Ringer lactate bolus to 50 mL
#4. Hypotension, suspect this is related to fentanyl and propofol after intubation and mechanical ventilation.
- Ringer lactate 250 bolus x 1
- Continue to hold all diuretics and antihypertensive medications
- Levophed as needed to keep MAP above 65.
- Patient otherwise afebrile, without any WBC count elevation. Chest x-ray not suggestive of active infection.
#5. History of severe mitral regurgitation.
- Patient was scheduled for mitral valve repair 10/12
- Procedure canceled for now
#6. History of atrial fibrillation with rapid ventricular rate.
- Continue to hold Eliquis in view of hematoma
- Holding metoprolol in view of hypotension
- Continue cardiac telemetry
Other medical co-morbidities:
- Sjogren's syndrome
- Scoliosis status post back surgery
- Sicca syndrome
- History of right-sided pleural effusion, transudative, likely related to underlying congestive heart failure
- History of SVT
-Scoliosis with helen replacement in 1988.
SCDs for DVT prophylaxis
Critical Care time 65 mins -- The patient is admitted for acute critical illness for the treatment of vital organ failure and/or prevention of further life-threatening conditions. Total care includes time spent in review of history, physical exam,
medications, hemodynamic/ventilator parameters, laboratory data, imaging and discussion with house staff, pharmacy, respiratory therapy, product support sales representative, and nursing.
Data:
Thoracentesis 06/2024. Right, 400 ml fluid removed. Cytology and cultures negative. Protein 2.2 and LDH 105, suspect transudate
CT Chest 06/2024: Moderate right pleural effusion. Marked cardiomegaly and a small pericardial effusion. Multiple subacute healing right rib fractures.
C 06/2024: No obstructive coronary artery disease
RHC 06/2024: CI 1.57, CO 2.52, PA pressure 30/18, mPA 22. PVR 3.2, SVR >2161. PCWP 14 with v waves up to 21. Elevated filling pressures, reduced CI and CO with elevated SVR.
STEPHANE 06/2024: Normal left ventricular chamber size. Normal left ventricular systolic
function. Normal regional wall motion. Left ventricular ejection fraction is
55-60%.
Normal right ventricular size and function.
Moderately dilated left atrium.
Mildly dilated right atrium.
No thrombus detected in the left atrial appendage.
Thickened mitral leaflets with bileaflet mitral valve prolapse. There is a
very eccentric jet of severe mitral regurgitation at the P2/P3 junction. There
is also a possible torn cord at P2/P3. Peak E wave velocity 92 cm/s. Mean
gradient 2 mmHg. Posterior leaflet length 15 mm.
ECHO 06/2024: Normal left ventricular chamber size. Normal left ventricular systolic
function. Left ventricular ejection fraction is 65-70% by volumetric
assessment. Normal regional wall motion. Mild concentric left ventricular
hypertrophy. Diastolic function indeterminate.
Mildly enlarged right ventricular size. Normal right ventricular systolic
function.
Indexed LA volume is severely abnormal (> 48 mL/m2).
Severely dilated right atrium.
Bi-leaflet mitral valve prolapse. Thickened mitral valve leaflets with
redundant chordal structures. Mild mitral annular calcification. Severe
eccentric mitral regurgitation.
Moderate-severe tricuspid regurgitation. Estimated pulmonary artery pressure of
35 mmHg assuming a right atrial pressure of 8 mmHg.
Small pericardial effusion. Pleural effusion present.
Compared to previous echo 08/24/22, the mitral regurgitation has worsened from
mild to severe.
[2024-10-12] MEDS: ANCEF 10 IV ×2 (13:52)
[2024-10-12] MEDS: LR 250 IV (13:58)
--- NOTE | 2024-10-12 14:30 | PTCARENOTE ---
Assumed care of the patient at 1415. Patient intubated and sedated on a ventilator, arouses to tactile stimulation. Afib on CM, rates 70's, HR irregular with murmur on auscultation, radial pulses palpable, DP pulses weakly palpable, +1 pitting edema
to LLE, trace to RLE, VSS. 7.0 ETT 20 @ the L lip, see worklist for vent settings, lungs clear throughout anteriorly, SpO2 100%. Normoactive bowel sounds. BS per protocol, no void since arrival to unit. Skin grossly intact, scattered ecchymosis. R
radial arterial line, PIVx1 in B/L hands. On Propofol, Levo, and Fentanyl. See worklist for additional intervention, titration, and care details.
[2024-10-12 18:23] LABS: PCO2 29 mmHg (32-35); PO2 180 mmHg (83-108); pH 7.56 (7.35-7.45)
--- NOTE | 2024-10-12 18:30 | PTCARENOTE ---
Patient bladder scanned for 535, provider made aware. Patient spontaneously awoke and encouraged to void on the bedpan. 75/125 mL output x2, straight cathed for 450 - see worklist.
--- NOTE | 2024-10-12 19:21 | W.PN.UPDATE ---
Update Note
Progress Note Update
Interventional cardiology update
Prior to us even getting access to get started with the MitraClip procedure, as soon as I scrubbed in we were notified that there has been some difficulty passing the STEPHANE probe despite 2 passes. Anesthesia team was getting ready to assist using a
glide scope. The glide scope was obtained and we identified blood pooling in the oropharynx. We suctioned this blood while watching under the glide scope and the blood kept unfortunately repooling without a clear source of where the bleeding was
coming in from. We decided to hold off on any further passes of the STEPHANE probe and contacted ENT on-call emergently to weigh in. Upon her request, ENT on-call physician came to bedside and lab 1 and assessed the patient with concern for a hematoma
in the hypopharynx. In the setting we agreed to abort the procedure with plan to leave patient intubated at least overnight for airway protection with reassessment by ENT the next morning. A full set of labs will be sent once patient gets to the
ICU along with a chest x-ray with close monitoring of her blood counts and we will make sure there is a active type and screen on her file.
I discussed all of the above updating patient's notifying him the reasoning in regards to cancellation of the procedure.
Dottie Mack MD, FACC, [facility]
[2024-10-12 20:24] LABS: B.E. 4.1 mmol/L; HCO3 26.5 mmol/L (21-28); PCO2 31 mmHg (32-35); PO2 183 mmHg (83-108); pH 7.54 (7.35-7.45)
--- NOTE | 2024-10-12 20:54 | PTCARENOTE ---
F/u ABG at 2014 showed that blood remained alkalotic. Track Repairer Helper notified. Orders received to adjust RR to 14 and TV to 320 on the ventilator. RT contacted. Pending lab hours to recheck in one hour
[2024-10-12] MEDS: DIPRIVAN 100 IV (21:41)
[2024-10-12 21:42] LABS: B.E. 7.4 mmol/L; HCO3 31.2 mmol/L (21-28); Hemoglobin 9.3 g/dL (12.0-16.0); Ionized Calcium 1.15 mMOL/L (1.15-1.33); O2 Saturation % 99.7 % (94-98); PCO2 40 mmHg (32-35); PO2 184 mmHg (83-108); Platelet Count 267 10^3/uL (130-400)
--- NOTE | 2024-10-12 22:22 | PTCARENOTE ---
F/u blood work showing hypokalemia and hypocalcemia. Provider notified. Orders received for K and Ca repletion. Lawton placed per PA 200 cc out immediately. Ventilator settings to remain unchanged.
[2024-10-12] MEDS: KCL 270 MEQ IV (22:26)
[2024-10-13] VITALS (47 sets, daily range): BP systolic 70–148; BP diastolic 22–110
[2024-10-13 00:26] LABS: O2 Saturation % 98.2 % (94-98); PCO2 38 mmHg (32-35); PO2 177 mmHg (83-108); pH 7.46 (7.35-7.45)
[2024-10-13] MEDS: SUBLIMAZE 100 IV (01:49)
[2024-10-13] MEDS: CALCIUM GLUCONATE 100 IV (02:26)
[2024-10-13 03:39] LABS: % Basophils 0.8 % (0-2); % Eosinophils 1.7 % (0-6); % Immature Granulocytes 0.9 % (0-0.5); % Lymphocytes 11.9 % (20.5-51.1); % Monocytes 13.6 % (1.7-9.3); % Neutrophils 71.1 % (42.2-75.2); Absolute Basophils 0.1 10^3/uL (0-0.2); Absolute Eosinophils 0.2 10^3/uL (0-0.7); Absolute Immature Granulocytes 0.1 10^3/uL (0-0.05); Absolute Lymphocytes 1.1 10^3/uL (1.2-3.4); Absolute Monocytes 1.3 10^3/uL (0.1-0.6); Absolute Neutrophils 6.6 10^3/uL (1.4-6.5); Hematocrit 30.5 % (37.0-47.0); Hemoglobin 9.9 g/dL (12.0-16.0); Mean Corp Hgb Conc. 32.5 g/dL (33.0-37.0); Mean Corpuscular Hgb 32.8 pg (27.0-31.0); Mean Platelet Volume 9.1 fL (7.4-10.4); Nucleated Red Blood Cells % 0 %; Platelet Count 288 10^3/uL (130-400); Red Blood Cell Count 3.02 10^6/uL (4.20-5.40); Red Cell Dist. Width 17.8 % (11.5-14.5); White Blood Cell Count 9.2 10^3/uL (4.8-10.8)
[2024-10-13 03:40] LABS: HCO3 26.5 mmol/L (21-28); O2 Saturation % 98.2 % (94-98); PCO2 40 mmHg (32-35); PO2 184 mmHg (83-108); pH 7.43 (7.35-7.45)
[2024-10-13 03:41] LABS: O2 Therapy 40
[2024-10-13 04:07] LABS: Blood Urea Nitrogen 41 mg/dl (7-17); Calcium 9.5 mg/dl (8.4-10.2); Carbon Dioxide 29 mmol/L (22-30); Chloride 111 mmol/L (98-107); Estimated Creatinine Clearance 36 ml/min; Glucose 90 mg/dl (70-99); Magnesium 2.8 mg/dl (1.6-2.3); Sodium 142 mmol/L (135-145); eGFR > 60.00
--- NOTE | 2024-10-13 05:34 | PTCARENOTE ---
Noticed increasingly low BPs from patient. Upon assessing danii appears highly positional. Arm board applied to patient. Titrated levo according to protocol. PA aware directed to follow cuff BPs. Cuff BPs are noted to be from the lower extremity as
patient has bilateral upper extremity restrictions. EKG obtained. AM labs obtained. Remains Afib on the monitor.
[2024-10-13] MEDS: LEVOPHED 250 IV (06:06)
--- NOTE | 2024-10-13 08:00 | PTCARENOTE ---
Patient received from community theater actor RN; Drowsy and lightly sedated but nods head appropriately to RN with verbal/tactile stimulation; VSS; Afib with PVC's on monitor; Murmur present; Trace RLE and +1 LLE edema; +2 radial and +1 DP pulses; ETT 7.0 at
22 cm right lip; Ventilator settings A/C 14/320/5 FiO2 40%; Suctioned but minimal secretions; Lawton catheter draining clear, yellow urine; PIVx2 - #20 left hand and #20 right forearm; Fentanyl, propofol, and levo infusing - see nursing flowsheets
for further details; Right radial A-line present - line zeroed and level; See nursing documentation for further information
--- NOTE | 2024-10-13 08:12 | W.PN.ENT ---
Today's Communication
-
as above
Impression / Plan
-
hypopharyngeal laceration and hematoma
no further bleeding
OK to extubate from my standpoint
should have esophagram prior to initiating po's to r/o perforation
Subjective Data
-
pt intubated but awake, alert, responds appropriately
no bleeding per Nursing
Objective Data
-
Vital Signs
Temp Pulse Resp BP Pulse Ox
97.4 F 77 17 94/60 100
10/13/24 05:00 10/13/24 06:20 10/13/24 06:20 10/13/24 06:06 10/13/24 06:20
Intake & Output
10/12/24 10/13/24 10/14/24
06:59 06:59 06:59
Intake:
Oral fluids 0 / 0
IV fluids (Total) 394.0 / 394.0
Fent 107.5 / 107.5
Levo 176.4 / 176.4
Prop 110.1 / 110.1
IV piggybacks 370 / 370
Output:
Urine, Lawton 490 / 490
Urine, Voided 200 / 200
Straight cath output 450 / 450
Lab Results
10/13/24 03:24
10/13/24 03:24
PT 15.0 Sec (11.4-14.6) H 10/12/24 12:28
INR 1.12 10/12/24 12:28
APTT 39.9 Sec (23.4-35.0) H 10/12/24 12:28
Calcium 9.5 mg/dl (8.4-10.2) D 10/13/24 03:24
Magnesium 2.8 mg/dl (1.6-2.3) H 10/13/24 03:24
Total Bilirubin 1.2 mg/dl (0.2-1.3) 10/12/24 12:21
Direct Bilirubin 0.3 mg/dl (0.0-0.4) 10/04/24 13:43
AST 32 U/L (14-36) 10/12/24 12:21
ALT 24 U/L (0-35) 10/12/24 12:21
Alkaline Phosphatase 58 U/L (38-126) 10/12/24 12:21
Triglycerides 83 mg/dl (10-149) 10/12/24 12:21
Urine Color Yellow 10/04/24 13:53
Urine Clarity Clear (Clear) 10/04/24 13:53
Urine pH 7.0 (5.0-9.0) 10/04/24 13:53
Ur Specific Parachute 1.010 (<1.030) 10/04/24 13:53
Urine Ketones Negative (Negative) 10/04/24 13:53
Physical Exam
-
Orotracheal tube in place
small upper lip hematoma
pharynx suctioned of saliva/mucous, no blood
CXR w/o PTX
--- NOTE | 2024-10-13 08:31 | W.PN.CARDCBS ---
Addendum entered and electronically signed by Sandra Butt MD 10/13/24 10:45:
I saw and examined the patient.
The Fuller Brush Worker's note was reviewed and I agree with the note.
Comment:
Patient was just extubated. She has no current complaints. Appears minimally volume overloaded. Hemoglobin remained stable and no active bleeding. Appreciate consultants assistance.
Difficult situation given patient appears sensitive and predispose to bleeding related events given recent bilateral arm hematomas and now hypopharyngeal hematoma and laceration 10/12/2024. At this time plan is for conservative management. I have
asked hematology opinion once again, they did see her last admission.
Patient with multiple medical problems including severe mitral regurgitation, moderate tricuspid regurgitation. She also has persistent atrial arrhythmias for which she currently is in atrial fibrillation. Last dose of Eliquis was 2 days prior to
procedure per patient.
- Esophagram per ENT
- Continue medical management of valvular heart disease for now.
- Follow volume status. May need to resume diuretic in a.m. pending status.
- Rate control of atrial arrhythmias. Follow telemetry which was independently reviewed by me and stable. Eventually will need to determine whether she is an Eliquis candidate once again. Was on this pre admission.
- Labs independently reviewed by me and hemoglobin stable. Follow. BUN likely increased because of blood loss.
- Await hematology opinion.
Original Note:
Today's Communication / Plan
-
CPAP trial and likely extubate today
Heme/Onc consult
Impression / Plan
-
PCP: Hanny Cerda
Resource Recovery Specialist: Dr. Mcgregor
Impression:
Admitted with hypopharyngeal hematoma and laceration prior to planned MitraClip 10/12/24
Recent admission for planned MVR/ TVR/MAZE/RHONA Clip that was cancelled due to CARLIE and spontaneous B/L UE hemorrhages 08/09/2024 until 08/20/24
Hypopharyngeal hematoma and laceration 10/12/24
B/L UE hemorrhages requiring RUE evacuation and washout 08/16/24
Chronic Eliquis OAC
Eliquis held at time of UE hemorrhage and then restarted on 08/20/24
Date for last dose of Eliquis prior to admission was 10/10/24
Mitral valve prolapse with severe mitral regurgitation
Moderate tricuspid regurgitation
Persistent atrial fibrillation and typical atrial flutter
History of acute HFpEF, now compensated
Sjogren's syndrome
Chronic hyponatremia
History of SBO with bowel resection 2010
Lumbar spinal fusion with helen placement 1988 with revision 1997
OA
Non obstructive CAD
ECHO 08/2022: EF 55-60%, bileaflet MVP, mild MR, mild TR, trivial pericardial effusion
STEPHANE 07/15/24: EF 65%, Bileaflet mitral valve prolapse with severe mitral regurgitation, moderate TR
LHC 07/16/2024: No obstructive CAD; mildly elevated right and left-sided filling pressures with reduced cardiac output in the setting of slightly elevated SVR
Plan:
-Patient came to [facility] 10/12/24 for planned MitraClip and there was an unsuccessful attempt to pass STEPHANE probe and then anesthesia placed [place] Scope and there was blood in the oropharynx so no additional attempts to pass STEPHANE probe. ENT saw patient
urgently and there was evidence of a hypopharyngeal hematoma and laceration. Patient was intubated overnight. Last dose of Eliquis was 10/10/24. Patient was previously admitted 08/09/24 until 08/20/24 for planned MV/TR and RHONA clip surgery, but was
uremic with BUN over 100 that improved with hydration. Patient then developed spontaneous hemorrhage of the B/L upper extremities the right worse than left and was seen by vascular surgery and had RUE washout and drain placed 08/16/24 and at that
time Eliquis was held. Patient was seen by Heme/Onc and had labs that did not suggest inherited bleeding disorder, but von Willebrand panel was pending at discharge. There was also a question as to possible collagen vascular disease with underlying
Sjogren's disease predisposing patient to hematoma formation. Eliquis was restarted at discharge 08/20/24. Patient saw CT surgeon in the office 09/02/24 and consideration for MitraClip was recommended. Patient then saw Dr. Mack in the office to
discuss MitraClip 09/14/24 and patient was agreeable. Last dose of Eliquis was 10/10/24.
-ECG from 10/13/24 reviewed by me is atrial flutter.
-Patient remains intubated, but ENT eval early 10/13/24 was favorable and no active bleeding so CPAP trial started and plan is for extubation 10/13/24.
-Will ask Heme/Onc to see again give recurrent hematoma, this time hypopharyngeal.
-Last dose of Eliquis was 10/10/24 and no anticoagulation ordered presently.
-Patient with known persistent Afib and flutter
-HRs controlled even though outpatient meds including Toprol XL 25 mg BID and amiodarone 200 mg daily are on hold while NPO.
-ENT recommending esophagram to exclude perforation prior to resuming POs
-Outpatient dose of Lasix 40 mg PO BID is on hold. Weight is stable at 100 lbs and when patient had CARLIE last admission her weight was 91 lbs.
Progress Note - Resource Recovery Specialist
Subjective
Date of Service: October 13, 2024
She says she has a post-nasal drip
Objective
Labs:
10/13/24 03:24
10/13/24 03:24
Labs
Hgb 9.9 g/dL (12.0-16.0) L 10/13/24 03:24
Hct 30.5 % (37.0-47.0) L 10/13/24 03:24
Plt Count 288 10^3/uL (130-400) 10/13/24 03:24
PT 15.0 Sec (11.4-14.6) H 10/12/24 12:28
INR 1.12 10/12/24 12:28
APTT 39.9 Sec (23.4-35.0) H 10/12/24 12:28
Sodium 142 mmol/L (135-145) 10/13/24 03:24
Potassium 4.0 mmol/L (3.5-5.1) 10/13/24 03:24
BUN 41 mg/dl (7-17) H 10/13/24 03:24
Creatinine 0.9 mg/dL (0.6-1.0) 10/13/24 03:24
Glucose 90 mg/dl (70-99) 10/13/24 03:24
Vital Signs and I&O:
Vital Signs
Temp Pulse Resp BP Pulse Ox
97.4 F 84 16 102/57 100
10/13/24 05:00 10/13/24 08:10 10/13/24 08:10 10/13/24 08:00 10/13/24 08:10
Vital Signs
Temp Pulse Resp BP Pulse Ox
97.4 F 84 16 102/57 100
10/13/24 05:00 10/13/24 08:10 10/13/24 08:10 10/13/24 08:00 10/13/24 08:10
Intake & Output
10/11/24 10/12/24 10/13/24 10/14/24
06:59 06:59 06:59 06:59
Intake Total 764.0 / 792.0 56.0 / 56.0
Output Total 1140 / 1140 115 / 115
Balance -376.0 / -348.0 -59.0 / -59.0
Physical Exam
Physical Exam
GEN: NAD. Awake and alert
LUNGS: Intubated and on CPAP on the ventilator. No rales
CV: Atrial flutter on tele. Irreg irreg, S1/S2, 2/6 murmur
ABD: ND
EXT: No edema B/L
NEURO: Gross non-focal
SKIN: Warm, pink, dry. No rash.
--- NOTE | 2024-10-13 08:38 | PTCARENOTE ---
CPAP trial started at 0825 by RT at bedside; Fentanyl and Propofol weaning; ABG to be drawn at 0855 as per MD Pelayo
--- NOTE | 2024-10-13 08:40 | CON.ONC ---
Consultation
-
Date Consultation Requested: 10/13/24
Date Consultation Performed: 10/13/24
Requesting Provider: Sandra Haider
Performing Provider: Sukhdeep
Reason for Consultation: coagulopathy
Impression
Impression
Hypopharyngeal laceration and hematoma following STEPHANE attempt
Coagulopathy workup unremarkable
Plan
Plan
Basic coagulopathy workup unremarkable.
Coag studies have been normal. Mild elevation of PTT could be just from blood draw through the A-line. Previous 07/2024 PT and PTT recently were normal. Platelet count normal. Von Willebrand panel normal.
Patient was on Eliquis and there could be some residual Eliquis effects but it seems like this was just a traumatic laceration of the hypopharyx following STEPHANE attempt.
She is currently intubated so it is hard to get further history but I do not see any suggestion of a chronic bleeding diathesis in this patient based on prior history although that the hematoma noted back in July around the blood pressure cuff.
For now continue to monitor her status clinically and consider further workup as needed. Usually qualitative platelet defects are either medication related (can be from aspirin which she is on) but are typically not acquired in the absence of
uremia.
Patient History
History of Present Illness
79-year-old female who was initially admitted on August 09 cardiothoracic surgery service forth anticipated mitral valve surgery. Patient was found to have clinical dehydration with acute kidney injury. She reported history of diarrhea. Surgery
was postponed and gastroenterology was consulted. Patient did not have acute GI problem and diarrhea resolved. Nephrology was consulted and patient was given IV fluid with holding her diuretic treatment. She was not in acute heart failure. CT
and cardiology services continue to follow-up. Later on, patient developed hematoma with ecchymosis in both upper extremity. She had intramuscular triceps hematoma that needed evacuation and washout by vascular surgery. She was bridged with IV
heparin. Patient received 1 unit of blood transfusion on August 16. Patient tolerated the procedure well. Vascular surgery continue to follow-up. Her kidney function improved and went back to baseline. She was able to tolerate diet. Eliquis 5
mg PO BID was resumed. She was placed back on her usual home medications. She remained hemodynamic stable and was discharged home with home care services in a stable condition. she was set up for a follow-up outpatient visit on September 02 with
cardiac surgery.
She was readmitted for potential mitral valve clip. Prior to the procedure, a STEPHANE was being attempted. When STEPHANE placement was attempted, there was bleeding from the mouth. She was intubated for airway protection. Per ENT, they noted a
hypopharyngeal laceration and hematoma following STEPHANE attempt. She has no known known history of bleeding issues although on home Eliquis.
Past-Medical/Surgical History
PMH:
1. Atrial fibrillation.
2. Mitral valve prolapse.
3. Severe mitral regurgitation.
4. Renal failure.
5. Sjogren's.
6. Osteoarthritis.
7. Raynaud's.
8. Scoliosis.
9. Multiple spine surgeries.
10. She had right arm hematoma evacuated in July.
Patient Medication
�Medication �Instructions �Recorded �Confirmed �Last Taken �Type
cholecalciferol (vitamin D3) 25 50 mcg PO DAILY Supplement 07/12/24 10/12/24 10/09/24 09:00 History
mcg (1,000 unit) tablet (Vitamin
D3)
cyclosporine 0.05 % eye drops in a 1 drp BOTH EYES Q12 Eye Condition 07/12/24 10/12/24 10/11/24 21:00 History
dropperette (Restasis)
polyethylene glycol 3350 17 gram 17 g PO DAILY Constipation 07/12/24 10/12/24 10/11/24 09:00 History
oral powder packet (Miralax)
therapeutic multivitamin 1 tab PO DAILY Supplement 07/12/24 10/12/24 10/11/24 09:00 History
denosumab 60 mg/mL subcutaneous 60 mg SC [id number] Cancer 07/29/24 10/12/24 08/09/24 History
syringe (Prolia)
metoprolol succinate 50 mg 25 mg PO BID Heart 07/29/24 10/12/24 10/11/24 21:00 History
tablet,extended release 24 hr Disease/Condition
apixaban 5 mg tablet (Eliquis) 5 mg PO BID Blood Clot 08/11/24 10/12/24 10/09/24 21:00 History
Prevention/Tx
furosemide 40 mg tablet (Lasix) 40 mg PO BID Fluid 08/11/24 10/12/24 10/09/24 21:00 History
Retention/Swelling
potassium chloride 10 mEq 10 meq PO DAILY Supplement 08/11/24 10/12/24 10/11/24 09:00 History
tablet,extended release(part/cryst)
amiodarone 200 mg tablet 200 mg PO DAILY Arrhythmia 10/12/24 10/12/24 10/11/24 09:00 History
aspirin 81 mg tablet 81 mg PO DAILY Blood Clot 10/12/24 10/12/24 10/12/24 06:00 History
Prevention/Tx
Active Medications
Generic Name Dose Route Start Last Admin
Trade Name Freq PRN Reason Stop Dose Admin
Acetaminophen 650 mg 10/12/24 11:51
Acetaminophen 325 Mg Tablet PO 11/09/24 11:50
Q4HPRN PRN
MILD PAIN
Fentanyl Citrate 50 mcg 10/12/24 12:29 10/12/24 17:59
Fentanyl (50 Mcg/Ml) 100 Mcg/2 Ml Ampul IV 10/26/24 12:28 50 mcg
[id number] PRN Administration
see protocol
Protocol
Norepinephrine Bitartrate 4 mg in 250 mls @ 0 mls/hr 10/12/24 12:00 10/13/24 06:06
Levophed IV 250 mls
PER PROTOCOL QUANG Administration
Protocol
Per Protocol
Fentanyl Citrate 1,000 mcg in 100 mls @ 0 mls/hr 10/12/24 12:30 10/13/24 01:49
Sublimaze IV 100 mls
PER PROTOCOL QUANG Administration
Protocol
Per Protocol
Propofol 1,000,000 mcg in 100 mls @ 0 mls/hr 10/12/24 12:30 10/12/24 21:41
Diprivan IV 100 mls
PER PROTOCOL QUANG Administration
Protocol
Per Protocol
Dexmedetomidine HCl 400 mcg in 100 mls @ 0 mls/hr 10/13/24 07:45
Precedex IV
PER PROTOCOL QUANG
Protocol
Per Protocol
Ondansetron HCl 4 mg 10/12/24 11:51
Ondansetron 4 Mg/2 Ml Vial IV 11/09/24 11:50
Q8HPRN PRN
nausea
Polyethylene Glycol 17 grams 10/13/24 08:00
Polyethylene Glycol Powder 17 Grams Packet TUBE 11/10/24 07:59
DAILY QUANG
Sodium Chloride 0 flush 10/12/24 13:00
Sodium Chloride 0.9% (Flush) Syringe IV 11/09/24 12:59
PER PROTOCOL QUANG
Physical Exam
-
Intubated
Cardiology: S1 and S2
Pulmonary: Clear
GI: Soft
Labs
Lab Results
WBC 9.2 10^3/uL (4.8-10.8) 10/13/24 03:24
RBC 3.02 10^6/uL (4.20-5.40) L 10/13/24 03:24
Hgb 9.9 g/dL (12.0-16.0) L 10/13/24 03:24
Hct 30.5 % (37.0-47.0) L 10/13/24 03:24
MCV 101.0 fL (81.0-99.0) H 10/13/24 03:24
MCH 32.8 pg (27.0-31.0) H 10/13/24 03:24
MCHC 32.5 g/dL (33.0-37.0) L 10/13/24 03:24
RDW 17.8 % (11.5-14.5) H 10/13/24 03:24
Plt Count 288 10^3/uL (130-400) 10/13/24 03:24
MPV 9.1 fL (7.4-10.4) 10/13/24 03:24
Abs Immat Gran (auto) 0.1 10^3/uL (0-0.05) H 10/13/24 03:24
Absolute Neuts (auto) 6.6 10^3/uL (1.4-6.5) H 10/13/24 03:24
Absolute Lymphs (auto) 1.1 10^3/uL (1.2-3.4) L 10/13/24 03:24
Absolute Monos (auto) 1.3 10^3/uL (0.1-0.6) H 10/13/24 03:24
Absolute Eos (auto) 0.2 10^3/uL (0-0.7) 10/13/24 03:24
Absolute Basos (auto) 0.1 10^3/uL (0-0.2) 10/13/24 03:24
Immature Gran % 0.9 % (0-0.5) H 10/13/24 03:24
Neutrophils % 71.1 % (42.2-75.2) 10/13/24 03:24
Lymphocytes % 11.9 % (20.5-51.1) L 10/13/24 03:24
Monocytes % 13.6 % (1.7-9.3) H 10/13/24 03:24
Eosinophils % 1.7 % (0-6) 10/13/24 03:24
Basophils % 0.8 % (0-2) 10/13/24 03:24
Creatinine 0.9 mg/dL (0.6-1.0) 10/13/24 03:24
Vital Signs
Vital Signs
Temp Pulse Resp BP Pulse Ox
97.4 F 84 16 102/57 100
10/13/24 05:00 10/13/24 08:10 10/13/24 08:10 10/13/24 08:00 10/13/24 08:25
--- NOTE | 2024-10-13 08:55 | W.PN.INTV ---
Addendum entered and electronically signed by Alejandro Pelayo MD 10/13/24 16:23:
Patient transferred out of ICU. Fiber Optics Engineer service will sign off. Please call as needed
Original Note:
Today's Communication / Plan
Recommendations
- Start Precedex, begin to wean propofol and fentanyl
- SAT/SBT, pressure support trial 5 x 5, ABG in 30 minutes, anticipate extubation later today
- Plan for esophagram once extubated
Assessment
-
Patient is a 79-year-old female with known history of severe mitral regurgitation with resultant heart failure who was electively brought to the hospital for MitraClip procedure. Patient was in the OR and the STEPHANE probe could not be passed following
which some blood was noted which was subsequently evaluated by ENT service. Patient was noted to have hypopharyngeal laceration with hematoma which was managed with oral packing and airway was protected with endotracheal tube. Subsequently
MitraClip procedure was canceled and patient was admitted to cardiovascular ICU for further management. In view of having been intubated, transportation design engineer service was consulted for further input. Patient was evaluated urgently on arrival to CVICU, she
was noted to be hypotensive and was on Levophed infusing at around 3. Otherwise patient appeared comfortable and no active bleeding was noted from ET tube or oral cavity.
#1. Acute respiratory failure, intubated for airway protection.
- Patient with hypopharyngeal laceration and hematoma following STEPHANE attempt.
- ENT service on case, oral packing observed, no active bleeding noted.
- Patient cleared for extubation from ENT standpoint
- Wean propofol and fentanyl, start Precedex infusion. Begin pressure support trial 5 x 5. ABG in about 30 minutes
- Anticipate extubation later today
-Currently has been on volume assist-control, 320/14/40%/5. MAP noted at 76. ABG 7.43, 40, 184.
#2. Hypopharyngeal laceration and hematoma.
- S/p oral packing. INR 1.12
- No further bleeding noted
- Plan for extubation, will proceed with esophagram post extubation prior to taking p.o.
#3. History of heart failure with preserved ejection fraction.
- Currently requiring Levophed at about 5, however blood pressure low likely related to sedation
- Appears euvolemic, hold off diuretics, antihypertensives for now
#4. Hypotension, suspect this is related to fentanyl and propofol after intubation and mechanical ventilation.
- Anticipate patient will be weaned off Levophed once off sedation and extubated
- Hold diuretics and antihypertensives for now
#5. History of severe mitral regurgitation.
- Patient was scheduled for mitral valve repair 10/12
- Procedure canceled for now
#6. History of atrial fibrillation with rapid ventricular rate.
- Continue to hold Eliquis in view of hematoma
- Holding metoprolol in view of hypotension
- Continue cardiac telemetry
Other medical co-morbidities:
- Sjogren's syndrome
- Scoliosis status post back surgery
- Sicca syndrome
- History of right-sided pleural effusion, transudative, likely related to underlying congestive heart failure
- History of SVT
-Scoliosis with helen replacement in 1988.
SCDs for DVT prophylaxis
Critical Care time 48 mins -- The patient is admitted for acute critical illness for the treatment of vital organ failure and/or prevention of further life-threatening conditions. Total care includes time spent in review of history, physical exam,
medications, hemodynamic/ventilator parameters, laboratory data, imaging and discussion with house staff, pharmacy, respiratory therapy, bench shear operator, and nursing.
Data:
Thoracentesis 06/2024. Right, 400 ml fluid removed. Cytology and cultures negative. Protein 2.2 and LDH 105, suspect transudate
CT Chest 06/2024: Moderate right pleural effusion. Marked cardiomegaly and a small pericardial effusion. Multiple subacute healing right rib fractures.
LHC 06/2024: No obstructive coronary artery disease
RHC 06/2024: CI 1.57, CO 2.52, PA pressure 30/18, mPA 22. PVR 3.2, SVR >2161. PCWP 14 with v waves up to 21. Elevated filling pressures, reduced CI and CO with elevated SVR.
STEPHANE 06/2024: Normal left ventricular chamber size. Normal left ventricular systolic
function. Normal regional wall motion. Left ventricular ejection fraction is
55-60%.
Normal right ventricular size and function.
Moderately dilated left atrium.
Mildly dilated right atrium.
No thrombus detected in the left atrial appendage.
Thickened mitral leaflets with bileaflet mitral valve prolapse. There is a
very eccentric jet of severe mitral regurgitation at the P2/P3 junction. There
is also a possible torn cord at P2/P3. Peak E wave velocity 92 cm/s. Mean
gradient 2 mmHg. Posterior leaflet length 15 mm.
ECHO 06/2024: Normal left ventricular chamber size. Normal left ventricular systolic
function. Left ventricular ejection fraction is 65-70% by volumetric
assessment. Normal regional wall motion. Mild concentric left ventricular
hypertrophy. Diastolic function indeterminate.
Mildly enlarged right ventricular size. Normal right ventricular systolic
function.
Indexed LA volume is severely abnormal (> 48 mL/m2).
Severely dilated right atrium.
Bi-leaflet mitral valve prolapse. Thickened mitral valve leaflets with
redundant chordal structures. Mild mitral annular calcification. Severe
eccentric mitral regurgitation.
Moderate-severe tricuspid regurgitation. Estimated pulmonary artery pressure of
35 mmHg assuming a right atrial pressure of 8 mmHg.
Small pericardial effusion. Pleural effusion present.
Compared to previous echo 08/24/22, the mitral regurgitation has worsened from
mild to severe.
Subjective Dataa
Subjective Data
Date of Service:
Date of Service: October 13, 2024
Subjective:
Patient currently intubated, mechanically ventilated and sedated
Review of Systems
General: Unobtainable - Sedation
Objective Data
Data Reviewed
Vital Signs / I&O / Oxygen:
Vital Signs
Temp Pulse Resp BP Pulse Ox
97.4 F 84 16 102/57 100
0521/25 05:00 10/13/24 08:10 10/13/24 08:10 10/13/24 08:00 10/13/24 08:25
Intake and Output
10/12/24 10/13/24 10/14/24
06:59 06:59 06:59
Intake Total 764.0 / 792.0 56.0 / 56.0
Output Total 1140 / 1140 115 / 115
Balance -376.0 / -348.0 -59.0 / -59.0
SaO2 [CPAP/PSV] 100
SaO2 [A/C] 100
SaO2 [SIMV] 100
SaO2 100
Nasal Cannula flow liters per 100
minute
Physical Exam
General: Comfortable
HEENT: Normocephalic and Other (No bleeding noted from ET tube or oral cavity)
Cardiovascular: S1-S2
Respiratory: Clear and Non-Labored Respirations
GI: Soft and Non Distended
Skin: Warm
Labs/Micro/Reports
Lab Data
10/13/24 03:24
10/13/24 03:24
Laboratory Results
10/12/24 10/12/24 10/12/24
12:28 18:08 20:16
PT 15.0 H
INR 1.12
APTT 39.9 H
pH 7.47 H 7.56 H 7.54 H
pCO2 39 H 29 L 31 L
pO2 192 H 180 H 183 H
HCO3 28.4 H 26.0 26.5
O2 Delivery Level Not Reportable
10/12/24 10/13/24 10/13/24
21:32 00:05 00:21
PT
INR
APTT
pH 7.50 H Cancelled 7.46 H
pCO2 40 H Cancelled 38 H
pO2 184 H Cancelled 177 H
HCO3 31.2 H Cancelled 27.0
O2 Delivery Level Rr 14, tv 320 Cancelled
10/13/24
03:24
PT
INR
APTT
pH 7.43
pCO2 40 H
pO2 184 H
HCO3 26.5
O2 Delivery Level 40
[2024-10-13 09:12] LABS: B.E. 1.7 mmol/L; HCO3 25.7 mmol/L (21-28); Ionized Calcium 1.23 mMOL/L (1.15-1.33); PCO2 37 mmHg (32-35); PO2 170 mmHg (83-108); Potassium 3.7 mMOL/L (3.5-5.1); Sodium 140 mMOL/L (136-145); pH 7.45 (7.35-7.45)
--- NOTE | 2024-10-13 09:23 | PTCARENOTE ---
ABG reviewed with MD Pelayo; RT at bedside; Patient extubated at 0920 and placed on 6L NC
--- NOTE | 2024-10-13 09:59 | RESPNOTE ---
pt extubated at 0920 to 6lpm nasal cannula. sats of 96% noted
--- NOTE | 2024-10-13 10:13 | W.PN.ANS.POP ---
Anesthesia Post Operative
- Anesthesia Post Op Note
Vital Signs Stable-See Nursing Note: Yes
Airway Patent: Yes (extubated)
Adequate Pain Control: Yes
Change in Mental Status: No
Current Postoperative Nausea & Vomiting: No
Anesthesia Complications: No
General Anesthetic Recall: No
Unplanned Admission: No
Post Op Hydration Adequate: Yes
--- NOTE | 2024-10-13 13:00 | PTCARENOTE ---
Patient taken to outpatient radiology for esophogram; RN at bedside with patient for procedure
--- NOTE | 2024-10-13 14:27 | CM ---
Reviewed chart. Met with Mrs. Meek to review discharge plans. She states she is feeling okay. Prior to admission she resides with his spouse in a [place] home with four steps to enter. She has seven steps to get to bedroom/full bathroom.
She does not have a powder room on the first floor. She has a bathroom on the lower floor. Prior to admission she ambulates with a rolling cart on her first floor and a walker on the second floor. She uses a single point cane in the community.
She would like to see if she can get a new walker while she is here. She would like to use [facility] if she needs VNA Services. She has had [facility] in the past. Will need to see her current functional level to see if she will
have any skilled care needs. Medical work-up in progress. The discharge plan is to return home with her spouse and [facility] verses some level of inpatient admission if indicated when medically stable.
--- NOTE | 2024-10-13 15:00 | PTCARENOTE ---
Patient transferred to IVU; Patient belongings taken with patient in wheelchair; Report given to Alaina Saldaña RN
--- NOTE | 2024-10-13 23:45 | PTCARENOTE ---
Assumed care of the pt @ 1900. Pt is AAOx3 A Fib on the monitor VSS BP on right calf. Lawton catheter in place for retention draining yellow. NPO ice chips mouth swabs provided. Call yanes within reach.
[2024-10-14] VITALS (9 sets, daily range): BP systolic 63–121; BP diastolic 41–71
--- NOTE | 2024-10-14 09:12 | W.PN.ENT ---
Today's Communication
-
as above
Impression / Plan
-
hypopharyngeal laceration/hematoma, now with extensive bruising but no further bleeding, no airway compromise.
OK to advance diet from my standpoint. should slowly resolve but re-consult us if necessary.
if STEPHANE re-attempt absolutely necessary perhaps GI could assist.
chronic post-nasal drip.
recommend a trial of guaifenesin 600mg po BID prn when taking po's.
f/u as outpt.
Subjective Data
-
no sore throat. some hoarseness. no dyspnea. swallowing water easily, hasn't tried po's yet. sensation of phlegm.
also longstanding h/o PND, treated for allergies in past. has tried saline spray, gargling. no change with flonase.
Objective Data
-
Vital Signs
Temp Pulse Resp BP Pulse Ox
97.5 F 109 20 65/50 96
10/14/24 07:12 10/14/24 09:10 10/14/24 07:12 10/14/24 07:13 10/14/24 07:12
Intake & Output
10/13/24 10/14/24 10/15/24
06:59 06:59 06:59
Intake:
Oral fluids 0 / 0
IV fluids (Total) 394.0 / 422.0 64.8 / 64.8
Fent 107.5 / 115.0 20.0 / 20.0
Levo 176.4 / 191.4 33.8 / 33.8
Prop 110.1 / 115.6 11.0 / 11.0
IV piggybacks 370 / 370
Output:
Urine, Lawton 490 / 490 315 / 315
Urine, Voided 200 / 200 600 / 600
Straight cath output 450 / 450
Lab Results
10/13/24 03:24
10/13/24 03:24
PT 15.0 Sec (11.4-14.6) H 10/12/24 12:28
INR 1.12 10/12/24 12:28
APTT 39.9 Sec (23.4-35.0) H 10/12/24 12:28
Calcium 9.5 mg/dl (8.4-10.2) D 10/13/24 03:24
Magnesium 2.8 mg/dl (1.6-2.3) H 10/13/24 03:24
Total Bilirubin 1.2 mg/dl (0.2-1.3) 10/12/24 12:21
Direct Bilirubin 0.3 mg/dl (0.0-0.4) 10/04/24 13:43
AST 32 U/L (14-36) 10/12/24 12:21
ALT 24 U/L (0-35) 10/12/24 12:21
Alkaline Phosphatase 58 U/L (38-126) 10/12/24 12:21
Triglycerides 83 mg/dl (10-149) 10/12/24 12:21
Urine Color Yellow 10/04/24 13:53
Urine Clarity Clear (Clear) 10/04/24 13:53
Urine pH 7.0 (5.0-9.0) 10/04/24 13:53
Ur Specific [place] 1.010 (<1.030) 10/04/24 13:53
Urine Ketones Negative (Negative) 10/04/24 13:53
Physical Exam
-
mild hoarseness, no stridor, no drool.
nose normal
OC/OP 3 tiny healing bruises on upper lip. s/p T&A.
neck normal
esophagram negative for perforation, or obstruction, does show distension of proximal esophagus
NPL (verbal consent, topical lidocaine/afrin). mild L deviated septum. little clear mucous in L nasal cavity. MERCHANDISE APPRAISER, OP normal.
extensive ecchymosis involving entire hypopharynx down to esophageal inlet, arytenoids. mild ecchymosis of R TVC.
no mass effect, no bleeding, no identifiable laceration, and no airway compromise.
Data Reviewed
-
Radiology Results: Report Reviewed and Image Reviewed
--- NOTE | 2024-10-14 09:37 | PTCARENOTE ---
Assumed care at 0745. Patient sleeping soundly on her side. VSS, A-Fib 70-100's. Lawton to gravity. Dry blisters on lips, voice hoarse, lungs CTA. Call yanes in reach
--- NOTE | 2024-10-14 11:00 | CM ---
Addendum entered by REYNALDO Howard 10/14/24 11:56:
[facility] able to accept.
Original Note:
CM following for DC planning needs.
Met w/ patient at bedside. She reports that she is feeling well.
Reviewed DC plan. Goal is for home w/ VN, preference is [facility].
Will cont. to follow.
--- NOTE | 2024-10-14 12:07 | W.PN.ONC2 ---
Today's Communication / Plan
-
.
Impression
Impression
Hypopharyngeal laceration and hematoma following STEPHANE attempt
Coagulopathy workup unremarkable
Plan
Plan
Basic coagulopathy workup unremarkable.
Coag studies have been normal. Mild elevation of PTT could be just from blood draw through the A-line. Previous 07/2024 PT and PTT recently were normal. Platelet count normal. Von Willebrand panel normal.
Patient was on Eliquis and there could be some residual Eliquis effects but it seems like this was just a traumatic laceration of the hypopharyx following STEPHANE attempt.
For now continue to monitor her status clinically and consider further workup as needed. Usually qualitative platelet defects are either medication related (can be from aspirin which she is on) but are typically not acquired in the absence of
uremia.
Subjective/Objective
Subjective
denies bleeding or pain
requests nutrition consult for supplements
Vital Signs:
Vital Signs
Temp Pulse Resp BP Pulse Ox
98.3 F 96 20 119/59 96
10/14/24 11:50 10/14/24 09:40 10/14/24 11:50 10/14/24 09:12 10/14/24 11:50
Lab Results:
Laboratory Data
WBC 9.2 10^3/uL (4.8-10.8) 10/13/24 03:24
Hgb 9.9 g/dL (12.0-16.0) L 10/13/24 03:24
Plt Count 288 10^3/uL (130-400) 10/13/24 03:24
PT 15.0 Sec (11.4-14.6) H 10/12/24 12:28
INR 1.12 10/12/24 12:28
APTT 39.9 Sec (23.4-35.0) H 10/12/24 12:28
eGFR > 60.00 10/13/24 03:24
Physical Exam
HEENT: Moist Mucous Membranes; No Jaundice
Pulmonary: Other (unlaborred)
GI: Soft
Extremities: Pulses Present
--- NOTE | 2024-10-14 13:32 | W.PN.CARDCBS ---
Addendum entered and electronically signed by Mack Bradford DO 10/14/24 16:29:
I saw and examined the patient.
The Last Code Striper's note was reviewed and I agree with the note.
Comment:
Presented for planned MitraClip 10/12/2024, but after unsuccessful attempt at passing STEPHANE probe, anesthesia placed [place] Scope and noted blood in oropharynx. ENT evaluated patient and there was evidence of hypopharyngeal hematoma and laceration.
Plan:
Eliquis remains on hold with hypopharyngeal hematoma. Hematology has been consulted and evaluating given pt with prior UE hematomas as well.
Patient is not felt to be a candidate for reattempt at MitraClip.
Continue rate control strategy for atrial flutter.
Esophagram 10/13 without evidence of hypopharyngeal or esophageal perforation.
Resume Toprol and amiodarone once able to take p.o.'s and if BP improves..
With hypotension continue to hold Toprol and Lasix.-HRs overall stable. On Toprol and amiodarone as OP. Both on hold as she was NPO.
She appears euvolemic with stable weight.
She remains appreciative.
Original Note:
Today's Communication / Plan
-
Continue to follow BP and HR
Add back usual medications as able
Repeat labs.
Impression / Plan
-
PCP: Hanny Cerda
Lacing String Cutter: Dr. Mcgregor
Impression:
Admitted with hypopharyngeal hematoma and laceration prior to planned MitraClip 10/12/24
Recent admission for planned MVR/ TVR/MAZE/RHONA Clip that was cancelled due to CARLIE and spontaneous B/L UE hemorrhages 08/09/2024 until 08/20/24
Hypopharyngeal hematoma and laceration 10/12/24
B/L UE hemorrhages requiring RUE evacuation and washout 08/16/24
Chronic Eliquis OAC
Eliquis held at time of UE hemorrhage and then restarted on 08/20/24
Date for last dose of Eliquis prior to admission was 10/10/24
Mitral valve prolapse with severe mitral regurgitation
Moderate tricuspid regurgitation
Persistent atrial fibrillation and typical atrial flutter
History of acute HFpEF, now compensated
Sjogren's syndrome
Chronic hyponatremia
History of SBO with bowel resection 2010
Lumbar spinal fusion with helen placement 1988 with revision 1997
OA
Non obstructive CAD
ECHO 08/2022: EF 55-60%, bileaflet MVP, mild MR, mild TR, trivial pericardial effusion
STEPHANE 07/15/24: EF 65%, Bileaflet mitral valve prolapse with severe mitral regurgitation, moderate TR
LHC 07/16/2024: No obstructive CAD; mildly elevated right and left-sided filling pressures with reduced cardiac output in the setting of slightly elevated SVR
Plan:
-Presented for planned MitraClip 10/12/2024, but after unsuccessful attempt at passing STEPHANE probe, anesthesia placed [place] Scope and noted blood in oropharynx. ENT evaluated patient and there was evidence of hypopharyngeal hematoma and laceration.
-Patient had been holding Eliquis in preparation for procedure w/ last dose 10/10. Previously had admission 07/2024 and had spontaneous hemorrhage of b/l upper extremities and was seen by vascular surgery and had RUE washout and drain placed 08/16/24.
Followed up with heme/onc and labs have not suggested inherited bleeding disorder. Heme seeing again this admission, however workup has remained unremarkable.
-At this time, not felt to be candidate for re-attempt at mitraclip.
-Remains in rate controlled atrial flutter on review of telemetry.
-Esophagram 10/13 without evidence of hypopharyngeal or esophageal perforation.
-HRs overall stable. On Toprol and amiodarone as OP. Both on hold as she was NPO.
-BP has been on the low side, so will continue to hold Toprol and lasix.
-Eventually resume Eliquis. Hgb stable at 9.9 10/13. Will repeat labs.
-Outpatient dose of Lasix 40 mg PO BID is on hold. Appears euvolemic, weight stable at 100 lbs. Creat 0.9 on 10/13.
Progress Note - Lacing String Cutter
Subjective
Date of Service: October 14, 2024
Feeling well. Eating lunch without difficulty.
Objective
Labs:
10/13/24 03:24
10/13/24 03:24
Labs
Hgb 9.9 g/dL (12.0-16.0) L 10/13/24 03:24
Hct 30.5 % (37.0-47.0) L 10/13/24 03:24
Plt Count 288 10^3/uL (130-400) 10/13/24 03:24
PT 15.0 Sec (11.4-14.6) H 10/12/24 12:28
INR 1.12 10/12/24 12:28
APTT 39.9 Sec (23.4-35.0) H 10/12/24 12:28
Sodium 142 mmol/L (135-145) 10/13/24 03:24
Potassium 4.0 mmol/L (3.5-5.1) 10/13/24 03:24
BUN 41 mg/dl (7-17) H 10/13/24 03:24
Creatinine 0.9 mg/dL (0.6-1.0) 10/13/24 03:24
Glucose 90 mg/dl (70-99) 10/13/24 03:24
Vital Signs and I&O:
Vital Signs
Temp Pulse Resp BP Pulse Ox
98.3 F 96 20 119/59 96
10/14/24 11:50 10/14/24 09:40 10/14/24 11:50 10/14/24 09:12 10/14/24 11:50
Vital Signs
Temp Pulse Resp BP Pulse Ox
98.3 F 96 20 119/59 96
10/14/24 11:50 10/14/24 09:40 10/14/24 11:50 10/14/24 09:12 10/14/24 11:50
Intake & Output
10/12/24 10/13/24 10/14/24 10/15/24
06:59 06:59 06:59 06:59
Intake Total 764.0 / 792.0 64.8 / 64.8 0 / 0
Output Total 1140 / 1140 915 / 915
Balance -376.0 / -348.0 -850.2 / -850.2 0 / 0
Physical Exam
Physical Exam
GEN: NAD. Awake and alert
LUNGS: CTA b/l, no wheezes
CV: irreg irreg, S1/S2, 2/6 murmur
EXT: No clubbing, cyanosis, or edema B/L
NEURO: Gross non-focal
SKIN: Warm, pink, dry. No rash.
--- NOTE | 2024-10-14 22:45 | PTCARENOTE ---
Tele remains Afib. Pt denies any chest pain. Patient c/o sore throat but does not request anything at this time. [place] in place, and draining yellow urine. Call yanes within reach
[2024-10-14] MEDS: RESTASIS 0.05% OPHTHALMIC EMULSION 1 DROPS OPHTH (22:51)
[2024-10-14] MEDS: TYLENOL 650 MG PO (22:53)
[2024-10-15] VITALS (8 sets, daily range): BP systolic 93–140; BP diastolic 41–104; PULSE 110–116; O2SAT 99; BMI 20.5
[2024-10-15 05:18] LABS: Hematocrit 27.2 % (37.0-47.0); Hemoglobin 8.7 g/dL (12.0-16.0); Mean Corpuscular Hgb 32.8 pg (27.0-31.0); Mean Corpuscular Volume 102.6 fL (81.0-99.0); Mean Platelet Volume 8.9 fL (7.4-10.4); Platelet Count 241 10^3/uL (130-400); Red Blood Cell Count 2.65 10^6/uL (4.20-5.40); Red Cell Dist. Width 17.4 % (11.5-14.5); White Blood Cell Count 6.9 10^3/uL (4.8-10.8)
[2024-10-15 05:35] LABS: Blood Urea Nitrogen 39 mg/dl (7-17); Calcium 8.6 mg/dl (8.4-10.2); Carbon Dioxide 27 mmol/L (22-30); Chloride 110 mmol/L (98-107); Estimated Creatinine Clearance 32 ml/min; Glucose 95 mg/dl (70-99); Potassium 4.2 mmol/L (3.5-5.1); Sodium 140 mmol/L (135-145); eGFR 57.66
[2024-10-15] MEDS: RESTASIS 0.05% OPHTHALMIC EMULSION 1 DROPS OPHTH ×2 (09:12→21:15)
--- NOTE | 2024-10-15 09:59 | W.PN.CARDCBS ---
Addendum entered and electronically signed by Corine Griggs DO 10/15/24 12:19:
I saw and examined the patient.
The Pharmacy Operations Manager's note was reviewed and I agree with the note.
Comment: Patient seen and examined. Chart/telemetry reviewed. She is sitting out of bed to chair on room air and denies shortness of breath. She reports mild sore throat but is tolerating both liquids and solids. Denies hemoptysis or
hematemesis. Reports positive nonbloody BM. No abdominal pain. No chest pain.
GEN: Frail elderly thin female sitting in chair. Increased Thoracic kyphosis and scoliosis
HEENT:mmm. Soft neck brace support in place
LUNGS: Bronchovesicular breath sounds, clear
CV: Irregularly irregular, S1/S2, 2/6 murmur, no rub or gallop
ABD: soft, BS+, NT/ND
EXT: No edema
Plan:
Presented for planned MitraClip 10/12/2024, but after unsuccessful attempt at passing STEPHANE probe, anesthesia placed [place] Scope and noted blood in oropharynx.
-ENT evaluated patient and there was evidence of hypopharyngeal hematoma and laceration.
-Esophagram 10/13 without evidence of hypopharyngeal or esophageal perforation.
-Patient had been holding Eliquis in preparation for procedure w/ last dose 10/10. Will not resume at this time and reassess as an outpatient
-Previously had admission 07/2024 and had spontaneous hemorrhage of b/l upper extremities and was seen by vascular surgery and had RUE washout and drain placed 08/16/24. Followed up with heme/onc and labs have not suggested inherited bleeding
disorder. Heme seeing again this admission, however workup has remained unremarkable.
-Slight drop in hemoglobin from 9.9 on 10/13 to 8.7 on 10/15. Continue to monitor and trend Hgb.
-Consults with ENT and hematology/oncology reviewed.
-At this time, not felt to be candidate for re-attempt at mitraclip.
-Tolerating soft diet as of today.
-Nutrition consult placed
-Persistent atrial fibrillation flutter.
-Will resume amiodarone and lower dose Toprol at 12.5 mg in evening 10/15/2024.
-Remains atrial flutter with reasonable rate control on review of telemetry.
-Will not resume anticoagulation at this time and reassess as an outpatient
Valvular heart disease with severe mitral regurgitation/bileaflet mitral valve prolapse
-Appears euvolemic Resume Lasix at reduced dose of 20 mg daily (was taking 40 mg BID as outpt)
-Likely the plan will be for medical therapy. She is not a surgical candidate. No plans to reattempt MitraClip following complications
-PT/OT to help assess if patient stable to go home or will require rehab
Original Note:
Today's Communication / Plan
-
Resume amiodarone 200 mg daily, reduced dose of Toprol at 12.5 mg at bedtime and lower dose Lasix 20 mg
Await input from heme-onc regarding resuming Eliquis and aspirin
PT/OT
Nutrition consult
Follow hemoglobin and electrolytes
Impression / Plan
-
PCP: Hanny Cerda
Sheet Rock Taper: Dr. Mcgregor
Impression:
Admitted with hypopharyngeal hematoma and laceration prior to planned MitraClip 10/12/24
Recent admission for planned MVR/ TVR/MAZE/RHONA Clip that was cancelled due to CARLIE and spontaneous B/L UE hemorrhages 08/09/2024 until 08/20/24
Hypopharyngeal hematoma and laceration 10/12/24
B/L UE hemorrhages requiring RUE evacuation and washout 08/16/24
Chronic Eliquis OAC
Eliquis held at time of UE hemorrhage and then restarted on 08/20/24
Date for last dose of Eliquis prior to admission was 10/10/24
Mitral valve prolapse with severe mitral regurgitation
Moderate tricuspid regurgitation
Persistent atrial fibrillation and typical atrial flutter
History of acute HFpEF, now compensated
Sjogren's syndrome
Chronic hyponatremia
History of SBO with bowel resection 2010
Lumbar spinal fusion with helen placement 1988 with revision 1997
OA
Non obstructive CAD
ECHO 08/2022: EF 55-60%, bileaflet MVP, mild MR, mild TR, trivial pericardial effusion
STEPHANE 07/15/24: EF 65%, Bileaflet mitral valve prolapse with severe mitral regurgitation, moderate TR
LHC 07/16/2024: No obstructive CAD; mildly elevated right and left-sided filling pressures with reduced cardiac output in the setting of slightly elevated SVR
Plan:
-Presented for planned MitraClip 10/12/2024, but after unsuccessful attempt at passing STEPHANE probe, anesthesia placed [place] Scope and noted blood in oropharynx. ENT evaluated patient and there was evidence of hypopharyngeal hematoma and laceration.
-Patient had been holding Eliquis in preparation for procedure w/ last dose 10/10. Previously had admission 07/2024 and had spontaneous hemorrhage of b/l upper extremities and was seen by vascular surgery and had RUE washout and drain placed 08/16/24.
Followed up with heme/onc and labs have not suggested inherited bleeding disorder. Heme seeing again this admission, however workup has remained unremarkable.
-Esophagram 10/13 without evidence of hypopharyngeal or esophageal perforation.
-Evaluation by ENT appreciated. Recommended to resume to normal diet. Patient able to tolerate soft diet 10/14/24
-Persistent atrial fibrillation flutter. Will resume amiodarone and lower dose Toprol at 12.5 mg in evening 10/15/2024.
-Remains atrial flutter with reasonable rate control on review of telemetry.
-Resume Lasix at reduced dose of 20 mg daily (was taking 40 mg BID as outpt)
-At this time, not felt to be candidate for re-attempt at mitraclip.
-Heme-onc consulted. Appreciate input. Unremarkable coagulopathy workup. Requesting input from heme-onc if patient stable to resume Eliquis with ASA or just Eliquis
-Eliquis and aspirin remain on hold. Slight drop in hemoglobin from 9.9 on 10/13 to 8.7 on 10/15. Continue to monitor and trend Hgb.
-Nutritional consult placed for low protein, failure to thrive
-PT/OT to help assess if patient stable to go home or will require rehab
Progress Note - Sheet Rock Taper
Subjective
Date of Service: October 15, 2024
Patient seen and examined. Patient sitting in chair. Patient reports she was able to eat soft foods yesterday without difficulty. Denies chest pain or shortness of breath
Objective
Labs:
10/15/24 04:49
10/15/24 04:49
Labs
Hgb 8.7 g/dL (12.0-16.0) L 10/15/24 04:49
Hct 27.2 % (37.0-47.0) L 10/15/24 04:49
Plt Count 241 10^3/uL (130-400) 10/15/24 04:49
PT 15.0 Sec (11.4-14.6) H 10/12/24 12:28
INR 1.12 10/12/24 12:28
APTT 39.9 Sec (23.4-35.0) H 10/12/24 12:28
Sodium 140 mmol/L (135-145) 10/15/24 04:49
Potassium 4.2 mmol/L (3.5-5.1) 10/15/24 04:49
BUN 39 mg/dl (7-17) H 10/15/24 04:49
Creatinine 1.0 mg/dL (0.6-1.0) 10/15/24 04:49
Glucose 95 mg/dl (70-99) 10/15/24 04:49
Vital Signs and I&O:
Vital Signs
Temp Pulse Resp BP Pulse Ox
97.9 F 106 20 101/74 96
10/15/24 07:19 10/15/24 08:00 10/15/24 07:19 10/15/24 07:19 10/15/24 07:19
Vital Signs
Temp Pulse Resp BP Pulse Ox
97.9 F 106 20 101/74 96
10/15/24 07:19 10/15/24 08:00 10/15/24 07:19 10/15/24 07:19 10/15/24 07:19
Intake & Output
10/13/24 10/14/24 10/15/24 10/16/24
06:59 06:59 06:59 06:59
Intake Total 764.0 / 792.0 64.8 / 64.8 480 / 480
Output Total 1140 / 1140 915 / 915 775 / 775
Balance -376.0 / -348.0 -850.2 / -850.2 -295 / -295
Physical Exam
Physical Exam
GEN: Frail elderly thin female sitting in chair
HEENT: supple, anicteric, mmm
LUNGS: CTA, no wheezes/rales
CV: Irregularly irregular, S1/S2, 2/6 murmur, no rub or gallop
Back: Significant kyphosis
ABD: soft, BS+, NT/ND
EXT: No edema, clubbing or cyanosis
NEURO: Gross non-focal
SKIN: No rash, warm, dry, pink
[2024-10-15] MEDS: LASIX 20 MG PO (11:45)
[2024-10-15] MEDS: PACERONE 200 MG PO (11:45)
--- NOTE | 2024-10-15 13:54 | CM ---
CM following for DC planning needs.
Reviewed PT evaluation, recommendation is for home health. Referral was made for [facility], accepted.
Plan is for home w/ [facility].
Will cont. to follow.
--- NOTE | 2024-10-15 15:13 | PN.CDI ---
CDI
- -
CDI:
Physician Documentation Request
Admit Date: 10/12/24 06:40
Dear Soco Medina,
Patient admitted with hypopharyngeal hematoma and laceration.
ENT was consulted and recommended keeping patient intubated overnight.
Customer Service Security Officer note states ' Acute respiratory failure, intubated for airway protection'
Please clarify the reason for intubation:
Airway protection
Acute respiratory failure
Other
Use of terms such as suspected, likely, concern for, or probable (associated with a specific diagnosis that is being evaluated, monitored, or treated as if it exists) are acceptable and can be coded in the inpatient setting, when documented at the
time of discharge.
Thank you,
Lila Centeno RN BSN
CDI Specialist
tiger text
Please use your independent medical judgment in providing your response.
--- NOTE | 2024-10-15 15:18 | PN.CDI ---
CDI
- -
CDI:
Physician Documentation Request
Admit Date: 10/12/24 06:40
Dear Doctor Soco Medina,
Patient admitted after unsuccessful attempt at passing STEPHANE probe and found to have evidence of hypopharyngeal hematoma and laceration.
H/H results:
Laboratory Tests
10/04/24 10/12/24 10/15/24
13:43 12:21 04:49
Hgb 11.0 L 8.9 L 8.7 L
Hct 34.0 L 27.7 L 27.2 L
Could you please provide a diagnosis that supports the above lab abnormalities and additional evaluation, monitoring:
Acute blood loss anemia
Anemia - other please specify
Abnormal lab value clinically insignificant
Other
Use of terms such as suspected, likely, concern for, or probable (associated with a specific diagnosis that is being evaluated, monitored, or treated as if it exists) are acceptable and can be coded in the inpatient setting, when documented at the
time of discharge.
Thank you,
Lila Centeno RN, BSN
CDI Specialist
tiger text
Please use your independent medical judgment in providing your response.
[2024-10-15] MEDS: TOPROL XL 12.5 MG PO (21:14)
[2024-10-15] MEDS: TYLENOL 650 MG PO (22:16)
[2024-10-16 04:37] VITALS: BMI 20.8
[2024-10-16 04:42] VITALS: BP 128/88
[2024-10-16 05:41] LABS: Hematocrit 30.8 % (37.0-47.0); Hemoglobin 9.9 g/dL (12.0-16.0); Mean Corp Hgb Conc. 32.1 g/dL (33.0-37.0); Mean Corpuscular Hgb 33.3 pg (27.0-31.0); Mean Corpuscular Volume 103.7 fL (81.0-99.0); Mean Platelet Volume 9.1 fL (7.4-10.4); Platelet Count 249 10^3/uL (130-400); Red Blood Cell Count 2.97 10^6/uL (4.20-5.40); Red Cell Dist. Width 17.2 % (11.5-14.5)
[2024-10-16 06:01] LABS: Blood Urea Nitrogen 31 mg/dl (7-17); Calcium 8.6 mg/dl (8.4-10.2); Carbon Dioxide 28 mmol/L (22-30); Chloride 108 mmol/L (98-107); Estimated Creatinine Clearance 36 ml/min; Glucose 86 mg/dl (70-99); Potassium 4.2 mmol/L (3.5-5.1); Sodium 141 mmol/L (135-145); eGFR > 60.00
[2024-10-16 07:49] VITALS: BP 107/65
[2024-10-16] MEDS: TOPROL XL 12.5 MG PO (08:09)
[2024-10-16] MEDS: RESTASIS 0.05% OPHTHALMIC EMULSION 1 DROPS OPHTH (08:10)
[2024-10-16] MEDS: PACERONE 200 MG PO (08:10)
[2024-10-16] MEDS: LASIX 20 MG PO (08:12)
--- NOTE | 2024-10-16 08:56 | W.PN.CARDCBS ---
Addendum entered and electronically signed by Soco Medina PA-C 10/19/24 16:42:
d/c summary # [id number]
Addendum entered and electronically signed by Mack Bradford DO 10/16/24 09:55:
I saw and examined the patient.
The Engineering And Development Director's note was reviewed and I agree with the note.
Comment:
Plan:
D/C meds including Lasix 40 mg daily, Toprol XL 12.5 mg daily.
She is at considerable bleeding risk and will will reeval for ASA vs antiocoagulation at close follow up visit.
HR and bp stable
Appreciate PT input, home with VN/PT
Outpt cardiac follow up arranged.
Discussed with nursing
Pt is very appreciative.
stable for d/c
Original Note:
Today's Communication / Plan
-
Increase Lasix to 40 mg daily
Increase Toprol to 12.5 mg twice daily
Will not discharge on aspirin or anticoagulation as she has very high risk for bleeding complications
Continue amiodarone 200 mg daily
CBC and basic metabolic panel in 1 week
Stable for discharge with VN, PT/OT
Outpatient cardiology follow-up has been arranged
Impression / Plan
-
PCP: Hanny Cerda
Senior C Web Developer: Dr. Mcgregor
Impression:
Admitted with hypopharyngeal hematoma and laceration prior to planned MitraClip 10/12/24
Recent admission for planned MVR/ TVR/MAZE/RHONA Clip that was cancelled due to CARLIE and spontaneous B/L UE hemorrhages 08/09/2024 until 08/20/24
Hypopharyngeal hematoma and laceration 10/12/24
Intubation 10/12/2024 for airway protection
Acute on chronic anemia
B/L UE hemorrhages requiring RUE evacuation and washout 08/16/24
Chronic Eliquis OAC
Eliquis held at time of UE hemorrhage and then restarted on 08/20/24
Date for last dose of Eliquis prior to admission was 10/10/24
Mitral valve prolapse with severe mitral regurgitation
Moderate tricuspid regurgitation
Persistent atrial fibrillation and typical atrial flutter
History of acute HFpEF, now compensated
Sjogren's syndrome
Chronic hyponatremia
History of SBO with bowel resection 2010
Lumbar spinal fusion with helen placement 1988 with revision 1997
OA
Non obstructive CAD
ECHO 08/2022: EF 55-60%, bileaflet MVP, mild MR, mild TR, trivial pericardial effusion
STEPHANE 07/15/24: EF 65%, Bileaflet mitral valve prolapse with severe mitral regurgitation, moderate TR
LHC 07/16/2024: No obstructive CAD; mildly elevated right and left-sided filling pressures with reduced cardiac output in the setting of slightly elevated SVR
Plan:
-Presented for planned MitraClip 10/12/2024, but after unsuccessful attempt at passing STEPHANE probe, anesthesia placed [place] Scope and noted blood in oropharynx. ENT evaluated patient and there was evidence of hypopharyngeal hematoma and laceration.
-ENT evaluated patient and there was evidence of hypopharyngeal hematoma and laceration. Recommended to resume to normal diet. Patient able to tolerate soft diet 10/14/24 and then advance diet.
-Esophagram 10/13 without evidence of hypopharyngeal or esophageal perforation.
-Patient had been holding Eliquis in preparation for procedure w/ last dose 10/10. Will not resume at this time and reassess as an outpatient
-Previously had admission 07/2024 and had spontaneous hemorrhage of b/l upper extremities and was seen by vascular surgery and had RUE washout and drain placed 08/16/24. Followed up with heme/onc and labs have not suggested inherited bleeding
disorder. Heme seeing again this admission, however workup has remained unremarkable.
-Slight drop in hemoglobin from 9.9 on 10/13 to 8.7 on 10/15, hemoglobin improved to 9.9 on 10/16. Likely acute on chronic from possible mild blood loss from hematoma.
-Evaluation by ENT appreciated.
-Appreciate nutrition consultation who recommended regular diet
Persistent atrial fibrillation flutter.
-Remains atrial flutter with reasonable rate control on review of telemetry.
-Continue amiodarone 200 mg daily.
- BP improved back to baseline. Will increase Toprol to 12.5 mg BID. Patient previously was on 25 mg twice a day. Can be reassessed as outpatient if dose needs to be increased
-Will not resume anticoagulation at this time as patient is at very high risk for recurrent bleeding given hypopharyngeal hematoma with laceration as well as spontaneous hemorrhage previously in lower extremities. Can be reassessed as an outpatient
about resuming aspirin and/or anticoagulation.
Valvular heart disease with severe mitral regurgitation/bileaflet mitral valve prolapse
-Appears euvolemic and blood pressure improved. Will increase Lasix to 40 mg daily at discharge. (was taking 40 mg BID as outpt)
-Continue to adhere to low-sodium diet and 48 ounces of fluid restriction
-Continue medical therapy. She is not a surgical candidate. No plans to reattempt MitraClip following complications
Appreciate PT/OT who recommended patient go home with [facility] and, PT OT
Patient stable for discharge. Patient's nephew will be assisting her at home.
Progress Note - Senior C Web Developer
Subjective
Date of Service: October 16, 2024
Patient seen and examined. Patient resting comfortably in chair. Patient has been able to ambulate around the unit and work with PT/OT and is doing well.
Objective
Labs:
10/16/24 04:58
10/16/24 04:58
Labs
Hgb 9.9 g/dL (12.0-16.0) L 10/16/24 04:58
Hct 30.8 % (37.0-47.0) L 10/16/24 04:58
Plt Count 249 10^3/uL (130-400) 10/16/24 04:58
PT 15.0 Sec (11.4-14.6) H 10/12/24 12:28
INR 1.12 10/12/24 12:28
APTT 39.9 Sec (23.4-35.0) H 10/12/24 12:28
Sodium 141 mmol/L (135-145) 10/16/24 04:58
Potassium 4.2 mmol/L (3.5-5.1) 10/16/24 04:58
BUN 31 mg/dl (7-17) H 10/16/24 04:58
Creatinine 0.9 mg/dL (0.6-1.0) 10/16/24 04:58
Glucose 86 mg/dl (70-99) 10/16/24 04:58
Vital Signs and I&O:
Vital Signs
Temp Pulse Resp BP Pulse Ox
97.7 F 83 18 128/88 98
10/16/24 04:37 10/16/24 05:00 10/16/24 04:37 10/16/24 04:42 10/16/24 04:37
Vital Signs
Temp Pulse Resp BP Pulse Ox
97.7 F 83 18 128/88 98
10/16/24 04:37 10/16/24 05:00 10/16/24 04:37 10/16/24 04:42 10/16/24 04:37
Intake & Output
10/14/24 10/15/24 10/16/24 10/17/24
06:59 06:59 06:59 06:59
Intake Total 64.8 / 64.8 480 / 480 150 / 150
Output Total 915 / 915 775 / 775 200 / 200
Balance -850.2 / -850.2 -295 / -295 -50 / -50
Physical Exam
Physical Exam
GEN: Frail elderly thin female sitting in chair
HEENT: supple, anicteric, mmm
LUNGS: CTA, no wheezes/rales
CV: Irregularly irregular, S1/S2, 2/6 murmur loudest apex, no rub or gallop
Back: Significant kyphosis
ABD: soft, BS+, NT/ND
EXT: No edema, clubbing or cyanosis
NEURO: Gross non-focal
SKIN: No rash, warm, dry, pink, areas of ecchymosis on arms and legs
--- NOTE | 2024-10-16 09:45 | W.DS.TRANS ---
DC Summary - Food Beverage Server
-
Discharge Instructions:
Sleep Apnea Risk Low
Discharge Diagnosis/Procedures hypopharyngeal hematoma, severe mitral
regurgitation, persistent atrial fibrillation
Diet Low Fat,Low Cholesterol,2 Gram Sodium,Restrict
fluids to 48 oz
Additional Diets No hard or sharp foods for next 72 hours
Activity As tolerated
Driving Restrictions No driving for 1 week
Bathing Restrictions OK to Shower
Blood Work CBC and BMP in 1 week, order given
Specialty Instructions Weigh Daily
Instructions:
Stand-Alone Forms:
Changes to Home Medications: Yes
Discharge Medications:
DC Medications w/original date entered in [facility]
cholecalciferol (vitamin D3) 25 mcg (1,000 unit) tablet (Vitamin D3) 50 mcg PO DAILY Supplement 07/12/24
cyclosporine 0.05 % eye drops in a dropperette (Restasis) 1 drp BOTH EYES Q12 Eye Condition 07/12/24
polyethylene glycol 3350 17 gram oral powder packet (Miralax) 17 g PO DAILY Constipation 07/12/24
therapeutic multivitamin 1 tab PO DAILY Supplement 07/12/24
denosumab 60 mg/mL subcutaneous syringe (Prolia) 60 mg SC [id number] Cancer 07/29/24
potassium chloride 10 mEq tablet,extended release(part/cryst) 10 meq PO DAILY Supplement 08/11/24
amiodarone 200 mg tablet 200 mg PO DAILY Arrhythmia 10/12/24
furosemide 40 mg tablet 40 mg PO DAILY #1 tab 10/16/24
metoprolol succinate 25 mg tablet,extended release 24 hr 12.5 mg (1/2 x 25 mg) PO BID #90 tabs 10/16/24
Home Medication Changes
Reduce Toprol to 12.5 mg twice a day
Reduce Lasix to 40 mg once a day
STOP ELIQUIS and ASA until you are seen in outpatient cardiology office and are reassessed
Pending Results: No
Total time spent discharging patient (in min): 40
[2024-10-16 14:10] VITALS: BP 137/103
== END 2024-10-16 15:22 | disposition home or self-care (01) | DRG 920 ==
LOC: IVU 06:40
PROVIDERS: Nurse Practitioner; Physician Assistant; Physician Assistant Medical; ADMITTING PHYSICIAN Internal Medicine Interventional Cardiology; CONSULT PHYSICIAN Internal Medicine; CONSULT PHYSICIAN Internal Medicine Hematology & Oncology; CONSULT PHYSICIAN Otolaryngology
PROC: 5A1935Z Respiratory Ventilation, Less than 24 Consecutive Hours (ICD-10-PCS; 2024-10-12)
PROC: 0BH17EZ Insertion of Endotracheal Airway into Trachea, Via Natural or Artificial Opening (ICD-10-PCS; 2024-10-12)
DX: J95.861 Postprocedural hematoma of a respiratory system organ or structure following other procedure (principal); D68.9 Coagulation defect, unspecified; I48.19 Other persistent atrial fibrillation; I50.32 Chronic diastolic (congestive) heart failure; N17.9 Acute kidney failure, unspecified; D69.1 Qualitative platelet defects; Z79.01 Long term (current) use of anticoagulants; M35.00 Sjogren syndrome, unspecified; M41.9 Scoliosis, unspecified; I34.1 Nonrheumatic mitral (valve) prolapse; I34.0 Nonrheumatic mitral (valve) insufficiency; Z79.82 Long term (current) use of aspirin; Z79.899 Other long term (current) drug therapy; Z82.3 Family history of stroke; Z53.8 Procedure and treatment not carried out for other reasons; Y83.8 Other surgical procedures as the cause of abnormal reaction of the patient, or of later complication, without mention of misadventure at the time of the procedure
CPT/HCPCS: 36415; 71045; 71046; 74220; 80048; 80053; 81003; 81015; 82248; 82330; 82805; 83036; 83735; 83880; 84132; 84302; 84478; 85014; 85018; 85025; 85027; 85049; 85610; 85730; 86850; 86900; 86901; 86920; 87070; 87086; 93005; 93312; 94002; 94003; 97163; 97167; C1760; C1894

== ENCOUNTER → 2024-10-23 10:48 | Outpatient (REF) | payer MEDICARE, OTHER, SELFPAY ==
[2024-10-23 11:32] LABS: Hematocrit 33.6 % (37.0-47.0); Hemoglobin 10.7 g/dL (12.0-16.0); Mean Corp Hgb Conc. 31.8 g/dL (33.0-37.0); Mean Corpuscular Hgb 32.9 pg (27.0-31.0); Mean Corpuscular Volume 103.4 fL (81.0-99.0); Mean Platelet Volume 9.3 fL (7.4-10.4); Platelet Count 333 10^3/uL (130-400); Red Blood Cell Count 3.25 10^6/uL (4.20-5.40); Red Cell Dist. Width 16.7 % (11.5-14.5); White Blood Cell Count 5.9 10^3/uL (4.8-10.8)
[2024-10-23 12:21] LABS: Blood Urea Nitrogen 45 mg/dl (7-17); Calcium 9.4 mg/dl (8.4-10.2); Carbon Dioxide 33 mmol/L (22-30); Chloride 99 mmol/L (98-107); Glucose 77 mg/dl (70-99); Potassium 4.7 mmol/L (3.5-5.1); Sodium 135 mmol/L (135-145); eGFR 57.66
== END ==
LOC: REG 10:48
PROVIDERS: ATTENDING PHYSICIAN Internal Medicine Interventional Cardiology; FAMILY PHYSICIAN Internal Medicine
DX: D64.9 Anemia, unspecified (principal); I50.32 Chronic diastolic (congestive) heart failure
CPT/HCPCS: 36415; 80048; 85027

== ENCOUNTER → 2024-11-03 16:20 | Outpatient (REF) | payer MEDICARE, OTHER, SELFPAY ==
[2024-11-03 18:09] LABS: Blood Urea Nitrogen 61 mg/dl (7-17); Calcium 9.2 mg/dl (8.4-10.2); Carbon Dioxide 33 mmol/L (22-30); Chloride 96 mmol/L (98-107); Glucose 151 mg/dl (70-99); Potassium 4.3 mmol/L (3.5-5.1); Sodium 137 mmol/L (135-145); eGFR 46.33
== END ==
LOC: REG 16:20
PROVIDERS: ATTENDING PHYSICIAN Nurse Practitioner; FAMILY PHYSICIAN Internal Medicine; REFERRING PHYSICIAN Internal Medicine Interventional Cardiology
DX: R60.9 Edema, unspecified (principal)
CPT/HCPCS: 36415; 80048

== ENCOUNTER → 2024-11-17 13:39 | Outpatient (REF) | payer MEDICARE, OTHER, SELFPAY | LOC: RCS 13:39 | PROVIDERS: ATTENDING PHYSICIAN Internal Medicine Cardiovascular Disease; FAMILY PHYSICIAN Internal Medicine | DX: I48.19 Other persistent atrial fibrillation (principal) | CPT/HCPCS: 93225; 93226 ==

== ENCOUNTER → 2024-11-25 15:34 | Outpatient (REF) | payer MEDICARE, OTHER, SELFPAY ==
[2024-11-25 16:36] LABS: Hematocrit 34.9 % (37.0-47.0); Hemoglobin 11.4 g/dL (12.0-16.0); Mean Corp Hgb Conc. 32.7 g/dL (33.0-37.0); Mean Corpuscular Volume 96.7 fL (81.0-99.0); Nucleated Red Blood Cells % 0 %; Platelet Count 234 10^3/uL (130-400); Red Cell Dist. Width 14.3 % (11.5-14.5)
[2024-11-25 16:56] LABS: ALT (SGPT) 24 U/L (0-35); AST (SGOT) 33 U/L (14-36); Albumin 4.2 g/dl (3.5-5.0); Alkaline Phosphatase 57 U/L (38-126); Blood Urea Nitrogen 32 mg/dl (7-17); Calcium 9.1 mg/dl (8.4-10.2); Carbon Dioxide 27 mmol/L (22-30); Chloride 100 mmol/L (98-107); Glucose 125 mg/dl (70-99); Potassium 4.3 mmol/L (3.5-5.1); Sodium 133 mmol/L (135-145); Total Protein 6.4 g/dl (6.3-8.2); eGFR 57.66
== END ==
LOC: REG 15:34
PROVIDERS: ATTENDING PHYSICIAN Internal Medicine Cardiovascular Disease; FAMILY PHYSICIAN Internal Medicine
DX: D64.9 Anemia, unspecified (principal); M41.9 Scoliosis, unspecified; I48.19 Other persistent atrial fibrillation; N17.9 Acute kidney failure, unspecified
CPT/HCPCS: 36415; 80053; 84439; 84443; 85025

== ENCOUNTER → 2024-12-06 16:14 | Outpatient (REF) | payer MEDICARE, OTHER, SELFPAY ==
[2024-12-06 17:11] LABS: Albumin 4.4 g/dl (3.5-5.0); Blood Urea Nitrogen 40 mg/dl (7-17); Calcium 9.6 mg/dl (8.4-10.2); Carbon Dioxide 27 mmol/L (22-30); Chloride 99 mmol/L (98-107); Glucose 119 mg/dl (70-99); Potassium 4.1 mmol/L (3.5-5.1); Sodium 133 mmol/L (135-145); eGFR 57.66
== END ==
LOC: REG 16:14
PROVIDERS: ATTENDING PHYSICIAN Internal Medicine Cardiovascular Disease; FAMILY PHYSICIAN Internal Medicine; REFERRING PHYSICIAN Specialist
DX: R60.9 Edema, unspecified (principal); I50.32 Chronic diastolic (congestive) heart failure
CPT/HCPCS: 36415; 80069

== ENCOUNTER → 2024-12-23 14:05 | Outpatient (REF) | payer MEDICARE, OTHER, SELFPAY ==
[2024-12-23 15:32] LABS: Blood Urea Nitrogen 37 mg/dl (7-17); Calcium 9.6 mg/dl (8.4-10.2); Carbon Dioxide 30 mmol/L (22-30); Chloride 98 mmol/L (98-107); Glucose 81 mg/dl (70-99); Potassium 4.3 mmol/L (3.5-5.1); Sodium 135 mmol/L (135-145); eGFR 57.66
== END ==
LOC: REG 14:05
PROVIDERS: ATTENDING PHYSICIAN Nurse Practitioner; OTHER PHYSICIAN Internal Medicine; OTHER PHYSICIAN Specialist
DX: I48.21 Permanent atrial fibrillation (principal); I34.0 Nonrheumatic mitral (valve) insufficiency; E87.1 Hypo-osmolality and hyponatremia; E03.8 Other specified hypothyroidism
CPT/HCPCS: 36415; 80048; 83935; 84439; 84443

== ENCOUNTER → 2025-03-18 16:47 | Outpatient (REF) | payer MEDICARE, OTHER, SELFPAY ==
[2025-03-18 17:31] LABS: Hematocrit 38.9 % (37.0-47.0); Hemoglobin 12.4 g/dL (12.0-16.0); Mean Corp Hgb Conc. 31.9 g/dL (33.0-37.0); Mean Corpuscular Volume 95.3 fL (81.0-99.0); Nucleated Red Blood Cells % 0 %; Platelet Count 276 10^3/uL (130-400); Red Cell Dist. Width 15.8 % (11.5-14.5)
[2025-03-18 17:48] LABS: Albumin 4.6 g/dl (3.5-5.0); Blood Urea Nitrogen 47 mg/dl (7-17); Calcium 9.3 mg/dl (8.4-10.2); Carbon Dioxide 32 mmol/L (22-30); Chloride 92 mmol/L (98-107); Glucose 92 mg/dl (70-99); Potassium 3.9 mmol/L (3.5-5.1); Sodium 131 mmol/L (135-145); eGFR > 60.00
== END ==
LOC: REG 16:47
PROVIDERS: ATTENDING PHYSICIAN Internal Medicine Cardiovascular Disease; FAMILY PHYSICIAN Internal Medicine
DX: E03.8 Other specified hypothyroidism (principal); Z23 Encounter for immunization; I48.91 Unspecified atrial fibrillation; I34.0 Nonrheumatic mitral (valve) insufficiency; M35.00 Sjogren syndrome, unspecified; D64.9 Anemia, unspecified; R60.9 Edema, unspecified; I50.32 Chronic diastolic (congestive) heart failure
CPT/HCPCS: 36415; 80069; 83880; 84439; 84443; 85025

== ENCOUNTER → 2025-04-01 16:30 | Outpatient (REF) | payer MEDICARE, OTHER, SELFPAY ==
[2025-04-01 18:02] LABS: Blood Urea Nitrogen 45 mg/dl (7-17); Calcium 9.2 mg/dl (8.4-10.2); Carbon Dioxide 32 mmol/L (22-30); Chloride 92 mmol/L (98-107); Glucose 82 mg/dl (70-99); Magnesium 2.4 mg/dl (1.6-2.3); Potassium 4.6 mmol/L (3.5-5.1); Sodium 129 mmol/L (135-145); eGFR > 60.00
== END ==
LOC: REG 16:30
PROVIDERS: ATTENDING PHYSICIAN Internal Medicine Cardiovascular Disease; FAMILY PHYSICIAN Internal Medicine; REFERRING PHYSICIAN Internal Medicine Rheumatology
DX: N17.9 Acute kidney failure, unspecified (principal); I50.31 Acute diastolic (congestive) heart failure; I50.32 Chronic diastolic (congestive) heart failure; R60.9 Edema, unspecified
CPT/HCPCS: 36415; 80048; 83735

== ENCOUNTER → 2025-04-08 15:12 | Outpatient (REF) | payer MEDICARE, OTHER, SELFPAY ==
[2025-04-08 16:40] LABS: Albumin 4.6 g/dl (3.5-5.0); Blood Urea Nitrogen 39 mg/dl (7-17); Calcium 9.3 mg/dl (8.4-10.2); Carbon Dioxide 30 mmol/L (22-30); Chloride 92 mmol/L (98-107); Glucose 87 mg/dl (70-99); Potassium 4.4 mmol/L (3.5-5.1); Sodium 129 mmol/L (135-145); eGFR > 60.00
== END ==
LOC: REG 15:12
PROVIDERS: ATTENDING PHYSICIAN Internal Medicine Cardiovascular Disease; FAMILY PHYSICIAN Internal Medicine
DX: R60.9 Edema, unspecified (principal); I50.32 Chronic diastolic (congestive) heart failure
CPT/HCPCS: 36415; 80069

== ENCOUNTER → 2025-04-22 13:37 | Outpatient (REF) | payer MEDICARE, OTHER, SELFPAY ==
[2025-04-22 15:17] LABS: Blood Urea Nitrogen 43 mg/dl (7-17); Calcium 9.1 mg/dl (8.4-10.2); Carbon Dioxide 33 mmol/L (22-30); Chloride 96 mmol/L (98-107); Glucose 72 mg/dl (70-99); Potassium 4.6 mmol/L (3.5-5.1); Sodium 131 mmol/L (135-145); eGFR > 60.00
== END ==
LOC: REG 13:37
PROVIDERS: ATTENDING PHYSICIAN Specialist; FAMILY PHYSICIAN Internal Medicine
DX: E87.1 Hypo-osmolality and hyponatremia (principal); M35.00 Sjogren syndrome, unspecified
CPT/HCPCS: 36415; 80048

== ENCOUNTER → 2025-04-26 12:32 | Outpatient (REF) | payer MEDICARE, OTHER, SELFPAY | LOC: RAD 12:32 | PROVIDERS: ATTENDING PHYSICIAN Internal Medicine | DX: Z78.0 Asymptomatic menopausal state (principal) | CPT/HCPCS: 77080 ==

== ENCOUNTER → 2025-05-03 13:06 | Outpatient (REF) | payer MEDICARE, OTHER, SELFPAY | LOC: REG 13:06 | PROVIDERS: ATTENDING PHYSICIAN Internal Medicine Gastroenterology | DX: R19.7 Diarrhea, unspecified (principal) | CPT/HCPCS: 87324; 87449 ==

== ENCOUNTER → 2025-05-12 14:01 | Outpatient (REF) | payer MEDICARE, OTHER, SELFPAY ==
[2025-05-12 16:00] LABS: Albumin 3.9 g/dl (3.5-5.0); Blood Urea Nitrogen 45 mg/dl (7-17); Calcium 9.3 mg/dl (8.4-10.2); Carbon Dioxide 35 mmol/L (22-30); Chloride 97 mmol/L (98-107); Glucose 82 mg/dl (70-99); Potassium 3.8 mmol/L (3.5-5.1); Sodium 139 mmol/L (135-145); eGFR > 60.00
== END ==
LOC: REG 14:01
PROVIDERS: ATTENDING PHYSICIAN Internal Medicine Cardiovascular Disease; FAMILY PHYSICIAN Internal Medicine
DX: I34.0 Nonrheumatic mitral (valve) insufficiency (principal); I50.9 Heart failure, unspecified
CPT/HCPCS: 36415; 80069; 83880